=== PATIENT | male | born 1945 | race Caucasian/White ===

== ENCOUNTER 2018-09-17 16:45 | Emergency (ER) | payer OTHER ==
[2018-09-17 16:54] VITALS: BP 138/74; PULSE 71; TEMP 98.4; BMI 33.6
--- NOTE | 2018-09-17 16:56 | PDOC ---
Rapid Medical Evaluation Medical Evaluation: Allergies Allergy/AdvReac Type Severity Reaction Status Date / Time Algisite Allergy Uncoded 09/17/18 16:49 09/17/18 16:50 Pt presents to the ED for a wound to the L foot that is now infected. PMHx of NIDDM. Follows with Dr. Forde Exam: ambulatory, NAD Orders: Labs, IV Pt to proceed to the ED for further evaluation Discharge Disposition - Diagnosis Wound infection - Referrals - Patient Instructions - Post Discharge Activity
--- NOTE | 2018-09-17 17:27 | PDOC ---
History of Present Illness - General Chief Complaint: Pain Stated Complaint: PAIN IN THE RIGHT MUDDLE FINGER Time Seen by Provider: 09/17/18 16:56 History Source: Patient Exam Limitations: No Limitations - History of Present Illness Initial Comments: 09/17/18 17:22 States had a hangnail last week to right third digit that was excised but since that time has developed an infection to the fingertip. Has been soaking but infection is spread. 09/17/18 17:22 Occurred: reports: last week Severity: reports: mild, moderate Pain Location: reports: upper extremity Modifying Factors: improves with: None Loss of Consciousness: no loss of consciousness Associated Symptoms (Fall): denies symptoms Past History - Travel Traveled outside of the country in the last 30 days: No Close contact w/someone who was outside of country & ill: No - Past Medical History Allergies/Adverse Reactions: Allergies Allergy/AdvReac Type Severity Reaction Status Date / Time Algisite Allergy Uncoded 09/17/18 16:49 Home Medications: Ambulatory Orders Aspirin [ASA -] 81 mg PO DAILY #0 tab.chew 04/27/13 Carvedilol [Coreg] 6.25 mg PO BID #0 tablet 04/27/13 Losartan Potassium [Cozaar -] 25 mg PO DAILY #0 tablet 04/27/13 Multivitamin [Multivitamins] 1 each PO DAILY #0 capsule 04/27/13 Potassium Chloride [K-Dur -] 10 meq PO BID #0 tablet.er 04/27/13 Sitagliptin Phos/Metformin HCl [Janumet 50-1,000 mg Tablet] 1 tab PO DAILY 09/16 Fenofibrate [Fenoglide] 1 cap PO DAILY 03/24/14 Testosterone [Axiron] 30 mg TD HS 03/30/15 Atorvastatin Ca [Lipitor] 10 mg PO DAILY 09/07/15 Fluticasone Prop 0.05% Nasal [Flonase -] 1 mg IH DAILY 09/07/15 metFORMIN HCL [Metformin ER Osmotic] 1,000 mg PO HS 09/07/15 Furosemide [Lasix -] 40 mg PO DAILY 09/20/15 Omeprazole [Prilosec] 40 mg PO DAILY 09/20/15 Oxybutynin Chloride [Ditropan Xl] 10 mg PO DAILY 09/20/15 Cadexomer Iodine [Iodosorb] 10 gm TP DAILY #10 gel..gram. 03/13/18 Meloxicam 15 mg PO DAILY 04/10/18 Sulfamethoxazole/Trimethoprim [Bactrim *Ds*] 1 each PO BID #14 tablet 09/17/18 Anemia: Yes Asthma: No Cancer: No Cardiac Disorders: Yes (PACEMAKER DEFIBULATOR - STENTS - [place] 2010) CVA: No COPD: No CHF: No Dementia: No Diabetes: Yes (Type 2) GI Disorders: Yes (TUBULAR ADENOMA POLYP) Disorders: Yes (BPH,KIDNEY STONES) HTN: Yes Hypercholesterolemia: Yes Liver Disease: No Seizures: No Thyroid Disease: No - Surgical History Abdominal Surgery: No Appendectomy: No Cardiac Surgery: No Cholecystectomy: No Lung Surgery: Yes (THORACOTOMY-FLUID REMOVED) Neurologic Surgery: No Orthopedic Surgery: No - Suicide/Smoking/Psychosocial Hx Smoking Status: No Smoking History: Former smoker Have you smoked in the past 12 months: No Number of Cigarettes Smoked Daily: 0 If you are a former smoker, when did you quit?: stopped 1979 Information on smoking cessation initiated: No Hx Alcohol Use: No Drug/Substance Use Hx: No Substance Use Type: None Hx Substance Use Treatment: No Review of Systems - Review of Systems Able to Perform ROS?: Yes Is the patient limited Malay proficient: Yes Constitutional: Yes: Symptoms Reported, See HPI, Malaise. No: Fever HEENTM: No: Symptoms Reported Respiratory: No: Symptoms reported Musculoskeletal: Yes: Symptoms Reported, See HPI Integumentary: Yes: Symptoms Reported, See HPI, Erythema Neurological: No: Symptoms reported All Other Systems: Reviewed and Negative *Physical Exam - Vital Signs Last Vital Signs Temp Pulse Resp BP Pulse Ox 98.4 F 71 19 138/74 98 09/17/18 16:50 09/17/18 16:50 09/17/18 16:50 09/17/18 16:50 09/17/18 16:50 - Physical Exam General Appearance: Yes: Nourished, Appropriately Dressed, Apparent Distress, Mild Distress HEENT: positive: BERNARD, Normal ENT Inspection, TMs Normal, Pharynx Normal Musculoskeletal: positive: Normal Inspection. negative: Decreased Range of Motion Extremity: positive: Normal Capillary Refill, Normal Range of Motion (FROM to finger with fluctuant paronychia to radial aspect of 3rd digit. ). negative: Normal Inspection Neurologic: positive: plate sensitizer II-XII NML intact, Fully Oriented, Alert, Normal Mood/ Affect, Normal Response, Motor Strength 5/5 Moderate Sedation - Procedure Monitoring Vital Signs: Procedure Monitoring Vital Signs Temperature 98.4 F 09/17/18 16:50 Pulse Rate 71 09/17/18 16:50 Respiratory Rate 09/17/18 16:50 Blood Pressure 138/74 09/17/18 16:50 O2 Sat by Pulse Oximetry (%) 98 09/17/18 16:50 Procedures - Incision and Drainage I&D Site: Right: Paronychia (3rd digit) Betadine cleansed: Yes Blade Size: 11 Dressing: Yes Progress Note - Progress Note Progress Note: Paronychia incised and drained, started on Bactrim *DC/Admit/Observation/Transfer Diagnosis at time of Disposition: Wound infection - Discharge Dispostion Disposition: HOME Condition at time of disposition: Stable Decision to Admit order: No - Referrals - Patient Instructions Printed Discharge Instructions: DI for Paronychia Additional Instructions: Rest, keep hand elevated Avoid heavy lifting or strenuous activity until healed Soak finger every 2-3 hours while awake for the next 2-3 days to keep continue to allow drainage Reapply bacitracin ointment and bulky dressing after each soaking May use ibuprofen or Tylenol for pain relief Bactrim 1 tab every 12 hours for 7 days Followup with private physician in one to 2 days for wound check as needed Return immediately to emergency department or private doctor's for worsening redness, swelling, pain, streaking Take all of antibiotics until completed - Post Discharge Activity
[2018-09-17] MEDS ORDERED: SULFAMETHOXAZOLE/TRIMETHOPRIM 800MG/160MG D.S. TABLET PO ONE (17:28)
[2018-09-17] MEDS ORDERED: SULFAMETHOXAZOLE/TRIMETHOPRIM 800MG/160MG D.S. TABLET ONE ×2 (17:38→17:43)
[2018-09-17] MEDS ORDERED: BACITRACIN 15 GM TUBE TOPICAL OINTMENT ONE (17:43)
== END 2018-09-17 18:42 | disposition home or self-care (01) ==
LOC: JERFT 16:45
PROC: 0J9K0ZZ Drainage of Left Hand Subcutaneous Tissue and Fascia, Open Approach (ICD-10-PCS; principal; 2018-09-17)
DX: L03.011 Cellulitis of right finger (principal)
CPT/HCPCS: 10060; 87070; 87186; 87205; 99282-25; G0463-25

== ENCOUNTER 2019-01-05 20:43 | Inpatient (IN) | payer OTHER ==
[2019-01-05] MEDS ORDERED: LACTATED RINGERS SOLUTION 1000 ML INFUS.BAG IV ONE ×2 (21:49→22:08)
[2019-01-05 21:55] LABS: BASO % 0.7 % (0-2.0); EOS % 1.9 % (0-4.5); HEMOGLOBIN 14.1 GM/dL (11.7-16.9); LYMPH % 10.9 % (8-40); MCH 29.4 pg (25.7-33.7); MCHC 32.8 g/dl (32.0-35.9); MEAN CELL VOLUME 89.6 fl (80-96); MEAN PLT VOLUME 8.6 fl (7.5-11.1); MONO % 12.6 % (3.8-10.2); NEUT % 73.9 % (42.8-82.8); PLATELET COUNT 106 K/MM3 (134-434); RDW 14.8 % (11.9-15.9); WHITE BLOOD COUNT 4.2 K/mm3 (4.0-10.0)
[2019-01-05] MEDS ORDERED: ACETAMINOPHEN 1000 MG/100 ML VIAL (NON FORMULARY) IVPB ONE (22:20)
[2019-01-05 22:22] LABS: VENOUS PC02 45.3 mmHg (41-51); VENOUS PH 7.43 (7.31-7.41)
[2019-01-05 22:24] LABS: VENOUS PO2 29.8 mmHg (30-40)
[2019-01-05 22:33] LABS: INR 1.19 (0.83-1.09); PROTHROMBIN TIME (PATIENT) 14.1 SEC (9.7-13.0)
[2019-01-05 22:36] LABS: ACTIVATED PTT 31.9 SECONDS (25.2-36.5)
[2019-01-05 22:37] LABS: ALK PHOS 95 U/L (45-117); ANION GAP 8 MMOL/L (8-16); BILIRUBIN,TOTAL 0.8 mg/dL (0.2-1); BLOOD UREA NITROGEN 22 mg/dL (7-18); CALCIUM 8.2 mg/dL (8.5-10.1); CHLORIDE 103 mmol/L (98-107); CO2 30 mmol/L (21-32); GLUCOSE,RANDOM 106 mg/dL (74-106); POTASSIUM 4.2 mmol/L (3.5-5.1); SGOT/AST 31 U/L (15-37); SGPT/ALT 17 U/L (13-61); SODIUM 141 mmol/L (136-145); TOT PROT 6.3 g/dl (6.4-8.2)
[2019-01-05] MEDS ORDERED: CEFEPIME 2 GM in DEXTROSE 5%-WATER 100 ML IVPB ONE (22:48)
--- NOTE | 2019-01-05 22:52 | PDOC ---
History of Present Illness - General Chief Complaint: Injury Stated Complaint: FALL Time Seen by Provider: 01/05/19 21:02 History Source: Patient, Family (Daughter contacted via telephone.) Exam Limitations: No Limitations - History of Present Illness Initial Comments: HPI: 73 y/o male BIBEMS to [facility] ER complaining of fall at home after feeling dizzy. Pt states he fell to the floor after his legs gave out because he felt dizzy after taking Codeine cough syrup. Per EMS report, the pt is actually taking multiple unknown cough medications. Pt endorses wet sounding cough and worsening shortness of breath for the past three days. States he has felt dizzy for nineteen thousand years but that it has become worse because of medication interactions with his diabetic cough syrup. Denies LOC, anterograde or retrograde amnesia. Endorses pain along the left side of his head, left side of his arm, and both legs. When asked the clarify, the pt is unable to detail whether the pain is new or always present. 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 Daughter reports pt has been feeling dizzy for two months. States he does not have a h/o of CHF, COPD, or other lung problems. States he lives along and is not . Has a home health aide that comes a few times a week. Is not sure of the identify of the female interviewed by EMS at the scene. PCP: Dr. Champion [employer] Glazer: Dr. Kathleen Medical Hx: - Diabetes - Defibrillator, unknown reason - SIDDHARTH on CPAP at night. - Poorly healing diabetic foot wounds bilaterally Review of Systems: In addition to that documented in the HPI above, the additional ROS was obtained : Constitutional: Denies fevers or chills Head: Denies vision changes ENMT: Denies sore throat CV: Denies chest pain Resp: Per HPI GI: Denies vomiting or diarrhea : Denies painful urination or hematuria MSK: Denies recent trauma Skin: Denies new rashes Neuro: Denies new numbness or tingling or weakness Endocrine: Denies polyuria Heme: Denies bruising Physical Examination: Constitutional: Adult male in no acute distress or obvious discomfort. Found semi-fowlers on hospital bed. Alert and oriented x4. Speech was non-labored, non -pressured. Head: Normocephalic. No obvious external signs of trauma. No periorbital ecchymosis or Battles sign. Eyes: Pupils 3mm and PERRL bilaterally. EOMI. Sclerae white. Conjunctiva moist and not injected. Ears: Hearing aids in place bilaterally. Hearing grossly intact. No hemotympanum. Nose: No nasal discharge. Throat: Oral cavity and pharynx normal. No inflammation, swelling, exudate, or lesions. Teeth and gingiva in good general condition. Neck: Supple, trachea is midline. Pt able to laterally rotate neck to left and right >45 degrees. No subjective C-spine tenderness or bony deformities. No step off. Cardiovascular / Chest: Regular rate and regular rhythm. No murmur, rubs, clicks , or gallops. Peripheral pulses: radial pulses full. Respiratory: Occasional wet sounding cough. Breathing mildly tachypneic. Equal chest rise and fall. Decreased breath sounds throughout bilateral lower faust. No stridor, no wheezing, no rhonchi. Gastrointestinal/ ABD: abdomen is soft, non-tender, non-distended. Pelvis stable without pain. Neuro: Alert and oriented. Moving all four extremities spontaneously. No nuchal rigidity. Skin: Warm and dry. No bruising, rashes, or other lesions. [place] wrap bandages in place on both lower extremities. Small amount of blood noted on posterior aspect of lower left leg bandage; taken down and revealed 10cm x 5cm wounds with devitalized tissue and surrounding area of erythema and warmth. Psych: Affect: appropriate. Mood: normal. MDM: *Reviewed vital signs, nursing notes, and prior visit documentation (if available). National Early Warning Score (NEWS) 2 RESULT SUMMARY: 6 points National Early Warning Score Medium risk INPUTS: Respiratory rate, breaths per minute > 2 = 21-24 Hypercapnic respiratory failure > 0 = No SpO? > 3 = ?91% Room air or supplemental O? > 0 = Room air Temperature > 1 = 38.1-39.0C (100.5-102.2F) Systolic BP, mmHg > 0 = 111-219 Pulse, beats per minute > 0 = 51-90 Consciousness > 0 = Alert 73 y/o male presenting after fall from dizziness. Febrile rectally. Hypoxic on room air, which improved with 2LPM of oxygen via nasal cannula. Vitals unremarkable for hypotension or tachycardia. Physical exam as described above. Suspect acutely worsening of dizziness is likely from codeine and/or other unknown cough medications (possible). Ordered head CT given unclear, unwitnessed fall and dizziness. Will evaluate for occult trauma. Concern for possible acutely worsening diabetic foot wound with surrounding cellulitis. Also concern for pneumonia. NEWS2 Score of 6. Ordered ED septic workup. Ordered Vancomycin and Cefepime for broad spectrum antibiotics. CBC unremarkable for leukocytosis or anemia. CMP unremarkable for significant electrolyte derangement. Lactic acid not elevated. CXR unremarkable for blunting of costophrenic angle or focal consolidation per ED. Radiology report pending. Low suspicion for pneumonia. Unsure of etiology of acute hypoxia requiring supplemental oxygen. 23:[address] Nunez. Verbally appraised of the pts HPI, ED course, and current plan of management. Will admit pt to med /surg for Dr. Hernandez. Requested ABG. Will f/u on pending head CT. Avery Chauhan M.D., PGY1 Emergency Medicine Resident Past History - Past Medical History Allergies/Adverse Reactions: Allergies Allergy/AdvReac Type Severity Reaction Status Date / Time No Known Drug Allergies Allergy Verified 01/05/19 23:32 Algisite Allergy Uncoded 01/05/19 21:57 Home Medications: Ambulatory Orders Aspirin [ASA -] 81 mg PO DAILY #0 tab.chew 04/27/13 Carvedilol [Coreg] 6.25 mg PO BID #0 tablet 04/27/13 Losartan Potassium [Cozaar -] 25 mg PO DAILY #0 tablet 04/27/13 Multivitamin [Multivitamins] 1 each PO DAILY #0 capsule 04/27/13 Potassium Chloride [K-Dur -] 10 meq PO BID #0 tablet.er 04/27/13 Sitagliptin Phos/Metformin HCl [Janumet 50-1,000 mg Tablet] 1 tab PO DAILY 09/16 Fenofibrate [Fenoglide] 1 cap PO DAILY 03/24/14 Testosterone [Axiron] 30 mg TD HS 03/30/15 Atorvastatin Ca [Lipitor] 10 mg PO DAILY 09/07/15 Fluticasone Prop 0.05% Nasal [Flonase -] 1 mg IH DAILY 09/07/15 metFORMIN HCL [Metformin ER Osmotic] 1,000 mg PO HS 09/07/15 Furosemide [Lasix -] 40 mg PO DAILY 09/20/15 Omeprazole [Prilosec] 40 mg PO DAILY 09/20/15 Oxybutynin Chloride [Ditropan Xl] 10 mg PO DAILY 09/20/15 Meloxicam 15 mg PO DAILY 04/10/18 Anemia: Yes Asthma: No Cancer: No Cardiac Disorders: Yes (PACEMAKER DEFIBULATOR - STENTS - [place] 2010) CVA: No COPD: Yes CHF: Yes Dementia: No Diabetes: Yes (Type 2) GI Disorders: Yes (TUBULAR ADENOMA POLYP) Disorders: Yes (BPH,KIDNEY STONES) HTN: Yes Hypercholesterolemia: Yes Liver Disease: No Seizures: No Thyroid Disease: No - Surgical History Abdominal Surgery: No Appendectomy: No Cardiac Surgery: No Cholecystectomy: No Lung Surgery: Yes (THORACOTOMY-FLUID REMOVED) Neurologic Surgery: No Orthopedic Surgery: No - Suicide/Smoking/Psychosocial Hx Smoking Status: No Smoking History: Former smoker Have you smoked in the past 12 months: No Number of Cigarettes Smoked Daily: 0 If you are a former smoker, when did you quit?: stopped 1979 Information on smoking cessation initiated: No Hx Alcohol Use: No Drug/Substance Use Hx: No Substance Use Type: None Hx Substance Use Treatment: No *Physical Exam - Vital Signs Last Vital Signs Temp Pulse Resp BP Pulse Ox 102.4 F H 88 20 127/78 91 L 01/05/19 21:27 01/05/19 22:19 01/05/19 22:19 01/05/19 22:19 01/05/19 22:19 ED Treatment Course - LABORATORY CBC & Chemistry Diagram: 01/05/19 21:27 01/05/19 21:27 - ADDITIONAL ORDERS Additional order review: Laboratory Results 01/05/19 01/05/19 01/05/19 22:10 22:10 21:27 PT with INR 14.10 H INR 1.19 H PTT (Actin FS) 31.9 VBG pH 7.43 H POC VBG pCO2 45.3 POC VBG pO2 29.8 L VBG HCO3 29.4 H VBG O2 Sat (Claudette) 53.0 L VBG Base Excess 4.7 H Sodium 141 Potassium 4.2 Chloride 103 Carbon Dioxide 30 Anion Gap 8 BUN 22 H Creatinine 1.0 Est GFR (CKD-EPI)AfAm 85.55 Est GFR (CKD-EPI)NonAf 73.82 Random Glucose 106 Calcium 8.2 L Total Bilirubin 0.8 AST 31 ALT 17 Alkaline Phosphatase 95 Creatine Kinase 72 Troponin I < 0.02 Total Protein 6.3 L Albumin 3.0 L 01/05/19 21:27 RBC 4.80 MCV 89.6 MCHC 32.8 RDW 14.8 MPV 8.6 Neutrophils % 73.9 Lymphocytes % 10.9 D Monocytes % 12.6 H Eosinophils % 1.9 Basophils % 0.7 - RADIOLOGY Radiology Studies Ordered: Category Date Time Status HEAD CT WITHOUT CONTRAST [CT] Stat CT Scan 01/05/19 21:31 Ordered CHEST X-RAY PORTABLE* [RAD] Stat Radiology 01/05/19 21:25 Taken *DC/Admit/Observation/Transfer Diagnosis at time of Disposition: Shortness of breath at rest, On supplemental oxygen therapy, Hypoxia, Dizziness of unknown cause, Fall in elderly patient, Diabetic ulcer of ankle, Wound infection - Discharge Dispostion Condition at time of disposition: Stable Decision to Admit order: Yes - Referrals Referrals: Amarjit Champion MD [Primary Care Provider] - - Patient Instructions - Post Discharge Activity
--- NOTE | 2019-01-05 23:02 | PDOC ---
Documentation entered by Siva Brunner SCRIBE, acting as scribe for Naz Camarillo MD. Naz Camarillo MD: This documentation has been prepared by the Kannan coon Daniel, SCRIBE, under my direction and personally reviewed by me in its entirety. I confirm that the documentation accurately reflects all work, treatment, procedures, and medical decision making performed by me. Attending Attestation - Resident Resident Name: ChauhanAvery - ED Attending Attestation I have performed the following: I have examined & evaluated the patient, The case was reviewed & discussed with the resident, I agree w/resident's findings & plan - HPI HPI: 01/05/19 21:39 The patient is a 73 year old male with a past medical history of HTN, diabetes, BPH, anemia, and SC s/p stents brought in today by EMS for evaluation s/p fall. The patient reports that he has been dizzy for awhile but it has been getting worse in the past few days. He also notes a cough that he has been taking robitussin for. Patient states that he fell today due to his dizziness and hit the left side of his head. He was unable to get up and his called EMS. Patient denies headache. Denies fever, chills. Denies chest pain, shortness of breath. Denies nausea, vomiting, diarrhea, abdominal pain. Allergies: algisite - Physicial Exam PE: 01/05/19 22:52 GENERAL: +febrile. +smells of urine. Awake, alert, and fully oriented, in no acute distress HEAD: No signs of trauma EYES: PERRLA, EOMI, sclera anicteric, conjunctiva clear ENT: Auricles normal inspection, hearing grossly normal, nares patent, oropharynx clear without exudates. Moist mucosa NECK: Normal ROM, supple, no lymphadenopathy, JVD, or masses LUNGS: +decreased breath sounds and rhonchi in left lower lobe. No wheezes, and no crackles HEART: Regular rate and rhythm, normal S1 and S2, no murmurs, rubs or gallops ABDOMEN: Soft, nontender, normoactive bowel sounds. No guarding, no rebound. No masses EXTREMITIES: Normal range of motion, no edema. No clubbing or cyanosis. No cords, erythema, or tenderness NEUROLOGICAL: Cranial nerves II through XII grossly intact. Normal speech, normal gait SKIN: +right lower extremity chronic skin changes. +cranial to the lateral malleolus there is a 6x4 inch skin ulcer with surrounding warmth and erythema that smells of pseudomonas redressed by us. Warm, Dry, normal turgor. - Medical Decision Making 01/05/19 23:01 Pt will be admitted for SOB and hypoxemia and likely pneumonia of the LLL. Pt will also be admitted for psudomonal infection of his right lateral distal leg and surrounding cellulitis 01/05/19 23:07 Pt's PMD Akira; admits to omid hines; hospitalist 01/05/19 23:08 Platelet count is low; monocytes high likely due to the chronic left leg wound. Pt has a pseudomonal infection with a bad cellilulitsis. He has a fever and he will be admitted. 01/06/19 00:11 Heart Score/ECG Review - ECG Intrepretation Rhythm: Regular Rhythm - [place]: Normal - P and [place] Prominent R with upright T in V1 (true posterior SC): No Delta Wave(s) Present: No WPW: No - QRS Increased Voltage: Precordial Leads Widened: IVCD Poor R Wave Progression: No Q Wave Present: No - ST and T Early Repolarization: No Non Specific ST-T Wave changes: No Flattened T Waves: No Prolonged Q-T Interval: No - ECG Impressions Normal ECG: No Non-specific ST Elevation: No Ischemic Changes: No Comment:: 01/06/19 00:56 nonspecific interventricular conduction delay.
[2019-01-05] MEDS ORDERED: VANCOMYCIN HCL 1,500 MG in DEXTROSE 5%-WATER - 500 ML IVPB ONE (23:45)
--- NOTE | 2019-01-06 00:07 | HP ---
CHIEF COMPLAINT: dizziness PCP: David HISTORY OF PRESENT ILLNESS: 73yo man poor historian c/o chronic dizziness, worse when he stands up. He also was c/o productive cough, fevers, chills, and some shortness of breath x1 day. Denied any obvious sick contacts or recent travels. 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 Family History: no Allergies No Known Drug Allergies Allergy (Verified 01/05/19 23:32) Algisite Allergy (Uncoded 01/05/19 21:57) HOME MEDICATIONS: Home Medications Medication Instructions Recorded Aspirin [ASA -] 81 mg PO DAILY #0 tab.chew 04/27/13 Carvedilol [Coreg] 6.25 mg PO BID #0 tablet 04/27/13 Losartan Potassium [Cozaar -] 25 mg PO DAILY #0 tablet 04/27/13 Multivitamin [Multivitamins] 1 each PO DAILY #0 capsule 04/27/13 Potassium Chloride [K-Dur -] 10 meq PO BID #0 tablet.er 04/27/13 Sitagliptin Phos/Metformin HCl 1 tab PO DAILY 09/16/13 [Janumet 50-1,000 mg Tablet] Fenofibrate [Fenoglide] 1 cap PO DAILY 03/24/14 Testosterone [Axiron] 30 mg TD HS 03/30/15 Atorvastatin Ca [Lipitor] 10 mg PO DAILY 09/07/15 Fluticasone Prop 0.05% Nasal 1 mg IH DAILY 09/07/15 [Flonase -] metFORMIN HCL [Metformin ER 1,000 mg PO HS 09/07/15 Osmotic] Furosemide [Lasix -] 40 mg PO DAILY 09/20/15 Omeprazole [Prilosec] 40 mg PO DAILY 09/20/15 Oxybutynin Chloride [Ditropan Xl] 10 mg PO DAILY 09/20/15 Meloxicam 15 mg PO DAILY 04/10/18 REVIEW OF SYSTEMS CONSTITUTIONAL: Absent: , diaphoresis, generalized weakness, malaise, loss of appetite, weight change present- fever, chills HEENT: Absent: rhinorrhea, nasal congestion, throat pain, throat swelling, difficulty swallowing, mouth swelling, ear pain, eye pain, visual changes CARDIOVASCULAR: Absent: chest pain, syncope, palpitations, irregular heart rate, lightheadedness , peripheral edema RESPIRATORY: Absent: orthopnea, wheezing, stridor, hemoptysis present- cough, shortness of breath, dyspnea with exertion, GASTROINTESTINAL: Absent: abdominal pain, abdominal distension, nausea, vomiting, diarrhea, constipation, melena, hematochezia GENITOURINARY: Absent: dysuria, frequency, urgency, hesitancy, hematuria, flank pain, genital pain MUSCULOSKELETAL: Absent: myalgia, arthralgia, joint swelling, back pain, neck pain SKIN: Absent: rash, itching, pallor HEMATOLOGIC/IMMUNOLOGIC: Absent: easy bleeding, easy bruising, lymphadenopathy, frequent infections ENDOCRINE: Absent: unexplained weight gain, unexplained weight loss, heat intolerance, cold intolerance NEUROLOGIC: Absent: headache, focal weakness or paresthesias, unsteady gait, seizure, mental status changes, bladder or bowel incontinence Present- dizziness, PSYCHIATRIC: Absent: anxiety, depression, suicidal or homicidal ideation, hallucinations. PHYSICAL EXAMINATION Vital Signs - 24 hr 01/05/19 01/05/19 01/05/19 21:04 21:25 21:27 Temperature 99.3 F 102.4 F H 102.4 F H Pulse Rate 86 88 84 Pulse Rate [ Apical] Respiratory 17 20 20 Rate Blood Pressure 141/70 160/90 Blood Pressure [Right Arm] O2 Sat by Pulse 94 L 98 Oximetry (%) 01/05/19 22:19 Temperature Pulse Rate Pulse Rate [ 88 Apical] Respiratory 20 Rate Blood Pressure Blood Pressure 127/78 [Right Arm] O2 Sat by Pulse 91 L Oximetry (%) GENERAL: Awake, alert, and fully oriented, in no acute distress. HEAD: Normal with no signs of trauma. EYES: Pupils equal, round and reactive to light, extraocular movements intact, sclera anicteric, conjunctiva clear. No lid lag. EARS, NOSE, THROAT: Ears normal, nares patent, oropharynx clear without exudates. Moist mucous membranes. NECK: Normal range of motion, supple without lymphadenopathy, JVD, or masses. LUNGS: Breath sounds equal, clear to auscultation bilaterally. No wheezes, and no crackles. No accessory muscle use. HEART: Regular rate and rhythm, normal S1 and S2 without murmur, rub or gallop. ABDOMEN: Soft, nontender, not distended, normoactive bowel sounds, no guarding, no rebound, no masses. MUSCULOSKELETAL: Normal range of motion at all joints. No bony deformities or tenderness. No CVA tenderness. UPPER EXTREMITIES: 2+ pulses, warm, well-perfused. No cyanosis. No clubbing. No peripheral edema. LOWER EXTREMITIES: b/l weeping venous stasis dermatitis, left leg stasis ulcer present- does not appear to be actively affected NEUROLOGICAL: Cranial nerves II-XII intact. Normal speech. PSYCHIATRIC: Cooperative. Good eye contact. Appropriate mood and affect. SKIN: Warm, dry, normal turgor, LE venous stasis changes Laboratory Results - last 24 hr 01/05/19 01/05/19 01/05/19 21:27 21:27 22:10 WBC 4.2 RBC 4.80 Hgb 14.1 Hct 43.0 MCV 89.6 MCH 29.4 MCHC 32.8 RDW 14.8 Plt Count 106 L MPV 8.6 Absolute Neuts (auto) 3.1 Neutrophils % 73.9 Lymphocytes % 10.9 D Monocytes % 12.6 H Eosinophils % 1.9 Basophils % 0.7 Nucleated RBC % 0 PT with INR 14.10 H INR 1.19 H PTT (Actin FS) 31.9 VBG pH POC VBG pCO2 POC VBG pO2 VBG HCO3 VBG O2 Sat (Claudette) VBG Base Excess Sodium 141 Potassium 4.2 Chloride 103 Carbon Dioxide 30 Anion Gap 8 BUN 22 H Creatinine 1.0 Est GFR (CKD-EPI)AfAm 85.55 Est GFR (CKD-EPI)NonAf 73.82 Random Glucose 106 Lactic Acid Calcium 8.2 L Total Bilirubin 0.8 AST 31 ALT 17 Alkaline Phosphatase 95 Creatine Kinase 72 Troponin I < 0.02 Total Protein 6.3 L Albumin 3.0 L 01/05/19 01/05/19 22:10 22:10 WBC RBC Hgb Hct MCV MCH MCHC RDW Plt Count MPV Absolute Neuts (auto) Neutrophils % Lymphocytes % Monocytes % Eosinophils % Basophils % Nucleated RBC % PT with INR INR PTT (Actin FS) VBG pH 7.43 H POC VBG pCO2 45.3 POC VBG pO2 29.8 L VBG HCO3 29.4 H VBG O2 Sat (Claudette) 53.0 L VBG Base Excess 4.7 H Sodium Potassium Chloride Carbon Dioxide Anion Gap BUN Creatinine Est GFR (CKD-EPI)AfAm Est GFR (CKD-EPI)NonAf Random Glucose Lactic Acid 1.2 Calcium Total Bilirubin AST ALT Alkaline Phosphatase Creatine Kinase Troponin I Total Protein Albumin CXR reviewed, ekg reviewed ASSESSMENT/PLAN: #Community acquired pneumonia. Productive cough, fever, hypoxia, b/l patchy infiltrates appreciated on cxr. S/p vancomycin, cefepime in ER. -admit to med/surg -blood cultures x2 -sputum culture -urine legionella ag -add azithromycin -ceftriaxone+ azithromycin -supplemental oxygen via nasal cannula #B/l Lower ext venous insufficiency, venous stasis ulcer in left lower ext- does not appear to be actively infected, however weeping fluid -elastic compression stocking -lower ext duplex b/l to r/o dvt -vascular surgery for wound care -echo #DIzziness - likely orthostatic hypotension- present upon patient rising from sitting to standing position -bed rest -fall precautions -check orthostatics #HTN -furosemide, carvedilol, losartan home dose #AICD- unsure when last interrogated -cardiology consult for AICD evaluation #DM - uncontrolled -novolog sliding scale -levemir 10units qhs -send a1c -diabetic diet -ASA -c/w lipitor 10mg daily #DVT ppx- heparin sc Visit type - Emergency Visit Emergency Visit: Yes ED Registration Date: 01/05/19 Care time: The patient presented to the Emergency Department on the above date and was hospitalized for further evaluation of their emergent condition. - New Patient This patient is new to me today: Yes Date on this admission: 01/06/19 - Critical Care Critical Care patient: No
[2019-01-06 01:09] LABS: ARTERIAL BLD GAS O2 SATURATION 98.4 % (95-98); ARTERIAL BLOOD GAS PCO2 39.4 mmHg (35-45); ARTERIAL BLOOD GAS PO2 109 mmHg (80-105); ARTERIAL BLOOD GAS pH 7.45 (7.35-7.45); CARBOXYHEMOGLOBIN 1.2 % (0-2)
[2019-01-06 01:10] LABS: ALLENS TEST POSITIVE
[2019-01-06 01:23] LABS: URINE APPEARANCE CLEAR; URINE BILIRUBIN SMALL (NEGATIVE); URINE COLOR DK YELLOW; URINE GLUCOSE (UA) NEGATIVE (NEGATIVE)
[2019-01-06 01:24] LABS: PH,URINE 5.5 (5.0-8.0); URINE KETONE NEGATIVE (NEGATIVE); URINE PROTEIN 30 (NEGATIVE)
[2019-01-06 01:25] LABS: URINE LEUK ESTERASE NEGATIVE (NEGATIVE); URINE NITRITE NEGATIVE (NEGATIVE)
[2019-01-06 01:27] LABS: URINE RBC 27 /hpf (0-4); URINE WBC 1 /hpf (0-5)
[2019-01-06 01:28] LABS: EPI CELLS 1 /HPF (0-5/HPF); URINE CRYSTALS 1 /hpf
[2019-01-06] MEDS ORDERED: AZITHROMYCIN IVPB 500 MG in DEXTROSE 5%-WATER - 250 ML IVPB ONE (02:24)
[2019-01-06] MEDS: LACTATED RINGERS SOLUTION 1,000 ML/1,000 ML INFUS.BAG IV SCH (03:35)
[2019-01-06] MEDS ORDERED: AZITHROMYCIN IVPB 500 MG/250 ML BAG IVPB ONE (04:02)
[2019-01-06] MEDS: INSULIN SLIDING SCALE (NOVOLOG) 1 VIAL SQ SCH ×4 (06:08→22:24)
[2019-01-06 07:00] LABS: HEMATOCRIT 41.9 % (35.4-49); HEMOGLOBIN 13.9 GM/dL (11.7-16.9); MCH 29.7 pg (25.7-33.7); MCHC 33.3 g/dl (32.0-35.9); MEAN CELL VOLUME 89.3 fl (80-96); MEAN PLT VOLUME 8.7 fl (7.5-11.1); PLATELET COUNT 112 K/MM3 (134-434); RBC 4.69 M/mm3 (4.00-5.60); RDW 14.9 % (11.9-15.9); WHITE BLOOD COUNT 4.9 K/mm3 (4.0-10.0)
[2019-01-06] MEDS ORDERED: INSULIN SLIDING SCALE (NOVOLOG) 1 VIAL SQ SCH (07:00)
[2019-01-06 07:34] LABS: ALBUMIN 2.9 g/dl (3.4-5.0); BILIRUBIN,TOTAL 0.8 mg/dL (0.2-1); CALCIUM 8.5 mg/dL (8.5-10.1); CREATININE 0.9 mg/dL (0.55-1.3); POTASSIUM 3.6 mmol/L (3.5-5.1); TOT PROT 6.1 g/dl (6.4-8.2)
[2019-01-06] MEDS ORDERED: FUROSEMIDE 40 MG TABLET (FP) PO SCH (10:00)
--- NOTE | 2019-01-06 10:31 | PN ---
Progress Note (short form) - Note Progress Note: coughing, denies shortness of bhavik Vital Signs - 24 hr 01/05/19 01/05/19 01/05/19 21:04 21:25 21:27 Temperature 99.3 F 102.4 F H 102.4 F H Pulse Rate 86 88 84 Pulse Rate [ Apical] Respiratory 17 20 20 Rate Blood Pressure 141/70 160/90 Blood Pressure [Right Arm] O2 Sat by Pulse 94 L 98 Oximetry (%) 01/05/19 01/06/19 01/06/19 22:19 00:01 01:15 Temperature 98.4 F Pulse Rate Pulse Rate [ 88 76 Apical] Respiratory 20 20 Rate Blood Pressure Blood Pressure 127/78 112/68 [Right Arm] O2 Sat by Pulse 91 L 97 97 Oximetry (%) 01/06/19 01/06/19 01/06/19 04:00 08:42 12:00 Temperature 98.2 F 98.2 F Pulse Rate Pulse Rate [ 68 64 Apical] Respiratory 16 18 Rate Blood Pressure Blood Pressure 145/98 150/109 H [Right Arm] O2 Sat by Pulse 99 99 98 Oximetry (%) 01/06/19 01/06/19 12:30 13:00 Temperature 98.1 F Pulse Rate 68 72 Pulse Rate [ Apical] Respiratory 18 18 Rate Blood Pressure 146/70 148/100 Blood Pressure [Right Arm] O2 Sat by Pulse Oximetry (%) Current Medications Generic Name Dose Route Start Last Admin Trade Name Freq PRN Reason Stop Dose Admin Acetaminophen 650 mg 01/06/19 02:57 Tylenol - PO Q4H PRN FEVER Aspirin 81 mg 01/06/19 10:00 01/06/19 12:31 Asa - PO 81 mg DAILY JAZMYNE Administration Atorvastatin Calcium 10 mg 01/06/19 22:00 Lipitor - PO HS JAZMYNE Carvedilol 6.25 mg 01/06/19 10:00 01/06/19 12:32 Coreg - PO 6.25 mg BID JAZMYNE Administration Fluticasone Propionate 1 spray 01/06/19 10:00 Flonase - NS DAILY JAZMYNE Furosemide 40 mg 01/06/19 10:00 01/06/19 12:31 Lasix - PO 40 mg DAILY JAZMYNE Administration Heparin Sodium (Porcine) 5,000 unit 01/06/19 10:00 01/06/19 12:32 Heparin - SQ 5,000 unit BID JAZMYNE Administration Lactated Ringer's 1,000 ml in 1,000 mls @ 50 mls/hr 01/05/19 23:30 01/06/19 03:35 Lactated Ringers Solution IV 50 mls/hr ASDIR JAZMYNE Administration Azithromycin 250 mg/ Dextrose 250 mls @ 250 mls/hr 01/06/19 22:00 IVPB DAILY JAZMYNE Ceftriaxone Sodium 1 gm/ 50 mls @ 100 mls/hr 01/06/19 10:00 01/06/19 12:32 Dextrose IVPB 100 mls/hr DAILY JAZMYNE Administration Protocol Insulin Aspart 1 vial 01/06/19 07:00 01/06/19 12:33 Novolog Vial Sliding Scale - SQ Not Given ACHS JAZMYNE Protocol Insulin Detemir 10 units 01/06/19 22:00 Levemir Vial SQ HS JAZMYNE Losartan Potassium 25 mg 01/06/19 10:00 01/06/19 12:32 Cozaar - PO 25 mg DAILY JAZMYNE Administration Multivitamins/Minerals/Vitamin C 1 tab 01/06/19 10:00 01/06/19 12:31 Tab-A-Vit - PO 1 tab DAILY JAZMYNE Administration Non-Formulary Medication 1 cap 01/06/19 10:00 Fenofibrate [Fenoglide] PO DAILY JAZMYNE Pantoprazole Sodium 40 mg 01/06/19 10:00 01/06/19 12:31 Protonix - PO 40 mg DAILY JAZMYNE Administration Potassium Chloride 10 meq 01/06/19 10:00 01/06/19 12:32 K-Dur - PO 10 meq BID JAZMYNE Administration Laboratory Results - last 24 hr 01/05/19 01/05/19 01/05/19 21:27 21:27 22:10 WBC 4.2 RBC 4.80 Hgb 14.1 Hct 43.0 MCV 89.6 MCH 29.4 MCHC 32.8 RDW 14.8 Plt Count 106 L MPV 8.6 Absolute Neuts (auto) 3.1 Neutrophils % 73.9 Lymphocytes % 10.9 D Monocytes % 12.6 H Eosinophils % 1.9 Basophils % 0.7 Nucleated RBC % 0 PT with INR 14.10 H INR 1.19 H PTT (Actin FS) 31.9 Anticoagulation Therapy Puncture Site ABG pH ABG pCO2 at Pt Temp ABG pO2 at Pt Temp ABG HCO3 ABG O2 Sat (Measured) ABG O2 Content ABG Base Excess Mendez Test VBG pH POC VBG pCO2 POC VBG pO2 VBG HCO3 VBG O2 Sat (Claudette) VBG Base Excess Carboxyhemoglobin Methemoglobin O2 Delivery Device Oxygen Flow Rate Vent Mode Vent Rate Mechanical Rate Pressure Support Vent Sodium 141 Potassium 4.2 Chloride 103 Carbon Dioxide 30 Anion Gap 8 BUN 22 H Creatinine 1.0 Est GFR (CKD-EPI)AfAm 85.55 Est GFR (CKD-EPI)NonAf 73.82 POC Glucometer Random Glucose 106 Lactic Acid Calcium 8.2 L Total Bilirubin 0.8 AST 31 ALT 17 Alkaline Phosphatase 95 Creatine Kinase 72 Troponin I < 0.02 Total Protein 6.3 L Albumin 3.0 L Urine Color Urine Appearance Urine pH Ur Specific Finley Urine Protein Urine Glucose (UA) Urine Ketones Urine Blood Urine Nitrite Urine Bilirubin Urine Urobilinogen Ur Leukocyte Esterase Urine WBC (Auto) Urine RBC (Auto) U Epithel Cells (Auto) Urine Crystals (Auto) 01/05/19 01/05/19 01/06/19 22:10 22:10 00:18 WBC RBC Hgb Hct MCV MCH MCHC RDW Plt Count MPV Absolute Neuts (auto) Neutrophils % Lymphocytes % Monocytes % Eosinophils % Basophils % Nucleated RBC % PT with INR INR PTT (Actin FS) Anticoagulation Therapy No Result Required. Puncture Site Left radial ABG pH 7.45 ABG pCO2 at Pt Temp 39.4 ABG pO2 at Pt Temp 109 H ABG HCO3 26.8 ABG O2 Sat (Measured) 98.4 H ABG O2 Content 18.5 ABG Base Excess 3.0 H Mendez Test Positive VBG pH 7.43 H POC VBG pCO2 45.3 POC VBG pO2 29.8 L VBG HCO3 29.4 H VBG O2 Sat (Claudette) 53.0 L VBG Base Excess 4.7 H Carboxyhemoglobin 1.2 Methemoglobin 0.5 O2 Delivery Device N/c Oxygen Flow Rate 2l Vent Mode No Result Required. Vent Rate No Result Required. Mechanical Rate No Result Required. Pressure Support Vent No Result Required. Sodium Potassium Chloride Carbon Dioxide Anion Gap BUN Creatinine Est GFR (CKD-EPI)AfAm Est GFR (CKD-EPI)NonAf POC Glucometer Random Glucose Lactic Acid 1.2 Calcium Total Bilirubin AST ALT Alkaline Phosphatase Creatine Kinase Troponin I Total Protein Albumin Urine Color Urine Appearance Urine pH Ur Specific Finley Urine Protein Urine Glucose (UA) Urine Ketones Urine Blood Urine Nitrite Urine Bilirubin Urine Urobilinogen Ur Leukocyte Esterase Urine WBC (Auto) Urine RBC (Auto) U Epithel Cells (Auto) Urine Crystals (Auto) 01/06/19 01/06/19 01/06/19 00:30 01:20 05:56 WBC RBC Hgb Hct MCV MCH MCHC RDW Plt Count MPV Absolute Neuts (auto) Neutrophils % Lymphocytes % Monocytes % Eosinophils % Basophils % Nucleated RBC % PT with INR INR PTT (Actin FS) Anticoagulation Therapy Puncture Site ABG pH ABG pCO2 at Pt Temp ABG pO2 at Pt Temp ABG HCO3 ABG O2 Sat (Measured) ABG O2 Content ABG Base Excess Mendez Test VBG pH POC VBG pCO2 POC VBG pO2 VBG HCO3 VBG O2 Sat (Claudette) VBG Base Excess Carboxyhemoglobin Methemoglobin O2 Delivery Device Oxygen Flow Rate Vent Mode Vent Rate Mechanical Rate Pressure Support Vent Sodium Potassium Chloride Carbon Dioxide Anion Gap BUN Creatinine Est GFR (CKD-EPI)AfAm Est GFR (CKD-EPI)NonAf POC Glucometer 82 Random Glucose Lactic Acid 0.7 Calcium Total Bilirubin AST ALT Alkaline Phosphatase Creatine Kinase Troponin I Total Protein Albumin Urine Color Dk yellow Urine Appearance Clear Urine pH 5.5 Ur Specific [place] 1.022 Urine Protein 30 Urine Glucose (UA) Negative Urine Ketones Negative Urine Blood 1+ H Urine Nitrite Negative Urine Bilirubin Small Urine Urobilinogen 2.0 Ur Leukocyte Esterase Negative Urine WBC (Auto) 1 Urine RBC (Auto) 27 U Epithel Cells (Auto) 1 Urine Crystals (Auto) 1 01/06/19 01/06/19 01/06/19 06:19 06:19 12:19 WBC 4.9 RBC 4.69 Hgb 13.9 Hct 41.9 MCV 89.3 MCH 29.7 MCHC 33.3 RDW 14.9 Plt Count 112 L MPV 8.7 Absolute Neuts (auto) Neutrophils % Lymphocytes % Monocytes % Eosinophils % Basophils % Nucleated RBC % PT with INR INR PTT (Actin FS) Anticoagulation Therapy Puncture Site ABG pH ABG pCO2 at Pt Temp ABG pO2 at Pt Temp ABG HCO3 ABG O2 Sat (Measured) ABG O2 Content ABG Base Excess Mendez Test VBG pH POC VBG pCO2 POC VBG pO2 VBG HCO3 VBG O2 Sat (Claudette) VBG Base Excess Carboxyhemoglobin Methemoglobin O2 Delivery Device Oxygen Flow Rate Vent Mode Vent Rate Mechanical Rate Pressure Support Vent Sodium 141 Potassium 3.6 Chloride 107 Carbon Dioxide 29 Anion Gap 4 L BUN 19 H Creatinine 0.9 Est GFR (CKD-EPI)AfAm 97.17 Est GFR (CKD-EPI)NonAf 83.84 POC Glucometer 94 Random Glucose 72 L Lactic Acid Calcium 8.5 Total Bilirubin 0.8 AST 27 ALT 17 Alkaline Phosphatase 94 Creatine Kinase Troponin I Total Protein 6.1 L Albumin 2.9 L Urine Color Urine Appearance Urine pH Ur Specific [place] Urine Protein Urine Glucose (UA) Urine Ketones Urine Blood Urine Nitrite Urine Bilirubin Urine Urobilinogen Ur Leukocyte Esterase Urine WBC (Auto) Urine RBC (Auto) U Epithel Cells (Auto) Urine Crystals (Auto) heart sounds regular Lungsrhonchi Abdomen soft, nontender Extremitieschronic venous changes plan Check urine antigens Wound care evaluation IV antibiotics Continue with meds Problem List - Problems (1) Coronary artery disease Code(s): I25.10 - ATHSCL HEART DISEASE OF [place] CORONARY ARTERY W/O ANG PCTRS Qualifiers: Coronary Disease-Associated Artery/Lesion type: [place] artery [place] vs. transplanted heart: [place] heart Associated angina: without angina Qualified Code(s): I25.10 - Atherosclerotic heart disease of [place] coronary artery without angina pectoris (2) Diabetic ulcer of ankle Code(s): E11.622 - TYPE 2 DIABETES MELLITUS WITH OTHER SKIN ULCER; L97.309 - NON -PRESSURE CHRONIC ULCER OF UNSP ANKLE WITH UNSP SEVERITY (3) Hyperlipidemia Code(s): E78.5 - HYPERLIPIDEMIA, UNSPECIFIED Qualifiers: Hyperlipidemia type: pure hypercholesterolemia Qualified Code(s): E78.00 - Pure hypercholesterolemia, unspecified; E78.0 - Pure hypercholesterolemia
--- NOTE | 2019-01-06 11:23 | EKG ---
Test Reason : Blood Pressure : / mmHG Vent. Rate : 085 BPM Atrial Rate : 085 BPM P-R Int : 150 ms QRS Dur : 140 ms QT Int : 384 ms P-R-T Axes : 029 -73 063 degrees QTc Int : 456 ms SINUS RHYTHM WITH PREMATURE SUPRAVENTRICULAR COMPLEXES LEFT AXIS DEVIATION RIGHT BUNDLE BRANCH BLOCK LEFT VENTRICULAR HYPERTROPHY WITH REPOLARIZATION ABNORMALITY CANNOT RULE OUT SEPTAL INFARCT (CITED ON OR BEFORE 22-APR-2013) ABNORMAL ECG WHEN COMPARED WITH ECG OF 22-APR-2013 17:49, PREMATURE SUPRAVENTRICULAR COMPLEXES ARE NOW PRESENT RIGHT BUNDLE BRANCH BLOCK IS NOW PRESENT QUESTIONABLE CHANGE IN INITIAL FORCES OF ANTEROSEPTAL LEADS Confirmed by TUAN NAVA MD ([id number]) on 01/06/2019 11:22:39 AM Referred By: Confirmed By:TUAN NAVA MD
--- NOTE | 2019-01-06 12:27 | CON.CARD ---
Consult Consult Specialty:: Cardiology Referred by:: Marce Gamino MD Reason for Consultation:: Positional dizziness - History of Present Illness Chief Complaint: Positional dizziness History of Present Illness: 73 yo WM h/o CAD s/p ND, PCI (stent), angina pectoris at [facility] 11/12/2010, cardiomyopathy s/p ICD now with improved LV systolic fxn, HTN, chol, Type 2 DM, hyperlipidemia, left venous stasis ulcers treated at wound care, limited exercise capacity using cane assistance last visit 07/17/2018, presents for positional dizziness and fall, denies chest pain, dyspnea, palpitations, true syncope, orthopnea, PND or LE edema. Previously complained of positional dizziness that resolved after d/c Myrbetriq and oxycodone. - History Source History Provided By: Patient Limitations to Obtaining History: No Limitations - Alcohol/Substance Use Hx Alcohol Use: No - Smoking History Smoking history: Former smoker Have you smoked in the past 12 months: No Aproximately how many cigarettes per day: 0 If you are a former smoker, when did you quit?: stopped 1979 Home Medications - Allergies Allergies/Adverse Reactions: Allergies Allergy/AdvReac Type Severity Reaction Status Date / Time No Known Drug Allergies Allergy Verified 01/05/19 23:32 Algisite Allergy Uncoded 01/05/19 21:57 - Home Medications Home Medications: Ambulatory Orders Aspirin [ASA -] 81 mg PO DAILY #0 tab.chew 04/27/13 Losartan Potassium [Cozaar -] 25 mg PO DAILY #0 tablet 04/27/13 Multivitamin [Multivitamins] 1 each PO DAILY #0 capsule 04/27/13 Potassium Chloride [K-Dur -] 10 meq PO BID #0 tablet.er 04/27/13 Sitagliptin Phos/Metformin HCl [Janumet 50-1,000 mg Tablet] 1 tab PO DAILY 09/16 Testosterone [Axiron] 30 mg TD HS 03/30/15 Atorvastatin Ca [Lipitor] 10 mg PO DAILY 09/07/15 Fluticasone Prop 0.05% Nasal [Flonase -] 1 mg IH DAILY 09/07/15 metFORMIN HCL [Metformin ER Osmotic] 1,000 mg PO HS 09/07/15 Furosemide [Lasix -] 20 mg PO DAILY 09/20/15 Omeprazole [Prilosec] 40 mg PO DAILY 09/20/15 Oxybutynin Chloride [Ditropan Xl] 10 mg PO DAILY 09/20/15 Meloxicam 15 mg PO DAILY 04/10/18 Carvedilol [Coreg -] 3.125 mg PO BID 01/06/19 Glipizide [Glipizide ER] 10 mg PO DAILY 01/06/19 Review of Systems - Review of Systems Neurological: reports: Dizziness Vital Signs: Vital Signs Temperature 98.2 F 01/06/19 08:42 Pulse Rate 64 01/06/19 08:42 Respiratory Rate 18 01/06/19 08:42 Blood Pressure 150/109 H 01/06/19 08:42 O2 Sat by Pulse Oximetry (%) 99 01/06/19 08:42 Constitutional: Yes: No Distress, Calm Neck: Yes: Supple Respiratory: Yes: Regular, CTA Bilaterally Gastrointestinal: Yes: Normal Bowel Sounds, Soft Cardiovascular: Yes: Regular Rate and Rhythm JVD: No Carotid Bruit: No Heart Sounds: Yes: S1, S2 Edema: Yes Edema: LLE: Trace, RLE: Trace Integumentary: Yes: Venous Stasis Changes - Other Data Labs, Other Data: CBC, BMP 01/06/19 06:19 01/06/19 06:19 INR, PTT INR 1.19 (0.83-1.09) H 01/05/19 22:10 Troponin, BNP 01/05/19 21:27 Troponin I < 0.02 Troponin, BNP 01/05/19 21:27 Troponin I < 0.02 SR, LBBB, PAC similar to previous 07/23/2018 Ejection Fraction %: LVEF > or = 40 % Problem List - Problems (1) Status post insertion of drug-eluting stent into left anterior descending ( LAD) artery Code(s): Z95.5 - PRESENCE OF CORONARY ANGIOPLASTY IMPLANT AND GRAFT (2) Hyperlipidemia Code(s): E78.5 - HYPERLIPIDEMIA, UNSPECIFIED Qualifiers: Hyperlipidemia type: pure hypercholesterolemia Qualified Code(s): E78.00 - Pure hypercholesterolemia, unspecified; E78.0 - Pure hypercholesterolemia (3) ICD (implantable cardioverter-defibrillator) in place Code(s): Z95.810 - PRESENCE OF AUTOMATIC (IMPLANTABLE) CARDIAC DEFIBRILLATOR (4) Coronary artery disease Code(s): I25.10 - ATHSCL HEART DISEASE OF [place] CORONARY ARTERY W/O ANG PCTRS Qualifiers: Coronary Disease-Associated Artery/Lesion type: [place] artery [place] vs. transplanted heart: [place] heart Associated angina: without angina Qualified Code(s): I25.10 - Atherosclerotic heart disease of [place] coronary artery without angina pectoris (5) H/O myocardial infarction, greater than 8 weeks Code(s): I25.2 - OLD MYOCARDIAL INFARCTION (6) Dizziness of unknown cause Code(s): R42 - DIZZINESS AND GIDDINESS (7) Fall in elderly patient Code(s): R29.6 - REPEATED FALLS (8) Venous stasis ulcer limited to breakdown of skin with varicose veins Code(s): I83.009 - VARICOSE VEINS OF UN[place] LOWER EXTREMITY W ULCER OF UNSP SITE; L97.909 - NON-PRS CHRONIC ULC [place] PRT OF UNSP LOW LEG W UNSP SEVERITY Qualifiers: Assessment/Plan 01/06/2019 Echo: Normal LV size with mild cLVH normal LV fxn, normal RV fxn, pacemaker in RV, mod TR RVSP 34 mmHg, mild MR 1. Positional near syncope 2. CAD s/p ND, PCI (stent), angina pectoris 3. LV systolic dysfunction s/p ICD since improved 4. HTN 5. Hyperlipidemia 6. venous insufficiency with stasis ulcers 7. OSAS not on cpap P:1. Check orthostatic VS 2. Decrease Lasix 20 qd, continue ASA 81 qd, Lipitor 10 qd, Lovaza 2 bid, carvedilol 6.25 bid, losartan 25 qd as hemodynamics tolerate 3. ICD last interrogated 09/10/2018 showing 1% RV pacing, battery lige 6 years, 4 episodes of NSVT, no therapies 4. Thank you for consultative opportunity
[2019-01-06] MEDS ORDERED: cefTRIAXone SODIUM 1 GM VIAL ONE (12:29)
[2019-01-06] MEDS ORDERED: DEXTROSE 5%-WATER - 50 ML IVPB ONE (12:29)
[2019-01-06] MEDS: MULTIVITAMINS (DAILY MVI) TABLET (FP) PO SCH (12:31)
[2019-01-06] MEDS: PANTOPRAZOLE 40 MG TABLET (FP) PO SCH (12:31)
[2019-01-06] MEDS: ASPIRIN 81 MG CHEWABLE TABLETS PO SCH (12:31)
[2019-01-06] MEDS: CEFTRIAXONE 1 GM in DEXTROSE 5%-WATER - 50 ML IVPB SCH (12:32)
[2019-01-06] MEDS: LOSARTAN POTASSIUM 25 MG TABLET PO SCH (12:32)
[2019-01-06] MEDS: CARVEDILOL 6.25 MG TABLET (FP) PO SCH ×2 (12:32→22:11)
[2019-01-06] MEDS: POTASSIUM CHLORIDE TABS 10 MEQ TABLET.ER (FP) PO SCH ×2 (12:32→22:11)
[2019-01-06] MEDS: HEPARIN NA (PORCINE) 5,000 UNITS/ML 1ML VIAL SQ SCH ×2 (12:32→22:11)
--- NOTE | 2019-01-06 12:35 | CONSULT ---
<Manjit Brizuela - Last Filed: 01/06/19 13:42> - Consultation REQUESTING PROVIDER: CONSULT REQUEST: We have been asked to surgically evaluate this patient for ( LLE venous stasis ulcer). PCP:Nicholas Hernandez HISTORY OF PRESENT ILLNESS: 73 y/o M w/ PMHx HTN, diabetes, BPH, anemia, and [place] w/ h/o cardiac stents admitted after being brought in by EMS after a fall caused by dizziness. Patient being treated for pneumonia. Vascular consulted for Left leg venous stasis ulcer. Patient poor historian, unable to focus on history of wound. Reports wound has been present for >3 years. Patient follows with Dr Forde in wound care, last seen a few weeks ago. States he is currently using Profore for dressing changes. Has not been on antibiotics recently for LE infection. Denies fever/chills, change in drainage, n/v/d, h/o dvt, prior history of RFA/vein stripping. Pt reports living home on his own with [employer] 5 days per week. Ambulates with walker, which has become difficult lately due to dizziness. PMHx: as above PSHx: pacemaker, cardiac stents Home Medications Medication Instructions Recorded Aspirin [ASA -] 81 mg PO DAILY #0 tab.chew 04/27/13 Losartan Potassium [Cozaar -] 25 mg PO DAILY #0 tablet 04/27/13 Multivitamin [Multivitamins] 1 each PO DAILY #0 capsule 04/27/13 Potassium Chloride [K-Dur -] 10 meq PO BID #0 tablet.er 04/27/13 Sitagliptin Phos/Metformin HCl 1 tab PO DAILY 09/16/13 [Janumet 50-1,000 mg Tablet] Testosterone [Axiron] 30 mg TD HS 03/30/15 Atorvastatin Ca [Lipitor] 10 mg PO DAILY 09/07/15 Fluticasone Prop 0.05% Nasal 1 mg IH DAILY 09/07/15 [Flonase -] metFORMIN HCL [Metformin ER 1,000 mg PO HS 09/07/15 Osmotic] Furosemide [Lasix -] 20 mg PO DAILY 09/20/15 Omeprazole [Prilosec] 40 mg PO DAILY 09/20/15 Oxybutynin Chloride [Ditropan Xl] 10 mg PO DAILY 09/20/15 Meloxicam 15 mg PO DAILY 04/10/18 Carvedilol [Coreg -] 3.125 mg PO BID 01/06/19 Glipizide [Glipizide ER] 10 mg PO DAILY 01/06/19 Allergies Allergy/AdvReac Type Severity Reaction Status Date / Time No Known Drug Allergies Allergy Verified 01/05/19 23:32 Algisite Allergy Uncoded 01/05/19 21:57 REVIEW OF SYSTEMS: CONSTITUTIONAL: Absent: fever, chills CARDIOVASCULAR: Absent: chest pain RESPIRATORY: + cough GASTROINTESTINAL: Absent: abdominal pain PHYSICAL EXAM: GENERAL: Awake, alert, and fully oriented, in no acute distress. HEAD: Normal with no signs of trauma. LOWER EXTREMITIES: RLE with compression sock in place, trace edema. No open wounds, chronic skin changes. LLE with 1+ pitting edema to mid calf. LLE with 9x3.5x1.5cm ulcer at lateral aspect of calf. Wound bed with fibrinous exudate centrally, surrounding edges proximally and distally with some necrosis of skin edges (moreso on distal aspect). Granulation tissue present surrounding area of fibrinous exudate. Minimal periwound erythema (?chronic skin changes) no foul odor, no ttp. Vasc: palable dp b/l, unable to appreciate PT secondary to edema/hypertrophic skin changes. Vital Signs Temperature 98.2 F 01/06/19 08:42 Pulse Rate 64 01/06/19 08:42 Respiratory Rate 18 01/06/19 08:42 Blood Pressure 150/109 H 01/06/19 08:42 O2 Sat by Pulse Oximetry (%) 99 01/06/19 08:42 Lab Results WBC 4.9 K/mm3 (4.0-10.0) 01/06/19 06:19 RBC 4.69 M/mm3 (4.00-5.60) 01/06/19 06:19 Hgb 13.9 GM/dL (11.7-16.9) 01/06/19 06:19 Hct 41.9 % (35.4-49) 01/06/19 06:19 MCV 89.3 fl (80-96) 01/06/19 06:19 MCHC 33.3 g/dl (32.0-35.9) 01/06/19 06:19 RDW 14.9 % (11.9-15.9) 01/06/19 06:19 Plt Count 112 K/MM3 (134-434) L 01/06/19 06:19 Sodium 141 mmol/L (136-145) 01/06/19 06:19 Potassium 3.6 mmol/L (3.5-5.1) 01/06/19 06:19 Chloride 107 mmol/L (98-107) 01/06/19 06:19 Carbon Dioxide 29 mmol/L (21-32) 01/06/19 06:19 Anion Gap 4 MMOL/L (8-16) L 01/06/19 06:19 BUN 19 mg/dL (7-18) H 01/06/19 06:19 Creatinine 0.9 mg/dL (0.55-1.3) 01/06/19 06:19 Random Glucose 72 mg/dL (74-106) L 01/06/19 06:19 Calcium 8.5 mg/dL (8.5-10.1) 01/06/19 06:19 INR 1.19 (0.83-1.09) H 01/05/19 22:10 Venous duplex (01/06/19): no dvt b/l les. A/P: 73 y/o M w/ PMHx HTN, diabetes, BPH, anemia, and [place] w/ h/o cardiac stents admitted after being brought in by EMS after a fall caused by dizziness. Patient being treated for pneumonia. Vascular consulted for Left leg venous stasis ulcer. Chronic Left lateral malleolus venous stasis ulcer with no clinical signs of infection. -Calcium alginate dressing changed every 2-3 days, cover with 4x4s and soledad wraps -Elevate b/l les above the level of the heart at all times while pt is at rest -Offloading to b/l heels while pt is at rest d/w attending Dr Forde <Nitish Forde - Last Filed: 01/07/19 08:41> - Consultation REQUESTING PROVIDER: CONSULT REQUEST: We have been asked to surgically evaluate this patient for ( specify). PCP:Nicholas Hernandez HISTORY OF PRESENT ILLNESS: PMHx: PSHx: Home Medications Medication Instructions Recorded Aspirin [ASA -] 81 mg PO DAILY #0 tab.chew 04/27/13 Losartan Potassium [Cozaar -] 25 mg PO DAILY #0 tablet 04/27/13 Multivitamin [Multivitamins] 1 each PO DAILY #0 capsule 04/27/13 Potassium Chloride [K-Dur -] 10 meq PO BID #0 tablet.er 04/27/13 Sitagliptin Phos/Metformin HCl 1 tab PO DAILY 09/16/13 [Janumet 50-1,000 mg Tablet] Testosterone [Axiron] 30 mg TD HS 03/30/15 Atorvastatin Ca [Lipitor] 10 mg PO DAILY 09/07/15 Fluticasone Prop 0.05% Nasal 1 mg IH DAILY 09/07/15 [Flonase -] metFORMIN HCL [Metformin ER 1,000 mg PO HS 09/07/15 Osmotic] Furosemide [Lasix -] 20 mg PO DAILY 09/20/15 Omeprazole [Prilosec] 40 mg PO DAILY 09/20/15 Oxybutynin Chloride [Ditropan Xl] 10 mg PO DAILY 09/20/15 Meloxicam 15 mg PO DAILY 04/10/18 Carvedilol [Coreg -] 3.125 mg PO BID 01/06/19 Glipizide [Glipizide ER] 10 mg PO DAILY 01/06/19 Allergies Allergy/AdvReac Type Severity Reaction Status Date / Time No Known Drug Allergies Allergy Verified 01/05/19 23:32 Algisite Allergy Uncoded 01/05/19 21:57 REVIEW OF SYSTEMS: CONSTITUTIONAL: Absent: fever, chills, diaphoresis, generalized weakness, malaise, loss of appetite, weight change CARDIOVASCULAR: Absent: chest pain, syncope, palpitations, irregular heart rate, lightheadedness , peripheral edema RESPIRATORY: Absent: cough, shortness of breath, dyspnea with exertion, wheezing, stridor, hemoptysis GASTROINTESTINAL: Absent: abdominal pain, abdominal distension, nausea, vomiting, diarrhea, constipation, melena, hematochezia GENITOURINARY: Absent: dysuria, frequency, urgency, hesitancy, hematuria, flank pain, genital pain MUSCULOSKELETAL: Absent: myalgia, arthralgia, joint swelling, back pain, neck pain SKIN: Absent: rash, itching, pallor HEMATOLOGIC/IMMUNOLOGIC: Absent: easy bleeding, easy bruising, lymphadenopathy NEUROLOGIC: Absent: headache, focal weakness, paresthesias, dizziness, unsteady gait, seizure, mental status changes, bladder or bowel incontinence PSYCHIATRIC: Absent: anxiety, depression, suicidal or homicidal ideation, hallucinations. PHYSICAL EXAM: GENERAL: Awake, alert, and fully oriented, in no acute distress. HEAD: Normal with no signs of trauma. EYES: PERRL, sclera anicteric, conjunctiva clear. NECK: Normal ROM, supple without lymphadenopathy, JVD, or masses. LUNGS: Clear to auscultation bilat anteriorly. No wheezes, and no crackles. No accessory muscle use. HEART: Regular rate and rhythm. No murmurs ABDOMEN: Soft, nontender, not distended, normoactive bowel sounds, no guarding, no rebound, no masses. No organomegaly. MUSCULOSKELETAL: Normal ROM at all joints. No bony deformities or tenderness. No CVA tenderness. UPPER EXTREMITIES: 2+ pulses, warm, well-perfused. No cyanosis. Cap refill <2 seconds. No peripheral edema. LOWER EXTREMITIES: 2+ pulses, warm, well-perfused. No calf tenderness. No peripheral edema. NEUROLOGICAL: Normal speech, gait not observed. PSYCH: Cooperative. Good eye contact. Appropriate mood and affect. SKIN: Warm, dry, normal turgor, no rashes or lesions noted. Vital Signs Temperature 98.6 F 01/07/19 06:00 Pulse Rate 58 L 01/07/19 06:00 Respiratory Rate 20 01/07/19 06:00 Blood Pressure 143/77 01/07/19 06:00 O2 Sat by Pulse Oximetry (%) 98 01/06/19 21:00 Lab Results WBC 4.9 K/mm3 (4.0-10.0) 01/06/19 06:19 RBC 4.69 M/mm3 (4.00-5.60) 01/06/19 06:19 Hgb 13.9 GM/dL (11.7-16.9) 01/06/19 06:19 Hct 41.9 % (35.4-49) 01/06/19 06:19 MCV 89.3 fl (80-96) 01/06/19 06:19 MCHC 33.3 g/dl (32.0-35.9) 01/06/19 06:19 RDW 14.9 % (11.9-15.9) 01/06/19 06:19 Plt Count 112 K/MM3 (134-434) L 01/06/19 06:19 Sodium 141 mmol/L (136-145) 06/03/19 06:19 Potassium 3.6 mmol/L (3.5-5.1) 01/06/19 06:19 Chloride 107 mmol/L (98-107) 01/06/19 06:19 Carbon Dioxide 29 mmol/L (21-32) 01/06/19 06:19 Anion Gap 4 MMOL/L (8-16) L 01/06/19 06:19 BUN 19 mg/dL (7-18) H 01/06/19 06:19 Creatinine 0.9 mg/dL (0.55-1.3) 01/06/19 06:19 Random Glucose 72 mg/dL (74-106) L 01/06/19 06:19 Calcium 8.5 mg/dL (8.5-10.1) 01/06/19 06:19 INR 1.19 (0.83-1.09) H 01/05/19 22:10 Patient followed in Wound Care for chronic stasis ulcer of left lower leg. He is admitted with Near syncope and pneumonia. Wound appears unchanged Continue with compression dressings. I will ask Wound Care Nurses to check on him.
--- NOTE | 2019-01-06 15:53 | ECHO ---
Name: BRADEN CASH Exam:Adult Echocardiogram Study Date: 01/06/2019 01:21 PM Age: 73 yrs Reason For Study: EVALUATE SYSTOLIC FUNCTION Height: 73 in Weight: 238 lb BSA: 2.3 m2 MMode/2D Measurements & Calculations IVSd: 1.3 cm Ao root diam: 4.0 cm LVIDd: 4.4 cm LA dimension: 3.2 cm LVIDs: 3.0 cm ACS: 1.8 cm LVPWd: 1.2 cm IVSs: 1.9 cm LVPWs: 1.6 cm EDV(Teich): 89.7 ml ESV(Teich): 35.8 ml Doppler Measurements & Calculations MV E max dwight: 56.0 cm/sec Ao V2 max: 142.3 cm/sec MV A max dwight: 57.5 cm/sec Ao max P.1 mmHg MV E/A: 0.97 Ao V2 mean: 109.1 cm/sec Ao mean P.1 mmHg Ao V2 VTI: 34.2 cm MR max dwight: 436.9 cm/sec TR max dwight: 268.0 cm/sec MR max P.3 mmHg TR max P.8 mmHg Med Peak E' Dwight: 6.2 cm/sec Med E/e': 9.0 Lat Peak E' Dwight: 7.3 cm/sec Lat E/e': 7.7 Procedure A complete two-dimensional transthoracic echocardiogram was performed (2D, M-mode, Doppler and color flow Doppler). The study was technically good with many images being of high quality. Left Ventricle The left ventricle is normal in size. There is mild concentric left ventricular hypertrophy. Left eliu tricular systolic function is normal. Ejection Fraction = 55-60%. No regional wall motion abnormalities noted. Right Ventricle The right ventricle is normal size. There is a pacemaker lead in the right ventricle. The right ventr icular systolic function is normal. Atria The left atrial size is normal. Right atrial size is normal. Mitral Valve There is mild mitral annular calcification. There is mild mitral regurgitation. Tricuspid Valve The tricuspid valve is normal in structure and function. There is moderate tricuspid regurgitation. P ulmonary artery systolic pressure is at least 34 mmHg if RA pressure is assummed 3 mmHg. Aortic Valve The aortic valve is normal in structure and function. No aortic regurgitation is present. Pulmonic Valve The pulmonic valve is not well visualized. Great Vessels The aortic root is normal size. Pericardium/Pleura There is no pericardial effusion. Interpretation Summary The left ventricle is normal in size. There is mild concentric left ventricular hypertrophy. Left ventricular systolic function is normal. No regional wall motion abnormalities noted. Ejection Fraction = 55-60%. The right ventricular systolic function is normal. There is a pacemaker lead in the right ventricle. The left atrial size is normal. Right atrial size is normal. There is mild mitral regurgitation. There is mild mitral annular calcification. There is moderate tricuspid regurgitation. Pulmonary artery systolic pressure is at least 34 mmHg if RA pressure is assummed 3 mmHg The aortic root is normal size. There is no pericardial effusion. Raffi Ayala MD 01/06/2019 03:53 PM
[2019-01-06] MEDS: FLUTICASONE PROP 0.05% 16 GM NASAL SPRAY NS SCH (17:40)
[2019-01-06] MEDS ORDERED: PT OWN MED DRAWER 7, Y5N ONE (21:21)
[2019-01-06] MEDS: ATORVASTATIN CA 10 MG TABLET (FP) PO SCH (22:11)
[2019-01-06] MEDS: AZITHROMYCIN IVPB 250 MG in DEXTROSE 5%-WATER - 250 ML IVPB SCH (22:12)
[2019-01-06] MEDS: INSULIN (LEVEMIR) 100 UNITS/ML UNITS SQ SCH (22:24)
[2019-01-07] MEDS: LACTATED RINGERS SOLUTION 1,000 ML/1,000 ML INFUS.BAG IV SCH (00:15)
[2019-01-07] MEDS: INSULIN SLIDING SCALE (NOVOLOG) 1 VIAL SQ SCH ×4 (06:39→22:39)
[2019-01-07] MEDS ORDERED: PT OWN MED DRAWER 7, Y5N ONE (10:24)
[2019-01-07] MEDS ORDERED: DEXTROSE 5%-WATER - 50 ML IVPB ONE (10:24)
[2019-01-07] MEDS ORDERED: cefTRIAXone SODIUM 1 GM VIAL ONE (10:24)
[2019-01-07] MEDS: CEFTRIAXONE 1 GM in DEXTROSE 5%-WATER - 50 ML IVPB SCH (10:36)
[2019-01-07] MEDS: ASPIRIN 81 MG CHEWABLE TABLETS PO SCH (10:37)
[2019-01-07] MEDS: POTASSIUM CHLORIDE TABS 10 MEQ TABLET.ER (FP) PO SCH ×2 (10:37→22:41)
[2019-01-07] MEDS: FUROSEMIDE 20 MG TABLET (FP) PO SCH (10:37)
[2019-01-07] MEDS: CARVEDILOL 6.25 MG TABLET (FP) PO SCH ×2 (10:37→22:40)
[2019-01-07] MEDS: HEPARIN NA (PORCINE) 5,000 UNITS/ML 1ML VIAL SQ SCH ×2 (10:37→22:41)
[2019-01-07] MEDS: PANTOPRAZOLE 40 MG TABLET (FP) PO SCH (10:37)
[2019-01-07] MEDS: MULTIVITAMINS (DAILY MVI) TABLET (FP) PO SCH (10:37)
[2019-01-07] MEDS: LOSARTAN POTASSIUM 25 MG TABLET PO SCH (10:37)
[2019-01-07] MEDS: FLUTICASONE PROP 0.05% 16 GM NASAL SPRAY NS SCH (10:40)
[2019-01-07] MEDS: AZITHROMYCIN IVPB 250 MG in DEXTROSE 5%-WATER - 250 ML IVPB SCH (12:41)
--- NOTE | 2019-01-07 14:48 | PN ---
Progress Note (short form) - Note Progress Note: coughing, denies shortness of breath Vital Signs - 24 hr 01/06/19 01/06/19 01/06/19 15:00 18:00 21:00 Temperature 98.0 F Pulse Rate 60 Pulse Rate [ 72 Right side Sitting] Pulse Rate [ 84 Right side Standing] Pulse Rate [ 64 Right side Supine] Respiratory 20 Rate Blood Pressure 137/74 Blood Pressure 140/80 [Right side Sitting] Blood Pressure 134/76 [Right side Standing] Blood Pressure 150/80 [Right side Supine] O2 Sat by Pulse 98 Oximetry (%) 01/06/19 01/07/19 01/07/19 22:28 02:00 06:00 Temperature 98.2 F 98.2 F 98.6 F Pulse Rate 60 61 58 L Pulse Rate [ Right side Sitting] Pulse Rate [ Right side Standing] Pulse Rate [ Right side Supine] Respiratory 20 20 20 Rate Blood Pressure 152/80 139/74 143/77 Blood Pressure [Right side Sitting] Blood Pressure [Right side Standing] Blood Pressure [Right side Supine] O2 Sat by Pulse Oximetry (%) 01/07/19 10:32 Temperature 98.1 F Pulse Rate 79 Pulse Rate [ Right side Sitting] Pulse Rate [ Right side Standing] Pulse Rate [ Right side Supine] Respiratory 20 Rate Blood Pressure 142/93 Blood Pressure [Right side Sitting] Blood Pressure [Right side Standing] Blood Pressure [Right side Supine] O2 Sat by Pulse Oximetry (%) Current Medications Generic Name Dose Route Start Last Admin Trade Name Freq PRN Reason Stop Dose Admin Acetaminophen 650 mg 01/06/19 02:57 Tylenol - PO Q4H PRN FEVER Aspirin 81 mg 01/06/19 10:00 01/07/19 10:37 Asa - PO 81 mg DAILY JAZMYNE Administration Atorvastatin Calcium 10 mg 01/06/19 22:00 01/06/19 22:11 Lipitor - PO 10 mg HS JAZMYNE Administration Carvedilol 6.25 mg 01/06/19 10:00 01/07/19 10:37 Coreg - PO 6.25 mg BID JAZMYNE Administration Fluticasone Propionate 1 spray 01/06/19 10:00 01/07/19 10:40 Flonase - NS 1 spray DAILY JAZMYNE Administration Furosemide 20 mg 01/07/19 10:00 01/07/19 10:37 Lasix - PO 20 mg DAILY JAZMYNE Administration Guaifenesin 10 ml 01/07/19 14:45 Robitussin - PO Q4H PRN COUGH Heparin Sodium (Porcine) 5,000 unit 01/06/19 10:00 01/07/19 10:37 Heparin - SQ 5,000 unit BID JAZMYNE Administration Azithromycin 250 mg/ Dextrose 250 mls @ 250 mls/hr 01/06/19 22:00 01/07/19 12 :41 IVPB 250 mls/hr DAILY JAZMYNE Administration Ceftriaxone Sodium 1 gm/ 50 mls @ 100 mls/hr 01/06/19 10:00 01/07/19 10:36 Dextrose IVPB 100 mls/hr DAILY JAZMYNE Administration Protocol Insulin Aspart 1 vial 01/06/19 07:00 01/07/19 11:48 Novolog Vial Sliding Scale - SQ 2 units ACHS JAZMYNE Administration Protocol Insulin Detemir 10 units 01/06/19 22:00 01/06/19 22:24 Levemir Vial SQ 10 units HS JAZMYNE Administration Losartan Potassium 25 mg 01/06/19 10:00 01/07/19 10:37 Cozaar - PO 25 mg DAILY JAZMYNE Administration Multivitamins/Minerals/Vitamin C 1 tab 01/06/19 10:00 01/07/19 10:37 Tab-A-Vit - PO 1 tab DAILY JAZMYNE Administration Non-Formulary Medication 1 cap 01/06/19 10:00 Fenofibrate [Fenoglide] PO DAILY JAZMYNE Pantoprazole Sodium 40 mg 01/06/19 10:00 01/07/19 10:37 Protonix - PO 40 mg DAILY JAZMYNE Administration Potassium Chloride 10 meq 01/06/19 10:00 01/07/19 10:37 K-Dur - PO 10 meq BID JAZMYNE Administration Laboratory Results - last 24 hr 01/06/19 01/06/19 01/07/19 17:33 22:22 06:38 POC Glucometer 168 164 87 01/07/19 11:43 POC Glucometer 157 heart sounds regular Lungsrhonchi Abdomen soft, nontender Extremitieschronic venous changes plan Check urine antigens Wound care evaluation appreciated IV antibiotics cardiology evaluation appreciated- decrease Lasix Continue with meds Problem List - Problems (1) Coronary artery disease Code(s): I25.10 - ATHSCL HEART DISEASE OF [place] CORONARY ARTERY W/O ANG PCTRS Qualifiers: Coronary Disease-Associated Artery/Lesion type: [place] artery [place] vs. 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
[2019-01-07] MEDS: ATORVASTATIN CA 10 MG TABLET (FP) PO SCH (22:40)
[2019-01-07] MEDS: INSULIN (LEVEMIR) 100 UNITS/ML UNITS SQ SCH (22:40)
[2019-01-07] MEDS: guaiFENesin 200 MG/10 ML 10 ML UNIT-DOSE CUPS PO PRN (22:41)
[2019-01-08] MEDS: INSULIN SLIDING SCALE (NOVOLOG) 1 VIAL SQ SCH ×4 (07:00→21:47)
[2019-01-08] MEDS ORDERED: cefTRIAXone SODIUM 1 GM VIAL ONE (10:06)
[2019-01-08] MEDS ORDERED: PT OWN MED DRAWER 7, Y5N ONE (10:06)
[2019-01-08] MEDS ORDERED: DEXTROSE 5%-WATER - 50 ML IVPB ONE (10:07)
[2019-01-08] MEDS: MULTIVITAMINS (DAILY MVI) TABLET (FP) PO SCH (10:37)
[2019-01-08] MEDS: HEPARIN NA (PORCINE) 5,000 UNITS/ML 1ML VIAL SQ SCH ×2 (10:37→21:47)
[2019-01-08] MEDS: POTASSIUM CHLORIDE TABS 10 MEQ TABLET.ER (FP) PO SCH ×2 (10:37→21:47)
[2019-01-08] MEDS: ASPIRIN 81 MG CHEWABLE TABLETS PO SCH (10:37)
[2019-01-08] MEDS: PANTOPRAZOLE 40 MG TABLET (FP) PO SCH (10:37)
[2019-01-08] MEDS: FUROSEMIDE 20 MG TABLET (FP) PO SCH (10:37)
[2019-01-08] MEDS: LOSARTAN POTASSIUM 25 MG TABLET PO SCH (10:37)
[2019-01-08] MEDS: CARVEDILOL 6.25 MG TABLET (FP) PO SCH ×2 (10:37→21:47)
[2019-01-08] MEDS: CEFTRIAXONE 1 GM in DEXTROSE 5%-WATER - 50 ML IVPB SCH (10:38)
[2019-01-08] MEDS: FLUTICASONE PROP 0.05% 16 GM NASAL SPRAY NS SCH (10:38)
[2019-01-08] MEDS: AZITHROMYCIN IVPB 250 MG in DEXTROSE 5%-WATER - 250 ML IVPB SCH (10:39)
--- NOTE | 2019-01-08 12:07 | PN ---
Progress Note (short form) - Note Progress Note: coughing, denies shortness of breath anxious refusing insulin Vital Signs - 24 hr 01/07/19 01/07/19 01/07/19 18:00 21:00 22:46 Temperature 97.5 F L 97.6 F Pulse Rate 56 L 55 L Respiratory 20 20 Rate Blood Pressure 152/80 157/78 O2 Sat by Pulse 97 Oximetry (%) 01/08/19 01/08/19 01/08/19 06:00 09:00 10:46 Temperature 98.7 F 98.0 F Pulse Rate 61 65 Respiratory 20 19 19 Rate Blood Pressure 124/61 141/80 O2 Sat by Pulse 97 Oximetry (%) 01/08/19 15:23 Temperature 97.3 F L Pulse Rate 54 L Respiratory 19 Rate Blood Pressure 139/74 O2 Sat by Pulse Oximetry (%) Current Medications Generic Name Dose Route Start Last Admin Trade Name Freq PRN Reason Stop Dose Admin Acetaminophen 650 mg 01/06/19 02:57 01/08/19 12:12 Tylenol - PO 650 mg Q4H PRN Administration FEVER Aspirin 81 mg 01/06/19 10:00 01/08/19 10:37 Asa - PO 81 mg DAILY JAZMYNE Administration Atorvastatin Calcium 10 mg 01/06/19 22:00 01/07/19 22:40 Lipitor - PO 10 mg HS JAZMYNE Administration Carvedilol 6.25 mg 01/06/19 10:00 01/08/19 10:37 Coreg - PO 6.25 mg BID JAZMYNE Administration Fluticasone Propionate 1 spray 01/06/19 10:00 01/08/19 10:38 Flonase - NS 1 spray DAILY JAZMYNE Administration Furosemide 20 mg 01/07/19 10:00 01/08/19 10:37 Lasix - PO 20 mg DAILY JAZMYNE Administration Guaifenesin 10 ml 01/07/19 14:45 01/07/19 22:41 Robitussin - PO 10 ml Q4H PRN Administration COUGH Heparin Sodium (Porcine) 5,000 unit 01/06/19 10:00 01/08/19 10:37 Heparin - SQ 5,000 unit BID JAZMYNE Administration Azithromycin 250 mg/ Dextrose 250 mls @ 250 mls/hr 01/06/19 22:00 01/08/19 10 :39 IVPB 250 mls/hr DAILY JAZMYNE Administration Ceftriaxone Sodium 1 gm/ 50 mls @ 100 mls/hr 01/06/19 10:00 01/08/19 10:38 Dextrose IVPB 100 mls/hr DAILY JAZMYNE Administration Protocol Insulin Aspart 1 vial 01/06/19 07:00 01/08/19 12:15 Novolog Vial Sliding Scale - SQ Not Given ACHS JAZMYNE Protocol Insulin Detemir 10 units 01/06/19 22:00 01/07/19 22:40 Levemir Vial SQ 10 units HS JAZMYNE Administration Losartan Potassium 25 mg 01/06/19 10:00 01/08/19 10:37 Cozaar - PO 25 mg DAILY JAZMYNE Administration Multivitamins/Minerals/Vitamin C 1 tab 01/06/19 10:00 01/08/19 10:37 Tab-A-Vit - PO 1 tab DAILY JAZMYNE Administration Non-Formulary Medication 1 cap 01/06/19 10:00 Fenofibrate [Fenoglide] PO DAILY JAZMYNE Pantoprazole Sodium 40 mg 01/06/19 10:00 01/08/19 10:37 Protonix - PO 40 mg DAILY JAZMYNE Administration Potassium Chloride 10 meq 01/06/19 10:00 01/08/19 10:37 K-Dur - PO 10 meq BID JAZMYNE Administration Laboratory Results - last 24 hr 01/07/19 01/07/19 01/08/19 17:41 22:38 06:59 POC Glucometer 155 106 89 01/08/19 12:06 POC Glucometer 230 heart sounds regular Lungsdecreased ronchi Abdomen soft, nontender Extremitieschronic venous changes plan Wound care evaluation appreciated IV antibiotics cardiology evaluation appreciated- decrease Lasix Continue with meds diabetic control PT eval Neurology eval - near syncope, repeat CT head Problem List - Problems (1) Coronary artery disease Code(s): I25.10 - ATHSCL HEART DISEASE OF [place] CORONARY ARTERY W/O ANG PCTRS Qualifiers: Coronary Disease-Associated Artery/Lesion type: [place] artery [place] vs. 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
[2019-01-08] MEDS: ACETAMINOPHEN 325 MG TABLET (FP) PO PRN ×2 (12:12→18:27)
--- NOTE | 2019-01-08 14:51 | PN ---
Progress Note, Physician History of Present Illness: Positional dizziness improving and denies recurrent fall. - Current Medication List Current Medications: Active Medications Acetaminophen (Tylenol -) 650 mg PO Q4H PRN PRN Reason: FEVER Last Admin: 01/08/19 12:12 Dose: 650 mg Aspirin (Asa -) 81 mg PO DAILY [facility] Last Admin: 01/08/19 10:37 Dose: 81 mg Atorvastatin Calcium (Lipitor -) 10 mg PO HS [facility] Last Admin: 01/07/19 22:40 Dose: 10 mg Carvedilol (Coreg -) 6.25 mg PO BID [facility] Last Admin: 01/08/19 10:37 Dose: 6.25 mg Fluticasone Propionate (Flonase -) 1 spray NS DAILY [facility] Last Admin: 01/08/19 10:38 Dose: 1 spray Furosemide (Lasix -) 20 mg PO DAILY [facility] Last Admin: 01/08/19 10:37 Dose: 20 mg Guaifenesin (Robitussin -) 10 ml PO Q4H PRN PRN Reason: COUGH Last Admin: 01/07/19 22:41 Dose: 10 ml Heparin Sodium (Porcine) (Heparin -) 5,000 unit SQ BID [facility] Last Admin: 01/08/19 10:37 Dose: 5,000 unit Azithromycin 250 mg/ Dextrose 250 mls @ 250 mls/hr IVPB DAILY [facility] Last Admin: 01/08/19 10:39 Dose: 250 mls/hr Ceftriaxone Sodium 1 gm/ (Dextrose) 50 mls @ 100 mls/hr IVPB DAILY [facility]; Protocol Last Admin: 01/08/19 10:38 Dose: 100 mls/hr Insulin Aspart (Novolog Vial Sliding Scale -) 1 vial SQ ACHS [facility]; Protocol Last Admin: 01/08/19 12:15 Dose: Not Given Insulin Detemir (Levemir Vial) 10 units SQ HS [facility] Last Admin: 01/07/19 22:40 Dose: 10 units Losartan Potassium (Cozaar -) 25 mg PO DAILY [facility] Last Admin: 01/08/19 10:37 Dose: 25 mg Multivitamins/Minerals/Vitamin C (Tab-A-Vit -) 1 tab PO DAILY [facility] Last Admin: 01/08/19 10:37 Dose: 1 tab Non-Formulary Medication (Fenofibrate [Fenoglide]) 1 cap PO DAILY [facility] Pantoprazole Sodium (Protonix -) 40 mg PO DAILY [facility] Last Admin: 01/08/19 10:37 Dose: 40 mg Potassium Chloride (K-Dur -) 10 meq PO BID [facility] Last Admin: 01/08/19 10:37 Dose: 10 meq - Objective Vital Signs: Vital Signs Temperature 98.0 F 01/08/19 10:46 Pulse Rate 65 01/08/19 10:46 Respiratory Rate 01/08/19 10:46 Blood Pressure 141/80 01/08/19 10:46 O2 Sat by Pulse Oximetry (%) 97 01/08/19 09:00 Constitutional: Yes: No Distress, Calm Neck: Yes: Supple Cardiovascular: Yes: Regular Rate and Rhythm Respiratory: Yes: Regular, Diminished Gastrointestinal: Yes: Normal Bowel Sounds, Soft, Abdomen, Obese Edema: Yes Edema: LLE: Trace, RLE: Trace Labs: CBC, BMP 01/06/19 06:19 01/06/19 06:19 INR, PTT INR 1.19 (0.83-1.09) H 01/05/19 22:10 - ....Imaging Cat Scan: Report Reviewed (HCT: No acute changes) Problem List - Problems (1) Status post insertion of drug-eluting stent into left anterior descending ( LAD) artery Code(s): Z95.5 - PRESENCE OF CORONARY ANGIOPLASTY IMPLANT AND GRAFT (2) Hyperlipidemia Code(s): E78.5 - HYPERLIPIDEMIA, UNSPECIFIED Qualifiers: Hyperlipidemia type: pure hypercholesterolemia Qualified Code(s): E78.00 - Pure hypercholesterolemia, unspecified; E78.0 - Pure hypercholesterolemia (3) ICD (implantable cardioverter-defibrillator) in place Code(s): Z95.810 - PRESENCE OF AUTOMATIC (IMPLANTABLE) CARDIAC DEFIBRILLATOR (4) Coronary artery disease Code(s): I25.10 - ATHSCL HEART DISEASE OF [place] CORONARY ARTERY W/O ANG PCTRS Qualifiers: Coronary Disease-Associated Artery/Lesion type: [place] artery [place] vs. transplanted heart: [place] heart Associated angina: without angina Qualified Code(s): I25.10 - Atherosclerotic heart disease of [place] coronary artery without angina pectoris (5) H/O myocardial infarction, greater than 8 weeks Code(s): I25.2 - OLD MYOCARDIAL INFARCTION (6) Dizziness of unknown cause Code(s): R42 - DIZZINESS AND GIDDINESS (7) Fall in elderly patient Code(s): R29.6 - REPEATED FALLS (8) Venous stasis ulcer limited to breakdown of skin with varicose veins Code(s): I83.009 - VARICOSE VEINS OF UNSP LOWER EXTREMITY W ULCER OF UNSP SITE; L97.909 - NON-PRS CHRONIC ULC UNSP PRT OF UNSP LOW LEG W UNSP SEVERITY Qualifiers: Assessment/Plan 01/06/2019 Echo: Normal LV size with mild cLVH normal LV fxn, normal RV fxn, pacemaker in RV, mod TR RVSP 34 mmHg, mild MR 1. Positional near syncope 2. CAD s/p NV, PCI (stent), angina pectoris 3. LV systolic dysfunction s/p ICD since improved 4. HTN 5. Hyperlipidemia 6. venous insufficiency with left leg stasis ulcers 7. OSAS not on cpap P: 1. Continue Lasix 20 qd, ASA 81 qd, Lipitor 10 qd, Lovaza 2 bid, carvedilol 6.25 bid, losartan 25 qd as hemodynamics tolerate 2. ICD last interrogated 09/10/2018 showing 1% RV pacing, battery lige 6 years, 4 episodes of NSVT, no therapies 3. Wound care
--- NOTE | 2019-01-08 17:03 | CON.NEURO ---
Consult Consult Specialty:: jodie Referred by:: PCP Reason for Consultation:: Near Syncopy - History of Present Illness History of Present Illness: [id number] right-handed man with multiple medical problem including coronary artery disease, osteoarthritis, history of MT, hypertension, type 2 diabetes who presents to the hospital with chronic dizziness and near syncope neurology was called due to near-syncope patient is a poor historian according to the patient is no history of head trauma no history of double vision blurry vision. Patient feels as if he's can a faint no loss of consciousness no seizure-like activity. Patient was evaluated by cardiology patient is on a water pill. Patient had 2 CAT scan of the head I reviewed both of them - History Source History Provided By: Patient, Medical Record Limitations to Obtaining History: No Limitations - Alcohol/Substance Use Hx Alcohol Use: No - Smoking History Smoking history: Former smoker Have you smoked in the past 12 months: No Aproximately how many cigarettes per day: 0 If you are a former smoker, when did you quit?: stopped 1979 Home Medications - Allergies Allergies/Adverse Reactions: Allergies Allergy/AdvReac Type Severity Reaction Status Date / Time No Known Drug Allergies Allergy Verified 01/05/19 23:32 Algisite Allergy Uncoded 01/05/19 21:57 - Home Medications Home Medications: Ambulatory Orders Aspirin [ASA -] 81 mg PO DAILY #0 tab.chew 04/27/13 Losartan Potassium [Cozaar -] 25 mg PO DAILY #0 tablet 04/27/13 Multivitamin [Multivitamins] 1 each PO DAILY #0 capsule 04/27/13 Potassium Chloride [K-Dur -] 10 meq PO BID #0 tablet.er 04/27/13 Sitagliptin Phos/Metformin HCl [Janumet 50-1,000 mg Tablet] 1 tab PO DAILY 09/16 Testosterone [Axiron] 30 mg TD HS 03/30/15 Atorvastatin Ca [Lipitor] 10 mg PO DAILY 09/07/15 Fluticasone Prop 0.05% Nasal [Flonase -] 1 mg IH DAILY 09/07/15 metFORMIN HCL [Metformin ER Osmotic] 1,000 mg PO HS 09/07/15 Furosemide [Lasix -] 20 mg PO DAILY 09/20/15 Omeprazole [Prilosec] 40 mg PO DAILY 09/20/15 Oxybutynin Chloride [Ditropan Xl] 10 mg PO DAILY 09/20/15 Meloxicam 15 mg PO DAILY 04/10/18 Carvedilol [Coreg -] 3.125 mg PO BID 01/06/19 Glipizide [Glipizide ER] 10 mg PO DAILY 01/06/19 Family Disease History - Family Disease History Family History: Unable to Obtain Review of Systems - Review of Systems Constitutional: reports: No Symptoms Eyes: reports: No Symptoms HENT: reports: No Symptoms Neurological: reports: Headache, Incoordination, Numbness Physical Exam-Neuro Vital Signs: Vital Signs Temperature 97.3 F L 01/08/19 15:23 Pulse Rate 54 L 01/08/19 15:23 Respiratory Rate 19 01/08/19 15:23 Blood Pressure 139/74 01/08/19 15:23 O2 Sat by Pulse Oximetry (%) 97 01/08/19 09:00 Constitutional: Yes: Well Nourished Neck: Yes: WNL Cardiovascular: Yes: WNL Labs: CBC, BMP 01/06/19 06:19 01/06/19 06:19 INR, PTT INR 1.19 (0.83-1.09) H 01/05/19 22:10 - Neuro Exam Level Of Consciousness: Yes: Oriented to Person, Oriented to Place, Oriented to Time Eyes: Yes: PERRLA Speech: WNL Dominant Hand: Right Cranial Nerves II-XII Intact: Yes Gag: Present DTR's: 1+ Left Bicep, 1+ Right Bicep, 1+ Left Brachioradialis, 1+ Right Brachioradialis Response to light touch: Normal Response to pain prick: Normal Response to temperature: Normal Response to vibration: Normal Motor Strength: 3/5: Left Arm, Right Arm, Left Leg, Right Leg Gait: Deferred Imaging - Results Cat Scan: Image Reviewed Problem List - Problems (1) Near syncope Assessment/Plan: near-syncope Gross neurological examination with no evidence of acute pathology Autonomic dysfunction associated with diabetes 1. Fall precautions. 2. Check orthostasis every shift. 3. TEDS units 4. Follow-up with cardiology. 5. Tight blood pressure control. 6. MRI of the brain with no contrast thank you very much for allowing me to be part of this patient neurological care Code(s): R55 - SYNCOPE AND COLLAPSE
[2019-01-08] MEDS: ATORVASTATIN CA 10 MG TABLET (FP) PO SCH (21:47)
[2019-01-08] MEDS: INSULIN (LEVEMIR) 100 UNITS/ML UNITS SQ SCH (21:47)
[2019-01-09] MEDS: INSULIN SLIDING SCALE (NOVOLOG) 1 VIAL SQ SCH ×4 (06:34→21:48)
[2019-01-09] MEDS: ACETAMINOPHEN 325 MG TABLET (FP) PO PRN ×2 (06:35→21:48)
[2019-01-09] MEDS ORDERED: cefTRIAXone SODIUM 1 GM VIAL ONE (09:55)
[2019-01-09] MEDS ORDERED: PT OWN MED DRAWER 7, Y5N ONE (09:55)
[2019-01-09] MEDS ORDERED: DEXTROSE 5%-WATER - 50 ML IVPB ONE (09:55)
[2019-01-09] MEDS: HEPARIN NA (PORCINE) 5,000 UNITS/ML 1ML VIAL SQ SCH ×2 (10:02→21:47)
[2019-01-09] MEDS: LOSARTAN POTASSIUM 25 MG TABLET PO SCH (10:02)
[2019-01-09] MEDS: MULTIVITAMINS (DAILY MVI) TABLET (FP) PO SCH (10:02)
[2019-01-09] MEDS: PANTOPRAZOLE 40 MG TABLET (FP) PO SCH (10:02)
[2019-01-09] MEDS: ASPIRIN 81 MG CHEWABLE TABLETS PO SCH (10:02)
[2019-01-09] MEDS: POTASSIUM CHLORIDE TABS 10 MEQ TABLET.ER (FP) PO SCH ×2 (10:02→21:47)
[2019-01-09] MEDS: CEFTRIAXONE 1 GM in DEXTROSE 5%-WATER - 50 ML IVPB SCH (10:03)
[2019-01-09] MEDS: FUROSEMIDE 20 MG TABLET (FP) PO SCH (10:04)
[2019-01-09] MEDS: CARVEDILOL 6.25 MG TABLET (FP) PO SCH ×2 (10:04→21:47)
[2019-01-09] MEDS: AZITHROMYCIN IVPB 250 MG in DEXTROSE 5%-WATER - 250 ML IVPB SCH (10:05)
[2019-01-09] MEDS: guaiFENesin 200 MG/10 ML 10 ML UNIT-DOSE CUPS PO PRN ×2 (10:22→19:44)
[2019-01-09] MEDS: FLUTICASONE PROP 0.05% 16 GM NASAL SPRAY NS SCH (10:24)
--- NOTE | 2019-01-09 10:41 | PN ---
Progress Note, Physician History of Present Illness: Positional dizziness improving and denies recurrent fall. - Current Medication List Current Medications: Active Medications Acetaminophen (Tylenol -) 650 mg PO Q4H PRN PRN Reason: FEVER Last Admin: 01/09/19 06:35 Dose: 650 mg Aspirin (Asa -) 81 mg PO DAILY [facility] Last Admin: 01/09/19 10:02 Dose: 81 mg Atorvastatin Calcium (Lipitor -) 10 mg PO HS [facility] Last Admin: 01/08/19 21:47 Dose: 10 mg Carvedilol (Coreg -) 6.25 mg PO BID [facility] Last Admin: 01/09/19 10:04 Dose: 6.25 mg Fluticasone Propionate (Flonase -) 1 spray NS DAILY [facility] Last Admin: 01/09/19 10:24 Dose: 1 spray Furosemide (Lasix -) 20 mg PO DAILY [facility] Last Admin: 01/09/19 10:04 Dose: 20 mg Guaifenesin (Robitussin -) 10 ml PO Q4H PRN PRN Reason: COUGH Last Admin: 01/09/19 10:22 Dose: 10 ml Heparin Sodium (Porcine) (Heparin -) 5,000 unit SQ BID [facility] Last Admin: 01/09/19 10:02 Dose: 5,000 unit Azithromycin 250 mg/ Dextrose 250 mls @ 250 mls/hr IVPB DAILY [facility] Last Admin: 01/09/19 10:05 Dose: 250 mls/hr Ceftriaxone Sodium 1 gm/ (Dextrose) 50 mls @ 100 mls/hr IVPB DAILY [facility]; Protocol Last Admin: 01/09/19 10:03 Dose: 100 mls/hr Insulin Aspart (Novolog Vial Sliding Scale -) 1 vial SQ ACHS [facility]; Protocol Last Admin: 01/09/19 06:34 Dose: Not Given Insulin Detemir (Levemir Vial) 10 units SQ HS [facility] Last Admin: 01/08/19 21:47 Dose: Not Given Losartan Potassium (Cozaar -) 25 mg PO DAILY [facility] Last Admin: 01/09/19 10:02 Dose: 25 mg Multivitamins/Minerals/Vitamin C (Tab-A-Vit -) 1 tab PO DAILY [facility] Last Admin: 01/09/19 10:02 Dose: 1 tab Non-Formulary Medication (Fenofibrate [Fenoglide]) 1 cap PO DAILY [facility] Pantoprazole Sodium (Protonix -) 40 mg PO DAILY [facility] Last Admin: 01/09/19 10:02 Dose: 40 mg Potassium Chloride (K-Dur -) 10 meq PO BID [facility] Last Admin: 01/09/19 10:02 Dose: 10 meq - Objective Vital Signs: Vital Signs Temperature 98.4 F 01/09/19 06:00 Pulse Rate 62 01/09/19 06:00 Respiratory Rate 20 01/09/19 06:00 Blood Pressure 135/97 01/09/19 06:00 O2 Sat by Pulse Oximetry (%) 97 01/08/19 21:00 Constitutional: Yes: No Distress, Calm Neck: Yes: Supple Cardiovascular: Yes: Regular Rate and Rhythm Respiratory: Yes: Regular, Diminished Gastrointestinal: Yes: Normal Bowel Sounds, Soft Edema: No Labs: CBC, BMP 01/06/19 06:19 01/06/19 06:19 INR, PTT INR 1.19 (0.83-1.09) H 01/05/19 22:10 Problem List - Problems (1) Status post insertion of drug-eluting stent into left anterior descending ( LAD) artery Code(s): Z95.5 - PRESENCE OF CORONARY ANGIOPLASTY IMPLANT AND GRAFT (2) Hyperlipidemia Code(s): E78.5 - HYPERLIPIDEMIA, UNSPECIFIED Qualifiers: Hyperlipidemia type: pure hypercholesterolemia Qualified Code(s): E78.00 - Pure hypercholesterolemia, unspecified; E78.0 - Pure hypercholesterolemia (3) ICD (implantable cardioverter-defibrillator) in place Code(s): Z95.810 - PRESENCE OF AUTOMATIC (IMPLANTABLE) CARDIAC DEFIBRILLATOR (4) Coronary artery disease Code(s): I25.10 - ATHSCL HEART DISEASE OF [place] CORONARY ARTERY W/O ANG PCTRS Qualifiers: Coronary Disease-Associated Artery/Lesion type: [place] artery [place] vs. transplanted heart: [place] heart Associated angina: without angina Qualified Code(s): I25.10 - Atherosclerotic heart disease of [place] coronary artery without angina pectoris (5) H/O myocardial infarction, greater than 8 weeks Code(s): I25.2 - OLD MYOCARDIAL INFARCTION (6) Dizziness of unknown cause Code(s): R42 - DIZZINESS AND GIDDINESS (7) Fall in elderly patient Code(s): R29.6 - REPEATED FALLS (8) Venous stasis ulcer limited to breakdown of skin with varicose veins Code(s): I83.009 - VARICOSE VEINS OF UNSP LOWER EXTREMITY W ULCER OF UNSP SITE; L97.909 - NON-PRS CHRONIC ULC UNSP PRT OF UNSP LOW LEG W UNSP SEVERITY Qualifiers: Assessment/Plan 01/06/2019 Echo: Normal LV size with mild cLVH normal LV fxn, normal RV fxn, pacemaker in RV, mod TR RVSP 34 mmHg, mild MR 1. Positional near syncope, suspect autonomic dysfunction associated with diabetes 2. CAD s/p [place], PCI (stent), angina pectoris 3. LV systolic dysfunction s/p ICD since improved 4. HTN 5. Hyperlipidemia 6. venous insufficiency with left leg stasis ulcers 7. OSAS not on cpap P: 1. Continue Lasix 20 qd, ASA 81 qd, Lipitor 10 qd, Lovaza 2 bid, carvedilol 6.25 bid, losartan 25 qd as hemodynamics tolerate 2. ICD last interrogated 09/10/2018 showing 1% RV pacing, battery life 6 years, 4 episodes of NSVT, no therapies 3. Wound care, leg wraps 4. Fall precautions, PT for gait training and d/c planning
--- NOTE | 2019-01-09 11:42 | PN ---
Progress Note (short form) - Note Progress Note: coughing, denies shortness of breath anxious refusing insulin Vital Signs - 24 hr 01/08/19 01/08/19 01/08/19 18:00 21:00 23:00 Temperature 97.5 F L Pulse Rate 52 L 60 Respiratory 20 20 20 Rate Blood Pressure 139/84 150/95 O2 Sat by Pulse 97 Oximetry (%) 01/09/19 01/09/19 01/09/19 06:00 09:00 12:00 Temperature 98.4 F 98.6 F Pulse Rate 62 55 L Respiratory 20 19 19 Rate Blood Pressure 135/97 168/83 O2 Sat by Pulse 97 Oximetry (%) 01/09/19 14:22 Temperature 97.4 F L Pulse Rate 63 Respiratory 18 Rate Blood Pressure 158/82 O2 Sat by Pulse Oximetry (%) Current Medications Generic Name Dose Route Start Last Admin Trade Name Freq PRN Reason Stop Dose Admin Acetaminophen 650 mg 01/06/19 02:57 01/09/19 06:35 Tylenol - PO 650 mg Q4H PRN Administration FEVER Aspirin 81 mg 01/06/19 10:00 01/09/19 10:02 Asa - PO 81 mg DAILY [facility] Administration Atorvastatin Calcium 10 mg 01/06/19 22:00 01/08/19 21:47 Lipitor - PO 10 mg HS [facility] Administration Carvedilol 6.25 mg 01/06/19 10:00 01/09/19 10:04 Coreg - PO 6.25 mg BID [facility] Administration Fluticasone Propionate 1 spray 01/06/19 10:00 01/09/19 10:24 Flonase - NS 1 spray DAILY [facility] Administration Furosemide 20 mg 01/07/19 10:00 01/09/19 10:04 Lasix - PO 20 mg DAILY [facility] Administration Guaifenesin 10 ml 01/07/19 14:45 01/09/19 10:22 Robitussin - PO 10 ml Q4H PRN Administration COUGH Heparin Sodium (Porcine) 5,000 unit 01/06/19 10:00 01/09/19 10:02 Heparin - SQ 5,000 unit BID [facility] Administration Azithromycin 250 mg/ Dextrose 250 mls @ 250 mls/hr 01/06/19 22:00 01/09/19 10 :05 IVPB 250 mls/hr DAILY [facility] Administration Ceftriaxone Sodium 1 gm/ 50 mls @ 100 mls/hr 06/03/19 10:00 01/09/19 10:03 Dextrose IVPB 100 mls/hr DAILY [facility] Administration Protocol Insulin Aspart 1 vial 01/06/19 07:00 01/09/19 12:50 Novolog Vial Sliding Scale - SQ Not Given ACHS [facility] Protocol Insulin Detemir 10 units 01/06/19 22:00 01/08/19 21:47 Levemir Vial SQ Not Given HS [facility] Losartan Potassium 25 mg 01/06/19 10:00 01/09/19 10:02 Cozaar - PO 25 mg DAILY [facility] Administration Multivitamins/Minerals/Vitamin C 1 tab 01/06/19 10:00 01/09/19 10:02 Tab-A-Vit - PO 1 tab DAILY [facility] Administration Non-Formulary Medication 1 cap 01/06/19 10:00 Fenofibrate [Fenoglide] PO DAILY [facility] Pantoprazole Sodium 40 mg 01/06/19 10:00 01/09/19 10:02 Protonix - PO 40 mg DAILY [facility] Administration Potassium Chloride 10 meq 01/06/19 10:00 01/09/19 10:02 K-Dur - PO 10 meq BID [facility] Administration Laboratory Results - last 24 hr 01/08/19 01/08/19 01/09/19 17:11 21:46 06:34 POC Glucometer 117 170 135 01/09/19 12:00 POC Glucometer 174 heart sounds regular Lungsdecreased ronchi Abdomen soft, nontender Extremitieschronic venous changes plan Wound care evaluation appreciated IV antibiotics cardiology evaluation appreciated- decrease Lasix Continue with meds diabetic control PT eval Neurology eval - near syncope, repeat CT head -- negative-- recommend MRI Problem List - Problems (1) Coronary artery disease Code(s): I25.10 - ATHSCL HEART DISEASE OF [place] CORONARY ARTERY W/O ANG PCTRS Qualifiers: Coronary Disease-Associated Artery/Lesion type: [place] artery [place] vs. transplanted heart: [place] heart Associated angina: without angina Qualified Code(s): I25.10 - Atherosclerotic heart disease of [place] coronary artery without angina pectoris (2) Diabetic ulcer of ankle Code(s): E11.622 - TYPE 2 DIABETES MELLITUS WITH OTHER SKIN ULCER; L97.309 - NON -PRESSURE CHRONIC ULCER OF UNSP ANKLE WITH UNSP SEVERITY (3) Hyperlipidemia Code(s): E78.5 - HYPERLIPIDEMIA, UNSPECIFIED Qualifiers: Hyperlipidemia type: pure hypercholesterolemia Qualified Code(s): E78.00 - Pure hypercholesterolemia, unspecified; E78.0 - Pure hypercholesterolemia (4) Near syncope Code(s): R55 - SYNCOPE AND COLLAPSE
[2019-01-09] MEDS: ATORVASTATIN CA 10 MG TABLET (FP) PO SCH (21:47)
[2019-01-09] MEDS: INSULIN (LEVEMIR) 100 UNITS/ML UNITS SQ SCH (21:48)
[2019-01-10] MEDS: guaiFENesin 200 MG/10 ML 10 ML UNIT-DOSE CUPS PO PRN ×3 (05:07→21:12)
[2019-01-10] MEDS: INSULIN SLIDING SCALE (NOVOLOG) 1 VIAL SQ SCH ×4 (06:01→21:09)
[2019-01-10] MEDS: FENOFIBRATE PO SCH ×3 (09:44→09:48)
[2019-01-10] MEDS ORDERED: FENOFIBRIC ACID 135 MG CAP PO SCH (10:00)
--- NOTE | 2019-01-10 10:05 | PN ---
Progress Note (short form) - Note Progress Note: pt seen/ examined chart reviewed awake/ comfortable Vital Signs Temp 97.5 F L 01/10/19 09:33 Pulse 57 L 01/10/19 09:33 Resp 20 01/10/19 09:33 BP 144/82 01/10/19 09:33 Pulse Ox 97 01/09/19 21:00 Intake & Output 01/09/19 01/09/19 01/10/19 11:59 23:59 11:59 Intake Total 1350 200 Output Total 400 1850 950 Balance -400 -500 -750 Intake: Oral 1350 200 Output: Urine 400 1850 950 Void 400 1850 950 Other: Voiding Method Urinal Urinal Urinal Bowel Movement No No No Active Medications Acetaminophen (Tylenol -) 650 mg PO Q4H PRN PRN Reason: FEVER Last Admin: 01/09/19 21:48 Dose: 650 mg Aspirin (Asa -) 81 mg PO DAILY [facility] Last Admin: 01/09/19 10:02 Dose: 81 mg Atorvastatin Calcium (Lipitor -) 10 mg PO [facility] Last Admin: 01/09/19 21:47 Dose: 10 mg Carvedilol (Coreg -) 6.25 mg PO BID [facility] Last Admin: 01/09/19 21:47 Dose: 6.25 mg Fenofibric Acid (Trilipix -) 135 mg PO DAILY [facility] Fluticasone Propionate (Flonase -) 1 spray NS DAILY [facility] Last Admin: 01/09/19 10:24 Dose: 1 spray Furosemide (Lasix -) 20 mg PO DAILY [facility] Last Admin: 01/09/19 10:04 Dose: 20 mg Guaifenesin (Robitussin -) 10 ml PO Q4H PRN PRN Reason: COUGH Last Admin: 01/10/19 05:07 Dose: 10 ml Heparin Sodium (Porcine) (Heparin -) 5,000 unit SQ BID [facility] Last Admin: 01/09/19 21:47 Dose: 5,000 unit Ceftriaxone Sodium 1 gm/ (Dextrose) 50 mls @ 100 mls/hr IVPB DAILY [facility]; Protocol Last Admin: 01/09/19 10:03 Dose: 100 mls/hr Insulin Aspart (Novolog Vial Sliding Scale -) 1 vial SQ ACHS [facility]; Protocol Last Admin: 01/10/19 06:01 Dose: Not Given Insulin Detemir (Levemir Vial) 10 units SQ HS [facility] Last Admin: 01/09/19 21:48 Dose: Not Given Losartan Potassium (Cozaar -) 25 mg PO DAILY [facility] Last Admin: 01/09/19 10:02 Dose: 25 mg Multivitamins/Minerals/Vitamin C (Tab-A-Vit -) 1 tab PO DAILY [facility] Last Admin: 01/09/19 10:02 Dose: 1 tab Pantoprazole Sodium (Protonix -) 40 mg PO DAILY [facility] Last Admin: 01/09/19 10:02 Dose: 40 mg Potassium Chloride (K-Dur -) 10 meq PO BID [facility] Last Admin: 01/09/19 21:47 Dose: 10 meq CBC, BMP 01/06/19 06:19 01/06/19 06:19 Microbiology 01/05/19 22:10 Blood Culture - Preliminary Blood - Peripheral Venous NO GROWTH OBTAINED AFTER 96 HOURS, INCUBATION TO CONTINUE FOR 1 DAYS. 01/05/19 22:10 Blood Culture - Preliminary Blood - Peripheral Venous NO GROWTH OBTAINED AFTER 96 HOURS, INCUBATION TO CONTINUE FOR 1 DAYS. 01/07/19 10:05 Gram Stain - Final Sputum - Expectorated Sputum Culture - Final NORMAL RESPIRATORY [place] Physical Exam heart sounds regular Lungsdecreased ronchi Abdomen soft, nontender Extremitieschronic venous changes plan stable Wound care evaluation appreciated IV antibiotics Continue with meds diabetic control will follow Problem List - Problems (1) Diabetes Code(s): E11.9 - TYPE 2 DIABETES MELLITUS WITHOUT COMPLICATIONS (2) Coronary artery disease Code(s): I25.10 - ATHSCL HEART DISEASE OF [place] CORONARY ARTERY W/O ANG PCTRS Qualifiers: Coronary Disease-Associated Artery/Lesion type: [place] artery [place] vs. transplanted heart: [place] heart Associated angina: without angina Qualified Code(s): I25.10 - Atherosclerotic heart disease of [place] coronary artery without angina pectoris (3) ICD (implantable cardioverter-defibrillator) in place Code(s): Z95.810 - PRESENCE OF AUTOMATIC (IMPLANTABLE) CARDIAC DEFIBRILLATOR (4) Near syncope Code(s): R55 - SYNCOPE AND COLLAPSE (5) Venous stasis ulcer limited to breakdown of skin with varicose veins Code(s): I83.009 - VARICOSE VEINS OF UNSP LOWER EXTREMITY W ULCER OF UNSP SITE; L97.909 - NON-PRS CHRONIC ULC UNSP PRT OF UNSP LOW LEG W UNSP SEVERITY Qualifiers:
--- NOTE | 2019-01-10 10:52 | PN ---
Progress Note, Physician History of Present Illness: Positional dizziness improving and denies recurrent fall. - Current Medication List Current Medications: Active Medications Acetaminophen (Tylenol -) 650 mg PO Q4H PRN PRN Reason: FEVER Last Admin: 01/09/19 21:48 Dose: 650 mg Aspirin (Asa -) 81 mg PO DAILY [facility] Last Admin: 01/09/19 10:02 Dose: 81 mg Atorvastatin Calcium (Lipitor -) 10 mg PO HS [facility] Last Admin: 01/09/19 21:47 Dose: 10 mg Carvedilol (Coreg -) 6.25 mg PO BID [facility] Last Admin: 01/09/19 21:47 Dose: 6.25 mg Fenofibric Acid (Trilipix -) 135 mg PO DAILY [facility] Fluticasone Propionate (Flonase -) 1 spray NS DAILY [facility] Last Admin: 01/09/19 10:24 Dose: 1 spray Furosemide (Lasix -) 20 mg PO DAILY [facility] Last Admin: 01/09/19 10:04 Dose: 20 mg Guaifenesin (Robitussin -) 10 ml PO Q4H PRN PRN Reason: COUGH Last Admin: 01/10/19 05:07 Dose: 10 ml Heparin Sodium (Porcine) (Heparin -) 5,000 unit SQ BID [facility] Last Admin: 01/09/19 21:47 Dose: 5,000 unit Ceftriaxone Sodium 1 gm/ (Dextrose) 50 mls @ 100 mls/hr IVPB DAILY [facility]; Protocol Last Admin: 01/09/19 10:03 Dose: 100 mls/hr Insulin Aspart (Novolog Vial Sliding Scale -) 1 vial SQ ACHS [facility]; Protocol Last Admin: 01/10/19 06:01 Dose: Not Given Insulin Detemir (Levemir Vial) 10 units SQ HS [facility] Last Admin: 01/09/19 21:48 Dose: Not Given Losartan Potassium (Cozaar -) 25 mg PO DAILY [facility] Last Admin: 01/09/19 10:02 Dose: 25 mg Multivitamins/Minerals/Vitamin C (Tab-A-Vit -) 1 tab PO DAILY [facility] Last Admin: 01/09/19 10:02 Dose: 1 tab Pantoprazole Sodium (Protonix -) 40 mg PO DAILY [facility] Last Admin: 01/09/19 10:02 Dose: 40 mg Potassium Chloride (K-Dur -) 10 meq PO BID [facility] Last Admin: 01/09/19 21:47 Dose: 10 meq - Objective Vital Signs: Vital Signs Temperature 97.5 F L 01/10/19 09:33 Pulse Rate 57 L 01/10/19 09:33 Respiratory Rate 20 01/10/19 09:33 Blood Pressure 144/82 01/10/19 09:33 O2 Sat by Pulse Oximetry (%) 97 01/09/19 21:00 Constitutional: Yes: No Distress, Calm Neck: Yes: Supple Cardiovascular: Yes: Regular Rate and Rhythm Respiratory: Yes: Regular, CTA Bilaterally Gastrointestinal: Yes: Normal Bowel Sounds, Soft Edema: No Labs: CBC, BMP 01/06/19 06:19 01/06/19 06:19 INR, PTT INR 1.19 (0.83-1.09) H 01/05/19 22:10 Problem List - Problems (1) Status post insertion of drug-eluting stent into left anterior descending ( LAD) artery Code(s): Z95.5 - PRESENCE OF CORONARY ANGIOPLASTY IMPLANT AND GRAFT (2) Hyperlipidemia Code(s): E78.5 - HYPERLIPIDEMIA, UNSPECIFIED Qualifiers: Hyperlipidemia type: pure hypercholesterolemia Qualified Code(s): E78.00 - Pure hypercholesterolemia, unspecified; E78.0 - Pure hypercholesterolemia (3) ICD (implantable cardioverter-defibrillator) in place Code(s): Z95.810 - PRESENCE OF AUTOMATIC (IMPLANTABLE) CARDIAC DEFIBRILLATOR (4) Coronary artery disease Code(s): I25.10 - ATHSCL HEART DISEASE OF [place] CORONARY ARTERY W/O ANG PCTRS Qualifiers: Coronary Disease-Associated Artery/Lesion type: [place] artery [place] vs. transplanted heart: [place] heart Associated angina: without angina Qualified Code(s): I25.10 - Atherosclerotic heart disease of [place] coronary artery without angina pectoris (5) H/O myocardial infarction, greater than 8 weeks Code(s): I25.2 - OLD MYOCARDIAL INFARCTION (6) Dizziness of unknown cause Code(s): R42 - DIZZINESS AND GIDDINESS (7) Fall in elderly patient Code(s): R29.6 - REPEATED FALLS (8) Venous stasis ulcer limited to breakdown of skin with varicose veins Code(s): I83.009 - VARICOSE VEINS OF UNSP LOWER EXTREMITY W ULCER OF UNSP SITE; L97.909 - NON-PRS CHRONIC ULC UNSP PRT OF UNSP LOW LEG W UNSP SEVERITY Qualifiers: Assessment/Plan 01/06/2019 Echo: Normal LV size with mild cLVH normal LV fxn, normal RV fxn, pacemaker in RV, mod TR RVSP 34 mmHg, mild MR 1. Positional near syncope, suspect autonomic dysfunction associated with diabetes 2. CAD s/p ME, PCI (stent), angina pectoris 3. LV systolic dysfunction s/p ICD since improved 4. HTN 5. Hyperlipidemia 6. venous insufficiency with left leg stasis ulcers 7. OSAS not on cpap P: 1. Continue Lasix 20 qd, ASA 81 qd, Lipitor 10 qd, Lovaza 2 bid, carvedilol 6.25 bid, losartan 25 qd as hemodynamics tolerate 2. ICD last interrogated 09/10/2018 showing 1% RV pacing, battery life 6 years, 4 episodes of NSVT, no therapies 3. Wound care, leg wraps 4. Fall precautions, PT for gait training and d/c planning
[2019-01-10] MEDS ORDERED: cefTRIAXone SODIUM 1 GM VIAL ONE (10:55)
[2019-01-10] MEDS ORDERED: DEXTROSE 5%-WATER - 50 ML IVPB ONE (10:55)
[2019-01-10] MEDS: LOSARTAN POTASSIUM 25 MG TABLET PO SCH (11:09)
[2019-01-10] MEDS: MULTIVITAMINS (DAILY MVI) TABLET (FP) PO SCH (11:09)
[2019-01-10] MEDS: FUROSEMIDE 20 MG TABLET (FP) PO SCH (11:09)
[2019-01-10] MEDS: PANTOPRAZOLE 40 MG TABLET (FP) PO SCH (11:10)
[2019-01-10] MEDS: CARVEDILOL 6.25 MG TABLET (FP) PO SCH ×2 (11:10→21:08)
[2019-01-10] MEDS: POTASSIUM CHLORIDE TABS 10 MEQ TABLET.ER (FP) PO SCH ×2 (11:10→21:08)
[2019-01-10] MEDS: ASPIRIN 81 MG CHEWABLE TABLETS PO SCH (11:10)
[2019-01-10] MEDS: HEPARIN NA (PORCINE) 5,000 UNITS/ML 1ML VIAL SQ SCH ×2 (11:10→21:08)
[2019-01-10] MEDS: FLUTICASONE PROP 0.05% 16 GM NASAL SPRAY NS SCH (11:11)
[2019-01-10] MEDS: CEFTRIAXONE 1 GM in DEXTROSE 5%-WATER - 50 ML IVPB SCH (11:12)
[2019-01-10] MEDS: FENOFIBRIC ACID 135 MG CAP PO SCH (11:12)
[2019-01-10] MEDS: ACETAMINOPHEN 325 MG TABLET (FP) PO PRN (14:12)
[2019-01-10 16:54] VITALS: BMI 30.4
[2019-01-10] MEDS: ATORVASTATIN CA 10 MG TABLET (FP) PO SCH (21:08)
[2019-01-10] MEDS: INSULIN (LEVEMIR) 100 UNITS/ML UNITS SQ SCH (21:09)
[2019-01-11] MEDS: INSULIN SLIDING SCALE (NOVOLOG) 1 VIAL SQ SCH ×3 (06:45→17:32)
[2019-01-11 07:50] LABS: BASO % 0.5 % (0-2.0); EOS % 4.9 % (0-4.5); HEMATOCRIT 46.4 % (35.4-49); HEMOGLOBIN 15.7 GM/dL (11.7-16.9); LYMPH % 21.7 % (8-40); MCH 29.8 pg (25.7-33.7); MCHC 33.9 g/dl (32.0-35.9); MEAN CELL VOLUME 87.9 fl (80-96); MEAN PLT VOLUME 8.2 fl (7.5-11.1); MONO % 9.4 % (3.8-10.2); NEUT % 63.5 % (42.8-82.8); RBC 5.28 M/mm3 (4.00-5.60); RDW 14.5 % (11.9-15.9); WHITE BLOOD COUNT 5.6 K/mm3 (4.0-10.0)
[2019-01-11 08:04] LABS: ALBUMIN 3.2 g/dl (3.4-5.0); BILIRUBIN,TOTAL 0.6 mg/dL (0.2-1); BLOOD UREA NITROGEN 19.4 mg/dL (7-18); CALCIUM 9.1 mg/dL (8.5-10.1); POTASSIUM 4.8 mmol/L (3.5-5.1); TOT PROT 7.2 g/dl (6.4-8.2)
[2019-01-11 09:25] VITALS: BP 121/76; PULSE 76; TEMP 98.1
--- NOTE | 2019-01-11 09:33 | PN ---
Progress Note, Physician - Current Medication List Current Medications: Active Medications Acetaminophen (Tylenol -) 650 mg PO Q4H PRN PRN Reason: FEVER Last Admin: 01/10/19 14:12 Dose: 650 mg Aspirin (Asa -) 81 mg PO DAILY [facility] Last Admin: 01/10/19 11:10 Dose: 81 mg Atorvastatin Calcium (Lipitor -) 10 mg PO HS [facility] Last Admin: 01/10/19 21:08 Dose: 10 mg Carvedilol (Coreg -) 6.25 mg PO BID [facility] Last Admin: 01/10/19 21:08 Dose: 6.25 mg Fenofibric Acid (Trilipix -) 135 mg PO DAILY [facility] Last Admin: 01/10/19 11:12 Dose: 135 mg Fluticasone Propionate (Flonase -) 1 spray NS DAILY [facility] Last Admin: 01/10/19 11:11 Dose: 1 spray Furosemide (Lasix -) 20 mg PO DAILY [facility] Last Admin: 01/10/19 11:09 Dose: 20 mg Guaifenesin (Robitussin -) 10 ml PO Q4H PRN PRN Reason: COUGH Last Admin: 01/10/19 21:12 Dose: 10 ml Heparin Sodium (Porcine) (Heparin -) 5,000 unit SQ BID [facility] Last Admin: 01/10/19 21:08 Dose: 5,000 unit Ceftriaxone Sodium 1 gm/ (Dextrose) 50 mls @ 100 mls/hr IVPB DAILY [facility]; Protocol Last Admin: 01/10/19 11:12 Dose: 100 mls/hr Insulin Aspart (Novolog Vial Sliding Scale -) 1 vial SQ ACHS [facility]; Protocol Last Admin: 01/11/19 06:45 Dose: Not Given Insulin Detemir (Levemir Vial) 10 units SQ HS [facility] Last Admin: 01/10/19 21:09 Dose: Not Given Losartan Potassium (Cozaar -) 25 mg PO DAILY [facility] Last Admin: 01/10/19 11:09 Dose: 25 mg Multivitamins/Minerals/Vitamin C (Tab-A-Vit -) 1 tab PO DAILY [facility] Last Admin: 01/10/19 11:09 Dose: 1 tab Pantoprazole Sodium (Protonix -) 40 mg PO DAILY [facility] Last Admin: 01/10/19 11:10 Dose: 40 mg Potassium Chloride (K-Dur -) 10 meq PO BID [facility] Last Admin: 01/10/19 21:08 Dose: 10 meq - Objective Vital Signs: Vital Signs Temperature 98.1 F 01/11/19 09:00 Pulse Rate 76 01/11/19 09:00 Respiratory Rate 18 01/11/19 09:00 Blood Pressure 121/76 01/11/19 09:00 O2 Sat by Pulse Oximetry (%) 97 01/10/19 21:00 Eyes: Yes: WNL, Conjunctiva Clear, EOM Intact HENT: Yes: WNL, Atraumatic, Normocephalic Neck: Yes: WNL, Supple, Trachea Midline Cardiovascular: Yes: WNL, Regular Rate and Rhythm Respiratory: Yes: WNL, Regular, CTA Bilaterally Gastrointestinal: Yes: WNL, Normal Bowel Sounds Genitourinary: Yes: WNL Musculoskeletal: Yes: WNL Extremities: Yes: Erythema Edema: Yes Integumentary: Yes: WNL Neurological: Yes: WNL, Alert, Oriented ...Motor Strength: WNL Psychiatric: Yes: WNL Labs: CBC, BMP 01/11/19 06:35 INR, PTT INR 1.19 (0.83-1.09) H 01/05/19 22:10 Assessment/Plan Assessment/Plan 01/06/2019 Echo: Normal LV size with mild cLVH normal LV fxn, normal RV fxn, pacemaker in RV, mod TR RVSP 34 mmHg, mild MR 1. Positional near syncope, suspect autonomic dysfunction associated with diabetes 2. CAD s/p PR, PCI (stent), angina pectoris 3. LV systolic dysfunction s/p ICD since improved 4. HTN 5. Hyperlipidemia 6. venous insufficiency with left leg stasis ulcers 7. OSAS not on cpap P: 1. Continue Lasix 20 qd, ASA 81 qd, Lipitor 10 qd, Lovaza 2 bid, carvedilol 6.25 bid, losartan 25 qd as hemodynamics tolerate 2. ICD last interrogated 09/10/2018 showing 1% RV pacing, battery life 6 years, 4 episodes of NSVT, no therapies 3. Wound care, leg wraps 4. Fall precautions, PT for gait training and d/c planning Coverage for dr. Kathleen
[2019-01-11] MEDS ORDERED: DEXTROSE 5%-WATER - 50 ML IVPB ONE (10:47)
[2019-01-11] MEDS ORDERED: cefTRIAXone SODIUM 1 GM VIAL ONE (10:47)
[2019-01-11] MEDS: CEFTRIAXONE 1 GM in DEXTROSE 5%-WATER - 50 ML IVPB SCH (10:52)
[2019-01-11] MEDS: CARVEDILOL 6.25 MG TABLET (FP) PO SCH (10:52)
[2019-01-11] MEDS: LOSARTAN POTASSIUM 25 MG TABLET PO SCH (10:52)
[2019-01-11] MEDS: MULTIVITAMINS (DAILY MVI) TABLET (FP) PO SCH (10:53)
[2019-01-11] MEDS: ASPIRIN 81 MG CHEWABLE TABLETS PO SCH (10:53)
[2019-01-11] MEDS: POTASSIUM CHLORIDE TABS 10 MEQ TABLET.ER (FP) PO SCH (10:53)
[2019-01-11] MEDS: HEPARIN NA (PORCINE) 5,000 UNITS/ML 1ML VIAL SQ SCH (10:53)
[2019-01-11] MEDS: PANTOPRAZOLE 40 MG TABLET (FP) PO SCH (10:53)
[2019-01-11] MEDS: FUROSEMIDE 20 MG TABLET (FP) PO SCH (10:53)
[2019-01-11] MEDS: FENOFIBRIC ACID 135 MG CAP PO SCH (10:54)
[2019-01-11] MEDS: FLUTICASONE PROP 0.05% 16 GM NASAL SPRAY NS SCH (10:55)
--- NOTE | 2019-01-11 12:18 | DS ---
Physical Examination Vital Signs: Vital Signs Temperature 98.1 F 01/11/19 09:00 Pulse Rate 76 01/11/19 09:00 Respiratory Rate 18 01/11/19 09:00 Blood Pressure 121/76 01/11/19 09:00 O2 Sat by Pulse Oximetry (%) 97 01/10/19 21:00 Findings/Remarks: feels well no complains wants to go home today says will follow at wound care Constitutional: Yes: No Distress, Calm Eyes: Yes: Conjunctiva Clear Neck: Yes: Supple Cardiovascular: Yes: Regular Rate and Rhythm Respiratory: Yes: CTA Bilaterally Gastrointestinal: Yes: Soft Extremities: Yes: Other (chronic venous stasis) Neurological: Yes: Alert Psychiatric: Yes: Alert Labs: CBC, BMP 01/11/19 06:35 01/11/19 06:35 Discharge Summary Reason For Visit: LOCAL INFECTION OF WOUND,DIZINESS OF UNKNOWN CAUSE Current Active Problems Coronary artery disease (Acute) Diabetic ulcer of ankle (Acute) Dizziness of unknown cause (Acute) Fall in elderly patient (Acute) H/O myocardial infarction, greater than 8 weeks (Acute) Hyperlipidemia (Acute) Hypoxia (Acute) ICD (implantable cardioverter-defibrillator) in place (Acute) Near syncope (Acute) On supplemental oxygen therapy (Acute) Shortness of breath at rest (Acute) Status post insertion of drug-eluting stent into left anterior descending (LAD) artery (Acute) Wound infection (Acute) Hospital Course: Discussed stable d/c on po abx mri- Brain can be done as out pt f/u with pmd/ neurology/ cardiology and wound care meds reconcilled hold glucotrol for now discussed with nursing staff also Condition: Stable - Instructions Diet, Activity, Other Instructions: Follow up with primary MD as instructed. Follow up in wound care center as instructed. Disposition: HOME - Home Medications Comprehensive Discharge Medication List: Ambulatory Orders Aspirin [ASA -] 81 mg PO DAILY #0 tab.chew 04/27/13 Losartan Potassium [Cozaar -] 25 mg PO DAILY #0 tablet 04/27/13 Multivitamin [Multivitamins] 1 each PO DAILY #0 capsule 04/27/13 Potassium Chloride [K-Dur -] 10 meq PO BID #0 tablet.er 04/27/13 Sitagliptin Phos/Metformin HCl [Janumet 50-1,000 mg Tablet] 1 tab PO DAILY 09/16 Testosterone [Axiron] 30 mg TD HS 03/30/15 Atorvastatin Ca [Lipitor] 10 mg PO DAILY 09/07/15 Fluticasone Prop 0.05% Nasal [Flonase -] 1 mg IH DAILY 09/07/15 metFORMIN HCL [Metformin ER Osmotic] 1,000 mg PO HS 09/07/15 Furosemide [Lasix -] 20 mg PO DAILY 09/20/15 Omeprazole [Prilosec] 40 mg PO DAILY 09/20/15 Oxybutynin Chloride [Ditropan Xl] 10 mg PO DAILY 09/20/15 Meloxicam 15 mg PO DAILY 04/10/18 Acetaminophen [Tylenol .Regular Strength -] 650 mg PO Q4H PRN tablet 01/11/19 Carvedilol [Coreg -] 6.25 mg PO BID tablet 01/11/19 Cephalexin [Keflex] 500 mg PO BID 5 Days #10 capsule 01/11/19 Guaifenesin [Robitussin -] 10 ml PO Q4H PRN cup 01/11/19 Insulin (Levemir) [Levemir Vial] 10 units SQ HS units 01/11/19 Insulin Sliding Scale [Novolog Vial Sliding Scale -] 1 vial SQ ACHS units 01/11
[2019-01-11] MEDS: guaiFENesin 200 MG/10 ML 10 ML UNIT-DOSE CUPS PO PRN (13:04)
[2019-01-11 13:34] LABS: PLATELET ESTIMATE ADEQUATE
== END 2019-01-11 18:50 | disposition home or self-care (01) | DRG 195 ==
LOC: JER 20:43 → SUPCPDRO 20:43 → JERBED 23:41 → J5S 01-06 10:28
PROVIDERS: ADMIT Internal Medicine; ATTEND Internal Medicine
DX: J18.9 Pneumonia, unspecified organism (principal); R55 Syncope and collapse; R42 Dizziness and giddiness; I10 Essential (primary) hypertension; E11.65 Type 2 diabetes mellitus with hyperglycemia; E78.5 Hyperlipidemia, unspecified; E11.621 Type 2 diabetes mellitus with foot ulcer; I25.119 Atherosclerotic heart disease of native coronary artery with unspecified angina pectoris; Z98.61 Coronary angioplasty status; G47.33 Obstructive sleep apnea (adult) (pediatric); E11.69 Type 2 diabetes mellitus with other specified complication; I95.1 Orthostatic hypotension; I25.2 Old myocardial infarction; I83.008 Varicose veins of unspecified lower extremity with ulcer other part of lower leg; I87.2 Venous insufficiency (chronic) (peripheral); Z95.810 Presence of automatic (implantable) cardiac defibrillator
CPT/HCPCS: 36415; 36600; 70450-TC; 71045-TC-FY; 80053; 80061; 81003; 82375; 82550; 82803; 82962; 83036; 83050; 83605; 83721; 84443; 84484; 85025; 85027; 85610; 85730; 87040; 87070; 87086; 87205; 87899; 93005; 93010; 93306-TC; 93970-TC; 97116-GP; 97162-GP; 99284-25; J0131; J1644

== ENCOUNTER 2019-08-26 09:08 | Day surgery (SDC) | payer OTHER ==
[2019-08-22 10:53] VITALS: BMI 31.4
[2019-08-26] MEDS ORDERED: DEXAMETHASONE SOD PHOSPHATE 4 MG/1 ML VIAL ONE (10:55)
[2019-08-26] MEDS ORDERED: LIDOCAINE HCL/PF 2% SDV 5ML VIAL ONE (10:55)
[2019-08-26] MEDS ORDERED: PROPOFOL 20 ML ONE (10:55)
[2019-08-26] MEDS ORDERED: ceFAZolin SODIUM 1 GM VIAL IVPB ONE (11:43)
[2019-08-26] MEDS ORDERED: ONDANSETRON 4 MG/2 ML VIAL IVPUSH PRN (12:16)
[2019-08-26] MEDS ORDERED: oxyCODONE HCL 5 MG TABLET PO PRN (12:16)
--- NOTE | 2019-08-26 12:17 | OP ---
Operative Note - Note: Operative Date: 08/26/19 Pre-Operative Diagnosis: bladder tumor Operation: turbt and bladder neck vaporization Findings: bladder tumor and bladder neck contraction Post-Operative Diagnosis: Same as Pre-op Surgeon: Nunu Alcazar Anesthesia: General Specimens Removed: bladder tumor, urine Estimated Blood Loss (mls): 10 Drains & Tubes with Location: 20f 10 cc long Drains, Volume Out (mls): 0 Blood Volume Replaced (mls): 0 Fluid Volume Replaced (mls): 0 Operative Report Dictated: Yes
[2019-08-26] MEDS ORDERED: ACETAMINOPHEN 325 MG TABLET (FP) PO PRN (12:20)
[2019-08-26] MEDS ORDERED: LACTATED RINGERS SOLUTION 1,000 ML IV SCH (12:30)
--- NOTE | 2019-08-26 12:42 | CONS ---
DATE OF CONSULTATION: DATE OF DICTATION: 08/26/2019 Patient is a 74-year-old male with history of prostatism including frequency, urgency, terminal dribbling, and feelings of incomplete bladder emptying. He is a diabetic, hypertensive, and dyslipidemic. Denies any allergies. He is presently on losartan, PPI, Coreg, Glipizide, Tradjenta, and Ditropan. Patient underwent a cystoscopy in the office. A bladder polyp was found in the left lateral lobe. 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 Patient is admitted for a full resection of the lesion. His PSA is 0.37, BUN 23, creatinine 0.9. Procedure was explained to patient in detail, and he agrees. LEN HOFF M.D. [id number]
--- NOTE | 2019-08-26 14:11 | OP ---
DATE OF OPERATION: 08/26/2019 PREOPERATIVE DIAGNOSIS: Bladder tumor. POSTOPERATIVE DIAGNOSIS: Bladder tumor with bladder neck contraction. OPERATIVE PROCEDURES: Cystourethroscopy, collection of urine for cytology, transurethral resection bladder tumor, and vaporization of the bladder neck. ANESTHESIA: General. DESCRIPTION OF PROCEDURE: Under above-stated anesthesia, patient was prepped and draped in the usual sterile manner. He was placed in the dorsal lithotomy position. Cystoscopy revealed bladder neck contraction. The cystoscope was introduced into the bladder. Urine was collected for cytology. Inspection of the bladder revealed a grade 2-3 trabeculation, no calculi were seen. A hemorrhagic, hyperemic, elevated lesion was seen in the left lateral lobe 2 cm above the left ureteral orifice. The resectoscope was inserted. Resection of the lesion was performed in the usual fashion. An [employer] evacuator was used to evacuate the tissue. The base was cauterized for hemostasis. Inspection of the bladder neck revealed a tight, contracted bladder neck. Therefore, a vapor probe was introduced and the bladder neck was vaporized in the usual fashion, by commencing at the 6 o'clock position of the right lower lobe and going up to the 12 o'clock position. The same thing was done to the left lateral lobe. No active bleeding was noted. The scope was removed. A 20-Lao Tamayo was inserted. The patient tolerated the procedure well. He returned to the recovery room in good condition. Idalia [id number]
[2019-08-26 15:39] VITALS: TEMP 98
[2019-08-26 15:45] VITALS: BP 162/70; PULSE 67
--- NOTE | 2019-08-27 14:08 | PATH ---
Cytology Non-Gynecological Report Patient Name: BRADEN CASH Med. Rec. #: [id number] /Age/Gender: 1945 (Age: 74) / M Account: [id number] Location: [facility] Taken: 08/26/2019 Received: 08/26/2019 Reported: 08/27/2019 Physicians: Nunu Alcazar M.D. Specimen(s) Received URINE Clinical History Urine for cytology Final Diagnosis URINE FOR CYTOLOGY: SATISFACTORY FOR EVALUATION. NEGATIVE FOR HIGH GRADE UROTHELIAL CARCINOMA. SUSPECT URINARY TRACT INFECTION. UROTHELIAL CELLS AND RED BLOOD CELLS PRESENT. MANY NEUTROPHILS AND BACTERIA PRESENT. FEW UROTHELIAL FRAGMENTS PRESENT. Comment: Urothelial fragments are suggestive of prior instrumentation, lithiasis, or a low grade papillary neoplasm. Suggest clinical/radiologic correlation. See concurrent biopsy ([id number]). Electronically Signed Agnes Burnett M.D. Gross Description Approximately 55 cc of nitza fluid received fresh. One cytofunnel prepared and Pap stained.
--- NOTE | 2019-08-27 15:32 | PATH ---
Surgical Pathology Report Patient Name: BRADEN CASH [facility]. Rec. #: [id number] /Age/Gender: 1945 (Age: 74) / M Account: [id number] Location: [facility] Taken: 08/26/2019 Received: 08/26/2019 Reported: 08/27/2019 Physicians: Nunu Alcazar M.D. Specimen(s) Received BLADDER TUMOR Clinical History Hematuria, bladder tumor Final Diagnosis BLADDER TUMOR, BIOPSY: UROTHELIAL MUCOSA WITH ACUTE AND CHRONIC CYSTITIS. ABUNDANT MUSCULARIS PROPRIA PRESENT. NEGATIVE FOR CARCINOMA. Electronically Signed Alisha Acevedo M.D. Gross Description Received in formalin labeled "bladder tumor," is a 0.7 x 0.6 x 0.3 cm byrd-pink, polypoid portion of soft tissue. The specimen is submitted in toto in one cassette. /08/26/2019 saudi08/26/2019
== END 2019-08-26 15:50 | disposition home or self-care (01) ==
LOC: JASU-SURG 09:08
PROVIDERS: ATTEND Urology
PROC: 0T5B8ZZ Destruction of Bladder, Via Natural or Artificial Opening Endoscopic (ICD-10-PCS; principal; 2019-08-26 11:00)
PROC: 0TBC8ZZ Excision of Bladder Neck, Via Natural or Artificial Opening Endoscopic (ICD-10-PCS; 2019-08-26 11:00)
DX: N30.00 Acute cystitis without hematuria (principal); D30.3 Benign neoplasm of bladder; E11.9 Type 2 diabetes mellitus without complications; G47.30 Sleep apnea, unspecified; N32.89 Other specified disorders of bladder
CPT/HCPCS: 82962; 88108; 88305-TC; 94760

== ENCOUNTER 2021-02-24 09:21 | Emergency (ER) | payer OTHER ==
[2021-02-24 09:34] VITALS: BMI 32.4
[2021-02-24 12:38] VITALS: BP 148/87; PULSE 86; TEMP 98.7
== END 2021-02-24 12:55 | disposition home or self-care (01) ==
LOC: JER 09:21
DX: L97.319 Non-pressure chronic ulcer of right ankle with unspecified severity (principal); R60.0 Localized edema; I87.2 Venous insufficiency (chronic) (peripheral)
CPT/HCPCS: 93970-TC; 99284-25

== ENCOUNTER 2021-04-20 13:30 | Inpatient (IN) | payer OTHER ==
[2021-04-20 15:52] LABS: BASO % 1.1 % (0-2.0); EOS % 2.5 % (0-4.5); HEMATOCRIT 43.8 % (35.4-49); HEMOGLOBIN 14.4 GM/dL (11.7-16.9); LYMPH % 21.5 % (8-40); MCH 29.6 pg (25.7-33.7); MCHC 32.9 g/dl (32.0-35.9); MEAN CELL VOLUME 89.7 fl (80-96); MEAN PLT VOLUME 8.1 fl (7.5-11.1); MONO % 9.5 % (3.8-10.2); NEUT % 65.4 % (42.8-82.8); RBC 4.88 M/mm3 (4.00-5.60); RDW 16.3 % (11.9-15.9); WHITE BLOOD COUNT 6.6 K/mm3 (4.0-10.0)
[2021-04-20 16:01] LABS: CHLORIDE 106 mmol/L (98-107); SODIUM 140 mmol/L (136-145)
[2021-04-20 16:02] LABS: CALCIUM 8.2 mg/dL (8.5-10.1)
[2021-04-20 16:03] LABS: INR 1.03 (0.83-1.09); PROTHROMBIN TIME (PATIENT) 12.5 SEC (9.7-13.0)
[2021-04-20 16:04] LABS: ALBUMIN 2.7 g/dl (3.4-5.0); ANION GAP 5 MMOL/L (8-16); BLOOD UREA NITROGEN 19.8 mg/dL (7-18); CO2 29 mmol/L (21-32); GLUCOSE,RANDOM 112 mg/dL (74-106)
[2021-04-20 16:06] LABS: ACTIVATED PTT 28.4 SECONDS (25.2-36.5); CREATININE 0.9 mg/dL (0.55-1.3); SGOT/AST 20 U/L (15-37); SGPT/ALT 16 U/L (13-61)
[2021-04-20 16:08] LABS: BILIRUBIN,TOTAL 0.7 mg/dL (0.2-1); TOT PROT 6.5 g/dl (6.4-8.2)
[2021-04-20 16:13] LABS: ALK PHOS 94 U/L (45-117)
[2021-04-20 16:34] LABS: PLATELET COUNT 78 10^3/uL (134-434)
[2021-04-20 16:52] LABS: ERYTHROCYTE SEDIMENTATION RATE 16 mm/hr (0-20)
[2021-04-20] MEDS ORDERED: VANCOMYCIN 1 GM in D5W (PRE-DOCKED) 1,000 MG/250 ML IVPB ONE (16:57)
[2021-04-20] MEDS ORDERED: PIPERACILLIN/TAZOB 4.5 GM 4.5 GM in DEXTROSE 5%-WATER 100 ML IVPB ONE (16:58)
[2021-04-20] MEDS ORDERED: PIPERACILLIN/TAZOB 4.5 GM 4.5 GM/100 ML BAG IVPB ONE (17:25)
[2021-04-20] MEDS ORDERED: VANCOMYCIN 1 GRAM (PRE-DOCKED) 1,000 MG/250 ML BAG IVPB ONE (17:29)
[2021-04-21] MEDS: CARVEDILOL 6.25 MG TABLET (FP) PO SCH ×3 (00:38→21:53)
[2021-04-21 01:28] VITALS: BMI 29.9
[2021-04-21] MEDS ORDERED: PIPERACILLIN/TAZOB 4.5 GM 4.5 GM in DEXTROSE 5%-WATER 100 ML IVPB SCH (02:00)
[2021-04-21] MEDS ORDERED: PIPERACILLIN/TAZOBACTAM 4.5 GM VIAL IVPB ONE ×2 (02:18→10:10)
[2021-04-21] MEDS ORDERED: DEXTROSE 5%-WATER 100 ML IVPB ONE ×2 (02:18→10:10)
[2021-04-21] MEDS: PIPERACILLIN/TAZOB 4.5 GM 4.5 GM in DEXTROSE 5%-WATER 100 ML IVPB SCH ×2 (02:29→10:44)
[2021-04-21] MEDS: INSULIN SLIDING SCALE (NOVOLOG) 1 VIAL SQ SCH ×5 (07:14→21:55)
[2021-04-21] MEDS ORDERED: VANCOMYCIN 1 GRAM (PRE-DOCKED) 1,000 MG/250 ML BAG IVPB SCH (08:00)
[2021-04-21] MEDS ORDERED: VANCOMYCIN 1,000 MG in DEXTROSE 5%-WATER - 250 ML IVPB SCH (08:00)
[2021-04-21] MEDS: PANTOPRAZOLE 40 MG TABLET PO SCH (10:43)
[2021-04-21] MEDS: LOSARTAN POTASSIUM 25 MG TABLET PO SCH (10:43)
[2021-04-21] MEDS: ASPIRIN 81 MG CHEWABLE TABLETS PO SCH (10:43)
[2021-04-21] MEDS: FUROSEMIDE 20 MG TABLET (FP) PO SCH (10:43)
[2021-04-21] MEDS: MULTIVITAMINS (DAILY MVI) TABLET (FP) PO SCH (10:43)
[2021-04-21] MEDS: SOLIFENACIN SUCCINATE 5 MG TAB PO SCH (10:43)
[2021-04-21 11:14] LABS: BASO % 0.4 % (0-2.0); EOS % 2.2 % (0-4.5); HEMATOCRIT 44.7 % (35.4-49); HEMOGLOBIN 15.3 GM/dL (11.7-16.9); LYMPH % 14.8 % (8-40); MCH 30.6 pg (25.7-33.7); MCHC 34.1 g/dl (32.0-35.9); MEAN CELL VOLUME 89.8 fl (80-96); MEAN PLT VOLUME 8.2 fl (7.5-11.1); MONO % 8.3 % (3.8-10.2); NEUT % 74.3 % (42.8-82.8); PLATELET COUNT 126 10^3/uL (134-434); RBC 4.98 M/mm3 (4.00-5.60); WHITE BLOOD COUNT 6.3 K/mm3 (4.0-10.0)
[2021-04-21 11:58] LABS: CALCIUM 8.7 mg/dL (8.5-10.1)
[2021-04-21 12:00] LABS: ALBUMIN 2.8 g/dl (3.4-5.0)
[2021-04-21 12:04] LABS: BILIRUBIN,TOTAL 0.9 mg/dL (0.2-1); TOT PROT 6.6 g/dl (6.4-8.2)
[2021-04-21] MEDS: VANCOMYCIN 1 GRAM (PRE-DOCKED) 1,000 MG/250 ML BAG IVPB SCH ×2 (15:16→15:42)
[2021-04-21] MEDS ORDERED: PIPERACILLIN/TAZOBACTAM 3.375 GM VIAL IVPB ONE (17:08)
[2021-04-21] MEDS ORDERED: DEXTROSE 5%-WATER - 50 ML IVPB ONE (17:08)
[2021-04-21] MEDS: PIPERACILLIN/TAZOB 3.375 GM 3.375 GM in DEXTROSE 5%-WATER - 50 ML IVPB SCH (17:09)
[2021-04-21] MEDS: COLLAGENASE CLOSTRIDIUM HIST. 30 GRAMS TUBE TP SCH (18:37)
[2021-04-21] MEDS: ATORVASTATIN CA 10 MG TABLET (FP) PO SCH (21:53)
[2021-04-22] MEDS: VANCOMYCIN 1 GRAM (PRE-DOCKED) 1,000 MG/250 ML BAG IVPB SCH ×2 (01:40→14:02)
[2021-04-22] MEDS ORDERED: DEXTROSE 5%-WATER - 50 ML IVPB ONE ×3 (01:56→17:32)
[2021-04-22] MEDS ORDERED: PIPERACILLIN/TAZOBACTAM 3.375 GM VIAL IVPB ONE ×3 (01:56→17:31)
[2021-04-22] MEDS: PIPERACILLIN/TAZOB 3.375 GM 3.375 GM in DEXTROSE 5%-WATER - 50 ML IVPB SCH ×3 (02:49→17:50)
[2021-04-22] MEDS: INSULIN SLIDING SCALE (NOVOLOG) 1 VIAL SQ SCH ×2 (06:47→11:44)
[2021-04-22] MEDS: SOLIFENACIN SUCCINATE 5 MG TAB PO SCH (10:17)
[2021-04-22] MEDS: CARVEDILOL 6.25 MG TABLET (FP) PO SCH ×2 (10:17→21:18)
[2021-04-22] MEDS: ASPIRIN 81 MG CHEWABLE TABLETS PO SCH (10:17)
[2021-04-22] MEDS: MULTIVITAMINS (DAILY MVI) TABLET (FP) PO SCH (10:17)
[2021-04-22] MEDS: LOSARTAN POTASSIUM 25 MG TABLET PO SCH (10:17)
[2021-04-22] MEDS: PANTOPRAZOLE 40 MG TABLET PO SCH (10:17)
[2021-04-22] MEDS: FUROSEMIDE 20 MG TABLET (FP) PO SCH ×2 (10:17→10:22)
[2021-04-22] MEDS: COLLAGENASE CLOSTRIDIUM HIST. 30 GRAMS TUBE TP SCH (10:18)
[2021-04-22] MEDS ORDERED: PT OWN MED DRAWER 7, Y5N ONE (17:31)
[2021-04-22] MEDS: glyBURIDE 5 MG TABLET PO SCH (17:50)
[2021-04-22] MEDS: ATORVASTATIN CA 10 MG TABLET (FP) PO SCH (21:17)
[2021-04-23] MEDS: VANCOMYCIN 1 GRAM (PRE-DOCKED) 1,000 MG/250 ML BAG IVPB SCH ×2 (00:25→14:23)
[2021-04-23] MEDS ORDERED: DEXTROSE 5%-WATER - 50 ML IVPB ONE ×3 (00:49→18:22)
[2021-04-23] MEDS ORDERED: PIPERACILLIN/TAZOBACTAM 3.375 GM VIAL IVPB ONE ×3 (00:49→18:22)
[2021-04-23] MEDS: PIPERACILLIN/TAZOB 3.375 GM 3.375 GM in DEXTROSE 5%-WATER - 50 ML IVPB SCH ×3 (03:06→18:41)
[2021-04-23] MEDS: glyBURIDE 5 MG TABLET PO SCH ×2 (06:02→18:21)
[2021-04-23] MEDS: ASPIRIN 81 MG CHEWABLE TABLETS PO SCH (11:02)
[2021-04-23] MEDS: MULTIVITAMINS (DAILY MVI) TABLET (FP) PO SCH (11:03)
[2021-04-23] MEDS: PANTOPRAZOLE 40 MG TABLET PO SCH (11:03)
[2021-04-23] MEDS: CARVEDILOL 6.25 MG TABLET (FP) PO SCH ×2 (11:03→23:17)
[2021-04-23] MEDS: COLLAGENASE CLOSTRIDIUM HIST. 30 GRAMS TUBE TP SCH (11:03)
[2021-04-23] MEDS: LOSARTAN POTASSIUM 25 MG TABLET PO SCH (11:03)
[2021-04-23] MEDS: FUROSEMIDE 20 MG TABLET (FP) PO SCH ×2 (11:03→11:09)
[2021-04-23] MEDS: SOLIFENACIN SUCCINATE 5 MG TAB PO SCH (11:06)
[2021-04-23] MEDS ORDERED: PT OWN MED DRAWER 7, Y5N ONE (23:06)
[2021-04-23] MEDS: ATORVASTATIN CA 10 MG TABLET (FP) PO SCH (23:17)
[2021-04-24] MEDS: VANCOMYCIN 1 GRAM (PRE-DOCKED) 1,000 MG/250 ML BAG IVPB SCH ×2 (00:10→13:23)
[2021-04-24] MEDS ORDERED: DEXTROSE 5%-WATER - 50 ML IVPB ONE ×3 (01:34→17:12)
[2021-04-24] MEDS ORDERED: PIPERACILLIN/TAZOBACTAM 3.375 GM VIAL IVPB ONE ×3 (01:34→17:12)
[2021-04-24] MEDS: PIPERACILLIN/TAZOB 3.375 GM 3.375 GM in DEXTROSE 5%-WATER - 50 ML IVPB SCH ×3 (02:04→17:21)
[2021-04-24] MEDS ORDERED: PT OWN MED DRAWER 7, Y5N ONE (06:48)
[2021-04-24] MEDS: glyBURIDE 5 MG TABLET PO SCH ×2 (06:59→17:22)
[2021-04-24] MEDS: ASPIRIN 81 MG CHEWABLE TABLETS PO SCH (09:51)
[2021-04-24] MEDS: PANTOPRAZOLE 40 MG TABLET PO SCH (09:51)
[2021-04-24] MEDS: LOSARTAN POTASSIUM 25 MG TABLET PO SCH (09:51)
[2021-04-24] MEDS: MULTIVITAMINS (DAILY MVI) TABLET (FP) PO SCH (09:51)
[2021-04-24] MEDS: SOLIFENACIN SUCCINATE 5 MG TAB PO SCH (09:52)
[2021-04-24] MEDS: CARVEDILOL 6.25 MG TABLET (FP) PO SCH ×2 (09:52→21:48)
[2021-04-24] MEDS: FUROSEMIDE 20 MG TABLET (FP) PO SCH (09:53)
[2021-04-24] MEDS ORDERED: guaiFENesin/D-M SUGAR-FREE/ACLHOL-FREE 118 ML BOTTLE PO PRN (10:09)
[2021-04-24] MEDS ORDERED: guaiFENesin/D-M SUGAR-FREE/ACLHOL-FREE 5 ML UNIT DOSE PO PRN (10:17)
[2021-04-24] MEDS: COLLAGENASE CLOSTRIDIUM HIST. 30 GRAMS TUBE TP SCH (11:09)
[2021-04-24] MEDS: LORATADINE 10 MG TABLET PO SCH (11:09)
[2021-04-24] MEDS: ATORVASTATIN CA 10 MG TABLET (FP) PO SCH (21:47)
[2021-04-25] MEDS: VANCOMYCIN 1 GRAM (PRE-DOCKED) 1,000 MG/250 ML BAG IVPB SCH ×2 (00:40→11:57)
[2021-04-25] MEDS ORDERED: PIPERACILLIN/TAZOBACTAM 3.375 GM VIAL IVPB ONE ×3 (01:48→17:56)
[2021-04-25] MEDS ORDERED: DEXTROSE 5%-WATER - 50 ML IVPB ONE ×3 (01:48→17:57)
[2021-04-25] MEDS: PIPERACILLIN/TAZOB 3.375 GM 3.375 GM in DEXTROSE 5%-WATER - 50 ML IVPB SCH ×3 (02:35→18:20)
[2021-04-25] MEDS ORDERED: PT OWN MED DRAWER 7, Y5N ONE ×3 (06:33→21:47)
[2021-04-25] MEDS: glyBURIDE 5 MG TABLET PO SCH ×2 (06:52→17:09)
[2021-04-25 10:26] LABS: BASO % 0.6 % (0-2.0); EOS % 3.1 % (0-4.5); HEMATOCRIT 45.3 % (35.4-49); HEMOGLOBIN 15.4 GM/dL (11.7-16.9); LYMPH % 15.7 % (8-40); MCH 30.5 pg (25.7-33.7); MCHC 33.9 g/dl (32.0-35.9); MEAN PLT VOLUME 8.8 fl (7.5-11.1); MONO % 8.7 % (3.8-10.2); NEUT % 71.9 % (42.8-82.8); PLATELET COUNT 124 10^3/uL (134-434); RBC 5.03 M/mm3 (4.00-5.60); RDW 16.7 % (11.9-15.9); WHITE BLOOD COUNT 6.9 K/mm3 (4.0-10.0)
[2021-04-25 10:49] LABS: CALCIUM 8.7 mg/dL (8.5-10.1)
[2021-04-25 10:50] LABS: ALBUMIN 2.9 g/dl (3.4-5.0); BLOOD UREA NITROGEN 18.5 mg/dL (7-18)
[2021-04-25 10:55] LABS: TOT PROT 6.9 g/dl (6.4-8.2)
[2021-04-25] MEDS: LOSARTAN POTASSIUM 25 MG TABLET PO SCH (10:57)
[2021-04-25] MEDS: FUROSEMIDE 20 MG TABLET (FP) PO SCH (10:57)
[2021-04-25] MEDS: LORATADINE 10 MG TABLET PO SCH (10:57)
[2021-04-25] MEDS: SOLIFENACIN SUCCINATE 5 MG TAB PO SCH (10:57)
[2021-04-25] MEDS: PANTOPRAZOLE 40 MG TABLET PO SCH (10:57)
[2021-04-25] MEDS: MULTIVITAMINS (DAILY MVI) TABLET (FP) PO SCH (10:57)
[2021-04-25] MEDS: ASPIRIN 81 MG CHEWABLE TABLETS PO SCH (10:57)
[2021-04-25] MEDS: CARVEDILOL 6.25 MG TABLET (FP) PO SCH ×2 (10:57→21:54)
[2021-04-25] MEDS: COLLAGENASE CLOSTRIDIUM HIST. 30 GRAMS TUBE TP SCH (10:58)
[2021-04-25] MEDS ORDERED: INSULIN (NOVOLOG) ASPART 100 UNITS/ML 10ML VIAL ONE (11:07)
[2021-04-25] MEDS: ENOXAPARIN NA (PORCINE) 40 MG/0.4 ML DISP.SYRIN SQ SCH (12:00)
[2021-04-25 12:03] LABS: ERYTHROCYTE SEDIMENTATION RATE 16 mm/hr (0-20)
[2021-04-25] MEDS: ATORVASTATIN CA 10 MG TABLET (FP) PO SCH (21:54)
[2021-04-26] MEDS: VANCOMYCIN 1 GRAM (PRE-DOCKED) 1,000 MG/250 ML BAG IVPB SCH (00:08)
[2021-04-26] MEDS ORDERED: DEXTROSE 5%-WATER - 50 ML IVPB ONE ×2 (02:01→10:26)
[2021-04-26] MEDS ORDERED: PIPERACILLIN/TAZOBACTAM 3.375 GM VIAL IVPB ONE ×2 (02:01→10:26)
[2021-04-26] MEDS: PIPERACILLIN/TAZOB 3.375 GM 3.375 GM in DEXTROSE 5%-WATER - 50 ML IVPB SCH ×2 (02:33→10:37)
[2021-04-26] MEDS ORDERED: PT OWN MED DRAWER 7, Y5N ONE ×2 (05:54→06:48)
[2021-04-26] MEDS: glyBURIDE 5 MG TABLET PO SCH (06:48)
[2021-04-26] MEDS: ASPIRIN 81 MG CHEWABLE TABLETS PO SCH (10:37)
[2021-04-26] MEDS: PANTOPRAZOLE 40 MG TABLET PO SCH (10:37)
[2021-04-26] MEDS: CARVEDILOL 6.25 MG TABLET (FP) PO SCH (10:37)
[2021-04-26] MEDS: LORATADINE 10 MG TABLET PO SCH (10:37)
[2021-04-26] MEDS: SOLIFENACIN SUCCINATE 5 MG TAB PO SCH (10:37)
[2021-04-26] MEDS: LOSARTAN POTASSIUM 25 MG TABLET PO SCH (10:37)
[2021-04-26] MEDS: MULTIVITAMINS (DAILY MVI) TABLET (FP) PO SCH (10:37)
[2021-04-26] MEDS: ENOXAPARIN NA (PORCINE) 40 MG/0.4 ML DISP.SYRIN SQ SCH (10:38)
[2021-04-26] MEDS: FUROSEMIDE 20 MG TABLET (FP) PO SCH (10:38)
[2021-04-26] MEDS: COLLAGENASE CLOSTRIDIUM HIST. 30 GRAMS TUBE TP SCH (10:38)
[2021-04-26 16:59] VITALS: BP 155/86; PULSE 60; TEMP 97.4
== END 2021-04-26 17:40 | disposition home health service (06) | DRG 603 ==
LOC: JER 13:30 → JERBED 15:38 → J6S 04-21 00:07
PROVIDERS: ADMIT Internal Medicine; ATTEND Internal Medicine
DX: L03.116 Cellulitis of left lower limb (principal); L97.909 Non-pressure chronic ulcer of unspecified part of unspecified lower leg with unspecified severity; E11.51 Type 2 diabetes mellitus with diabetic peripheral angiopathy without gangrene; E11.621 Type 2 diabetes mellitus with foot ulcer; I11.0 Hypertensive heart disease with heart failure; B95.62 Methicillin resistant Staphylococcus aureus infection as the cause of diseases classified elsewhere; I50.9 Heart failure, unspecified; E78.5 Hyperlipidemia, unspecified; N40.0 Benign prostatic hyperplasia without lower urinary tract symptoms; E66.9 Obesity, unspecified; Z68.29 Body mass index [BMI] 29.0-29.9, adult; I25.10 Atherosclerotic heart disease of native coronary artery without angina pectoris; Z98.61 Coronary angioplasty status
CPT/HCPCS: 36415; 71045-TC-FY; 73630-TC-LT; 78315-TC; 80053; 82962; 83036; 84484; 85025; 85610; 85651; 85730; 86140; 87040; 87070; 87186; 87205; 93005; 93010; 99285-25; A9503; C9803; G0463-25; U0003; U0005

== ENCOUNTER 2021-12-02 12:11 | Emergency (ER) | payer OTHER ==
[2021-12-02 12:39] VITALS: BP 156/69; PULSE 68; TEMP 98.5; BMI 25.9
[2021-12-02] MEDS ORDERED: VANCOMYCIN 1 GM in D5W (PRE-DOCKED) 1,000 MG/250 ML IVPB ONE (14:07)
[2021-12-02] MEDS ORDERED: VANCOMYCIN 1 GRAM (PRE-DOCKED) 1,000 MG/250 ML BAG IVPB ONE (14:20)
[2021-12-02 15:14] LABS: BLOOD UREA NITROGEN 14.2 mg/dL (7-18); CALCIUM 8.7 mg/dL (8.5-10.1); MAGNESIUM 1.7 mg/dL (1.8-2.4)
[2021-12-02 15:17] LABS: PHOSPHOROUS 2.6 mg/dL (2.5-4.9)
[2021-12-02 15:18] LABS: CREATININE 0.9 mg/dL (0.55-1.3)
[2021-12-02 15:20] LABS: BILIRUBIN,TOTAL 0.7 mg/dL (0.2-1); TOT PROT 6.1 g/dl (6.4-8.2)
[2021-12-02 15:30] LABS: BASO % 0.5 % (0-2.0); EOS % 1.9 % (0-4.5); HEMATOCRIT 45.1 % (35.4-49); LYMPH % 20.2 % (8-40); MCH 30.3 pg (25.7-33.7); MCHC 33.2 g/dl (32.0-35.9); MEAN CELL VOLUME 91.2 fl (80-96); MONO % 9.5 % (3.8-10.2); NEUT % 67.9 % (42.8-82.8); RBC 4.94 M/mm3 (4.00-5.60); RDW 14.2 % (11.9-15.9); WHITE BLOOD COUNT 5.8 K/mm3 (4.0-10.0)
[2021-12-02 17:20] LABS: PLATELET ESTIMATE DECREASED
[2021-12-03 17:07] LABS: SARS-CoV-2 NAA Not Detected (Not Detected)
== END 2021-12-02 18:06 | disposition left against medical advice (07) ==
LOC: JER 12:11
PROC: 3E033GC Introduction of Other Therapeutic Substance into Peripheral Vein, Percutaneous Approach (ICD-10-PCS; principal; 2021-12-02)
DX: L03.032 Cellulitis of left toe (principal)
CPT/HCPCS: 36415; 73610-TC-LT-FY; 73630-TC-LT; 80053; 83735; 84100; 85025; 87040; 87076; 87186; 93005; 93010; 96374; 99285-25; C9803-CS; U0003; U0005

== ENCOUNTER 2021-12-03 14:06 | Inpatient (IN) | payer OTHER ==
[2021-12-03 14:29] VITALS: BMI 32.1
[2021-12-03] MEDS ORDERED: VANCOMYCIN 1 GM in D5W (PRE-DOCKED) 1,000 MG/250 ML IVPB ONE (15:06)
[2021-12-03] MEDS ORDERED: VANCOMYCIN PREMIX 1.75 GM 1,750 MG/350 ML PIGGYBACK IVPB ONE (15:08)
[2021-12-03 15:50] LABS: BASO % 0.7 % (0-2.0); EOS % 2.5 % (0-4.5); HEMATOCRIT 44.4 % (35.4-49); HEMOGLOBIN 14.5 GM/dL (11.7-16.9); LYMPH % 14.9 % (8-40); MCHC 32.7 g/dl (32.0-35.9); MEAN CELL VOLUME 91.8 fl (80-96); MEAN PLT VOLUME 8.9 fl (7.5-11.1); MONO % 10.1 % (3.8-10.2); NEUT % 71.8 % (42.8-82.8); PLATELET COUNT 115 10^3/uL (134-434); RBC 4.84 M/mm3 (4.00-5.60); RDW 14.1 % (11.9-15.9)
[2021-12-03 16:10] LABS: ALBUMIN 2.9 g/dl (3.4-5.0); CALCIUM 8.2 mg/dL (8.5-10.1)
[2021-12-03 16:11] LABS: BLOOD UREA NITROGEN 14.2 mg/dL (7-18)
[2021-12-03 16:15] LABS: BILIRUBIN,TOTAL 0.8 mg/dL (0.2-1)
[2021-12-03] MEDS: INSULIN SLIDING SCALE (NOVOLOG) 1 VIAL SQ SCH (22:42)
[2021-12-03] MEDS ORDERED: traMADol HCL 50 MG TABLET ONE (23:19)
[2021-12-03] MEDS ORDERED: metFORMIN HCL 500 MG TABLET (FP) ONE (23:20)
[2021-12-03] MEDS ORDERED: CARVEDILOL 6.25 MG TABLET (FP) ONE (23:20)
[2021-12-03] MEDS: CARVEDILOL 6.25 MG TABLET (FP) PO SCH (23:40)
[2021-12-03] MEDS: traMADol HCL 50 MG TABLET PO SCH (23:40)
[2021-12-04] MEDS: VANCOMYCIN PREMIX 1.75 GM 1,750 MG/350 ML PIGGYBACK IVPB SCH ×3 (01:37→11:25)
[2021-12-04] MEDS: glyBURIDE 5 MG TABLET PO SCH ×2 (06:45→17:03)
[2021-12-04] MEDS: INSULIN SLIDING SCALE (NOVOLOG) 1 VIAL SQ SCH ×4 (06:52→22:20)
[2021-12-04] MEDS: CARVEDILOL 6.25 MG TABLET (FP) PO SCH ×2 (10:59→22:19)
[2021-12-04] MEDS: ASPIRIN 81 MG CHEWABLE TABLETS PO SCH (10:59)
[2021-12-04] MEDS: LOSARTAN POTASSIUM 25 MG TABLET PO SCH (10:59)
[2021-12-04] MEDS: FUROSEMIDE 20 MG TABLET (FP) PO SCH (11:00)
[2021-12-04] MEDS: FLUTICASONE PROP 0.05% 16 GM NASAL SPRAY NS SCH (11:00)
[2021-12-04] MEDS: PANTOPRAZOLE 40 MG TABLET PO SCH (11:00)
[2021-12-04] MEDS: ENOXAPARIN NA (PORCINE) 40 MG/0.4 ML DISP.SYRIN SQ SCH (11:00)
[2021-12-04] MEDS: MULTIVITAMINS (DAILY MVI) TABLET (FP) PO SCH (11:01)
[2021-12-04 11:27] LABS: INR 1.09 (0.83-1.09); PROTHROMBIN TIME (PATIENT) 12.6 SEC (9.7-13.0)
[2021-12-04 11:28] LABS: BASO % 0.6 % (0-2.0); EOS % 2.4 % (0-4.5); HEMATOCRIT 43.7 % (35.4-49); HEMOGLOBIN 14.8 GM/dL (11.7-16.9); LYMPH % 15.2 % (8-40); MCH 30.7 pg (25.7-33.7); MCHC 33.8 g/dl (32.0-35.9); MEAN PLT VOLUME 9.1 fl (7.5-11.1); MONO % 9.2 % (3.8-10.2); NEUT % 72.6 % (42.8-82.8); WHITE BLOOD COUNT 5.9 K/mm3 (4.0-10.0)
[2021-12-04 11:30] LABS: ACTIVATED PTT 26.1 SECONDS (25.2-36.5)
[2021-12-04] MEDS ORDERED: DEXTROSE 5%-WATER - 50 ML IVPB ONE ×2 (11:32→16:57)
[2021-12-04] MEDS ORDERED: PIPERACILLIN/TAZOBACTAM 3.375 GM VIAL IVPB ONE ×2 (11:32→16:57)
[2021-12-04 11:34] LABS: CALCIUM 8.3 mg/dL (8.5-10.1)
[2021-12-04] MEDS: PIPERACILLIN/TAZOB 3.375 GM 3.375 GM in DEXTROSE 5%-WATER - 50 ML IVPB SCH ×2 (11:37→17:03)
[2021-12-04] MEDS: SOLIFENACIN SUCCINATE 5 MG TAB PO SCH (11:37)
[2021-12-04 11:38] LABS: CREATININE 1.1 mg/dL (0.55-1.3)
[2021-12-04] MEDS: VANCOMYCIN/WATER FOR INJ (PEG) 1,000 MG/200 ML BAG IVPB SCH (13:39)
[2021-12-04] MEDS: ATORVASTATIN CA 10 MG TABLET (FP) PO SCH (22:20)
[2021-12-04] MEDS: traMADol HCL 50 MG TABLET PO SCH (22:20)
[2021-12-04] MEDS: BISACODYL 10 MG SUPP.RECT PR PRN (22:21)
[2021-12-05] MEDS ORDERED: DEXTROSE 5%-WATER - 50 ML IVPB ONE ×3 (02:26→17:05)
[2021-12-05] MEDS ORDERED: PIPERACILLIN/TAZOBACTAM 3.375 GM VIAL IVPB ONE ×3 (02:26→17:04)
[2021-12-05] MEDS: VANCOMYCIN/WATER FOR INJ (PEG) 1,000 MG/200 ML BAG IVPB SCH ×2 (02:40→16:15)
[2021-12-05] MEDS: PIPERACILLIN/TAZOB 3.375 GM 3.375 GM in DEXTROSE 5%-WATER - 50 ML IVPB SCH ×3 (02:40→18:09)
[2021-12-05] MEDS: glyBURIDE 5 MG TABLET PO SCH (06:53)
[2021-12-05] MEDS: INSULIN SLIDING SCALE (NOVOLOG) 1 VIAL SQ SCH ×4 (06:53→22:16)
[2021-12-05] MEDS: LOSARTAN POTASSIUM 25 MG TABLET PO SCH (10:56)
[2021-12-05] MEDS: MULTIVITAMINS (DAILY MVI) TABLET (FP) PO SCH (10:56)
[2021-12-05] MEDS: ASPIRIN 81 MG CHEWABLE TABLETS PO SCH (10:56)
[2021-12-05] MEDS: SOLIFENACIN SUCCINATE 5 MG TAB PO SCH (10:57)
[2021-12-05] MEDS: PANTOPRAZOLE 40 MG TABLET PO SCH (10:57)
[2021-12-05] MEDS: CARVEDILOL 6.25 MG TABLET (FP) PO SCH ×2 (10:57→22:14)
[2021-12-05] MEDS: ENOXAPARIN NA (PORCINE) 40 MG/0.4 ML DISP.SYRIN SQ SCH (10:57)
[2021-12-05] MEDS: FLUTICASONE PROP 0.05% 16 GM NASAL SPRAY NS SCH (10:57)
[2021-12-05] MEDS: FUROSEMIDE 20 MG TABLET (FP) PO SCH (11:09)
[2021-12-05] MEDS: BISACODYL 10 MG SUPP.RECT PR PRN (16:20)
[2021-12-05] MEDS ORDERED: INSULIN (NOVOLOG) ASPART 100 UNITS/ML 10ML VIAL ONE (21:41)
[2021-12-05] MEDS: traMADol HCL 50 MG TABLET PO SCH (22:14)
[2021-12-05] MEDS: ATORVASTATIN CA 10 MG TABLET (FP) PO SCH (22:14)
[2021-12-06] MEDS ORDERED: DEXTROSE 5%-WATER - 50 ML IVPB ONE ×3 (02:15→17:13)
[2021-12-06] MEDS ORDERED: PIPERACILLIN/TAZOBACTAM 3.375 GM VIAL IVPB ONE ×3 (02:15→17:13)
[2021-12-06] MEDS: PIPERACILLIN/TAZOB 3.375 GM 3.375 GM in DEXTROSE 5%-WATER - 50 ML IVPB SCH ×3 (02:16→17:48)
[2021-12-06] MEDS: VANCOMYCIN/WATER FOR INJ (PEG) 1,000 MG/200 ML BAG IVPB SCH ×2 (03:19→13:29)
[2021-12-06] MEDS: INSULIN SLIDING SCALE (NOVOLOG) 1 VIAL SQ SCH ×4 (06:56→22:01)
[2021-12-06] MEDS: SOLIFENACIN SUCCINATE 5 MG TAB PO SCH (09:44)
[2021-12-06] MEDS: PANTOPRAZOLE 40 MG TABLET PO SCH (09:44)
[2021-12-06] MEDS: LOSARTAN POTASSIUM 25 MG TABLET PO SCH (09:44)
[2021-12-06] MEDS: FLUTICASONE PROP 0.05% 16 GM NASAL SPRAY NS SCH (09:44)
[2021-12-06] MEDS: CARVEDILOL 6.25 MG TABLET (FP) PO SCH ×2 (09:44→22:04)
[2021-12-06] MEDS: FUROSEMIDE 20 MG TABLET (FP) PO SCH (09:44)
[2021-12-06] MEDS: ENOXAPARIN NA (PORCINE) 40 MG/0.4 ML DISP.SYRIN SQ SCH (09:44)
[2021-12-06] MEDS: ASPIRIN 81 MG CHEWABLE TABLETS PO SCH (09:44)
[2021-12-06] MEDS: MULTIVITAMINS (DAILY MVI) TABLET (FP) PO SCH (09:44)
[2021-12-06] MEDS ORDERED: INSULIN (NOVOLOG) ASPART 100 UNITS/ML 10ML VIAL ONE (21:46)
[2021-12-06] MEDS: traMADol HCL 50 MG TABLET PO SCH (22:02)
[2021-12-06] MEDS: ATORVASTATIN CA 10 MG TABLET (FP) PO SCH (22:04)
[2021-12-07] MEDS ORDERED: DEXTROSE 5%-WATER - 50 ML IVPB ONE ×3 (02:18→16:49)
[2021-12-07] MEDS ORDERED: PIPERACILLIN/TAZOBACTAM 3.375 GM VIAL IVPB ONE ×3 (02:18→16:49)
[2021-12-07] MEDS: PIPERACILLIN/TAZOB 3.375 GM 3.375 GM in DEXTROSE 5%-WATER - 50 ML IVPB SCH ×3 (02:30→17:02)
[2021-12-07] MEDS: VANCOMYCIN/WATER FOR INJ (PEG) 1,000 MG/200 ML BAG IVPB SCH ×2 (03:50→13:56)
[2021-12-07] MEDS: INSULIN SLIDING SCALE (NOVOLOG) 1 VIAL SQ SCH ×4 (06:48→21:30)
[2021-12-07] MEDS ORDERED: glyBURIDE 5 MG TABLET PO SCH (07:00)
[2021-12-07] MEDS: PANTOPRAZOLE 40 MG TABLET PO SCH (09:21)
[2021-12-07] MEDS: SOLIFENACIN SUCCINATE 5 MG TAB PO SCH (09:22)
[2021-12-07] MEDS: ENOXAPARIN NA (PORCINE) 40 MG/0.4 ML DISP.SYRIN SQ SCH (09:22)
[2021-12-07] MEDS: CARVEDILOL 6.25 MG TABLET (FP) PO SCH ×2 (09:22→21:30)
[2021-12-07] MEDS: LOSARTAN POTASSIUM 25 MG TABLET PO SCH (09:22)
[2021-12-07] MEDS: MULTIVITAMINS (DAILY MVI) TABLET (FP) PO SCH (09:22)
[2021-12-07] MEDS: ASPIRIN 81 MG CHEWABLE TABLETS PO SCH (09:22)
[2021-12-07] MEDS: FLUTICASONE PROP 0.05% 16 GM NASAL SPRAY NS SCH (09:22)
[2021-12-07] MEDS: FUROSEMIDE 20 MG TABLET (FP) PO SCH (09:22)
[2021-12-07] MEDS: NYSTATIN POWDER 100,000 UNITS/GM - 15 GM TOPICAL POWDER TP SCH ×2 (13:11→21:30)
[2021-12-07] MEDS: glyBURIDE 5 MG TABLET PO SCH (17:02)
[2021-12-07] MEDS ORDERED: INSULIN (NOVOLOG) ASPART 100 UNITS/ML 10ML VIAL ONE (20:55)
[2021-12-07] MEDS: ATORVASTATIN CA 10 MG TABLET (FP) PO SCH (21:30)
[2021-12-07] MEDS: traMADol HCL 50 MG TABLET PO SCH (22:21)
[2021-12-07] MEDS: BISACODYL 10 MG SUPP.RECT PR PRN (22:37)
[2021-12-08] MEDS: VANCOMYCIN/WATER FOR INJ (PEG) 1,000 MG/200 ML BAG IVPB SCH ×2 (02:11→13:32)
[2021-12-08] MEDS: glyBURIDE 5 MG TABLET PO SCH ×2 (06:23→16:56)
[2021-12-08] MEDS: INSULIN SLIDING SCALE (NOVOLOG) 1 VIAL SQ SCH ×4 (06:42→22:21)
[2021-12-08] MEDS: SOLIFENACIN SUCCINATE 5 MG TAB PO SCH (09:55)
[2021-12-08] MEDS: CARVEDILOL 6.25 MG TABLET (FP) PO SCH ×2 (09:55→22:22)
[2021-12-08] MEDS: ENOXAPARIN NA (PORCINE) 40 MG/0.4 ML DISP.SYRIN SQ SCH (09:55)
[2021-12-08] MEDS: ACETAMINOPHEN 325 MG TABLET (FP) PO PRN (09:56)
[2021-12-08] MEDS: PANTOPRAZOLE 40 MG TABLET PO SCH (09:56)
[2021-12-08] MEDS: LOSARTAN POTASSIUM 25 MG TABLET PO SCH (09:56)
[2021-12-08] MEDS: MULTIVITAMINS (DAILY MVI) TABLET (FP) PO SCH (09:56)
[2021-12-08] MEDS: ASPIRIN 81 MG CHEWABLE TABLETS PO SCH (09:56)
[2021-12-08] MEDS: FUROSEMIDE 20 MG TABLET (FP) PO SCH (09:56)
[2021-12-08] MEDS: FLUTICASONE PROP 0.05% 16 GM NASAL SPRAY NS SCH (09:56)
[2021-12-08] MEDS: NYSTATIN POWDER 100,000 UNITS/GM - 15 GM TOPICAL POWDER TP SCH ×2 (09:57→22:27)
[2021-12-08] MEDS ORDERED: INSULIN (NOVOLOG) ASPART 100 UNITS/ML 10ML VIAL ONE (11:33)
[2021-12-08 12:34] LABS: BASO % 0.7 % (0-2.0); EOS % 2.9 % (0-4.5); HEMATOCRIT 47.3 % (35.4-49); HEMOGLOBIN 15.9 GM/dL (11.7-16.9); LYMPH % 14.9 % (8-40); MCH 30.7 pg (25.7-33.7); MCHC 33.5 g/dl (32.0-35.9); MEAN CELL VOLUME 91.7 fl (80-96); MEAN PLT VOLUME 8.4 fl (7.5-11.1); MONO % 8.9 % (3.8-10.2); NEUT % 72.6 % (42.8-82.8); PLATELET COUNT 93 10^3/uL (134-434); RBC 5.16 M/mm3 (4.00-5.60); RDW 14.4 % (11.9-15.9); WHITE BLOOD COUNT 6.5 K/mm3 (4.0-10.0)
[2021-12-08 13:20] LABS: ALBUMIN 3.4 g/dl (3.4-5.0); BLOOD UREA NITROGEN 18.5 mg/dL (7-18)
[2021-12-08 13:22] LABS: CALCIUM 9.2 mg/dL (8.5-10.1)
[2021-12-08 13:25] LABS: BILIRUBIN,TOTAL 1.4 mg/dL (0.2-1); TOT PROT 7.1 g/dl (6.4-8.2)
[2021-12-08] MEDS: traMADol HCL 50 MG TABLET PO SCH (22:22)
[2021-12-08] MEDS: ATORVASTATIN CA 10 MG TABLET (FP) PO SCH (22:26)
[2021-12-08] MEDS: BISACODYL 10 MG SUPP.RECT PR PRN (22:31)
[2021-12-09] MEDS: VANCOMYCIN/WATER FOR INJ (PEG) 1,000 MG/200 ML BAG IVPB SCH ×2 (02:39→14:38)
[2021-12-09] MEDS: glyBURIDE 5 MG TABLET PO SCH ×2 (06:58→17:05)
[2021-12-09] MEDS: INSULIN SLIDING SCALE (NOVOLOG) 1 VIAL SQ SCH ×4 (06:59→22:08)
[2021-12-09] MEDS: ACETAMINOPHEN 325 MG TABLET (FP) PO PRN (07:03)
[2021-12-09] MEDS: PANTOPRAZOLE 40 MG TABLET PO SCH (11:23)
[2021-12-09] MEDS: CARVEDILOL 6.25 MG TABLET (FP) PO SCH ×2 (11:23→22:07)
[2021-12-09] MEDS: FUROSEMIDE 20 MG TABLET (FP) PO SCH (11:23)
[2021-12-09] MEDS: ASPIRIN 81 MG CHEWABLE TABLETS PO SCH (11:23)
[2021-12-09] MEDS: ENOXAPARIN NA (PORCINE) 40 MG/0.4 ML DISP.SYRIN SQ SCH (11:23)
[2021-12-09] MEDS: LOSARTAN POTASSIUM 25 MG TABLET PO SCH (11:23)
[2021-12-09] MEDS: SOLIFENACIN SUCCINATE 5 MG TAB PO SCH (11:24)
[2021-12-09] MEDS: MULTIVITAMINS (DAILY MVI) TABLET (FP) PO SCH (11:24)
[2021-12-09] MEDS: NYSTATIN POWDER 100,000 UNITS/GM - 15 GM TOPICAL POWDER TP SCH ×2 (11:25→22:09)
[2021-12-09] MEDS: FLUTICASONE PROP 0.05% 16 GM NASAL SPRAY NS SCH (11:25)
[2021-12-09] MEDS: traMADol HCL 50 MG TABLET PO SCH (22:06)
[2021-12-09] MEDS: ATORVASTATIN CA 10 MG TABLET (FP) PO SCH (22:08)
[2021-12-10] MEDS: VANCOMYCIN/WATER FOR INJ (PEG) 1,000 MG/200 ML BAG IVPB SCH (02:12)
[2021-12-10] MEDS: glyBURIDE 5 MG TABLET PO SCH ×2 (06:11→16:59)
[2021-12-10] MEDS: INSULIN SLIDING SCALE (NOVOLOG) 1 VIAL SQ SCH ×4 (06:34→22:41)
[2021-12-10] MEDS: CARVEDILOL 6.25 MG TABLET (FP) PO SCH ×2 (10:57→22:39)
[2021-12-10] MEDS: FUROSEMIDE 20 MG TABLET (FP) PO SCH (10:57)
[2021-12-10] MEDS: NYSTATIN POWDER 100,000 UNITS/GM - 15 GM TOPICAL POWDER TP SCH ×2 (10:57→22:42)
[2021-12-10] MEDS: ENOXAPARIN NA (PORCINE) 40 MG/0.4 ML DISP.SYRIN SQ SCH (10:57)
[2021-12-10] MEDS: SOLIFENACIN SUCCINATE 5 MG TAB PO SCH (10:57)
[2021-12-10] MEDS: PANTOPRAZOLE 40 MG TABLET PO SCH (10:57)
[2021-12-10] MEDS: ASPIRIN 81 MG CHEWABLE TABLETS PO SCH (10:57)
[2021-12-10] MEDS: LOSARTAN POTASSIUM 25 MG TABLET PO SCH (10:57)
[2021-12-10] MEDS: MULTIVITAMINS (DAILY MVI) TABLET (FP) PO SCH (10:57)
[2021-12-10] MEDS: FLUTICASONE PROP 0.05% 16 GM NASAL SPRAY NS SCH (10:58)
[2021-12-10] MEDS: traMADol HCL 50 MG TABLET PO SCH (22:39)
[2021-12-10] MEDS: ATORVASTATIN CA 10 MG TABLET (FP) PO SCH (22:40)
[2021-12-11] MEDS: glyBURIDE 5 MG TABLET PO SCH ×2 (06:41→16:12)
[2021-12-11] MEDS: INSULIN SLIDING SCALE (NOVOLOG) 1 VIAL SQ SCH ×4 (06:41→21:51)
[2021-12-11] MEDS: VANCOMYCIN/WATER 1250 MG 1,250 MG/250 ML BAG IVPB SCH (06:41)
[2021-12-11] MEDS: ASPIRIN 81 MG CHEWABLE TABLETS PO SCH (10:00)
[2021-12-11] MEDS: FUROSEMIDE 20 MG TABLET (FP) PO SCH (10:00)
[2021-12-11] MEDS: PANTOPRAZOLE 40 MG TABLET PO SCH (10:00)
[2021-12-11] MEDS: SOLIFENACIN SUCCINATE 5 MG TAB PO SCH (10:00)
[2021-12-11] MEDS: CARVEDILOL 6.25 MG TABLET (FP) PO SCH ×2 (10:00→21:50)
[2021-12-11] MEDS: MULTIVITAMINS (DAILY MVI) TABLET (FP) PO SCH (10:00)
[2021-12-11] MEDS: LOSARTAN POTASSIUM 25 MG TABLET PO SCH (10:00)
[2021-12-11] MEDS: FLUTICASONE PROP 0.05% 16 GM NASAL SPRAY NS SCH (10:01)
[2021-12-11] MEDS: NYSTATIN POWDER 100,000 UNITS/GM - 15 GM TOPICAL POWDER TP SCH ×2 (10:01→21:51)
[2021-12-11 10:04] LABS: CALCIUM 9.4 mg/dL (8.5-10.1)
[2021-12-11 10:06] LABS: BLOOD UREA NITROGEN 29.3 mg/dL (7-18)
[2021-12-11] MEDS: ATORVASTATIN CA 10 MG TABLET (FP) PO SCH (21:50)
[2021-12-12] MEDS: glyBURIDE 5 MG TABLET PO SCH (06:41)
[2021-12-12] MEDS: INSULIN SLIDING SCALE (NOVOLOG) 1 VIAL SQ SCH ×2 (06:41→11:15)
[2021-12-12] MEDS: VANCOMYCIN/WATER 1250 MG 1,250 MG/250 ML BAG IVPB SCH (06:41)
[2021-12-12 09:22] VITALS: BP 154/85; PULSE 59; TEMP 97.4
[2021-12-12] MEDS: LOSARTAN POTASSIUM 25 MG TABLET PO SCH (09:23)
[2021-12-12] MEDS: MULTIVITAMINS (DAILY MVI) TABLET (FP) PO SCH (09:23)
[2021-12-12] MEDS: FUROSEMIDE 20 MG TABLET (FP) PO SCH (09:23)
[2021-12-12] MEDS: CARVEDILOL 6.25 MG TABLET (FP) PO SCH (09:23)
[2021-12-12] MEDS: SOLIFENACIN SUCCINATE 5 MG TAB PO SCH (09:23)
[2021-12-12] MEDS: PANTOPRAZOLE 40 MG TABLET PO SCH (09:23)
[2021-12-12] MEDS: ASPIRIN 81 MG CHEWABLE TABLETS PO SCH (09:23)
[2021-12-12] MEDS: NYSTATIN POWDER 100,000 UNITS/GM - 15 GM TOPICAL POWDER TP SCH (09:28)
[2021-12-12] MEDS: FLUTICASONE PROP 0.05% 16 GM NASAL SPRAY NS SCH (09:28)
== END 2021-12-12 17:04 | disposition home or self-care (01) | DRG 603 ==
LOC: JER 14:06 → JERBED 16:29 → J6S 12-04 00:08
PROVIDERS: ADMIT Family Medicine; ATTEND Internal Medicine
DX: L03.032 Cellulitis of left toe (principal); I45.2 Bifascicular block; R78.81 Bacteremia; I10 Essential (primary) hypertension; I87.2 Venous insufficiency (chronic) (peripheral); D64.9 Anemia, unspecified; I45.10 Unspecified right bundle-branch block; I25.10 Atherosclerotic heart disease of native coronary artery without angina pectoris; I25.2 Old myocardial infarction; N40.0 Benign prostatic hyperplasia without lower urinary tract symptoms; Z95.0 Presence of cardiac pacemaker; E78.5 Hyperlipidemia, unspecified; G47.33 Obstructive sleep apnea (adult) (pediatric); D69.6 Thrombocytopenia, unspecified; E11.40 Type 2 diabetes mellitus with diabetic neuropathy, unspecified
CPT/HCPCS: 36415; 71045-TC-FY; 80048; 80053; 82962; 83036; 85025; 85610; 85730; 87040; 87186; 87804; 93005; 93010; 93306-TC; 97116-GP; 97162-GP; 99285-25; C9803-CS; G0463-25; G0480; J3370; U0003; U0005

== ENCOUNTER 2021-12-14 02:33 | Observation (INO) | payer OTHER ==
[2021-12-14 04:40] VITALS: BMI 30.8
[2021-12-14 04:59] LABS: BASO % 0.7 % (0-2.0); EOS % 1.6 % (0-4.5); HEMATOCRIT 46.9 % (35.4-49); HEMOGLOBIN 15.7 GM/dL (11.7-16.9); LYMPH % 17.2 % (8-40); MCH 30.6 pg (25.7-33.7); MCHC 33.5 g/dl (32.0-35.9); MEAN CELL VOLUME 91.2 fl (80-96); MEAN PLT VOLUME 8.3 fl (7.5-11.1); NEUT % 69.5 % (42.8-82.8); PLATELET COUNT 83 10^3/uL (134-434); RBC 5.14 M/mm3 (4.00-5.60); RDW 14.1 % (11.9-15.9); WHITE BLOOD COUNT 6.8 K/mm3 (4.0-10.0)
[2021-12-14 05:02] LABS: INR 1.15 (0.83-1.09); PROTHROMBIN TIME (PATIENT) 13.2 SEC (9.7-13.0)
[2021-12-14 05:05] LABS: ACTIVATED PTT 31.7 SECONDS (25.2-36.5)
[2021-12-14 05:28] LABS: CALCIUM 8.9 mg/dL (8.5-10.1)
[2021-12-14 05:29] LABS: ALBUMIN 3.4 g/dl (3.4-5.0)
[2021-12-14 05:31] LABS: CREATININE 1.4 mg/dL (0.55-1.3)
[2021-12-14 05:33] LABS: TOT PROT 6.8 g/dl (6.4-8.2)
[2021-12-14] MEDS ORDERED: ACETAMINOPHEN 1000 MG/100 ML BAG IVPB ONE (06:48)
[2021-12-14] MEDS ORDERED: ACETAMINOPHEN INJECTION 100 ML IVPB ONE (06:54)
[2021-12-14] MEDS ORDERED: SODIUM CHLORIDE 0.9% 500 ML INFUS.BAG IV ONE (06:59)
[2021-12-14] MEDS: LACTATED RINGERS SOLUTION 1,000 ML/1,000 ML INFUS.BAG IV SCH ×2 (08:40→21:48)
[2021-12-14] MEDS ORDERED: ACETAMINOPHEN 325 MG TABLET (FP) PO PRN (11:27)
[2021-12-14] MEDS: GABAPENTIN 100 MG CAPSULE PO SCH (14:37)
[2021-12-14] MEDS: glyBURIDE 5 MG TABLET PO SCH (17:18)
[2021-12-14] MEDS: INSULIN SLIDING SCALE (NOVOLOG) 1 VIAL SQ SCH (17:18)
[2021-12-14 21:25] LABS: EPI CELLS 4 /uL (0-25.1); HYALINE CASTS 0 /uL (0-3.1); URINE APPEARANCE CLEAR; URINE BACTERIA 14 /uL (0-1359); URINE BILIRUBIN NEGATIVE (NEGATIVE); URINE COLOR YELLOW; URINE GLUCOSE (UA) NEGATIVE (NEGATIVE); URINE KETONE NEGATIVE (NEGATIVE); URINE LEUK ESTERASE NEGATIVE (NEGATIVE); URINE NITRITE NEGATIVE (NEGATIVE); URINE PROTEIN 2+ (NEGATIVE); URINE RBC 31 /uL (0-23.9); URINE WBC 5 /uL (0-25.8)
[2021-12-14] MEDS: HEPARIN NA (PORCINE) 5,000 UNITS/ML 1ML VIAL SQ SCH (21:48)
[2021-12-14] MEDS: CARVEDILOL 6.25 MG TABLET (FP) PO SCH (21:48)
[2021-12-14] MEDS ORDERED: ATORVASTATIN CA 10 MG TABLET (FP) PO SCH (22:00)
[2021-12-14] MEDS ORDERED: traMADol HCL 50 MG TABLET PO SCH (22:00)
[2021-12-14] MEDS ORDERED: PATIENT'S OWN MEDICATION (NON-FORMULARY) (Metformin Hcl [Metformin Er Osmotic] 1,000 MG Ta PO SCH (22:00)
[2021-12-14] MEDS: NYSTATIN POWDER 100,000 UNITS/GM - 15 GM TOPICAL POWDER TP SCH (22:55)
[2021-12-15] MEDS: LACTATED RINGERS SOLUTION 1,000 ML/1,000 ML INFUS.BAG IV SCH (06:55)
[2021-12-15] MEDS: glyBURIDE 5 MG TABLET PO SCH ×2 (06:55→16:29)
[2021-12-15] MEDS: INSULIN SLIDING SCALE (NOVOLOG) 1 VIAL SQ SCH ×3 (06:56→16:28)
[2021-12-15 09:04] LABS: BASO % 0.8 % (0-2.0); EOS % 3.5 % (0-4.5); HEMATOCRIT 44.1 % (35.4-49); HEMOGLOBIN 14.8 GM/dL (11.7-16.9); LYMPH % 26.9 % (8-40); MCH 30.7 pg (25.7-33.7); MCHC 33.5 g/dl (32.0-35.9); MEAN CELL VOLUME 91.7 fl (80-96); MEAN PLT VOLUME 8.9 fl (7.5-11.1); MONO % 10.7 % (3.8-10.2); NEUT % 58.1 % (42.8-82.8); PLATELET COUNT 100 10^3/uL (134-434); RBC 4.81 M/mm3 (4.00-5.60); RDW 14.2 % (11.9-15.9); WHITE BLOOD COUNT 4.6 K/mm3 (4.0-10.0)
[2021-12-15 09:17] LABS: CALCIUM 8.9 mg/dL (8.5-10.1)
[2021-12-15 09:22] LABS: BILIRUBIN,TOTAL 0.9 mg/dL (0.2-1); TOT PROT 6.2 g/dl (6.4-8.2)
[2021-12-15] MEDS ORDERED: ASPIRIN 81 MG CHEWABLE TABLETS PO SCH (10:00)
[2021-12-15] MEDS: GABAPENTIN 100 MG CAPSULE PO SCH (10:27)
[2021-12-15] MEDS: CARVEDILOL 6.25 MG TABLET (FP) PO SCH (10:27)
[2021-12-15] MEDS: HEPARIN NA (PORCINE) 5,000 UNITS/ML 1ML VIAL SQ SCH (10:27)
[2021-12-15] MEDS: NYSTATIN POWDER 100,000 UNITS/GM - 15 GM TOPICAL POWDER TP SCH (10:28)
[2021-12-15 10:43] VITALS: TEMP 98.6
[2021-12-15] MEDS ORDERED: traMADol HCL 50 MG TABLET PO PRN (12:53)
[2021-12-15] MEDS ORDERED: LOSARTAN POTASSIUM 25 MG TABLET PO SCH (13:15)
[2021-12-15] MEDS ORDERED: MINERAL OIL/PET HY-PHL TOPICAL OINTMENT 454 GM JAR TP SCH (14:00)
[2021-12-15 14:13] VITALS: BP 132/70; PULSE 62
[2021-12-15] MEDS ORDERED: BACLOFEN 10 MG TABLET (FP) PO SCH (22:00)
== END 2021-12-15 21:25 ==
LOC: JER 02:33 → JERBED 07:31 → J8W 12:15
PROVIDERS: ADMIT Internal Medicine; ATTEND Internal Medicine
PROC: 3E033GC Introduction of Other Therapeutic Substance into Peripheral Vein, Percutaneous Approach (ICD-10-PCS; principal; 2021-12-14)
PROC: 3E033GC Introduction of Other Therapeutic Substance into Peripheral Vein, Percutaneous Approach (ICD-10-PCS; 2021-12-14)
PROC: 3E013VG Introduction of Insulin into Subcutaneous Tissue, Percutaneous Approach (ICD-10-PCS; 2021-12-14)
DX: I25.110 Atherosclerotic heart disease of native coronary artery with unstable angina pectoris (principal); I11.0 Hypertensive heart disease with heart failure; Z95.5 Presence of coronary angioplasty implant and graft; E78.5 Hyperlipidemia, unspecified; L03.032 Cellulitis of left toe; I50.20 Unspecified systolic (congestive) heart failure; I25.2 Old myocardial infarction; N20.0 Calculus of kidney; E11.9 Type 2 diabetes mellitus without complications; Z85.46 Personal history of malignant neoplasm of prostate; N40.0 Benign prostatic hyperplasia without lower urinary tract symptoms; I87.8 Other specified disorders of veins; G47.33 Obstructive sleep apnea (adult) (pediatric); Z85.51 Personal history of malignant neoplasm of bladder; R29.6 Repeated falls
CPT/HCPCS: 36415; 70450-TC; 71045-TC-FY; 72125-TC; 72131-TC; 72170-TC-FY; 80053; 81003; 82550; 82553; 82962; 83735; 84484; 85025; 85610; 85730; 87086; 87186; 93005; 93010; 96360; 96361; 96372; 97116-GP; 97162-GP; 99285-25; C9803-CS; G0378; J1644; U0003; U0005

== ENCOUNTER 2022-02-07 18:47 | Inpatient (IN) | payer OTHER ==
[2022-02-07] MEDS ORDERED: ACETAMINOPHEN 1000 MG/100 ML BAG IVPB ONE (20:05)
[2022-02-07] MEDS ORDERED: ACETAMINOPHEN INJECTION 100 ML IVPB ONE (20:43)
[2022-02-07 20:54] LABS: BASO % 0.6 % (0-2.0); EOS % 0.8 % (0-4.5); HEMOGLOBIN 12.9 GM/dL (11.7-16.9); LYMPH % 16.9 % (8-40); MCHC 33.8 g/dl (32.0-35.9); MEAN CELL VOLUME 88.6 fl (80-96); MONO % 13.2 % (3.8-10.2); NEUT % 68.5 % (42.8-82.8); RBC 4.29 M/mm3 (4.00-5.60); RDW 13.7 % (11.9-15.9); WHITE BLOOD COUNT 6.6 K/mm3 (4.0-10.0)
[2022-02-07] MEDS ORDERED: CEFEPIME HCL/D5W 1 GM/50 ML BAG IVPB ONE ×2 (21:08→22:46)
[2022-02-07] MEDS ORDERED: VANCOMYCIN 1 GM in D5W (PRE-DOCKED) 1,000 MG/250 ML IVPB ONE (21:09)
[2022-02-07 21:14] LABS: CALCIUM 8.6 mg/dL (8.5-10.1)
[2022-02-07 21:15] LABS: ALBUMIN 2.6 g/dl (3.4-5.0); BLOOD UREA NITROGEN 26.7 mg/dL (7-18)
[2022-02-07 21:19] LABS: BILIRUBIN,TOTAL 0.4 mg/dL (0.2-1); TOT PROT 6.3 g/dl (6.4-8.2)
[2022-02-07 21:27] LABS: PLATELET ESTIMATE ADEQUATE
[2022-02-07] MEDS ORDERED: CEFEPIME 1 GM/100 ML BAG IVPB ONE (21:38)
[2022-02-07 21:45] LABS: ERYTHROCYTE SEDIMENTATION RATE 69 mm/hr (0-20)
[2022-02-08] MEDS ORDERED: CEFEPIME 1 GM/100 ML BAG IVPB ONE (00:09)
[2022-02-08 07:43] LABS: BASO % 0.6 % (0-2.0); EOS % 1.3 % (0-4.5); HEMATOCRIT 40.9 % (35.4-49); HEMOGLOBIN 13.9 GM/dL (11.7-16.9); LYMPH % 12.4 % (8-40); MCH 30.2 pg (25.7-33.7); MCHC 33.9 g/dl (32.0-35.9); MEAN CELL VOLUME 89.1 fl (80-96); MONO % 9.9 % (3.8-10.2); NEUT % 75.8 % (42.8-82.8); RBC 4.59 M/mm3 (4.00-5.60); RDW 13.7 % (11.9-15.9); WHITE BLOOD COUNT 5.2 K/mm3 (4.0-10.0)
[2022-02-08 08:06] LABS: CHLORIDE 106 mmol/L (98-107); SODIUM 142 mmol/L (136-145)
[2022-02-08 08:09] LABS: CALCIUM 8.7 mg/dL (8.5-10.1)
[2022-02-08 08:10] LABS: ALBUMIN 2.6 g/dl (3.4-5.0); ANION GAP 4 MMOL/L (8-16); BLOOD UREA NITROGEN 22.9 mg/dL (7-18); CO2 32 mmol/L (21-32); GLUCOSE,RANDOM 90 mg/dL (74-106)
[2022-02-08 08:13] LABS: CREATININE 0.8 mg/dL (0.55-1.3); SGOT/AST 79 U/L (15-37); SGPT/ALT 81 U/L (13-61)
[2022-02-08 08:14] LABS: TOT PROT 6.5 g/dl (6.4-8.2)
[2022-02-08 08:15] LABS: BILIRUBIN,TOTAL 0.6 mg/dL (0.2-1)
[2022-02-08 08:16] LABS: ALK PHOS 208 U/L (45-117)
[2022-02-08] MEDS ORDERED: PANTOPRAZOLE 40 MG TABLET PO ONE (08:45)
[2022-02-08] MEDS ORDERED: traMADol HCL 50 MG TABLET ONE (08:45)
[2022-02-08] MEDS ORDERED: ASPIRIN 81 MG CHEWABLE TABLETS ONE (08:45)
[2022-02-08] MEDS ORDERED: MULTIVITAMINS (DAILY MVI) TABLET (FP) ONE (08:45)
[2022-02-08] MEDS ORDERED: CARVEDILOL 6.25 MG TABLET (FP) ONE (08:46)
[2022-02-08] MEDS ORDERED: VANCOMYCIN 1 GRAM (PRE-DOCKED) 1,000 MG/250 ML BAG IVPB SCH (10:00)
[2022-02-08] MEDS ORDERED: CEFEPIME 2 GM in DEXTROSE 5%-WATER 2 GM/100 ML BAG IVPB SCH (10:00)
[2022-02-08] MEDS ORDERED: VANCOMYCIN 1 GRAM (PRE-DOCKED) 1,000 MG/250 ML BAG IVPB ONE (10:43)
[2022-02-08] MEDS ORDERED: CEFEPIME 2 GM/100 ML BAG IVPB ONE ×2 (10:43→18:11)
[2022-02-08] MEDS: traMADol HCL 50 MG TABLET PO PRN (11:05)
[2022-02-08] MEDS: CARVEDILOL 6.25 MG TABLET (FP) PO SCH ×2 (11:06→22:22)
[2022-02-08] MEDS: ASPIRIN 81 MG CHEWABLE TABLETS PO SCH (11:06)
[2022-02-08] MEDS: PANTOPRAZOLE 40 MG TABLET PO SCH (11:06)
[2022-02-08] MEDS: LOSARTAN POTASSIUM 25 MG TABLET PO SCH (11:06)
[2022-02-08] MEDS: CEFEPIME 2 GM in DEXTROSE 5%-WATER 2 GM/100 ML BAG IVPB SCH ×2 (11:07→18:31)
[2022-02-08] MEDS: MULTIVITAMINS (DAILY MVI) TABLET (FP) PO SCH (11:07)
[2022-02-08] MEDS: VANCOMYCIN 1 GRAM (PRE-DOCKED) 1,000 MG/250 ML BAG IVPB SCH (12:37)
[2022-02-08] MEDS ORDERED: GABAPENTIN 300 MG CAPSULE ONE (17:35)
[2022-02-08] MEDS: INSULIN (NOVOLOG) ASPART 100 UNITS/ML 10ML VIAL SQ SCH ×2 (17:48→22:23)
[2022-02-08] MEDS: GABAPENTIN 300 MG CAPSULE PO SCH ×2 (17:49→22:22)
[2022-02-08] MEDS ORDERED: INSULIN (NOVOLOG) ASPART 100 UNITS/ML 10ML VIAL ONE (22:13)
[2022-02-08] MEDS: BACLOFEN 10 MG TABLET (FP) PO SCH (22:22)
[2022-02-09] MEDS ORDERED: CEFEPIME HCL 2 GM VIAL (RESTRICTED TO ID) ONE ×4 (02:50→17:34)
[2022-02-09] MEDS ORDERED: DEXTROSE 5%-WATER 0 ML IVPB ONE (02:50)
[2022-02-09] MEDS: CEFEPIME 2 GM in DEXTROSE 5%-WATER 2 GM/100 ML BAG IVPB SCH ×3 (02:54→17:48)
[2022-02-09] MEDS: traMADol HCL 50 MG TABLET PO PRN (03:26)
[2022-02-09] MEDS: GABAPENTIN 300 MG CAPSULE PO SCH ×3 (06:58→22:09)
[2022-02-09] MEDS: INSULIN (NOVOLOG) ASPART 100 UNITS/ML 10ML VIAL SQ SCH ×4 (06:59→22:14)
[2022-02-09] MEDS ORDERED: DEXTROSE 5%-WATER 100 ML IVPB ONE ×3 (09:08→17:34)
[2022-02-09] MEDS: ASPIRIN 81 MG CHEWABLE TABLETS PO SCH (09:14)
[2022-02-09] MEDS: CARVEDILOL 6.25 MG TABLET (FP) PO SCH ×2 (09:14→22:10)
[2022-02-09] MEDS: MULTIVITAMINS (DAILY MVI) TABLET (FP) PO SCH (09:14)
[2022-02-09] MEDS: LOSARTAN POTASSIUM 25 MG TABLET PO SCH (09:14)
[2022-02-09] MEDS: BACLOFEN 10 MG TABLET (FP) PO SCH ×2 (09:14→22:10)
[2022-02-09] MEDS: ASCORBIC ACID 500 MG TABLET (FP) PO SCH (09:14)
[2022-02-09] MEDS: PANTOPRAZOLE 40 MG TABLET PO SCH (09:14)
[2022-02-09] MEDS: VANCOMYCIN 1 GRAM (PRE-DOCKED) 1,000 MG/250 ML BAG IVPB SCH (10:08)
[2022-02-09] MEDS: FLUTICASONE PROP 0.05% 16 GM NASAL SPRAY NS SCH ×2 (10:58→10:59)
[2022-02-10] MEDS: CEFEPIME 2 GM in DEXTROSE 5%-WATER 2 GM/100 ML BAG IVPB SCH ×3 (03:20→18:30)
[2022-02-10] MEDS: INSULIN (NOVOLOG) ASPART 100 UNITS/ML 10ML VIAL SQ SCH ×4 (06:17→22:15)
[2022-02-10] MEDS: GABAPENTIN 300 MG CAPSULE PO SCH ×3 (06:17→22:12)
[2022-02-10] MEDS ORDERED: CEFEPIME HCL 2 GM VIAL (RESTRICTED TO ID) ONE (09:10)
[2022-02-10] MEDS ORDERED: DEXTROSE 5%-WATER 100 ML IVPB ONE (09:10)
[2022-02-10] MEDS: ASCORBIC ACID 500 MG TABLET (FP) PO SCH (09:13)
[2022-02-10] MEDS: LOSARTAN POTASSIUM 25 MG TABLET PO SCH (09:13)
[2022-02-10] MEDS: PANTOPRAZOLE 40 MG TABLET PO SCH (09:13)
[2022-02-10] MEDS: CARVEDILOL 6.25 MG TABLET (FP) PO SCH ×2 (09:13→22:12)
[2022-02-10] MEDS: MULTIVITAMINS (DAILY MVI) TABLET (FP) PO SCH (09:13)
[2022-02-10] MEDS: BACLOFEN 10 MG TABLET (FP) PO SCH ×2 (09:13→22:12)
[2022-02-10] MEDS: ASPIRIN 81 MG CHEWABLE TABLETS PO SCH (09:13)
[2022-02-10] MEDS: VANCOMYCIN 1 GRAM (PRE-DOCKED) 1,000 MG/250 ML BAG IVPB SCH (09:13)
[2022-02-10] MEDS: FLUTICASONE PROP 0.05% 16 GM NASAL SPRAY NS SCH (09:14)
[2022-02-10] MEDS: ENOXAPARIN NA (PORCINE) 40 MG/0.4 ML DISP.SYRIN SQ SCH (14:21)
[2022-02-10] MEDS ORDERED: INSULIN (NOVOLOG) ASPART 100 UNITS/ML 10ML VIAL ONE (21:56)
[2022-02-10] MEDS: traMADol HCL 50 MG TABLET PO PRN (22:13)
[2022-02-11] MEDS ORDERED: DEXTROSE 5%-WATER 100 ML IVPB ONE ×3 (01:57→17:11)
[2022-02-11] MEDS ORDERED: CEFEPIME HCL 2 GM VIAL (RESTRICTED TO ID) ONE ×3 (01:57→17:11)
[2022-02-11] MEDS: CEFEPIME 2 GM in DEXTROSE 5%-WATER 2 GM/100 ML BAG IVPB SCH ×3 (02:00→17:32)
[2022-02-11] MEDS: GABAPENTIN 300 MG CAPSULE PO SCH ×3 (05:28→21:21)
[2022-02-11] MEDS: INSULIN (NOVOLOG) ASPART 100 UNITS/ML 10ML VIAL SQ SCH ×5 (06:34→21:53)
[2022-02-11 08:56] LABS: BASO % 0.4 % (0-2.0); EOS % 1.6 % (0-4.5); HEMATOCRIT 38.7 % (35.4-49); HEMOGLOBIN 13.1 GM/dL (11.7-16.9); LYMPH % 16.7 % (8-40); MCH 30.2 pg (25.7-33.7); MCHC 33.9 g/dl (32.0-35.9); MEAN CELL VOLUME 89.1 fl (80-96); MONO % 11.2 % (3.8-10.2); NEUT % 70.1 % (42.8-82.8); RBC 4.34 M/mm3 (4.00-5.60); RDW 13.8 % (11.9-15.9); WHITE BLOOD COUNT 6.1 K/mm3 (4.0-10.0)
[2022-02-11] MEDS: FLUTICASONE PROP 0.05% 16 GM NASAL SPRAY NS SCH (09:12)
[2022-02-11] MEDS: ASPIRIN 81 MG CHEWABLE TABLETS PO SCH (09:13)
[2022-02-11] MEDS: ASCORBIC ACID 500 MG TABLET (FP) PO SCH (09:13)
[2022-02-11] MEDS: BACLOFEN 10 MG TABLET (FP) PO SCH ×2 (09:13→21:21)
[2022-02-11] MEDS: PANTOPRAZOLE 40 MG TABLET PO SCH (09:13)
[2022-02-11] MEDS: LOSARTAN POTASSIUM 25 MG TABLET PO SCH (09:13)
[2022-02-11] MEDS: ENOXAPARIN NA (PORCINE) 40 MG/0.4 ML DISP.SYRIN SQ SCH (09:13)
[2022-02-11] MEDS: MULTIVITAMINS (DAILY MVI) TABLET (FP) PO SCH (09:13)
[2022-02-11] MEDS: CARVEDILOL 6.25 MG TABLET (FP) PO SCH ×2 (09:13→21:21)
[2022-02-11 09:24] LABS: ALBUMIN 2.5 g/dl (3.4-5.0); BLOOD UREA NITROGEN 20.9 mg/dL (7-18); CALCIUM 8.8 mg/dL (8.5-10.1)
[2022-02-11 09:27] LABS: CREATININE 0.8 mg/dL (0.55-1.3)
[2022-02-11 09:29] LABS: TOT PROT 6.7 g/dl (6.4-8.2)
[2022-02-11] MEDS: VANCOMYCIN 1 GRAM (PRE-DOCKED) 1,000 MG/250 ML BAG IVPB SCH (13:49)
[2022-02-11] MEDS: guaiFENesin/D-M SUGAR-FREE/ACLHOL-FREE 118 ML BOTTLE PO PRN ×2 (15:31→23:04)
[2022-02-11] MEDS ORDERED: INSULIN (NOVOLOG) ASPART 100 UNITS/ML 10ML VIAL ONE (21:08)
[2022-02-11] MEDS: traMADol HCL 50 MG TABLET PO PRN (23:04)
[2022-02-12] MEDS ORDERED: CEFEPIME HCL 2 GM VIAL (RESTRICTED TO ID) ONE ×3 (01:00→17:37)
[2022-02-12] MEDS ORDERED: DEXTROSE 5%-WATER 100 ML IVPB ONE ×3 (01:00→17:38)
[2022-02-12] MEDS: CEFEPIME 2 GM in DEXTROSE 5%-WATER 2 GM/100 ML BAG IVPB SCH ×3 (01:02→17:47)
[2022-02-12] MEDS: GABAPENTIN 300 MG CAPSULE PO SCH ×3 (06:27→21:00)
[2022-02-12] MEDS: INSULIN (NOVOLOG) ASPART 100 UNITS/ML 10ML VIAL SQ SCH ×5 (06:27→22:34)
[2022-02-12] MEDS: guaiFENesin/D-M SUGAR-FREE/ACLHOL-FREE 118 ML BOTTLE PO PRN ×2 (06:28→15:22)
[2022-02-12] MEDS: LOSARTAN POTASSIUM 25 MG TABLET PO SCH (09:23)
[2022-02-12] MEDS: ASCORBIC ACID 500 MG TABLET (FP) PO SCH (09:23)
[2022-02-12] MEDS: BACLOFEN 10 MG TABLET (FP) PO SCH ×2 (09:23→22:34)
[2022-02-12] MEDS: FLUTICASONE PROP 0.05% 16 GM NASAL SPRAY NS SCH (09:23)
[2022-02-12] MEDS: PANTOPRAZOLE 40 MG TABLET PO SCH (09:23)
[2022-02-12] MEDS: MULTIVITAMINS (DAILY MVI) TABLET (FP) PO SCH (09:23)
[2022-02-12] MEDS: ENOXAPARIN NA (PORCINE) 40 MG/0.4 ML DISP.SYRIN SQ SCH (09:23)
[2022-02-12] MEDS: CARVEDILOL 6.25 MG TABLET (FP) PO SCH ×2 (09:23→21:00)
[2022-02-12] MEDS: ASPIRIN 81 MG CHEWABLE TABLETS PO SCH (09:23)
[2022-02-12] MEDS: VANCOMYCIN 1 GRAM (PRE-DOCKED) 1,000 MG/250 ML BAG IVPB SCH (10:34)
[2022-02-12] MEDS: POLYETHYLENE GLYCOL (HEALTHYLAX) 3350 17 GM PACKET PO SCH (11:32)
[2022-02-12] MEDS: traMADol HCL 50 MG TABLET PO PRN (22:34)
[2022-02-13] MEDS ORDERED: CEFEPIME HCL 2 GM VIAL (RESTRICTED TO ID) ONE ×2 (02:42→09:56)
[2022-02-13] MEDS ORDERED: DEXTROSE 5%-WATER 100 ML IVPB ONE ×2 (02:43→09:57)
[2022-02-13] MEDS: CEFEPIME 2 GM in DEXTROSE 5%-WATER 2 GM/100 ML BAG IVPB SCH ×4 (02:50→17:48)
[2022-02-13] MEDS: INSULIN (NOVOLOG) ASPART 100 UNITS/ML 10ML VIAL SQ SCH ×4 (06:38→22:52)
[2022-02-13] MEDS: guaiFENesin/D-M SUGAR-FREE/ACLHOL-FREE 118 ML BOTTLE PO PRN (06:38)
[2022-02-13] MEDS: GABAPENTIN 300 MG CAPSULE PO SCH ×3 (06:38→22:12)
[2022-02-13] MEDS: AMINO ACIDS/PROTEIN HYDROLYS 30 ML LIQUID.PKT PO SCH ×2 (08:07→17:46)
[2022-02-13] MEDS: POLYETHYLENE GLYCOL (HEALTHYLAX) 3350 17 GM PACKET PO SCH (10:07)
[2022-02-13] MEDS: PANTOPRAZOLE 40 MG TABLET PO SCH (10:07)
[2022-02-13] MEDS: ASCORBIC ACID 500 MG TABLET (FP) PO SCH (10:07)
[2022-02-13] MEDS: CARVEDILOL 6.25 MG TABLET (FP) PO SCH ×2 (10:07→22:12)
[2022-02-13] MEDS: ASPIRIN 81 MG CHEWABLE TABLETS PO SCH (10:07)
[2022-02-13] MEDS: BACLOFEN 10 MG TABLET (FP) PO SCH ×2 (10:08→22:12)
[2022-02-13] MEDS: ENOXAPARIN NA (PORCINE) 40 MG/0.4 ML DISP.SYRIN SQ SCH (10:08)
[2022-02-13] MEDS: MULTIVITAMINS (DAILY MVI) TABLET (FP) PO SCH (10:08)
[2022-02-13] MEDS: LOSARTAN POTASSIUM 25 MG TABLET PO SCH (10:08)
[2022-02-13] MEDS: FLUTICASONE PROP 0.05% 16 GM NASAL SPRAY NS SCH (10:17)
[2022-02-13] MEDS: VANCOMYCIN 1 GRAM (PRE-DOCKED) 1,000 MG/250 ML BAG IVPB SCH ×2 (10:17→13:25)
[2022-02-13 10:52] LABS: BASO % 0.5 % (0-2.0); EOS % 2.2 % (0-4.5); HEMATOCRIT 36.1 % (35.4-49); LYMPH % 15.5 % (8-40); MCH 29.7 pg (25.7-33.7); MCHC 33.2 g/dl (32.0-35.9); MEAN CELL VOLUME 89.2 fl (80-96); MEAN PLT VOLUME 8.2 fl (7.5-11.1); MONO % 9.6 % (3.8-10.2); NEUT % 72.2 % (42.8-82.8); PLATELET COUNT 132 10^3/uL (134-434); RBC 4.05 M/mm3 (4.00-5.60); RDW 13.7 % (11.9-15.9); WHITE BLOOD COUNT 5.7 K/mm3 (4.0-10.0)
[2022-02-13 11:22] LABS: ALBUMIN 2.2 g/dl (3.4-5.0); BLOOD UREA NITROGEN 22.6 mg/dL (7-18); CALCIUM 8.9 mg/dL (8.5-10.1)
[2022-02-13 11:24] LABS: CREATININE 0.8 mg/dL (0.55-1.3)
[2022-02-13 11:26] LABS: BILIRUBIN,TOTAL 0.5 mg/dL (0.2-1); TOT PROT 6.3 g/dl (6.4-8.2)
[2022-02-14] MEDS: CEFEPIME 2 GM in DEXTROSE 5%-WATER 2 GM/100 ML BAG IVPB SCH ×2 (01:56→09:01)
[2022-02-14] MEDS: GABAPENTIN 300 MG CAPSULE PO SCH ×3 (06:27→21:58)
[2022-02-14] MEDS: INSULIN (NOVOLOG) ASPART 100 UNITS/ML 10ML VIAL SQ SCH ×4 (06:31→22:03)
[2022-02-14] MEDS ORDERED: CEFEPIME HCL 2 GM VIAL (RESTRICTED TO ID) ONE (08:27)
[2022-02-14] MEDS ORDERED: DEXTROSE 5%-WATER 100 ML IVPB ONE (08:28)
[2022-02-14] MEDS: AMINO ACIDS/PROTEIN HYDROLYS 30 ML LIQUID.PKT PO SCH ×2 (08:51→16:59)
[2022-02-14] MEDS: ASPIRIN 81 MG CHEWABLE TABLETS PO SCH (09:00)
[2022-02-14] MEDS: POLYETHYLENE GLYCOL (HEALTHYLAX) 3350 17 GM PACKET PO SCH (09:00)
[2022-02-14] MEDS: FLUTICASONE PROP 0.05% 16 GM NASAL SPRAY NS SCH (09:00)
[2022-02-14] MEDS: LOSARTAN POTASSIUM 25 MG TABLET PO SCH (09:00)
[2022-02-14] MEDS: CARVEDILOL 6.25 MG TABLET (FP) PO SCH ×2 (09:00→21:58)
[2022-02-14] MEDS: BACLOFEN 10 MG TABLET (FP) PO SCH ×2 (09:00→21:58)
[2022-02-14] MEDS: ASCORBIC ACID 500 MG TABLET (FP) PO SCH (09:01)
[2022-02-14] MEDS: PANTOPRAZOLE 40 MG TABLET PO SCH (09:01)
[2022-02-14] MEDS: ENOXAPARIN NA (PORCINE) 40 MG/0.4 ML DISP.SYRIN SQ SCH (09:01)
[2022-02-14] MEDS: MULTIVITAMINS (DAILY MVI) TABLET (FP) PO SCH (09:01)
[2022-02-14] MEDS: VANCOMYCIN 1 GRAM (PRE-DOCKED) 1,000 MG/250 ML BAG IVPB SCH (09:02)
[2022-02-14] MEDS ORDERED: VANCOMYCIN 1,000 MG in SODIUM CHLORIDE 1,000 MG/250 ML INFUS.BAG IVPB SCH (14:00)
[2022-02-14] MEDS: CEFEPIME 2 GM in SODIUM CHLORIDE 100 ML IVPB SCH ×2 (15:10→17:01)
[2022-02-15] MEDS ORDERED: SODIUM CHLORIDE 100 ML IVPB ONE ×3 (01:12→15:43)
[2022-02-15] MEDS ORDERED: CEFEPIME HCL 2 GM VIAL (RESTRICTED TO ID) ONE ×3 (01:12→15:43)
[2022-02-15] MEDS: CEFEPIME 2 GM in SODIUM CHLORIDE 100 ML IVPB SCH ×3 (01:30→17:38)
[2022-02-15] MEDS: VANCOMYCIN 1 GRAM (PRE-DOCKED) 1,000 MG/250 ML BAG IVPB SCH ×2 (02:47→13:09)
[2022-02-15] MEDS: GABAPENTIN 300 MG CAPSULE PO SCH ×3 (06:37→21:41)
[2022-02-15] MEDS: INSULIN (NOVOLOG) ASPART 100 UNITS/ML 10ML VIAL SQ SCH ×5 (07:33→21:42)
[2022-02-15] MEDS: ASPIRIN 81 MG CHEWABLE TABLETS PO SCH (09:13)
[2022-02-15] MEDS: AMINO ACIDS/PROTEIN HYDROLYS 30 ML LIQUID.PKT PO SCH ×2 (09:13→16:33)
[2022-02-15] MEDS: POLYETHYLENE GLYCOL (HEALTHYLAX) 3350 17 GM PACKET PO SCH (09:13)
[2022-02-15] MEDS: PANTOPRAZOLE 40 MG TABLET PO SCH (09:13)
[2022-02-15] MEDS: BACLOFEN 10 MG TABLET (FP) PO SCH ×2 (09:13→21:41)
[2022-02-15] MEDS: MULTIVITAMINS (DAILY MVI) TABLET (FP) PO SCH (09:13)
[2022-02-15] MEDS: CARVEDILOL 6.25 MG TABLET (FP) PO SCH ×2 (09:13→21:41)
[2022-02-15] MEDS: ASCORBIC ACID 500 MG TABLET (FP) PO SCH (09:13)
[2022-02-15] MEDS: guaiFENesin 200 MG/10 ML 10 ML UNIT-DOSE CUPS PO PRN (09:14)
[2022-02-15] MEDS: ENOXAPARIN NA (PORCINE) 40 MG/0.4 ML DISP.SYRIN SQ SCH (09:14)
[2022-02-15] MEDS: FLUTICASONE PROP 0.05% 16 GM NASAL SPRAY NS SCH (10:11)
[2022-02-15] MEDS: LOSARTAN POTASSIUM 25 MG TABLET PO SCH (10:11)
[2022-02-15 11:39] LABS: CALCIUM 8.7 mg/dL (8.5-10.1)
[2022-02-15 11:40] LABS: ALBUMIN 2.2 g/dl (3.4-5.0)
[2022-02-15 11:43] LABS: CREATININE 0.7 mg/dL (0.55-1.3)
[2022-02-15 11:45] LABS: BILIRUBIN,TOTAL 0.4 mg/dL (0.2-1); TOT PROT 6.3 g/dl (6.4-8.2)
[2022-02-16] MEDS ORDERED: CEFEPIME HCL 2 GM VIAL (RESTRICTED TO ID) ONE ×3 (01:46→18:22)
[2022-02-16] MEDS ORDERED: SODIUM CHLORIDE 100 ML IVPB ONE ×3 (01:46→18:22)
[2022-02-16] MEDS: CEFEPIME 2 GM in SODIUM CHLORIDE 100 ML IVPB SCH ×3 (02:02→18:24)
[2022-02-16] MEDS: VANCOMYCIN 1 GRAM (PRE-DOCKED) 1,000 MG/250 ML BAG IVPB SCH ×2 (03:26→13:50)
[2022-02-16] MEDS: GABAPENTIN 300 MG CAPSULE PO SCH ×3 (06:35→22:34)
[2022-02-16] MEDS: INSULIN (NOVOLOG) ASPART 100 UNITS/ML 10ML VIAL SQ SCH ×4 (06:35→22:59)
[2022-02-16] MEDS: AMINO ACIDS/PROTEIN HYDROLYS 30 ML LIQUID.PKT PO SCH ×2 (08:22→16:34)
[2022-02-16] MEDS: POLYETHYLENE GLYCOL (HEALTHYLAX) 3350 17 GM PACKET PO SCH (10:00)
[2022-02-16] MEDS: FLUTICASONE PROP 0.05% 16 GM NASAL SPRAY NS SCH (10:00)
[2022-02-16] MEDS: ENOXAPARIN NA (PORCINE) 40 MG/0.4 ML DISP.SYRIN SQ SCH (10:01)
[2022-02-16] MEDS: ASCORBIC ACID 500 MG TABLET (FP) PO SCH (10:01)
[2022-02-16] MEDS: PANTOPRAZOLE 40 MG TABLET PO SCH (10:01)
[2022-02-16] MEDS: CARVEDILOL 6.25 MG TABLET (FP) PO SCH ×2 (10:01→22:34)
[2022-02-16] MEDS: LOSARTAN POTASSIUM 25 MG TABLET PO SCH (10:01)
[2022-02-16] MEDS: ASPIRIN 81 MG CHEWABLE TABLETS PO SCH (10:01)
[2022-02-16] MEDS: MULTIVITAMINS (DAILY MVI) TABLET (FP) PO SCH (10:01)
[2022-02-16] MEDS: BACLOFEN 10 MG TABLET (FP) PO SCH ×2 (10:01→22:34)
[2022-02-16] MEDS: guaiFENesin 200 MG/10 ML 10 ML UNIT-DOSE CUPS PO PRN (10:03)
[2022-02-16] MEDS: INSULIN (LEVEMIR) 100 UNITS/ML UNITS SQ SCH (22:58)
[2022-02-17] MEDS ORDERED: SODIUM CHLORIDE 100 ML IVPB ONE ×3 (00:15→17:04)
[2022-02-17] MEDS ORDERED: CEFEPIME HCL 2 GM VIAL (RESTRICTED TO ID) ONE ×3 (00:15→17:04)
[2022-02-17] MEDS: CEFEPIME 2 GM in SODIUM CHLORIDE 100 ML IVPB SCH ×3 (01:01→17:07)
[2022-02-17] MEDS: VANCOMYCIN 1 GRAM (PRE-DOCKED) 1,000 MG/250 ML BAG IVPB SCH ×2 (01:30→17:57)
[2022-02-17] MEDS: GABAPENTIN 300 MG CAPSULE PO SCH ×3 (06:31→22:12)
[2022-02-17] MEDS: INSULIN (NOVOLOG) ASPART 100 UNITS/ML 10ML VIAL SQ SCH ×4 (06:40→22:42)
[2022-02-17] MEDS: AMINO ACIDS/PROTEIN HYDROLYS 30 ML LIQUID.PKT PO SCH ×2 (08:01→17:07)
[2022-02-17] MEDS: PANTOPRAZOLE 40 MG TABLET PO SCH (09:37)
[2022-02-17] MEDS: CARVEDILOL 6.25 MG TABLET (FP) PO SCH ×2 (09:37→22:12)
[2022-02-17] MEDS: ASCORBIC ACID 500 MG TABLET (FP) PO SCH (09:37)
[2022-02-17] MEDS: BACLOFEN 10 MG TABLET (FP) PO SCH ×2 (09:37→22:12)
[2022-02-17] MEDS: MULTIVITAMINS (DAILY MVI) TABLET (FP) PO SCH (09:37)
[2022-02-17] MEDS: FLUTICASONE PROP 0.05% 16 GM NASAL SPRAY NS SCH (09:37)
[2022-02-17] MEDS: LOSARTAN POTASSIUM 25 MG TABLET PO SCH (09:37)
[2022-02-17] MEDS: ASPIRIN 81 MG CHEWABLE TABLETS PO SCH (09:37)
[2022-02-17] MEDS: ENOXAPARIN NA (PORCINE) 40 MG/0.4 ML DISP.SYRIN SQ SCH (09:38)
[2022-02-17] MEDS: POLYETHYLENE GLYCOL (HEALTHYLAX) 3350 17 GM PACKET PO SCH (09:38)
[2022-02-17 12:01] LABS: BASO % 0.8 % (0-2.0); EOS % 2.9 % (0-4.5); HEMATOCRIT 36.9 % (35.4-49); HEMOGLOBIN 12.4 GM/dL (11.7-16.9); LYMPH % 17.4 % (8-40); MCH 30.2 pg (25.7-33.7); MCHC 33.8 g/dl (32.0-35.9); MEAN CELL VOLUME 89.6 fl (80-96); MEAN PLT VOLUME 8.8 fl (7.5-11.1); MONO % 7.5 % (3.8-10.2); NEUT % 71.4 % (42.8-82.8); RBC 4.11 M/mm3 (4.00-5.60); RDW 13.6 % (11.9-15.9); WHITE BLOOD COUNT 5.3 K/mm3 (4.0-10.0)
[2022-02-17 12:04] LABS: PLATELET COUNT 112 10^3/uL (134-434)
[2022-02-17 12:31] LABS: ALBUMIN 2.3 g/dl (3.4-5.0); CALCIUM 9.1 mg/dL (8.5-10.1)
[2022-02-17 12:32] LABS: BLOOD UREA NITROGEN 26.4 mg/dL (7-18)
[2022-02-17 12:34] LABS: CREATININE 0.8 mg/dL (0.55-1.3)
[2022-02-17 12:36] LABS: BILIRUBIN,TOTAL 0.4 mg/dL (0.2-1); TOT PROT 6.6 g/dl (6.4-8.2)
[2022-02-17 12:39] LABS: PLATELET ESTIMATE DECREASED
[2022-02-17] MEDS: INSULIN (LEVEMIR) 100 UNITS/ML UNITS SQ SCH (22:12)
[2022-02-18] MEDS ORDERED: VANCOMYCIN/WATER FOR INJ (PEG) 1,000 MG/200 ML BAG IVPB SCH (00:24)
[2022-02-18] MEDS ORDERED: CEFEPIME HCL 2 GM VIAL (RESTRICTED TO ID) ONE ×2 (00:45→10:35)
[2022-02-18] MEDS ORDERED: SODIUM CHLORIDE 100 ML IVPB ONE ×2 (00:46→10:35)
[2022-02-18] MEDS: CEFEPIME 2 GM in SODIUM CHLORIDE 100 ML IVPB SCH ×3 (01:05→18:36)
[2022-02-18] MEDS: VANCOMYCIN/WATER FOR INJ (PEG) 1,000 MG/200 ML BAG IVPB SCH ×2 (01:29→14:38)
[2022-02-18] MEDS: GABAPENTIN 300 MG CAPSULE PO SCH ×3 (06:50→21:44)
[2022-02-18] MEDS: INSULIN (NOVOLOG) ASPART 100 UNITS/ML 10ML VIAL SQ SCH ×4 (07:02→21:44)
[2022-02-18] MEDS: AMINO ACIDS/PROTEIN HYDROLYS 30 ML LIQUID.PKT PO SCH ×2 (08:41→17:56)
[2022-02-18] MEDS: CARVEDILOL 6.25 MG TABLET (FP) PO SCH ×2 (10:41→21:43)
[2022-02-18] MEDS: PANTOPRAZOLE 40 MG TABLET PO SCH (10:41)
[2022-02-18] MEDS: LOSARTAN POTASSIUM 25 MG TABLET PO SCH (10:41)
[2022-02-18] MEDS: POLYETHYLENE GLYCOL (HEALTHYLAX) 3350 17 GM PACKET PO SCH (10:42)
[2022-02-18] MEDS: ASCORBIC ACID 500 MG TABLET (FP) PO SCH (10:42)
[2022-02-18] MEDS: ASPIRIN 81 MG CHEWABLE TABLETS PO SCH (10:42)
[2022-02-18] MEDS: BACLOFEN 10 MG TABLET (FP) PO SCH ×2 (10:42→21:44)
[2022-02-18] MEDS: MULTIVITAMINS (DAILY MVI) TABLET (FP) PO SCH (10:42)
[2022-02-18] MEDS: FLUTICASONE PROP 0.05% 16 GM NASAL SPRAY NS SCH (10:50)
[2022-02-18] MEDS: amLODIPine BESYLATE 5 MG TABLET (FP) PO SCH (14:38)
[2022-02-18] MEDS: INSULIN (LEVEMIR) 100 UNITS/ML UNITS SQ SCH (21:44)
[2022-02-19] MEDS ORDERED: CEFEPIME HCL 2 GM VIAL (RESTRICTED TO ID) ONE ×3 (01:14→17:56)
[2022-02-19] MEDS ORDERED: SODIUM CHLORIDE 100 ML IVPB ONE ×3 (01:15→17:57)
[2022-02-19] MEDS: CEFEPIME 2 GM in SODIUM CHLORIDE 100 ML IVPB SCH ×3 (01:28→18:00)
[2022-02-19] MEDS: VANCOMYCIN/WATER FOR INJ (PEG) 1,000 MG/200 ML BAG IVPB SCH ×2 (01:59→14:29)
[2022-02-19] MEDS: GABAPENTIN 300 MG CAPSULE PO SCH ×3 (05:56→21:03)
[2022-02-19] MEDS: INSULIN (NOVOLOG) ASPART 100 UNITS/ML 10ML VIAL SQ SCH ×4 (06:05→21:03)
[2022-02-19] MEDS: LOSARTAN POTASSIUM 25 MG TABLET PO SCH (09:32)
[2022-02-19] MEDS: AMINO ACIDS/PROTEIN HYDROLYS 30 ML LIQUID.PKT PO SCH ×3 (09:32→18:01)
[2022-02-19] MEDS: PANTOPRAZOLE 40 MG TABLET PO SCH (09:32)
[2022-02-19] MEDS: CARVEDILOL 6.25 MG TABLET (FP) PO SCH ×2 (09:32→21:03)
[2022-02-19] MEDS: MULTIVITAMINS (DAILY MVI) TABLET (FP) PO SCH (09:32)
[2022-02-19] MEDS: ASPIRIN 81 MG CHEWABLE TABLETS PO SCH (09:32)
[2022-02-19] MEDS: BACLOFEN 10 MG TABLET (FP) PO SCH ×2 (09:32→21:03)
[2022-02-19] MEDS: ASCORBIC ACID 500 MG TABLET (FP) PO SCH (09:32)
[2022-02-19] MEDS: amLODIPine BESYLATE 5 MG TABLET (FP) PO SCH (09:32)
[2022-02-19] MEDS: POLYETHYLENE GLYCOL (HEALTHYLAX) 3350 17 GM PACKET PO SCH (09:33)
[2022-02-19] MEDS: FLUTICASONE PROP 0.05% 16 GM NASAL SPRAY NS SCH (09:35)
[2022-02-19] MEDS: guaiFENesin 200 MG/10 ML 10 ML UNIT-DOSE CUPS PO PRN ×2 (12:44→21:07)
[2022-02-19] MEDS: INSULIN (LEVEMIR) 100 UNITS/ML UNITS SQ SCH (21:03)
[2022-02-20] MEDS ORDERED: CEFEPIME HCL 2 GM VIAL (RESTRICTED TO ID) ONE ×3 (00:55→17:21)
[2022-02-20] MEDS ORDERED: SODIUM CHLORIDE 100 ML IVPB ONE ×3 (00:55→17:22)
[2022-02-20] MEDS: CEFEPIME 2 GM in SODIUM CHLORIDE 100 ML IVPB SCH ×3 (01:08→17:27)
[2022-02-20] MEDS: VANCOMYCIN/WATER FOR INJ (PEG) 1,000 MG/200 ML BAG IVPB SCH ×2 (01:57→13:15)
[2022-02-20] MEDS: GABAPENTIN 300 MG CAPSULE PO SCH ×3 (05:52→22:10)
[2022-02-20] MEDS: INSULIN (NOVOLOG) ASPART 100 UNITS/ML 10ML VIAL SQ SCH ×4 (06:29→22:10)
[2022-02-20] MEDS: AMINO ACIDS/PROTEIN HYDROLYS 30 ML LIQUID.PKT PO SCH ×3 (08:40→16:49)
[2022-02-20] MEDS: MULTIVITAMINS (DAILY MVI) TABLET (FP) PO SCH (09:08)
[2022-02-20] MEDS: POLYETHYLENE GLYCOL (HEALTHYLAX) 3350 17 GM PACKET PO SCH (09:08)
[2022-02-20] MEDS: ASCORBIC ACID 500 MG TABLET (FP) PO SCH (09:08)
[2022-02-20] MEDS: amLODIPine BESYLATE 5 MG TABLET (FP) PO SCH (09:08)
[2022-02-20] MEDS: PANTOPRAZOLE 40 MG TABLET PO SCH (09:08)
[2022-02-20] MEDS: ASPIRIN 81 MG CHEWABLE TABLETS PO SCH (09:08)
[2022-02-20] MEDS: LOSARTAN POTASSIUM 25 MG TABLET PO SCH (09:08)
[2022-02-20] MEDS: BACLOFEN 10 MG TABLET (FP) PO SCH ×2 (09:08→22:10)
[2022-02-20] MEDS: FLUTICASONE PROP 0.05% 16 GM NASAL SPRAY NS SCH (09:22)
[2022-02-20] MEDS: CARVEDILOL 6.25 MG TABLET (FP) PO SCH ×2 (09:22→22:10)
[2022-02-20] MEDS: guaiFENesin 200 MG/10 ML 10 ML UNIT-DOSE CUPS PO PRN (11:57)
[2022-02-20] MEDS: INSULIN (LEVEMIR) 100 UNITS/ML UNITS SQ SCH (22:10)
[2022-02-21] MEDS ORDERED: VANCOMYCIN/WATER FOR INJ (PEG) 1,000 MG/200 ML BAG IVPB SCH (02:00)
[2022-02-21] MEDS ORDERED: SODIUM CHLORIDE 100 ML IVPB ONE ×2 (03:22→17:52)
[2022-02-21] MEDS ORDERED: CEFEPIME HCL 2 GM VIAL (RESTRICTED TO ID) ONE ×2 (03:22→17:52)
[2022-02-21] MEDS: CEFEPIME 2 GM in SODIUM CHLORIDE 100 ML IVPB SCH ×2 (03:25→17:59)
[2022-02-21] MEDS: GABAPENTIN 300 MG CAPSULE PO SCH ×3 (05:41→22:36)
[2022-02-21] MEDS: INSULIN (NOVOLOG) ASPART 100 UNITS/ML 10ML VIAL SQ SCH (06:47)
[2022-02-21] MEDS ORDERED: MIDAZOLAM HCL 2 MG/2 ML SINGLE DOSE VIAL ONE (09:01)
[2022-02-21] MEDS ORDERED: DEXAMETHASONE SOD PHOSPHATE 4 MG/1 ML VIAL ONE (09:23)
[2022-02-21] MEDS ORDERED: LIDOCAINE HCL 1%, 10 MG/ML (20ML VIAL) ONE (09:23)
[2022-02-21] MEDS ORDERED: BUPIVACAINE HCL/PF 0.5% (5MG/ML) 10 ML VIAL ONE (09:23)
[2022-02-21] MEDS ORDERED: BUPIVACAINE HCL/PF 0.5% (5 MG/ML) 30 ML VIAL IJ ONE (09:53)
[2022-02-21] MEDS ORDERED: LIDOCAINE HCL 1%, 10 MG/ML (20ML VIAL) NR ONE (09:53)
[2022-02-21] MEDS ORDERED: VANCOMYCIN 1,000 MG VIAL (RESTRICTED TO ID ONLY) ONE (10:13)
[2022-02-21] MEDS ORDERED: ONDANSETRON 4 MG/2 ML VIAL IVPUSH PRN (11:10)
[2022-02-21 11:52] LABS: BASO % 0.7 % (0-2.0); EOS % 2.4 % (0-4.5); HEMATOCRIT 40.1 % (35.4-49); HEMOGLOBIN 13.5 GM/dL (11.7-16.9); LYMPH % 21.5 % (8-40); MCH 30.1 pg (25.7-33.7); MCHC 33.8 g/dl (32.0-35.9); MEAN CELL VOLUME 89.1 fl (80-96); MEAN PLT VOLUME 8.7 fl (7.5-11.1); MONO % 8.7 % (3.8-10.2); NEUT % 66.7 % (42.8-82.8); PLATELET COUNT 129 10^3/uL (134-434); RDW 14.2 % (11.9-15.9); WHITE BLOOD COUNT 5.2 K/mm3 (4.0-10.0)
[2022-02-21] MEDS: LACTATED RINGERS SOLUTION 1,000 ML IV SCH (12:03)
[2022-02-21] MEDS: INSULIN SLIDING SCALE (NOVOLOG) 1 VIAL SQ SCH ×3 (12:03→22:36)
[2022-02-21] MEDS: AMINO ACIDS/PROTEIN HYDROLYS 30 ML LIQUID.PKT PO SCH ×2 (12:03→18:00)
[2022-02-21 12:18] LABS: CALCIUM 9.3 mg/dL (8.5-10.1)
[2022-02-21 12:22] LABS: CREATININE 0.7 mg/dL (0.55-1.3)
[2022-02-21] MEDS: VANCOMYCIN/WATER FOR INJ (PEG) 1,000 MG/200 ML BAG IVPB SCH (15:09)
[2022-02-21] MEDS: guaiFENesin 200 MG/10 ML 10 ML UNIT-DOSE CUPS PO PRN (16:48)
[2022-02-21] MEDS: INSULIN (LEVEMIR) 100 UNITS/ML UNITS SQ SCH (22:36)
[2022-02-21] MEDS: CARVEDILOL 6.25 MG TABLET (FP) PO SCH (22:36)
[2022-02-21] MEDS: BACLOFEN 10 MG TABLET (FP) PO SCH (22:36)
[2022-02-22] MEDS ORDERED: CEFEPIME HCL 2 GM VIAL (RESTRICTED TO ID) ONE ×3 (02:13→17:25)
[2022-02-22] MEDS ORDERED: SODIUM CHLORIDE 100 ML IVPB ONE ×3 (02:13→17:25)
[2022-02-22] MEDS: CEFEPIME 2 GM in SODIUM CHLORIDE 100 ML IVPB SCH ×3 (02:16→18:31)
[2022-02-22] MEDS: VANCOMYCIN/WATER FOR INJ (PEG) 1,000 MG/200 ML BAG IVPB SCH ×2 (03:00→15:14)
[2022-02-22] MEDS: GABAPENTIN 300 MG CAPSULE PO SCH ×3 (06:13→21:41)
[2022-02-22] MEDS: INSULIN SLIDING SCALE (NOVOLOG) 1 VIAL SQ SCH ×4 (06:13→21:45)
[2022-02-22] MEDS ORDERED: ACETAMINOPHEN 325 MG TABLET (FP) PO ONE (06:32)
[2022-02-22] MEDS: PANTOPRAZOLE 40 MG TABLET PO SCH (10:21)
[2022-02-22] MEDS: POLYETHYLENE GLYCOL (HEALTHYLAX) 3350 17 GM PACKET PO SCH (10:21)
[2022-02-22] MEDS: ASPIRIN 81 MG CHEWABLE TABLETS PO SCH (10:21)
[2022-02-22] MEDS: AMINO ACIDS/PROTEIN HYDROLYS 30 ML LIQUID.PKT PO SCH ×3 (10:21→17:30)
[2022-02-22] MEDS: LOSARTAN POTASSIUM 25 MG TABLET PO SCH (10:21)
[2022-02-22] MEDS: CARVEDILOL 6.25 MG TABLET (FP) PO SCH ×2 (10:22→21:41)
[2022-02-22] MEDS: FLUTICASONE PROP 0.05% 16 GM NASAL SPRAY NS SCH (10:22)
[2022-02-22] MEDS: amLODIPine BESYLATE 5 MG TABLET (FP) PO SCH (10:22)
[2022-02-22] MEDS: ASCORBIC ACID 500 MG TABLET (FP) PO SCH (10:22)
[2022-02-22] MEDS: BACLOFEN 10 MG TABLET (FP) PO SCH ×2 (10:22→21:41)
[2022-02-22] MEDS: MULTIVITAMINS (DAILY MVI) TABLET (FP) PO SCH (10:22)
[2022-02-22 13:39] LABS: BASO % 0.5 % (0-2.0); EOS % 1.2 % (0-4.5); HEMATOCRIT 40.3 % (35.4-49); HEMOGLOBIN 13.6 GM/dL (11.7-16.9); LYMPH % 13.1 % (8-40); MCH 30.3 pg (25.7-33.7); MCHC 33.8 g/dl (32.0-35.9); MEAN CELL VOLUME 89.7 fl (80-96); MEAN PLT VOLUME 8.9 fl (7.5-11.1); MONO % 10.3 % (3.8-10.2); NEUT % 74.9 % (42.8-82.8); PLATELET COUNT 121 10^3/uL (134-434); RBC 4.49 M/mm3 (4.00-5.60); RDW 13.9 % (11.9-15.9); WHITE BLOOD COUNT 7.4 K/mm3 (4.0-10.0)
[2022-02-22 13:57] LABS: ALBUMIN 2.5 g/dl (3.4-5.0); BLOOD UREA NITROGEN 28.1 mg/dL (7-18); CALCIUM 8.9 mg/dL (8.5-10.1)
[2022-02-22 14:00] LABS: CREATININE 0.8 mg/dL (0.55-1.3)
[2022-02-22 14:02] LABS: BILIRUBIN,TOTAL 0.5 mg/dL (0.2-1)
[2022-02-22] MEDS: LACTATED RINGERS SOLUTION 1,000 ML IV SCH (15:11)
[2022-02-22] MEDS: INSULIN (LEVEMIR) 100 UNITS/ML UNITS SQ SCH (21:45)
[2022-02-23] MEDS ORDERED: SODIUM CHLORIDE 100 ML IVPB ONE ×3 (01:11→18:02)
[2022-02-23] MEDS ORDERED: CEFEPIME HCL 2 GM VIAL (RESTRICTED TO ID) ONE ×3 (01:11→18:02)
[2022-02-23] MEDS: CEFEPIME 2 GM in SODIUM CHLORIDE 100 ML IVPB SCH ×3 (01:20→18:19)
[2022-02-23] MEDS: VANCOMYCIN/WATER FOR INJ (PEG) 1,000 MG/200 ML BAG IVPB SCH ×2 (03:25→16:26)
[2022-02-23] MEDS: GABAPENTIN 300 MG CAPSULE PO SCH ×3 (06:30→22:04)
[2022-02-23] MEDS: INSULIN SLIDING SCALE (NOVOLOG) 1 VIAL SQ SCH ×4 (06:38→22:05)
[2022-02-23] MEDS ORDERED: INSULIN (NOVOLOG) ASPART 100 UNITS/ML 10ML VIAL ONE (06:59)
[2022-02-23] MEDS: AMINO ACIDS/PROTEIN HYDROLYS 30 ML LIQUID.PKT PO SCH ×3 (08:29→17:08)
[2022-02-23] MEDS: ASCORBIC ACID 500 MG TABLET (FP) PO SCH (09:48)
[2022-02-23] MEDS: BACLOFEN 10 MG TABLET (FP) PO SCH ×2 (09:48→22:04)
[2022-02-23] MEDS: PANTOPRAZOLE 40 MG TABLET PO SCH (09:48)
[2022-02-23] MEDS: FLUTICASONE PROP 0.05% 16 GM NASAL SPRAY NS SCH (09:48)
[2022-02-23] MEDS: CARVEDILOL 6.25 MG TABLET (FP) PO SCH ×2 (09:48→22:04)
[2022-02-23] MEDS: MULTIVITAMINS (DAILY MVI) TABLET (FP) PO SCH (09:48)
[2022-02-23] MEDS: LOSARTAN POTASSIUM 25 MG TABLET PO SCH (09:48)
[2022-02-23] MEDS: amLODIPine BESYLATE 5 MG TABLET (FP) PO SCH (09:48)
[2022-02-23] MEDS: ASPIRIN 81 MG CHEWABLE TABLETS PO SCH (09:49)
[2022-02-23] MEDS: POLYETHYLENE GLYCOL (HEALTHYLAX) 3350 17 GM PACKET PO SCH (09:49)
[2022-02-23] MEDS: LACTATED RINGERS SOLUTION 1,000 ML IV SCH ×2 (11:23→14:34)
[2022-02-23] MEDS: INSULIN (LEVEMIR) 100 UNITS/ML UNITS SQ SCH (22:05)
[2022-02-24] MEDS ORDERED: CEFEPIME HCL 2 GM VIAL (RESTRICTED TO ID) ONE ×4 (01:50→21:41)
[2022-02-24] MEDS ORDERED: SODIUM CHLORIDE 100 ML IVPB ONE ×4 (01:50→21:41)
[2022-02-24] MEDS: CEFEPIME 2 GM in SODIUM CHLORIDE 100 ML IVPB SCH ×3 (02:10→17:25)
[2022-02-24] MEDS: VANCOMYCIN/WATER FOR INJ (PEG) 1,000 MG/200 ML BAG IVPB SCH ×2 (02:10→16:47)
[2022-02-24] MEDS: LACTATED RINGERS SOLUTION 1,000 ML IV SCH ×2 (02:30→11:27)
[2022-02-24] MEDS: GABAPENTIN 300 MG CAPSULE PO SCH ×3 (06:41→21:46)
[2022-02-24] MEDS: INSULIN SLIDING SCALE (NOVOLOG) 1 VIAL SQ SCH ×4 (06:50→21:47)
[2022-02-24] MEDS: AMINO ACIDS/PROTEIN HYDROLYS 30 ML LIQUID.PKT PO SCH ×3 (07:55→17:25)
[2022-02-24] MEDS: LOSARTAN POTASSIUM 25 MG TABLET PO SCH (09:22)
[2022-02-24] MEDS: ASPIRIN 81 MG CHEWABLE TABLETS PO SCH (09:22)
[2022-02-24] MEDS: PANTOPRAZOLE 40 MG TABLET PO SCH (09:22)
[2022-02-24] MEDS: FLUTICASONE PROP 0.05% 16 GM NASAL SPRAY NS SCH (09:22)
[2022-02-24] MEDS: CARVEDILOL 6.25 MG TABLET (FP) PO SCH ×2 (09:22→21:46)
[2022-02-24] MEDS: MULTIVITAMINS (DAILY MVI) TABLET (FP) PO SCH (09:22)
[2022-02-24] MEDS: BACLOFEN 10 MG TABLET (FP) PO SCH ×2 (09:22→21:46)
[2022-02-24] MEDS: ASCORBIC ACID 500 MG TABLET (FP) PO SCH (09:22)
[2022-02-24] MEDS: POLYETHYLENE GLYCOL (HEALTHYLAX) 3350 17 GM PACKET PO SCH (09:22)
[2022-02-24] MEDS: amLODIPine BESYLATE 5 MG TABLET (FP) PO SCH (09:22)
[2022-02-24] MEDS: guaiFENesin 200 MG/10 ML 10 ML UNIT-DOSE CUPS PO PRN ×2 (09:32→18:08)
[2022-02-24] MEDS: INSULIN (LEVEMIR) 100 UNITS/ML UNITS SQ SCH (21:46)
[2022-02-24] MEDS ORDERED: INSULIN (NOVOLOG) ASPART 100 UNITS/ML 10ML VIAL ONE (21:46)
[2022-02-25] MEDS: VANCOMYCIN/WATER FOR INJ (PEG) 1,000 MG/200 ML BAG IVPB SCH ×2 (00:53→12:18)
[2022-02-25] MEDS: CEFEPIME 2 GM in SODIUM CHLORIDE 100 ML IVPB SCH ×3 (02:28→16:20)
[2022-02-25] MEDS: GABAPENTIN 300 MG CAPSULE PO SCH ×3 (06:53→21:54)
[2022-02-25] MEDS: INSULIN SLIDING SCALE (NOVOLOG) 1 VIAL SQ SCH ×4 (06:53→21:55)
[2022-02-25] MEDS: AMINO ACIDS/PROTEIN HYDROLYS 30 ML LIQUID.PKT PO SCH ×4 (08:03→17:42)
[2022-02-25] MEDS ORDERED: SODIUM CHLORIDE 100 ML IVPB ONE (09:41)
[2022-02-25] MEDS ORDERED: CEFEPIME HCL 2 GM VIAL (RESTRICTED TO ID) ONE (09:41)
[2022-02-25] MEDS: amLODIPine BESYLATE 5 MG TABLET (FP) PO SCH ×2 (09:44→16:20)
[2022-02-25] MEDS: BACLOFEN 10 MG TABLET (FP) PO SCH ×3 (09:44→21:54)
[2022-02-25] MEDS: PANTOPRAZOLE 40 MG TABLET PO SCH ×2 (09:44→16:20)
[2022-02-25] MEDS: POLYETHYLENE GLYCOL (HEALTHYLAX) 3350 17 GM PACKET PO SCH ×2 (09:44→16:20)
[2022-02-25] MEDS: CARVEDILOL 6.25 MG TABLET (FP) PO SCH ×3 (09:44→21:54)
[2022-02-25] MEDS: ASCORBIC ACID 500 MG TABLET (FP) PO SCH ×2 (09:44→16:20)
[2022-02-25] MEDS: ASPIRIN 81 MG CHEWABLE TABLETS PO SCH ×2 (09:44→16:19)
[2022-02-25] MEDS: LOSARTAN POTASSIUM 25 MG TABLET PO SCH ×2 (09:44→16:20)
[2022-02-25] MEDS: MULTIVITAMINS (DAILY MVI) TABLET (FP) PO SCH ×2 (09:44→16:20)
[2022-02-25] MEDS: FLUTICASONE PROP 0.05% 16 GM NASAL SPRAY NS SCH ×2 (09:52→16:20)
[2022-02-25 09:58] LABS: BASO % 0.5 % (0-2.0); EOS % 1.9 % (0-4.5); HEMATOCRIT 38.9 % (35.4-49); HEMOGLOBIN 12.9 GM/dL (11.7-16.9); MCH 29.8 pg (25.7-33.7); MCHC 33.2 g/dl (32.0-35.9); MEAN CELL VOLUME 89.8 fl (80-96); MONO % 7.4 % (3.8-10.2); NEUT % 77.2 % (42.8-82.8); RBC 4.33 M/mm3 (4.00-5.60); RDW 14.6 % (11.9-15.9); WHITE BLOOD COUNT 5.3 K/mm3 (4.0-10.0)
[2022-02-25] MEDS: LACTATED RINGERS SOLUTION 1,000 ML IV SCH (12:19)
[2022-02-25] MEDS: CEFTAZIDIME/AVIBACTAM 2.5 GM in DEXTROSE 5%-WATER - 250 ML IVPB SCH (17:42)
[2022-02-25] MEDS: INSULIN (LEVEMIR) 100 UNITS/ML UNITS SQ SCH (21:55)
[2022-02-26] MEDS: VANCOMYCIN/WATER FOR INJ (PEG) 1,000 MG/200 ML BAG IVPB SCH (00:08)
[2022-02-26] MEDS: CEFTAZIDIME/AVIBACTAM 2.5 GM in DEXTROSE 5%-WATER - 250 ML IVPB SCH ×3 (02:15→17:08)
[2022-02-26] MEDS: GABAPENTIN 300 MG CAPSULE PO SCH ×3 (06:13→22:13)
[2022-02-26] MEDS: INSULIN SLIDING SCALE (NOVOLOG) 1 VIAL SQ SCH ×4 (06:14→22:13)
[2022-02-26] MEDS: AMINO ACIDS/PROTEIN HYDROLYS 30 ML LIQUID.PKT PO SCH ×3 (08:03→17:08)
[2022-02-26 09:42] LABS: BASO % 0.5 % (0-2.0); HEMATOCRIT 35.8 % (35.4-49); HEMOGLOBIN 12.1 GM/dL (11.7-16.9); LYMPH % 13.1 % (8-40); MCH 29.9 pg (25.7-33.7); MCHC 33.8 g/dl (32.0-35.9); MEAN CELL VOLUME 88.6 fl (80-96); MEAN PLT VOLUME 9.6 fl (7.5-11.1); MONO % 8.7 % (3.8-10.2); NEUT % 75.7 % (42.8-82.8); RBC 4.04 M/mm3 (4.00-5.60); RDW 14.2 % (11.9-15.9); WHITE BLOOD COUNT 6.6 K/mm3 (4.0-10.0)
[2022-02-26 09:55] LABS: ALBUMIN 2.2 g/dl (3.4-5.0)
[2022-02-26 09:58] LABS: CREATININE 0.8 mg/dL (0.55-1.3)
[2022-02-26 10:00] LABS: BILIRUBIN,TOTAL 0.4 mg/dL (0.2-1); TOT PROT 6.2 g/dl (6.4-8.2)
[2022-02-26] MEDS: CARVEDILOL 6.25 MG TABLET (FP) PO SCH ×2 (10:05→22:13)
[2022-02-26] MEDS: LOSARTAN POTASSIUM 25 MG TABLET PO SCH (10:05)
[2022-02-26] MEDS: ASCORBIC ACID 500 MG TABLET (FP) PO SCH (10:05)
[2022-02-26] MEDS: FLUTICASONE PROP 0.05% 16 GM NASAL SPRAY NS SCH (10:05)
[2022-02-26] MEDS: ASPIRIN 81 MG CHEWABLE TABLETS PO SCH (10:05)
[2022-02-26] MEDS: PANTOPRAZOLE 40 MG TABLET PO SCH (10:05)
[2022-02-26] MEDS: BACLOFEN 10 MG TABLET (FP) PO SCH ×2 (10:05→22:13)
[2022-02-26] MEDS: MULTIVITAMINS (DAILY MVI) TABLET (FP) PO SCH (10:05)
[2022-02-26] MEDS: amLODIPine BESYLATE 5 MG TABLET (FP) PO SCH (10:05)
[2022-02-26] MEDS: POLYETHYLENE GLYCOL (HEALTHYLAX) 3350 17 GM PACKET PO SCH (10:05)
[2022-02-26] MEDS: DAPTOMYCIN 700 MG in SODIUM CHLORIDE 50 ML IVPB SCH (15:46)
[2022-02-26] MEDS: INSULIN (LEVEMIR) 100 UNITS/ML UNITS SQ SCH (22:13)
[2022-02-27] MEDS: CEFTAZIDIME/AVIBACTAM 2.5 GM in DEXTROSE 5%-WATER - 250 ML IVPB SCH ×3 (01:11→17:48)
[2022-02-27] MEDS: INSULIN SLIDING SCALE (NOVOLOG) 1 VIAL SQ SCH ×4 (06:12→22:08)
[2022-02-27] MEDS: GABAPENTIN 300 MG CAPSULE PO SCH ×3 (06:12→21:44)
[2022-02-27] MEDS: sitaGLIPtin PHOSPHATE 50 MG TABLET PO SCH (06:12)
[2022-02-27] MEDS: BACLOFEN 10 MG TABLET (FP) PO SCH ×2 (09:01→21:44)
[2022-02-27] MEDS: ASCORBIC ACID 500 MG TABLET (FP) PO SCH (09:01)
[2022-02-27] MEDS: AMINO ACIDS/PROTEIN HYDROLYS 30 ML LIQUID.PKT PO SCH ×3 (09:01→17:47)
[2022-02-27] MEDS: LOSARTAN POTASSIUM 25 MG TABLET PO SCH (09:02)
[2022-02-27] MEDS: amLODIPine BESYLATE 5 MG TABLET (FP) PO SCH (09:02)
[2022-02-27] MEDS: ASPIRIN 81 MG CHEWABLE TABLETS PO SCH (09:02)
[2022-02-27] MEDS: POLYETHYLENE GLYCOL (HEALTHYLAX) 3350 17 GM PACKET PO SCH (09:02)
[2022-02-27] MEDS: PANTOPRAZOLE 40 MG TABLET PO SCH (09:02)
[2022-02-27] MEDS: MULTIVITAMINS (DAILY MVI) TABLET (FP) PO SCH (09:02)
[2022-02-27] MEDS: CARVEDILOL 6.25 MG TABLET (FP) PO SCH ×2 (09:02→21:44)
[2022-02-27] MEDS: FLUTICASONE PROP 0.05% 16 GM NASAL SPRAY NS SCH (09:03)
[2022-02-27] MEDS: DAPTOMYCIN 700 MG in SODIUM CHLORIDE 50 ML IVPB SCH (11:54)
[2022-02-27] MEDS: INSULIN (LEVEMIR) 100 UNITS/ML UNITS SQ SCH (21:44)
[2022-02-28] MEDS: CEFTAZIDIME/AVIBACTAM 2.5 GM in DEXTROSE 5%-WATER - 250 ML IVPB SCH ×3 (02:08→17:11)
[2022-02-28] MEDS: GABAPENTIN 300 MG CAPSULE PO SCH ×3 (06:00→22:13)
[2022-02-28] MEDS: sitaGLIPtin PHOSPHATE 50 MG TABLET PO SCH (06:18)
[2022-02-28] MEDS: INSULIN SLIDING SCALE (NOVOLOG) 1 VIAL SQ SCH ×4 (06:19→22:13)
[2022-02-28] MEDS: AMINO ACIDS/PROTEIN HYDROLYS 30 ML LIQUID.PKT PO SCH ×3 (08:31→17:10)
[2022-02-28] MEDS: MULTIVITAMINS (DAILY MVI) TABLET (FP) PO SCH (09:21)
[2022-02-28] MEDS: CARVEDILOL 6.25 MG TABLET (FP) PO SCH ×2 (09:21→22:13)
[2022-02-28] MEDS: amLODIPine BESYLATE 5 MG TABLET (FP) PO SCH (09:21)
[2022-02-28] MEDS: ASCORBIC ACID 500 MG TABLET (FP) PO SCH (09:22)
[2022-02-28] MEDS: POLYETHYLENE GLYCOL (HEALTHYLAX) 3350 17 GM PACKET PO SCH (09:22)
[2022-02-28] MEDS: BACLOFEN 10 MG TABLET (FP) PO SCH ×2 (09:22→22:13)
[2022-02-28] MEDS: LOSARTAN POTASSIUM 25 MG TABLET PO SCH (09:22)
[2022-02-28] MEDS: PANTOPRAZOLE 40 MG TABLET PO SCH (09:22)
[2022-02-28] MEDS: FLUTICASONE PROP 0.05% 16 GM NASAL SPRAY NS SCH (09:26)
[2022-02-28] MEDS: guaiFENesin 200 MG/10 ML 10 ML UNIT-DOSE CUPS PO PRN ×3 (09:37→22:48)
[2022-02-28] MEDS ORDERED: DEXAMETHASONE SOD PHOSPHATE 4 MG/1 ML VIAL ONE (11:07)
[2022-02-28] MEDS ORDERED: BUPIVACAINE HCL/PF 0.5% (5MG/ML) 10 ML VIAL ONE (11:07)
[2022-02-28] MEDS ORDERED: LIDOCAINE HCL 1%, 10 MG/ML (20ML VIAL) ONE (11:07)
[2022-02-28] MEDS ORDERED: VANCOMYCIN 1,000 MG VIAL (RESTRICTED TO ID ONLY) ONE (11:07)
[2022-02-28] MEDS: DAPTOMYCIN 700 MG in SODIUM CHLORIDE 50 ML IVPB SCH (11:56)
[2022-02-28] MEDS ORDERED: BENZOIN/ALOE VERA/STORAX/TOLU 58 ML BOTTLE ONE (12:36)
[2022-02-28] MEDS ORDERED: MIDAZOLAM HCL 2 MG/2 ML SINGLE DOSE VIAL ONE (13:22)
[2022-02-28] MEDS ORDERED: PROPOFOL 20 ML ONE (13:22)
[2022-02-28] MEDS ORDERED: LIDOCAINE HCL 1%, 10 MG/ML (20ML VIAL) INF ONE (13:40)
[2022-02-28] MEDS ORDERED: BUPIVACAINE HCL/PF 0.5% (5MG/ML) 10 ML VIAL IJ ONE (13:40)
[2022-02-28] MEDS ORDERED: THROMBIN (BOVINE) 5,000 UNIT VIAL TP ONE ×2 (14:01→14:03)
[2022-02-28] MEDS ORDERED: ONDANSETRON 4 MG/2 ML VIAL IVPUSH PRN ×2 (14:20→14:31)
[2022-02-28] MEDS ORDERED: LACTATED RINGERS SOLUTION 1,000 ML IV SCH (14:30)
[2022-02-28] MEDS: LACTATED RINGERS SOLUTION 1,000 ML IV SCH ×2 (16:22→22:48)
[2022-02-28 16:49] LABS: BASO % 0.4 % (0-2.0); EOS % 2.6 % (0-4.5); MCH 29.9 pg (25.7-33.7); MCHC 33.2 g/dl (32.0-35.9); MEAN CELL VOLUME 90.1 fl (80-96); MEAN PLT VOLUME 8.6 fl (7.5-11.1); MONO % 10.1 % (3.8-10.2); NEUT % 61.9 % (42.8-82.8); PLATELET COUNT 105 10^3/uL (134-434); RBC 4.33 M/mm3 (4.00-5.60); RDW 14.5 % (11.9-15.9); WHITE BLOOD COUNT 5.3 K/mm3 (4.0-10.0)
[2022-02-28] MEDS: INSULIN (LEVEMIR) 100 UNITS/ML UNITS SQ SCH (22:13)
[2022-03-01] MEDS: CEFTAZIDIME/AVIBACTAM 2.5 GM in DEXTROSE 5%-WATER - 250 ML IVPB SCH ×3 (02:08→17:13)
[2022-03-01] MEDS: INSULIN SLIDING SCALE (NOVOLOG) 1 VIAL SQ SCH ×4 (06:30→22:11)
[2022-03-01] MEDS: GABAPENTIN 300 MG CAPSULE PO SCH ×3 (06:30→22:11)
[2022-03-01] MEDS: AMINO ACIDS/PROTEIN HYDROLYS 30 ML LIQUID.PKT PO SCH ×3 (07:35→16:45)
[2022-03-01] MEDS: sitaGLIPtin PHOSPHATE 50 MG TABLET PO SCH (07:35)
[2022-03-01] MEDS: BACLOFEN 10 MG TABLET (FP) PO SCH ×2 (09:07→22:11)
[2022-03-01] MEDS: CARVEDILOL 6.25 MG TABLET (FP) PO SCH ×2 (09:07→22:11)
[2022-03-01] MEDS: PANTOPRAZOLE 40 MG TABLET PO SCH (09:11)
[2022-03-01] MEDS: LOSARTAN POTASSIUM 25 MG TABLET PO SCH (09:11)
[2022-03-01] MEDS: ASCORBIC ACID 500 MG TABLET (FP) PO SCH (09:11)
[2022-03-01] MEDS: POLYETHYLENE GLYCOL (HEALTHYLAX) 3350 17 GM PACKET PO SCH (09:11)
[2022-03-01] MEDS: amLODIPine BESYLATE 5 MG TABLET (FP) PO SCH (09:11)
[2022-03-01] MEDS: MULTIVITAMINS (DAILY MVI) TABLET (FP) PO SCH (09:11)
[2022-03-01] MEDS: FLUTICASONE PROP 0.05% 16 GM NASAL SPRAY NS SCH (09:12)
[2022-03-01] MEDS: guaiFENesin 200 MG/10 ML 10 ML UNIT-DOSE CUPS PO PRN ×2 (11:47→18:11)
[2022-03-01] MEDS: DAPTOMYCIN 700 MG in SODIUM CHLORIDE 50 ML IVPB SCH (12:59)
[2022-03-01] MEDS: LACTATED RINGERS SOLUTION 1,000 ML IV SCH (13:42)
[2022-03-01] MEDS ORDERED: ACETAMINOPHEN 325 MG TABLET (FP) PO PRN (15:18)
[2022-03-01] MEDS ORDERED: INSULIN (NOVOLOG) ASPART 100 UNITS/ML 10ML VIAL ONE (16:23)
[2022-03-01] MEDS: INSULIN (LEVEMIR) 100 UNITS/ML UNITS SQ SCH (22:12)
[2022-03-02] MEDS: CEFTAZIDIME/AVIBACTAM 2.5 GM in DEXTROSE 5%-WATER - 250 ML IVPB SCH ×3 (01:00→17:02)
[2022-03-02] MEDS: GABAPENTIN 300 MG CAPSULE PO SCH ×3 (06:03→21:23)
[2022-03-02] MEDS: guaiFENesin 200 MG/10 ML 10 ML UNIT-DOSE CUPS PO PRN ×3 (06:03→18:33)
[2022-03-02] MEDS: sitaGLIPtin PHOSPHATE 50 MG TABLET PO SCH (06:03)
[2022-03-02] MEDS: INSULIN SLIDING SCALE (NOVOLOG) 1 VIAL SQ SCH ×4 (06:04→21:24)
[2022-03-02] MEDS: AMINO ACIDS/PROTEIN HYDROLYS 30 ML LIQUID.PKT PO SCH ×3 (08:52→16:42)
[2022-03-02] MEDS: amLODIPine BESYLATE 5 MG TABLET (FP) PO SCH (09:01)
[2022-03-02] MEDS: FLUTICASONE PROP 0.05% 16 GM NASAL SPRAY NS SCH (09:01)
[2022-03-02] MEDS: MULTIVITAMINS (DAILY MVI) TABLET (FP) PO SCH (09:01)
[2022-03-02] MEDS: LOSARTAN POTASSIUM 25 MG TABLET PO SCH (09:01)
[2022-03-02] MEDS: BACLOFEN 10 MG TABLET (FP) PO SCH ×2 (09:01→21:23)
[2022-03-02] MEDS: PANTOPRAZOLE 40 MG TABLET PO SCH (09:01)
[2022-03-02] MEDS: POLYETHYLENE GLYCOL (HEALTHYLAX) 3350 17 GM PACKET PO SCH ×2 (09:01→09:05)
[2022-03-02] MEDS: ASCORBIC ACID 500 MG TABLET (FP) PO SCH (09:01)
[2022-03-02] MEDS: CARVEDILOL 6.25 MG TABLET (FP) PO SCH ×2 (09:01→21:23)
[2022-03-02] MEDS: DAPTOMYCIN 700 MG in SODIUM CHLORIDE 50 ML IVPB SCH (12:03)
[2022-03-02] MEDS: LACTATED RINGERS SOLUTION 1,000 ML IV SCH ×2 (14:23→17:15)
[2022-03-02] MEDS: INSULIN (LEVEMIR) 100 UNITS/ML UNITS SQ SCH (21:24)
[2022-03-03] MEDS: CEFTAZIDIME/AVIBACTAM 2.5 GM in DEXTROSE 5%-WATER - 250 ML IVPB SCH ×2 (03:00→10:18)
[2022-03-03] MEDS: GABAPENTIN 300 MG CAPSULE PO SCH ×3 (06:26→22:22)
[2022-03-03] MEDS: sitaGLIPtin PHOSPHATE 50 MG TABLET PO SCH (06:26)
[2022-03-03] MEDS: INSULIN SLIDING SCALE (NOVOLOG) 1 VIAL SQ SCH ×4 (06:26→22:26)
[2022-03-03] MEDS: AMINO ACIDS/PROTEIN HYDROLYS 30 ML LIQUID.PKT PO SCH ×3 (08:57→18:15)
[2022-03-03] MEDS: guaiFENesin 200 MG/10 ML 10 ML UNIT-DOSE CUPS PO PRN (10:17)
[2022-03-03] MEDS: BACLOFEN 10 MG TABLET (FP) PO SCH ×2 (10:17→22:23)
[2022-03-03] MEDS: LOSARTAN POTASSIUM 25 MG TABLET PO SCH (10:17)
[2022-03-03] MEDS: ASCORBIC ACID 500 MG TABLET (FP) PO SCH (10:17)
[2022-03-03] MEDS: MULTIVITAMINS (DAILY MVI) TABLET (FP) PO SCH (10:17)
[2022-03-03] MEDS: amLODIPine BESYLATE 5 MG TABLET (FP) PO SCH (10:17)
[2022-03-03] MEDS: CARVEDILOL 6.25 MG TABLET (FP) PO SCH ×2 (10:17→22:22)
[2022-03-03] MEDS: PANTOPRAZOLE 40 MG TABLET PO SCH (10:17)
[2022-03-03] MEDS: FLUTICASONE PROP 0.05% 16 GM NASAL SPRAY NS SCH (10:18)
[2022-03-03] MEDS: POLYETHYLENE GLYCOL (HEALTHYLAX) 3350 17 GM PACKET PO SCH (10:18)
[2022-03-03 11:54] LABS: BASO % 0.5 % (0-2.0); EOS % 2.7 % (0-4.5); HEMATOCRIT 36.6 % (35.4-49); HEMOGLOBIN 12.3 GM/dL (11.7-16.9); LYMPH % 18.3 % (8-40); MCH 30.1 pg (25.7-33.7); MCHC 33.6 g/dl (32.0-35.9); MEAN CELL VOLUME 89.5 fl (80-96); MEAN PLT VOLUME 8.1 fl (7.5-11.1); MONO % 8.6 % (3.8-10.2); NEUT % 69.9 % (42.8-82.8); RBC 4.09 M/mm3 (4.00-5.60); RDW 14.3 % (11.9-15.9); WHITE BLOOD COUNT 4.9 K/mm3 (4.0-10.0)
[2022-03-03 11:55] LABS: PLATELET COUNT 85 10^3/uL (134-434)
[2022-03-03 12:17] LABS: CALCIUM 8.8 mg/dL (8.5-10.1)
[2022-03-03 12:18] LABS: ALBUMIN 2.2 g/dl (3.4-5.0); BLOOD UREA NITROGEN 28.2 mg/dL (7-18)
[2022-03-03 12:21] LABS: CREATININE 0.9 mg/dL (0.55-1.3)
[2022-03-03 12:22] LABS: BILIRUBIN,TOTAL 0.4 mg/dL (0.2-1)
[2022-03-03 12:23] LABS: PLATELET ESTIMATE DECREASED; TOT PROT 6.2 g/dl (6.4-8.2)
[2022-03-03] MEDS: DAPTOMYCIN 700 MG in SODIUM CHLORIDE 50 ML IVPB SCH (13:53)
[2022-03-03] MEDS: LACTATED RINGERS SOLUTION 1,000 ML IV SCH (13:58)
[2022-03-03] MEDS: CEFTAZIDIME/AVIBACTAM 2.5 GM in SODIUM CHLORIDE 250 ML IVPB SCH (18:15)
[2022-03-03] MEDS: INSULIN (LEVEMIR) 100 UNITS/ML UNITS SQ SCH (22:26)
[2022-03-04] MEDS: CEFTAZIDIME/AVIBACTAM 2.5 GM in SODIUM CHLORIDE 250 ML IVPB SCH ×3 (01:19→17:25)
[2022-03-04] MEDS: glipiZIDE-XL 2.5 MG TAB.ER.24 PO SCH (06:47)
[2022-03-04] MEDS: GABAPENTIN 300 MG CAPSULE PO SCH ×3 (06:47→22:32)
[2022-03-04] MEDS: INSULIN SLIDING SCALE (NOVOLOG) 1 VIAL SQ SCH ×4 (06:47→22:00)
[2022-03-04] MEDS: sitaGLIPtin PHOSPHATE 50 MG TABLET PO SCH (06:47)
[2022-03-04] MEDS: AMINO ACIDS/PROTEIN HYDROLYS 30 ML LIQUID.PKT PO SCH ×3 (08:40→17:25)
[2022-03-04] MEDS: LACTATED RINGERS SOLUTION 1,000 ML IV SCH ×2 (08:45→16:31)
[2022-03-04] MEDS: ASCORBIC ACID 500 MG TABLET (FP) PO SCH (10:58)
[2022-03-04] MEDS: POLYETHYLENE GLYCOL (HEALTHYLAX) 3350 17 GM PACKET PO SCH (10:58)
[2022-03-04] MEDS: amLODIPine BESYLATE 5 MG TABLET (FP) PO SCH (10:58)
[2022-03-04] MEDS: PANTOPRAZOLE 40 MG TABLET PO SCH (10:58)
[2022-03-04] MEDS: BACLOFEN 10 MG TABLET (FP) PO SCH ×2 (10:58→22:32)
[2022-03-04] MEDS: MULTIVITAMINS (DAILY MVI) TABLET (FP) PO SCH (10:58)
[2022-03-04] MEDS: LOSARTAN POTASSIUM 25 MG TABLET PO SCH (10:58)
[2022-03-04] MEDS: CARVEDILOL 6.25 MG TABLET (FP) PO SCH ×2 (10:59→22:32)
[2022-03-04] MEDS: FLUTICASONE PROP 0.05% 16 GM NASAL SPRAY NS SCH (11:00)
[2022-03-04] MEDS: guaiFENesin 200 MG/10 ML 10 ML UNIT-DOSE CUPS PO PRN (11:02)
[2022-03-04] MEDS: DAPTOMYCIN 700 MG in SODIUM CHLORIDE 50 ML IVPB SCH (12:53)
[2022-03-04] MEDS: NYSTATIN/TRIAMCINOLONE TOPICAL CREAM 15 GM TUBE TP SCH ×2 (12:53→22:33)
[2022-03-04] MEDS: HEPARIN NA (PORCINE) 5,000 UNITS/ML 1ML VIAL SQ SCH (22:32)
[2022-03-04] MEDS: INSULIN (LEVEMIR) 100 UNITS/ML UNITS SQ SCH (22:32)
[2022-03-05] MEDS: CEFTAZIDIME/AVIBACTAM 2.5 GM in SODIUM CHLORIDE 250 ML IVPB SCH ×3 (01:33→17:44)
[2022-03-05] MEDS: LACTATED RINGERS SOLUTION 1,000 ML IV SCH ×2 (06:08→16:57)
[2022-03-05] MEDS: sitaGLIPtin PHOSPHATE 50 MG TABLET PO SCH (06:08)
[2022-03-05] MEDS: GABAPENTIN 300 MG CAPSULE PO SCH ×3 (06:08→21:55)
[2022-03-05] MEDS: glipiZIDE-XL 2.5 MG TAB.ER.24 PO SCH (06:08)
[2022-03-05] MEDS: INSULIN SLIDING SCALE (NOVOLOG) 1 VIAL SQ SCH ×4 (06:29→21:56)
[2022-03-05] MEDS: AMINO ACIDS/PROTEIN HYDROLYS 30 ML LIQUID.PKT PO SCH ×3 (07:59→17:44)
[2022-03-05] MEDS: CARVEDILOL 6.25 MG TABLET (FP) PO SCH ×2 (09:30→21:55)
[2022-03-05] MEDS: LOSARTAN POTASSIUM 25 MG TABLET PO SCH (09:30)
[2022-03-05] MEDS: BACLOFEN 10 MG TABLET (FP) PO SCH ×2 (09:31→21:55)
[2022-03-05] MEDS: HEPARIN NA (PORCINE) 5,000 UNITS/ML 1ML VIAL SQ SCH ×2 (09:31→21:56)
[2022-03-05] MEDS: POLYETHYLENE GLYCOL (HEALTHYLAX) 3350 17 GM PACKET PO SCH (09:31)
[2022-03-05] MEDS: PANTOPRAZOLE 40 MG TABLET PO SCH (09:32)
[2022-03-05] MEDS: amLODIPine BESYLATE 5 MG TABLET (FP) PO SCH (09:32)
[2022-03-05] MEDS: MULTIVITAMINS (DAILY MVI) TABLET (FP) PO SCH (09:32)
[2022-03-05] MEDS: ASCORBIC ACID 500 MG TABLET (FP) PO SCH (09:32)
[2022-03-05] MEDS: FLUTICASONE PROP 0.05% 16 GM NASAL SPRAY NS SCH (09:38)
[2022-03-05] MEDS: NYSTATIN/TRIAMCINOLONE TOPICAL CREAM 15 GM TUBE TP SCH ×2 (10:01→21:55)
[2022-03-05] MEDS: DAPTOMYCIN 700 MG in SODIUM CHLORIDE 50 ML IVPB SCH (13:02)
[2022-03-05] MEDS: INSULIN (LEVEMIR) 100 UNITS/ML UNITS SQ SCH (21:56)
[2022-03-06] MEDS: CEFTAZIDIME/AVIBACTAM 2.5 GM in SODIUM CHLORIDE 250 ML IVPB SCH ×3 (01:17→17:24)
[2022-03-06] MEDS: sitaGLIPtin PHOSPHATE 50 MG TABLET PO SCH (06:12)
[2022-03-06] MEDS: GABAPENTIN 300 MG CAPSULE PO SCH ×3 (06:12→21:21)
[2022-03-06] MEDS: glipiZIDE-XL 2.5 MG TAB.ER.24 PO SCH (06:12)
[2022-03-06] MEDS: INSULIN SLIDING SCALE (NOVOLOG) 1 VIAL SQ SCH ×3 (06:13→16:57)
[2022-03-06 06:25] VITALS: RESP 18
[2022-03-06] MEDS: AMINO ACIDS/PROTEIN HYDROLYS 30 ML LIQUID.PKT PO SCH ×3 (08:59→17:25)
[2022-03-06] MEDS: LOSARTAN POTASSIUM 25 MG TABLET PO SCH (10:13)
[2022-03-06] MEDS: amLODIPine BESYLATE 5 MG TABLET (FP) PO SCH (10:13)
[2022-03-06] MEDS: BACLOFEN 10 MG TABLET (FP) PO SCH ×2 (10:13→21:25)
[2022-03-06] MEDS: MULTIVITAMINS (DAILY MVI) TABLET (FP) PO SCH (10:13)
[2022-03-06] MEDS: PANTOPRAZOLE 40 MG TABLET PO SCH (10:13)
[2022-03-06] MEDS: CARVEDILOL 6.25 MG TABLET (FP) PO SCH ×2 (10:13→21:31)
[2022-03-06] MEDS: HEPARIN NA (PORCINE) 5,000 UNITS/ML 1ML VIAL SQ SCH ×2 (10:13→21:35)
[2022-03-06] MEDS: ASCORBIC ACID 500 MG TABLET (FP) PO SCH (10:13)
[2022-03-06] MEDS: POLYETHYLENE GLYCOL (HEALTHYLAX) 3350 17 GM PACKET PO SCH (10:14)
[2022-03-06] MEDS: FLUTICASONE PROP 0.05% 16 GM NASAL SPRAY NS SCH (10:15)
[2022-03-06] MEDS: NYSTATIN/TRIAMCINOLONE TOPICAL CREAM 15 GM TUBE TP SCH (11:13)
[2022-03-06] MEDS: LACTATED RINGERS SOLUTION 1,000 ML IV SCH ×2 (12:00→16:55)
[2022-03-06] MEDS: DAPTOMYCIN 700 MG in SODIUM CHLORIDE 50 ML IVPB SCH (13:33)
[2022-03-06] MEDS: INSULIN (LEVEMIR) 100 UNITS/ML UNITS SQ SCH (21:40)
[2022-03-07] MEDS: INSULIN SLIDING SCALE (NOVOLOG) 1 VIAL SQ SCH ×3 (01:34→11:48)
[2022-03-07] MEDS: NYSTATIN/TRIAMCINOLONE TOPICAL CREAM 15 GM TUBE TP SCH ×2 (01:48→10:01)
[2022-03-07] MEDS: CEFTAZIDIME/AVIBACTAM 2.5 GM in SODIUM CHLORIDE 250 ML IVPB SCH ×2 (05:52→09:49)
[2022-03-07] MEDS: GABAPENTIN 300 MG CAPSULE PO SCH ×2 (06:15→13:41)
[2022-03-07] MEDS: glipiZIDE-XL 2.5 MG TAB.ER.24 PO SCH (06:19)
[2022-03-07] MEDS: LACTATED RINGERS SOLUTION 1,000 ML IV SCH (08:23)
[2022-03-07] MEDS: guaiFENesin 200 MG/10 ML 10 ML UNIT-DOSE CUPS PO PRN (08:23)
[2022-03-07] MEDS: AMINO ACIDS/PROTEIN HYDROLYS 30 ML LIQUID.PKT PO SCH ×2 (08:23→12:34)
[2022-03-07 09:05] VITALS: BP 148/69; PULSE 60; TEMP 98.3
[2022-03-07] MEDS: BACLOFEN 10 MG TABLET (FP) PO SCH (09:51)
[2022-03-07] MEDS: amLODIPine BESYLATE 5 MG TABLET (FP) PO SCH (09:51)
[2022-03-07] MEDS: ASCORBIC ACID 500 MG TABLET (FP) PO SCH (09:51)
[2022-03-07] MEDS: MULTIVITAMINS (DAILY MVI) TABLET (FP) PO SCH (09:51)
[2022-03-07] MEDS: PANTOPRAZOLE 40 MG TABLET PO SCH (09:51)
[2022-03-07] MEDS: LOSARTAN POTASSIUM 25 MG TABLET PO SCH (09:51)
[2022-03-07] MEDS: HEPARIN NA (PORCINE) 5,000 UNITS/ML 1ML VIAL SQ SCH (09:51)
[2022-03-07] MEDS: CARVEDILOL 6.25 MG TABLET (FP) PO SCH (09:51)
[2022-03-07] MEDS: POLYETHYLENE GLYCOL (HEALTHYLAX) 3350 17 GM PACKET PO SCH (09:52)
[2022-03-07] MEDS: FLUTICASONE PROP 0.05% 16 GM NASAL SPRAY NS SCH (09:54)
[2022-03-07 13:51] VITALS: BMI 29.4
== END 2022-03-07 16:13 | DRG 617 ==
LOC: JER 18:47 → JERBED 21:00 → J6S 02-08 19:00
PROVIDERS: ADMIT Internal Medicine; ATTEND Internal Medicine
PROC: 02HV33Z Insertion of Infusion Device into Superior Vena Cava, Percutaneous Approach (ICD-10-PCS; 2022-02-21)
PROC: B518ZZA Fluoroscopy of Superior Vena Cava, Guidance (ICD-10-PCS; 2022-02-21)
PROC: 0Y6Q0Z3 Detachment at Left 1st Toe, Low, Open Approach (ICD-10-PCS; principal; 2022-02-21 08:30)
PROC: 0Y6Q0Z1 Detachment at Left 1st Toe, High, Open Approach (ICD-10-PCS; 2022-02-28)
DX: E11.69 Type 2 diabetes mellitus with other specified complication (principal); M86.8X6 Other osteomyelitis, lower leg; L97.528 Non-pressure chronic ulcer of other part of left foot with other specified severity; E78.5 Hyperlipidemia, unspecified; E11.42 Type 2 diabetes mellitus with diabetic polyneuropathy; K21.9 Gastro-esophageal reflux disease without esophagitis; I25.2 Old myocardial infarction; I25.119 Atherosclerotic heart disease of native coronary artery with unspecified angina pectoris; D64.9 Anemia, unspecified; I11.0 Hypertensive heart disease with heart failure; I50.9 Heart failure, unspecified; E11.628 Type 2 diabetes mellitus with other skin complications; L08.9 Local infection of the skin and subcutaneous tissue, unspecified; E11.621 Type 2 diabetes mellitus with foot ulcer; G47.33 Obstructive sleep apnea (adult) (pediatric); L03.032 Cellulitis of left toe; E11.51 Type 2 diabetes mellitus with diabetic peripheral angiopathy without gangrene; E11.9 Type 2 diabetes mellitus without complications; R74.9 Abnormal serum enzyme level, unspecified; B95.62 Methicillin resistant Staphylococcus aureus infection as the cause of diseases classified elsewhere; B96.89 Other specified bacterial agents as the cause of diseases classified elsewhere; N40.0 Benign prostatic hyperplasia without lower urinary tract symptoms; Z85.51 Personal history of malignant neoplasm of bladder; Z85.46 Personal history of malignant neoplasm of prostate; Z95.810 Presence of automatic (implantable) cardiac defibrillator; Z95.5 Presence of coronary angioplasty implant and graft
CPT/HCPCS: 36415; 36569; 71045-TC-FY; 73630-TC-LT; 80048; 80053; 82550; 82553; 82962; 83036; 85025; 85651; 86140; 87040; 87070; 87075; 87184; 87186; 87205; 88305-TC; 88311-TC; 93005; 93010; 93922; 93925-TC; 93970-TC; 94760; 97116-GP; 97162-GP; 99285-25; C9803-CS; G0480; J0475; J0878; J1644; U0003; U0005

== ENCOUNTER 2022-05-10 13:45 | Emergency (ER) | payer OTHER ==
[2022-05-10 14:18] VITALS: TEMP 97.8; BMI 29.2
[2022-05-10 20:45] VITALS: BP 144/62; PULSE 57; RESP 18
== END 2022-05-10 21:14 ==
LOC: JER 13:45
DX: L97.921 Non-pressure chronic ulcer of unspecified part of left lower leg limited to breakdown of skin (principal); L97.911 Non-pressure chronic ulcer of unspecified part of right lower leg limited to breakdown of skin
CPT/HCPCS: 99281-25

== ENCOUNTER 2022-05-23 13:49 | Inpatient (IN) | payer OTHER ==
[2022-05-23] MEDS ORDERED: VANCOMYCIN 1 GM in D5W (PRE-DOCKED) 1,000 MG/250 ML IVPB ONE (15:19)
[2022-05-23] MEDS ORDERED: MEROPENEM 1 GM in DEXTROSE 5%-WATER 100 ML IVPB ONE (15:20)
[2022-05-23] MEDS ORDERED: VANCOMYCIN/WATER FOR INJ (PEG) 1,000 MG/200 ML BAG IVPB ONE (15:40)
[2022-05-23] MEDS ORDERED: MEROPENEM 1 GM VIAL (RESTRICTED TO ID) IVPB ONE (15:40)
[2022-05-23 16:40] LABS: BASO % 0.4 % (0-2.0); EOS % 2.2 % (0-4.5); HEMOGLOBIN 12.4 GM/dL (11.7-16.9); LYMPH % 9.6 % (8-40); MCH 30.1 pg (25.7-33.7); MCHC 32.7 g/dl (32.0-35.9); MEAN PLT VOLUME 9.1 fl (7.5-11.1); MONO % 6.4 % (3.8-10.2); NEUT % 81.4 % (42.8-82.8); PLATELET COUNT 110 10^3/uL (134-434); RBC 4.14 M/mm3 (4.00-5.60); RDW 14.6 % (11.9-15.9); WHITE BLOOD COUNT 4.3 K/mm3 (4.0-10.0)
[2022-05-23 16:53] LABS: INR 1.15 (0.83-1.09); PROTHROMBIN TIME (PATIENT) 13.3 SEC (9.7-13.0)
[2022-05-23 16:56] LABS: ACTIVATED PTT 30.2 SECONDS (25.2-36.5)
[2022-05-23 17:18] LABS: ALBUMIN 2.9 g/dl (3.4-5.0); BLOOD UREA NITROGEN 30.4 mg/dL (7-18); CALCIUM 9.3 mg/dL (8.5-10.1)
[2022-05-23 17:21] LABS: CREATININE 0.9 mg/dL (0.55-1.3)
[2022-05-23 17:23] LABS: BILIRUBIN,TOTAL 0.4 mg/dL (0.2-1); TOT PROT 6.9 g/dl (6.4-8.2)
[2022-05-23 17:57] LABS: ERYTHROCYTE SEDIMENTATION RATE 55 mm/hr (0-20)
[2022-05-23] MEDS ORDERED: ACETAMINOPHEN 325 MG TABLET (FP) PO PRN (19:26)
[2022-05-23] MEDS ORDERED: DOCUSATE SODIUM 100 MG CAPSULE (FP) PO PRN (19:26)
[2022-05-23] MEDS: INSULIN SLIDING SCALE (NOVOLOG) 1 VIAL SQ SCH (22:33)
[2022-05-23 23:05] VITALS: BMI 28.0
[2022-05-24] MEDS: MEROPENEM 1 GM in DEXTROSE 5%-WATER 100 ML IVPB SCH ×3 (04:28→17:13)
[2022-05-24] MEDS: VANCOMYCIN/WATER 1,250 MG/250 ML BAG IVPB SCH ×3 (05:04→17:13)
[2022-05-24] MEDS ORDERED: ACETAMINOPHEN 325 MG TABLET (FP) PO PRN (05:13)
[2022-05-24] MEDS: INSULIN SLIDING SCALE (NOVOLOG) 1 VIAL SQ SCH ×4 (06:28→22:12)
[2022-05-24] MEDS: GABAPENTIN 300 MG CAPSULE PO SCH ×3 (07:12→22:11)
[2022-05-24 08:04] LABS: HEMATOCRIT 33.4 % (35.4-49); HEMOGLOBIN 11.1 GM/dL (11.7-16.9); MCH 30.1 pg (25.7-33.7); MCHC 33.1 g/dl (32.0-35.9); MEAN CELL VOLUME 90.7 fl (80-96); MEAN PLT VOLUME 7.8 fl (7.5-11.1); PLATELET COUNT 141 10^3/uL (134-434); RBC 3.68 M/mm3 (4.00-5.60); RDW 14.7 % (11.9-15.9); WHITE BLOOD COUNT 3.6 K/mm3 (4.0-10.0)
[2022-05-24 08:21] LABS: CALCIUM 8.5 mg/dL (8.5-10.1)
[2022-05-24 08:22] LABS: BLOOD UREA NITROGEN 21.4 mg/dL (7-18)
[2022-05-24 08:25] LABS: CREATININE 0.7 mg/dL (0.55-1.3)
[2022-05-24] MEDS: CHOLECALCIFEROL (VIT D3) 1,000 UNIT (25 MCG) TABLET PO SCH (09:34)
[2022-05-24] MEDS: LOSARTAN POTASSIUM 25 MG TABLET PO SCH (09:34)
[2022-05-24] MEDS: ASPIRIN COATED 81 MG TABLET.EC PO SCH (09:34)
[2022-05-24] MEDS: PANTOPRAZOLE 20 MG TABLET PO SCH (09:34)
[2022-05-24] MEDS: MULTIVITAMINS (DAILY MVI) TABLET (FP) PO SCH (09:34)
[2022-05-24] MEDS: SENNOSIDES 8.6MG TABLET (FP) PO SCH (09:35)
[2022-05-24] MEDS: ZINC SULFATE 220 MG CAPSULE (FP) PO SCH (09:35)
[2022-05-24] MEDS: ASCORBIC ACID 500 MG TABLET (FP) PO SCH (09:35)
[2022-05-24] MEDS: LORATADINE 10 MG TABLET PO SCH (09:35)
[2022-05-24] MEDS: CARVEDILOL 6.25 MG TABLET (FP) PO SCH ×2 (09:35→22:11)
[2022-05-24] MEDS: ENOXAPARIN NA (PORCINE) 40 MG/0.4 ML DISP.SYRIN SQ SCH (09:36)
[2022-05-24] MEDS ORDERED: BACLOFEN 10 MG TABLET (FP) PO PRN (10:00)
[2022-05-24] MEDS ORDERED: INSULIN (NOVOLOG) ASPART 100 UNITS/ML 10ML VIAL ONE (10:58)
[2022-05-24] MEDS ORDERED: PNEUMOC 20-VAL CONJ-DIP CRM/PF 0.5 ML SYRINGE IM ONE (11:00)
[2022-05-24] MEDS ORDERED: PATIENT'S OWN MEDICATION (NON-FORMULARY) (Metformin Hcl [Metformin Er Osmotic] 1,000 MG Ta PO SCH (22:00)
[2022-05-24] MEDS: ATORVASTATIN CA 10 MG TABLET (FP) PO SCH (22:11)
[2022-05-24] MEDS: DOCUSATE SODIUM 100 MG CAPSULE (FP) PO SCH (22:11)
[2022-05-25] MEDS: GABAPENTIN 300 MG CAPSULE PO SCH ×3 (06:16→21:55)
[2022-05-25] MEDS: glipiZIDE-XL 5 MG TAB.ER.24 PO SCH (06:16)
[2022-05-25] MEDS: INSULIN SLIDING SCALE (NOVOLOG) 1 VIAL SQ SCH ×4 (06:17→21:55)
[2022-05-25] MEDS ORDERED: glipiZIDE-XL 2.5 MG TAB.ER.24 PO SCH (07:00)
[2022-05-25 09:11] LABS: BASO % 0.7 % (0-2.0); EOS % 4.9 % (0-4.5); HEMATOCRIT 35.4 % (35.4-49); HEMOGLOBIN 11.7 GM/dL (11.7-16.9); MCH 30.4 pg (25.7-33.7); MCHC 33.2 g/dl (32.0-35.9); MEAN CELL VOLUME 91.4 fl (80-96); MEAN PLT VOLUME 8.2 fl (7.5-11.1); NEUT % 59.4 % (42.8-82.8); PLATELET COUNT 116 10^3/uL (134-434); RBC 3.87 M/mm3 (4.00-5.60); WHITE BLOOD COUNT 3.8 K/mm3 (4.0-10.0)
[2022-05-25 09:44] LABS: CALCIUM 9.3 mg/dL (8.5-10.1)
[2022-05-25 09:45] LABS: ALBUMIN 2.7 g/dl (3.4-5.0)
[2022-05-25 09:47] LABS: CREATININE 0.7 mg/dL (0.55-1.3)
[2022-05-25 09:49] LABS: BILIRUBIN,TOTAL 0.4 mg/dL (0.2-1); TOT PROT 6.3 g/dl (6.4-8.2)
[2022-05-25] MEDS: MULTIVITAMINS (DAILY MVI) TABLET (FP) PO SCH (09:54)
[2022-05-25] MEDS: SENNOSIDES 8.6MG TABLET (FP) PO SCH (09:54)
[2022-05-25] MEDS: LOSARTAN POTASSIUM 25 MG TABLET PO SCH (09:54)
[2022-05-25] MEDS: ASPIRIN COATED 81 MG TABLET.EC PO SCH (09:54)
[2022-05-25] MEDS: CHOLECALCIFEROL (VIT D3) 1,000 UNIT (25 MCG) TABLET PO SCH (09:54)
[2022-05-25] MEDS: ZINC SULFATE 220 MG CAPSULE (FP) PO SCH (09:55)
[2022-05-25] MEDS: PANTOPRAZOLE 20 MG TABLET PO SCH (09:55)
[2022-05-25] MEDS: ENOXAPARIN NA (PORCINE) 40 MG/0.4 ML DISP.SYRIN SQ SCH (09:55)
[2022-05-25] MEDS: CARVEDILOL 6.25 MG TABLET (FP) PO SCH ×2 (09:55→23:53)
[2022-05-25] MEDS: ASCORBIC ACID 500 MG TABLET (FP) PO SCH (09:55)
[2022-05-25] MEDS: LORATADINE 10 MG TABLET PO SCH (09:55)
[2022-05-25] MEDS: ATORVASTATIN CA 10 MG TABLET (FP) PO SCH (21:55)
[2022-05-25] MEDS: DOCUSATE SODIUM 100 MG CAPSULE (FP) PO SCH (21:55)
[2022-05-26] MEDS ORDERED: ceFAZolin 2 GRAM PREMIX BAG IVPB ONE ×2 (07:54→08:54)
[2022-05-26] MEDS ORDERED: DEXMEDETOMIDINE HCL 200 MCG/2 ML IVPB ONE (07:54)
[2022-05-26] MEDS ORDERED: MIDAZOLAM HCL 2 MG/2 ML SINGLE DOSE VIAL ONE (07:57)
[2022-05-26] MEDS ORDERED: PROPOFOL 20 ML ONE (07:57)
[2022-05-26] MEDS ORDERED: LACTATED RINGERS SOLUTION 1,000 ML IV SCH (08:00)
[2022-05-26] MEDS: INSULIN SLIDING SCALE (NOVOLOG) 1 VIAL SQ SCH ×4 (08:03→22:50)
[2022-05-26] MEDS: glipiZIDE-XL 5 MG TAB.ER.24 PO SCH (08:03)
[2022-05-26] MEDS: GABAPENTIN 300 MG CAPSULE PO SCH ×3 (08:03→22:45)
[2022-05-26] MEDS ORDERED: BUPIVACAINE HCL/PF 0.25% (2.5MG/ML) 10 ML VIAL ONE (08:37)
[2022-05-26] MEDS ORDERED: LIDOCAINE 1%/EPI 1:100000 (20 ML MULTI DOSE VIAL) IJ ONE (08:51)
[2022-05-26] MEDS ORDERED: BUPIVACAINE HCL/PF 0.25% (2.5MG/ML) 10 ML VIAL IJ ONE (08:51)
[2022-05-26] MEDS ORDERED: ceFAZolin SODIUM 1 GM VIAL ONE (08:52)
[2022-05-26] MEDS: CHOLECALCIFEROL (VIT D3) 1,000 UNIT (25 MCG) TABLET PO SCH (10:25)
[2022-05-26] MEDS: LOSARTAN POTASSIUM 25 MG TABLET PO SCH (10:26)
[2022-05-26] MEDS: CARVEDILOL 6.25 MG TABLET (FP) PO SCH ×2 (10:26→22:45)
[2022-05-26] MEDS: LORATADINE 10 MG TABLET PO SCH (10:26)
[2022-05-26] MEDS: ASCORBIC ACID 500 MG TABLET (FP) PO SCH (10:27)
[2022-05-26] MEDS: ASPIRIN COATED 81 MG TABLET.EC PO SCH (10:27)
[2022-05-26] MEDS: MULTIVITAMINS (DAILY MVI) TABLET (FP) PO SCH (10:27)
[2022-05-26] MEDS: ZINC SULFATE 220 MG CAPSULE (FP) PO SCH (10:27)
[2022-05-26] MEDS: PANTOPRAZOLE 20 MG TABLET PO SCH (10:27)
[2022-05-26] MEDS: SENNOSIDES 8.6MG TABLET (FP) PO SCH (10:27)
[2022-05-26] MEDS: ENOXAPARIN NA (PORCINE) 40 MG/0.4 ML DISP.SYRIN SQ SCH (11:37)
[2022-05-26] MEDS ORDERED: ONDANSETRON 4 MG/2 ML VIAL ONE (13:21)
[2022-05-26 16:37] LABS: BASO % 0.4 % (0-2.0); EOS % 3.2 % (0-4.5); HEMATOCRIT 34.9 % (35.4-49); HEMOGLOBIN 11.5 GM/dL (11.7-16.9); LYMPH % 21.1 % (8-40); MCH 30.2 pg (25.7-33.7); MCHC 32.9 g/dl (32.0-35.9); MEAN CELL VOLUME 91.7 fl (80-96); MEAN PLT VOLUME 8.1 fl (7.5-11.1); MONO % 10.2 % (3.8-10.2); NEUT % 65.1 % (42.8-82.8); PLATELET COUNT 110 10^3/uL (134-434); RBC 3.81 M/mm3 (4.00-5.60); RDW 14.9 % (11.9-15.9); WHITE BLOOD COUNT 4.5 K/mm3 (4.0-10.0)
[2022-05-26 16:45] LABS: CALCIUM 8.6 mg/dL (8.5-10.1)
[2022-05-26 16:46] LABS: ALBUMIN 2.6 g/dl (3.4-5.0); BLOOD UREA NITROGEN 21.7 mg/dL (7-18)
[2022-05-26 16:49] LABS: CREATININE 0.6 mg/dL (0.55-1.3)
[2022-05-26 16:50] LABS: BILIRUBIN,TOTAL 0.3 mg/dL (0.2-1); TOT PROT 6.1 g/dl (6.4-8.2)
[2022-05-26] MEDS: traMADol HCL 50 MG TABLET PO PRN (22:44)
[2022-05-26] MEDS: DOCUSATE SODIUM 100 MG CAPSULE (FP) PO SCH (22:45)
[2022-05-26] MEDS: ATORVASTATIN CA 10 MG TABLET (FP) PO SCH (22:45)
[2022-05-27] MEDS: glipiZIDE-XL 5 MG TAB.ER.24 PO SCH (06:43)
[2022-05-27] MEDS: GABAPENTIN 300 MG CAPSULE PO SCH ×2 (06:43→14:30)
[2022-05-27] MEDS: INSULIN SLIDING SCALE (NOVOLOG) 1 VIAL SQ SCH ×3 (06:44→16:34)
[2022-05-27] MEDS: ENOXAPARIN NA (PORCINE) 40 MG/0.4 ML DISP.SYRIN SQ SCH (10:39)
[2022-05-27] MEDS: ASCORBIC ACID 500 MG TABLET (FP) PO SCH (10:39)
[2022-05-27] MEDS: LOSARTAN POTASSIUM 25 MG TABLET PO SCH (10:39)
[2022-05-27] MEDS: CHOLECALCIFEROL (VIT D3) 1,000 UNIT (25 MCG) TABLET PO SCH (10:39)
[2022-05-27] MEDS: MULTIVITAMINS (DAILY MVI) TABLET (FP) PO SCH (10:39)
[2022-05-27] MEDS: traMADol HCL 50 MG TABLET PO PRN (10:39)
[2022-05-27] MEDS: ZINC SULFATE 220 MG CAPSULE (FP) PO SCH (10:39)
[2022-05-27] MEDS: CARVEDILOL 6.25 MG TABLET (FP) PO SCH (10:39)
[2022-05-27] MEDS: ASPIRIN COATED 81 MG TABLET.EC PO SCH (10:39)
[2022-05-27] MEDS: LORATADINE 10 MG TABLET PO SCH (10:39)
[2022-05-27] MEDS: PANTOPRAZOLE 20 MG TABLET PO SCH (10:39)
[2022-05-27] MEDS: SENNOSIDES 8.6MG TABLET (FP) PO SCH (10:51)
[2022-05-28] MEDS: DOCUSATE SODIUM 100 MG CAPSULE (FP) PO SCH ×2 (00:02→22:02)
[2022-05-28] MEDS: CARVEDILOL 6.25 MG TABLET (FP) PO SCH ×3 (00:02→22:01)
[2022-05-28] MEDS: GABAPENTIN 300 MG CAPSULE PO SCH ×4 (00:02→22:01)
[2022-05-28] MEDS: ATORVASTATIN CA 10 MG TABLET (FP) PO SCH ×2 (00:02→22:02)
[2022-05-28] MEDS: INSULIN SLIDING SCALE (NOVOLOG) 1 VIAL SQ SCH ×5 (00:10→22:02)
[2022-05-28] MEDS: traMADol HCL 50 MG TABLET PO PRN ×2 (00:20→22:02)
[2022-05-28] MEDS: glipiZIDE-XL 5 MG TAB.ER.24 PO SCH (06:26)
[2022-05-28 09:23] LABS: INR 1.21 (0.83-1.09)
[2022-05-28] MEDS ORDERED: ENOXAPARIN NA (PORCINE) 40 MG/0.4 ML DISP.SYRIN SQ SCH (10:00)
[2022-05-28] MEDS: LOSARTAN POTASSIUM 25 MG TABLET PO SCH (10:08)
[2022-05-28] MEDS: LORATADINE 10 MG TABLET PO SCH (10:11)
[2022-05-28] MEDS: ASCORBIC ACID 500 MG TABLET (FP) PO SCH (10:11)
[2022-05-28] MEDS: PANTOPRAZOLE 20 MG TABLET PO SCH (10:11)
[2022-05-28] MEDS: SENNOSIDES 8.6MG TABLET (FP) PO SCH (10:11)
[2022-05-28] MEDS: CHOLECALCIFEROL (VIT D3) 1,000 UNIT (25 MCG) TABLET PO SCH (10:11)
[2022-05-28] MEDS: ZINC SULFATE 220 MG CAPSULE (FP) PO SCH (10:11)
[2022-05-28] MEDS: MULTIVITAMINS (DAILY MVI) TABLET (FP) PO SCH (10:11)
[2022-05-28] MEDS ORDERED: INSULIN (NOVOLOG) ASPART 100 UNITS/ML 10ML VIAL ONE (21:52)
[2022-05-29] MEDS: glipiZIDE-XL 5 MG TAB.ER.24 PO SCH (06:38)
[2022-05-29] MEDS: GABAPENTIN 300 MG CAPSULE PO SCH ×3 (06:38→22:12)
[2022-05-29] MEDS: INSULIN SLIDING SCALE (NOVOLOG) 1 VIAL SQ SCH ×4 (06:39→22:12)
[2022-05-29] MEDS: ENOXAPARIN NA (PORCINE) 40 MG/0.4 ML DISP.SYRIN SQ SCH (10:03)
[2022-05-29] MEDS: LORATADINE 10 MG TABLET PO SCH (10:04)
[2022-05-29] MEDS: ZINC SULFATE 220 MG CAPSULE (FP) PO SCH (10:04)
[2022-05-29] MEDS: SENNOSIDES 8.6MG TABLET (FP) PO SCH (10:05)
[2022-05-29] MEDS: LOSARTAN POTASSIUM 25 MG TABLET PO SCH (10:05)
[2022-05-29] MEDS: ASCORBIC ACID 500 MG TABLET (FP) PO SCH (10:05)
[2022-05-29] MEDS: MULTIVITAMINS (DAILY MVI) TABLET (FP) PO SCH (10:05)
[2022-05-29] MEDS: PANTOPRAZOLE 20 MG TABLET PO SCH (10:05)
[2022-05-29] MEDS: CHOLECALCIFEROL (VIT D3) 1,000 UNIT (25 MCG) TABLET PO SCH (10:05)
[2022-05-29] MEDS: CARVEDILOL 6.25 MG TABLET (FP) PO SCH ×2 (10:05→22:11)
[2022-05-29] MEDS ORDERED: INSULIN (NOVOLOG) ASPART 100 UNITS/ML 10ML VIAL ONE (11:46)
[2022-05-29] MEDS ORDERED: BUPIVACAINE HCL/PF 0.25% (2.5MG/ML) 10 ML VIAL ONE (12:00)
[2022-05-29] MEDS: POLYETHYLENE GLYCOL (HEALTHYLAX) 3350 17 GM PACKET PO SCH (12:31)
[2022-05-29] MEDS: DOCUSATE SODIUM 100 MG CAPSULE (FP) PO SCH (22:11)
[2022-05-29] MEDS: ATORVASTATIN CA 10 MG TABLET (FP) PO SCH (22:12)
[2022-05-30] MEDS: GABAPENTIN 300 MG CAPSULE PO SCH ×3 (07:33→21:58)
[2022-05-30] MEDS: INSULIN SLIDING SCALE (NOVOLOG) 1 VIAL SQ SCH ×4 (07:33→21:57)
[2022-05-30] MEDS: glipiZIDE-XL 5 MG TAB.ER.24 PO SCH (07:33)
[2022-05-30] MEDS ORDERED: INSULIN (NOVOLOG) ASPART 100 UNITS/ML 10ML VIAL ONE (08:13)
[2022-05-30] MEDS: CARVEDILOL 6.25 MG TABLET (FP) PO SCH ×2 (10:29→21:58)
[2022-05-30] MEDS: CHOLECALCIFEROL (VIT D3) 1,000 UNIT (25 MCG) TABLET PO SCH (10:29)
[2022-05-30] MEDS: MULTIVITAMINS (DAILY MVI) TABLET (FP) PO SCH (10:29)
[2022-05-30] MEDS: ASCORBIC ACID 500 MG TABLET (FP) PO SCH (10:29)
[2022-05-30] MEDS: PANTOPRAZOLE 20 MG TABLET PO SCH (10:29)
[2022-05-30] MEDS: LOSARTAN POTASSIUM 25 MG TABLET PO SCH (10:29)
[2022-05-30] MEDS: SENNOSIDES 8.6MG TABLET (FP) PO SCH (10:29)
[2022-05-30] MEDS: ZINC SULFATE 220 MG CAPSULE (FP) PO SCH (10:29)
[2022-05-30] MEDS: LORATADINE 10 MG TABLET PO SCH (10:30)
[2022-05-30] MEDS: ENOXAPARIN NA (PORCINE) 40 MG/0.4 ML DISP.SYRIN SQ SCH (10:30)
[2022-05-30] MEDS: POLYETHYLENE GLYCOL (HEALTHYLAX) 3350 17 GM PACKET PO SCH (10:30)
[2022-05-30] MEDS ORDERED: guaiFENesin/D-METHORPHAN HB 10 ML UNIT-DOSE CUPS PO PRN (12:23)
[2022-05-30] MEDS: guaiFENesin/D-M SUGAR-FREE/ACLHOL-FREE 5 ML UNIT DOSE PO PRN (17:43)
[2022-05-30] MEDS: ATORVASTATIN CA 10 MG TABLET (FP) PO SCH (21:58)
[2022-05-30] MEDS: DOCUSATE SODIUM 100 MG CAPSULE (FP) PO SCH (21:58)
[2022-05-30] MEDS: traMADol HCL 50 MG TABLET PO PRN (22:04)
[2022-05-31] MEDS: glipiZIDE-XL 5 MG TAB.ER.24 PO SCH (06:23)
[2022-05-31] MEDS: GABAPENTIN 300 MG CAPSULE PO SCH ×3 (06:23→22:48)
[2022-05-31] MEDS: INSULIN SLIDING SCALE (NOVOLOG) 1 VIAL SQ SCH ×4 (06:23→22:52)
[2022-05-31 09:24] LABS: BASO % 0.6 % (0-2.0); EOS % 3.1 % (0-4.5); HEMATOCRIT 36.3 % (35.4-49); HEMOGLOBIN 12.1 GM/dL (11.7-16.9); LYMPH % 24.1 % (8-40); MCH 30.6 pg (25.7-33.7); MCHC 33.3 g/dl (32.0-35.9); MEAN CELL VOLUME 91.9 fl (80-96); MEAN PLT VOLUME 8.5 fl (7.5-11.1); MONO % 9.3 % (3.8-10.2); NEUT % 62.9 % (42.8-82.8); PLATELET COUNT 148 10^3/uL (134-434); RBC 3.95 M/mm3 (4.00-5.60)
[2022-05-31 09:54] LABS: ALBUMIN 2.5 g/dl (3.4-5.0); BLOOD UREA NITROGEN 22.6 mg/dL (7-18)
[2022-05-31 09:58] LABS: BILIRUBIN,TOTAL 0.4 mg/dL (0.2-1); CREATININE 0.7 mg/dL (0.55-1.3); TOT PROT 6.1 g/dl (6.4-8.2)
[2022-05-31] MEDS: POLYETHYLENE GLYCOL (HEALTHYLAX) 3350 17 GM PACKET PO SCH ×2 (10:21→10:51)
[2022-05-31] MEDS: SENNOSIDES 8.6MG TABLET (FP) PO SCH (10:50)
[2022-05-31] MEDS: ASCORBIC ACID 500 MG TABLET (FP) PO SCH (10:50)
[2022-05-31] MEDS: CHOLECALCIFEROL (VIT D3) 1,000 UNIT (25 MCG) TABLET PO SCH (10:50)
[2022-05-31] MEDS: MULTIVITAMINS (DAILY MVI) TABLET (FP) PO SCH (10:50)
[2022-05-31] MEDS: CARVEDILOL 6.25 MG TABLET (FP) PO SCH ×2 (10:50→22:48)
[2022-05-31] MEDS: ZINC SULFATE 220 MG CAPSULE (FP) PO SCH (10:50)
[2022-05-31] MEDS: LOSARTAN POTASSIUM 25 MG TABLET PO SCH (10:51)
[2022-05-31] MEDS: PANTOPRAZOLE 20 MG TABLET PO SCH (10:51)
[2022-05-31] MEDS: LORATADINE 10 MG TABLET PO SCH (10:51)
[2022-05-31] MEDS: guaiFENesin/D-M SUGAR-FREE/ACLHOL-FREE 5 ML UNIT DOSE PO PRN (10:53)
[2022-05-31 11:41] LABS: INR 1.22 (0.83-1.09); PROTHROMBIN TIME (PATIENT) 14.1 SEC (9.7-13.0)
[2022-05-31] MEDS: ATORVASTATIN CA 10 MG TABLET (FP) PO SCH (22:48)
[2022-05-31] MEDS: DOCUSATE SODIUM 100 MG CAPSULE (FP) PO SCH (22:48)
[2022-05-31] MEDS: NYSTATIN 100,000 UNIT/GM TOPICAL CREAM 15 GM TUBE TP SCH (22:52)
[2022-06-01] MEDS: GABAPENTIN 300 MG CAPSULE PO SCH ×3 (05:59→22:15)
[2022-06-01] MEDS: glipiZIDE-XL 5 MG TAB.ER.24 PO SCH (06:00)
[2022-06-01] MEDS: INSULIN SLIDING SCALE (NOVOLOG) 1 VIAL SQ SCH ×4 (06:01→22:16)
[2022-06-01] MEDS ORDERED: LIDOCAINE HCL 1%, 10 MG/ML (20ML VIAL) ONE (09:34)
[2022-06-01] MEDS ORDERED: GENTAMICIN SO4 80 MG/2 ML VIAL ONE (09:35)
[2022-06-01] MEDS: POLYETHYLENE GLYCOL (HEALTHYLAX) 3350 17 GM PACKET PO SCH (10:07)
[2022-06-01] MEDS: ZINC SULFATE 220 MG CAPSULE (FP) PO SCH (10:07)
[2022-06-01] MEDS: LOSARTAN POTASSIUM 25 MG TABLET PO SCH (10:07)
[2022-06-01] MEDS: ASCORBIC ACID 500 MG TABLET (FP) PO SCH (10:07)
[2022-06-01] MEDS: LORATADINE 10 MG TABLET PO SCH (10:07)
[2022-06-01] MEDS: CARVEDILOL 6.25 MG TABLET (FP) PO SCH ×2 (10:07→22:15)
[2022-06-01] MEDS: NYSTATIN 100,000 UNIT/GM TOPICAL CREAM 15 GM TUBE TP SCH (10:07)
[2022-06-01] MEDS: PANTOPRAZOLE 20 MG TABLET PO SCH (10:07)
[2022-06-01] MEDS: CHOLECALCIFEROL (VIT D3) 1,000 UNIT (25 MCG) TABLET PO SCH (10:09)
[2022-06-01] MEDS: MULTIVITAMINS (DAILY MVI) TABLET (FP) PO SCH (10:12)
[2022-06-01] MEDS: SENNOSIDES 8.6MG TABLET (FP) PO SCH (10:12)
[2022-06-01] MEDS ORDERED: LIDOCAINE HCL 1%, 10 MG/ML (20ML VIAL) INF ONE (10:19)
[2022-06-01] MEDS ORDERED: BUPIVACAINE HCL/PF 0.5% (5MG/ML) 10 ML VIAL IJ ONE (10:19)
[2022-06-01] MEDS ORDERED: ONDANSETRON 4 MG/2 ML VIAL IVPUSH PRN ×2 (11:00→11:17)
[2022-06-01] MEDS ORDERED: LACTATED RINGERS SOLUTION 1,000 ML IV SCH ×2 (11:00→11:17)
[2022-06-01] MEDS ORDERED: ACETAMINOPHEN 325 MG TABLET (FP) PO PRN (11:17)
[2022-06-01] MEDS ORDERED: BACLOFEN 10 MG TABLET (FP) PO PRN (11:17)
[2022-06-01] MEDS: guaiFENesin/D-M SUGAR-FREE/ACLHOL-FREE 5 ML UNIT DOSE PO PRN ×2 (16:01→22:16)
[2022-06-01] MEDS: DOCUSATE SODIUM 100 MG CAPSULE (FP) PO SCH (22:14)
[2022-06-01] MEDS: ATORVASTATIN CA 10 MG TABLET (FP) PO SCH (22:15)
[2022-06-01] MEDS: traMADol HCL 50 MG TABLET PO PRN (22:47)
[2022-06-02] MEDS: glipiZIDE-XL 5 MG TAB.ER.24 PO SCH (06:48)
[2022-06-02] MEDS: GABAPENTIN 300 MG CAPSULE PO SCH ×3 (06:48→22:13)
[2022-06-02] MEDS: INSULIN SLIDING SCALE (NOVOLOG) 1 VIAL SQ SCH ×4 (06:51→22:14)
[2022-06-02] MEDS ORDERED: INSULIN (NOVOLOG) ASPART 100 UNITS/ML 10ML VIAL ONE ×3 (06:55→22:02)
[2022-06-02] MEDS: SENNOSIDES 8.6MG TABLET (FP) PO SCH (11:43)
[2022-06-02] MEDS: POLYETHYLENE GLYCOL (HEALTHYLAX) 3350 17 GM PACKET PO SCH (11:43)
[2022-06-02] MEDS: PANTOPRAZOLE 20 MG TABLET PO SCH (11:43)
[2022-06-02] MEDS: MULTIVITAMINS (DAILY MVI) TABLET (FP) PO SCH (11:43)
[2022-06-02] MEDS: ZINC SULFATE 220 MG CAPSULE (FP) PO SCH (11:43)
[2022-06-02] MEDS: LOSARTAN POTASSIUM 25 MG TABLET PO SCH (11:44)
[2022-06-02] MEDS: ASCORBIC ACID 500 MG TABLET (FP) PO SCH (11:44)
[2022-06-02] MEDS: LORATADINE 10 MG TABLET PO SCH (11:44)
[2022-06-02] MEDS: CHOLECALCIFEROL (VIT D3) 1,000 UNIT (25 MCG) TABLET PO SCH (11:44)
[2022-06-02] MEDS: CARVEDILOL 6.25 MG TABLET (FP) PO SCH ×2 (11:45→22:13)
[2022-06-02] MEDS: NYSTATIN 100,000 UNIT/GM TOPICAL CREAM 15 GM TUBE TP SCH (11:48)
[2022-06-02] MEDS: traMADol HCL 50 MG TABLET PO PRN (14:49)
[2022-06-02] MEDS: guaiFENesin/D-M SUGAR-FREE/ACLHOL-FREE 5 ML UNIT DOSE PO PRN ×2 (14:49→22:18)
[2022-06-02] MEDS: DOCUSATE SODIUM 100 MG CAPSULE (FP) PO SCH (22:13)
[2022-06-02] MEDS: ATORVASTATIN CA 10 MG TABLET (FP) PO SCH (22:13)
[2022-06-03] MEDS: glipiZIDE-XL 5 MG TAB.ER.24 PO SCH (06:31)
[2022-06-03] MEDS: GABAPENTIN 300 MG CAPSULE PO SCH ×3 (06:32→22:56)
[2022-06-03] MEDS: INSULIN SLIDING SCALE (NOVOLOG) 1 VIAL SQ SCH ×4 (06:32→23:06)
[2022-06-03] MEDS ORDERED: INSULIN (NOVOLOG) ASPART 100 UNITS/ML 10ML VIAL ONE ×2 (06:40→12:10)
[2022-06-03] MEDS: traMADol HCL 50 MG TABLET PO PRN ×2 (10:17→23:50)
[2022-06-03] MEDS: POLYETHYLENE GLYCOL (HEALTHYLAX) 3350 17 GM PACKET PO SCH (10:17)
[2022-06-03] MEDS: SENNOSIDES 8.6MG TABLET (FP) PO SCH (10:18)
[2022-06-03] MEDS: ZINC SULFATE 220 MG CAPSULE (FP) PO SCH (10:19)
[2022-06-03] MEDS: PANTOPRAZOLE 20 MG TABLET PO SCH (10:19)
[2022-06-03] MEDS: MULTIVITAMINS (DAILY MVI) TABLET (FP) PO SCH (10:19)
[2022-06-03] MEDS: LORATADINE 10 MG TABLET PO SCH (10:19)
[2022-06-03] MEDS: CARVEDILOL 6.25 MG TABLET (FP) PO SCH ×2 (10:19→22:56)
[2022-06-03] MEDS: ASCORBIC ACID 500 MG TABLET (FP) PO SCH (10:19)
[2022-06-03] MEDS: CHOLECALCIFEROL (VIT D3) 1,000 UNIT (25 MCG) TABLET PO SCH (10:19)
[2022-06-03] MEDS: LOSARTAN POTASSIUM 25 MG TABLET PO SCH (10:20)
[2022-06-03] MEDS: NYSTATIN 100,000 UNIT/GM TOPICAL CREAM 15 GM TUBE TP SCH (10:20)
[2022-06-03] MEDS: guaiFENesin/D-M SUGAR-FREE/ACLHOL-FREE 5 ML UNIT DOSE PO PRN ×2 (13:24→23:52)
[2022-06-03] MEDS: DOCUSATE SODIUM 100 MG CAPSULE (FP) PO SCH (22:56)
[2022-06-03] MEDS: ATORVASTATIN CA 10 MG TABLET (FP) PO SCH (22:56)
[2022-06-04] MEDS: GABAPENTIN 300 MG CAPSULE PO SCH ×2 (06:41→14:15)
[2022-06-04] MEDS: glipiZIDE-XL 5 MG TAB.ER.24 PO SCH (06:41)
[2022-06-04] MEDS: INSULIN SLIDING SCALE (NOVOLOG) 1 VIAL SQ SCH ×2 (06:42→11:56)
[2022-06-04] MEDS: MULTIVITAMINS (DAILY MVI) TABLET (FP) PO SCH (11:00)
[2022-06-04] MEDS: CARVEDILOL 6.25 MG TABLET (FP) PO SCH (11:00)
[2022-06-04] MEDS: guaiFENesin/D-M SUGAR-FREE/ACLHOL-FREE 5 ML UNIT DOSE PO PRN (11:00)
[2022-06-04] MEDS: SENNOSIDES 8.6MG TABLET (FP) PO SCH (11:00)
[2022-06-04] MEDS: ZINC SULFATE 220 MG CAPSULE (FP) PO SCH (11:01)
[2022-06-04] MEDS: PANTOPRAZOLE 20 MG TABLET PO SCH (11:01)
[2022-06-04] MEDS: CHOLECALCIFEROL (VIT D3) 1,000 UNIT (25 MCG) TABLET PO SCH (11:01)
[2022-06-04] MEDS: LORATADINE 10 MG TABLET PO SCH (11:01)
[2022-06-04] MEDS: ASCORBIC ACID 500 MG TABLET (FP) PO SCH (11:01)
[2022-06-04] MEDS: LOSARTAN POTASSIUM 25 MG TABLET PO SCH (11:01)
[2022-06-04] MEDS: traMADol HCL 50 MG TABLET PO PRN (11:02)
[2022-06-04] MEDS: POLYETHYLENE GLYCOL (HEALTHYLAX) 3350 17 GM PACKET PO SCH (11:02)
[2022-06-04] MEDS: NYSTATIN 100,000 UNIT/GM TOPICAL CREAM 15 GM TUBE TP SCH (11:03)
[2022-06-04] MEDS ORDERED: INSULIN (NOVOLOG) ASPART 100 UNITS/ML 10ML VIAL ONE (14:50)
[2022-06-04 15:09] VITALS: BP 125/60; PULSE 63; RESP 18; TEMP 98.1
== END 2022-06-04 15:46 | DRG 577 ==
LOC: JER 13:49 → JERBED 15:26 → J7W 21:20
PROVIDERS: ADMIT Internal Medicine; ATTEND Internal Medicine
PROC: 0WBL0ZZ Excision of Lower Back, Open Approach (ICD-10-PCS; principal; 2022-05-26 08:30)
PROC: 0Y6S0Z0 Detachment at Left 2nd Toe, Complete, Open Approach (ICD-10-PCS; 2022-06-01)
DX: D04.5 Carcinoma in situ of skin of trunk (principal); M86.8X7 Other osteomyelitis, ankle and foot; I25.10 Atherosclerotic heart disease of native coronary artery without angina pectoris; I25.2 Old myocardial infarction; I10 Essential (primary) hypertension; E78.5 Hyperlipidemia, unspecified; N40.0 Benign prostatic hyperplasia without lower urinary tract symptoms; Z79.84 Long term (current) use of oral hypoglycemic drugs; L03.032 Cellulitis of left toe; G47.33 Obstructive sleep apnea (adult) (pediatric); E11.69 Type 2 diabetes mellitus with other specified complication; Z86.16 Personal history of COVID-19; D69.6 Thrombocytopenia, unspecified; L97.529 Non-pressure chronic ulcer of other part of left foot with unspecified severity; R79.89 Other specified abnormal findings of blood chemistry; Z95.810 Presence of automatic (implantable) cardiac defibrillator; C44.91 Basal cell carcinoma of skin, unspecified; I11.0 Hypertensive heart disease with heart failure; I50.9 Heart failure, unspecified; I87.2 Venous insufficiency (chronic) (peripheral); E11.40 Type 2 diabetes mellitus with diabetic neuropathy, unspecified
CPT/HCPCS: 11042; 36415; 73630-TC-LT; 80048; 80053; 82962; 83036; 85025; 85027; 85610; 85651; 85730; 86140; 86850; 86900; 86901; 87040; 88305-TC; 88311-TC; 93926-TC; 94010; 94760; 97116-GP; 99285-25; A6196; C9803-CS; J0475; U0003; U0005

== ENCOUNTER 2022-06-08 11:24 | Inpatient (IN) | payer OTHER ==
[2022-06-08] MEDS ORDERED: VANCOMYCIN 1 GM in D5W (PRE-DOCKED) 1,000 MG/250 ML IVPB ONE (14:28)
[2022-06-08] MEDS ORDERED: PIPERACILLIN/TAZOB 4.5 GM 4.5 GM in DEXTROSE 5%-WATER 100 ML IVPB ONE (14:29)
[2022-06-08] MEDS ORDERED: PIPERACILLIN/TAZOB 4.5 GM 4.5 GM/100 ML BAG IVPB ONE (15:32)
[2022-06-08] MEDS ORDERED: VANCOMYCIN/WATER FOR INJ (PEG) 1,000 MG/200 ML BAG IVPB ONE (15:32)
[2022-06-08 16:19] LABS: BASO % 0.6 % (0-2.0); EOS % 3.2 % (0-4.5); HEMATOCRIT 40.1 % (35.4-49); HEMOGLOBIN 13.4 GM/dL (11.7-16.9); LYMPH % 20.9 % (8-40); MCH 30.3 pg (25.7-33.7); MCHC 33.5 g/dl (32.0-35.9); MEAN CELL VOLUME 90.6 fl (80-96); MEAN PLT VOLUME 8.2 fl (7.5-11.1); MONO % 9.4 % (3.8-10.2); NEUT % 65.9 % (42.8-82.8); PLATELET COUNT 199 10^3/uL (134-434); RBC 4.43 M/mm3 (4.00-5.60); RDW 14.9 % (11.9-15.9); WHITE BLOOD COUNT 5.9 K/mm3 (4.0-10.0)
[2022-06-08 16:48] LABS: BLOOD UREA NITROGEN 19.5 mg/dL (7-18)
[2022-06-08 16:49] LABS: ALBUMIN 2.8 g/dl (3.4-5.0)
[2022-06-08 16:52] LABS: BILIRUBIN,TOTAL 0.4 mg/dL (0.2-1); CREATININE 0.8 mg/dL (0.55-1.3); TOT PROT 7.1 g/dl (6.4-8.2)
[2022-06-09] MEDS: PIPERACILLIN/TAZOB 3.375 GM 3.375 GM in DEXTROSE 5%-WATER - 50 ML IVPB SCH ×2 (00:30→12:02)
[2022-06-09] MEDS ORDERED: ALBUTEROL SO4 2.5/IPRATROPIUM 0.5 INH SOL 3 ML VIAL.NEB. NEB PRN (02:21)
[2022-06-09] MEDS ORDERED: NYSTATIN 100000 UNIT/GM TOPICAL OINTMENT 15 GM TUBE TP SCH (02:30)
[2022-06-09] MEDS ORDERED: PIPERACILLIN/TAZOB 3.375 GM 3.375 GM/50 ML BAG IVPB ONE (03:41)
[2022-06-09] MEDS: BACLOFEN 10 MG TABLET (FP) PO SCH ×3 (03:49→21:51)
[2022-06-09] MEDS: PIPERACILLIN/TAZOB 3.375 GM 3.375 GM/50 ML BAG IVPB SCH ×2 (03:49→12:02)
[2022-06-09] MEDS: GABAPENTIN 300 MG CAPSULE PO SCH ×3 (06:24→21:51)
[2022-06-09] MEDS ORDERED: VANCOMYCIN/WATER 1,250 MG/250 ML BAG IVPB SCH (08:00)
[2022-06-09 08:30] LABS: BASO % 0.6 % (0-2.0); EOS % 2.9 % (0-4.5); HEMOGLOBIN 13.5 GM/dL (11.7-16.9); LYMPH % 16.9 % (8-40); MCH 29.9 pg (25.7-33.7); MCHC 32.9 g/dl (32.0-35.9); MEAN CELL VOLUME 90.8 fl (80-96); MEAN PLT VOLUME 8.9 fl (7.5-11.1); MONO % 9.7 % (3.8-10.2); NEUT % 69.9 % (42.8-82.8); PLATELET COUNT 165 10^3/uL (134-434); RBC 4.51 M/mm3 (4.00-5.60); RDW 14.8 % (11.9-15.9); WHITE BLOOD COUNT 6.3 K/mm3 (4.0-10.0)
[2022-06-09 08:35] LABS: ACTIVATED PTT 30.2 SECONDS (25.2-36.5)
[2022-06-09 08:36] LABS: INR 1.2 (0.83-1.09); PROTHROMBIN TIME (PATIENT) 13.8 SEC (9.7-13.0)
[2022-06-09 08:56] LABS: BLOOD UREA NITROGEN 18.3 mg/dL (7-18); CALCIUM 9.1 mg/dL (8.5-10.1); MAGNESIUM 1.8 mg/dL (1.8-2.4)
[2022-06-09 09:00] LABS: CREATININE 0.8 mg/dL (0.55-1.3); PHOSPHOROUS 3.4 mg/dL (2.5-4.9)
[2022-06-09] MEDS: SENNOSIDES 8.6MG TABLET (FP) PO SCH (09:43)
[2022-06-09] MEDS: LORATADINE 10 MG TABLET PO SCH (09:44)
[2022-06-09] MEDS: ASCORBIC ACID 500 MG TABLET (FP) PO SCH (09:44)
[2022-06-09] MEDS: CHOLECALCIFEROL (VIT D3) 1,000 UNIT (25 MCG) TABLET PO SCH (09:44)
[2022-06-09] MEDS: ZINC SULFATE 220 MG CAPSULE (FP) PO SCH (09:45)
[2022-06-09] MEDS: ATORVASTATIN CA 10 MG TABLET (FP) PO SCH (09:45)
[2022-06-09] MEDS: MULTIVITAMINS (DAILY MVI) TABLET (FP) PO SCH (09:45)
[2022-06-09] MEDS: CARVEDILOL 6.25 MG TABLET (FP) PO SCH ×2 (09:46→21:51)
[2022-06-09] MEDS: ASPIRIN 81 MG CHEWABLE TABLETS PO SCH (09:46)
[2022-06-09] MEDS: LOSARTAN POTASSIUM 25 MG TABLET PO SCH (09:46)
[2022-06-09] MEDS ORDERED: PIPERACILLIN/TAZOB 3.375 GM 3.375 GM in DEXTROSE 5%-WATER - 50 ML IVPB SCH (10:22)
[2022-06-09] MEDS: POLYETHYLENE GLYCOL (HEALTHYLAX) 3350 17 GM PACKET PO SCH (11:56)
[2022-06-09] MEDS: COLLAGENASE CLOSTRIDIUM HIST. 30 GRAMS TUBE TP SCH (12:00)
[2022-06-09] MEDS: INSULIN SLIDING SCALE (NOVOLOG) 1 VIAL SQ SCH ×3 (12:01→21:53)
[2022-06-09] MEDS: VANCOMYCIN/WATER 1,250 MG/250 ML BAG IVPB SCH (12:02)
[2022-06-09] MEDS: HEPARIN NA (PORCINE) 5,000 UNITS/ML 1ML VIAL SQ SCH (21:53)
[2022-06-10] MEDS: INSULIN SLIDING SCALE (NOVOLOG) 1 VIAL SQ SCH ×4 (06:27→22:15)
[2022-06-10] MEDS: GABAPENTIN 300 MG CAPSULE PO SCH ×3 (06:27→22:15)
[2022-06-10] MEDS: POLYETHYLENE GLYCOL (HEALTHYLAX) 3350 17 GM PACKET PO SCH (10:19)
[2022-06-10] MEDS: SENNOSIDES 8.6MG TABLET (FP) PO SCH (10:20)
[2022-06-10] MEDS: MULTIVITAMINS (DAILY MVI) TABLET (FP) PO SCH (10:20)
[2022-06-10] MEDS: ASPIRIN 81 MG CHEWABLE TABLETS PO SCH (10:20)
[2022-06-10] MEDS: ZINC SULFATE 220 MG CAPSULE (FP) PO SCH (10:20)
[2022-06-10] MEDS: ATORVASTATIN CA 10 MG TABLET (FP) PO SCH (10:20)
[2022-06-10] MEDS: BACLOFEN 10 MG TABLET (FP) PO SCH ×2 (10:20→22:15)
[2022-06-10] MEDS: HEPARIN NA (PORCINE) 5,000 UNITS/ML 1ML VIAL SQ SCH ×2 (10:20→22:15)
[2022-06-10] MEDS: LOSARTAN POTASSIUM 25 MG TABLET PO SCH (10:21)
[2022-06-10] MEDS: ASCORBIC ACID 500 MG TABLET (FP) PO SCH (10:21)
[2022-06-10] MEDS: COLLAGENASE CLOSTRIDIUM HIST. 30 GRAMS TUBE TP SCH (10:21)
[2022-06-10] MEDS: CHOLECALCIFEROL (VIT D3) 1,000 UNIT (25 MCG) TABLET PO SCH (10:21)
[2022-06-10] MEDS: CARVEDILOL 6.25 MG TABLET (FP) PO SCH ×2 (10:21→22:15)
[2022-06-10] MEDS: LORATADINE 10 MG TABLET PO SCH (10:21)
[2022-06-10] MEDS: VANCOMYCIN PREMIX 1.5 GM 1,500 MG/300 ML BAG IVPB SCH (11:05)
[2022-06-10] MEDS: AMINO ACIDS/PROTEIN HYDROLYS 30 ML LIQUID.PKT PO SCH (18:11)
[2022-06-11] MEDS: INSULIN SLIDING SCALE (NOVOLOG) 1 VIAL SQ SCH ×4 (06:05→22:06)
[2022-06-11] MEDS: GABAPENTIN 300 MG CAPSULE PO SCH ×3 (06:05→22:05)
[2022-06-11] MEDS: BACLOFEN 10 MG TABLET (FP) PO SCH ×2 (09:57→22:06)
[2022-06-11] MEDS: ATORVASTATIN CA 10 MG TABLET (FP) PO SCH (09:57)
[2022-06-11] MEDS: HEPARIN NA (PORCINE) 5,000 UNITS/ML 1ML VIAL SQ SCH ×2 (09:57→22:06)
[2022-06-11] MEDS: ZINC SULFATE 220 MG CAPSULE (FP) PO SCH (09:57)
[2022-06-11] MEDS: LORATADINE 10 MG TABLET PO SCH (09:57)
[2022-06-11] MEDS: AMINO ACIDS/PROTEIN HYDROLYS 30 ML LIQUID.PKT PO SCH ×2 (09:57→16:51)
[2022-06-11] MEDS: CHOLECALCIFEROL (VIT D3) 1,000 UNIT (25 MCG) TABLET PO SCH (09:57)
[2022-06-11] MEDS: ASCORBIC ACID 500 MG TABLET (FP) PO SCH (09:57)
[2022-06-11] MEDS: LOSARTAN POTASSIUM 25 MG TABLET PO SCH (09:57)
[2022-06-11] MEDS: POLYETHYLENE GLYCOL (HEALTHYLAX) 3350 17 GM PACKET PO SCH (09:57)
[2022-06-11] MEDS: MULTIVITAMINS (DAILY MVI) TABLET (FP) PO SCH (09:57)
[2022-06-11] MEDS: CARVEDILOL 6.25 MG TABLET (FP) PO SCH ×2 (09:58→22:06)
[2022-06-11] MEDS: SENNOSIDES 8.6MG TABLET (FP) PO SCH (09:58)
[2022-06-11] MEDS: COLLAGENASE CLOSTRIDIUM HIST. 30 GRAMS TUBE TP SCH (09:58)
[2022-06-11] MEDS: ASPIRIN 81 MG CHEWABLE TABLETS PO SCH (09:58)
[2022-06-11] MEDS: VANCOMYCIN PREMIX 1.5 GM 1,500 MG/300 ML BAG IVPB SCH ×2 (10:30→11:05)
[2022-06-12] MEDS: GABAPENTIN 300 MG CAPSULE PO SCH ×3 (06:14→21:29)
[2022-06-12] MEDS: INSULIN SLIDING SCALE (NOVOLOG) 1 VIAL SQ SCH ×4 (06:16→21:30)
[2022-06-12] MEDS: AMINO ACIDS/PROTEIN HYDROLYS 30 ML LIQUID.PKT PO SCH ×2 (08:48→17:49)
[2022-06-12] MEDS: POLYETHYLENE GLYCOL (HEALTHYLAX) 3350 17 GM PACKET PO SCH (10:49)
[2022-06-12] MEDS: ZINC SULFATE 220 MG CAPSULE (FP) PO SCH (10:50)
[2022-06-12] MEDS: SENNOSIDES 8.6MG TABLET (FP) PO SCH (10:50)
[2022-06-12] MEDS: CARVEDILOL 6.25 MG TABLET (FP) PO SCH ×2 (10:50→21:30)
[2022-06-12] MEDS: CHOLECALCIFEROL (VIT D3) 1,000 UNIT (25 MCG) TABLET PO SCH (10:50)
[2022-06-12] MEDS: ATORVASTATIN CA 10 MG TABLET (FP) PO SCH (10:51)
[2022-06-12] MEDS: LORATADINE 10 MG TABLET PO SCH (10:51)
[2022-06-12] MEDS: BACLOFEN 10 MG TABLET (FP) PO SCH ×2 (10:51→21:30)
[2022-06-12] MEDS: ASPIRIN 81 MG CHEWABLE TABLETS PO SCH (10:51)
[2022-06-12] MEDS: LOSARTAN POTASSIUM 25 MG TABLET PO SCH (10:51)
[2022-06-12] MEDS: ASCORBIC ACID 500 MG TABLET (FP) PO SCH (10:51)
[2022-06-12] MEDS: MULTIVITAMINS (DAILY MVI) TABLET (FP) PO SCH (10:51)
[2022-06-12] MEDS: HEPARIN NA (PORCINE) 5,000 UNITS/ML 1ML VIAL SQ SCH ×2 (10:51→21:30)
[2022-06-12] MEDS: COLLAGENASE CLOSTRIDIUM HIST. 30 GRAMS TUBE TP SCH (10:54)
[2022-06-12] MEDS: VANCOMYCIN PREMIX 1.5 GM 1,500 MG/300 ML BAG IVPB SCH (10:54)
[2022-06-12] MEDS: guaiFENesin/D-M SUGAR-FREE/ACLHOL-FREE 118 ML BOTTLE PO PRN (21:42)
[2022-06-13] MEDS: INSULIN SLIDING SCALE (NOVOLOG) 1 VIAL SQ SCH ×4 (06:30→21:44)
[2022-06-13] MEDS: GABAPENTIN 300 MG CAPSULE PO SCH ×3 (06:30→22:15)
[2022-06-13] MEDS: LOSARTAN POTASSIUM 25 MG TABLET PO SCH (09:47)
[2022-06-13] MEDS: AMINO ACIDS/PROTEIN HYDROLYS 30 ML LIQUID.PKT PO SCH ×2 (09:47→17:01)
[2022-06-13] MEDS: POLYETHYLENE GLYCOL (HEALTHYLAX) 3350 17 GM PACKET PO SCH (09:47)
[2022-06-13] MEDS: CARVEDILOL 6.25 MG TABLET (FP) PO SCH ×2 (09:47→22:15)
[2022-06-13] MEDS: LORATADINE 10 MG TABLET PO SCH (09:47)
[2022-06-13] MEDS: CHOLECALCIFEROL (VIT D3) 1,000 UNIT (25 MCG) TABLET PO SCH (09:47)
[2022-06-13] MEDS: HEPARIN NA (PORCINE) 5,000 UNITS/ML 1ML VIAL SQ SCH ×2 (09:47→22:16)
[2022-06-13] MEDS: MULTIVITAMINS (DAILY MVI) TABLET (FP) PO SCH (09:47)
[2022-06-13] MEDS: ATORVASTATIN CA 10 MG TABLET (FP) PO SCH (09:47)
[2022-06-13] MEDS: ASPIRIN 81 MG CHEWABLE TABLETS PO SCH (09:47)
[2022-06-13] MEDS: ASCORBIC ACID 500 MG TABLET (FP) PO SCH (09:48)
[2022-06-13] MEDS: SENNOSIDES 8.6MG TABLET (FP) PO SCH (09:48)
[2022-06-13] MEDS: ZINC SULFATE 220 MG CAPSULE (FP) PO SCH (09:48)
[2022-06-13] MEDS: VANCOMYCIN PREMIX 1.5 GM 1,500 MG/300 ML BAG IVPB SCH (09:58)
[2022-06-13] MEDS: BACLOFEN 10 MG TABLET (FP) PO SCH ×2 (10:04→22:19)
[2022-06-13] MEDS: COLLAGENASE CLOSTRIDIUM HIST. 30 GRAMS TUBE TP SCH (10:05)
[2022-06-13] MEDS: guaiFENesin/D-M SUGAR-FREE/ACLHOL-FREE 118 ML BOTTLE PO PRN ×2 (12:18→22:20)
[2022-06-13 12:25] LABS: BASO % 0.5 % (0-2.0); HEMATOCRIT 41.4 % (35.4-49); HEMOGLOBIN 13.5 GM/dL (11.7-16.9); LYMPH % 20.3 % (8-40); MCH 29.8 pg (25.7-33.7); MCHC 32.5 g/dl (32.0-35.9); MEAN CELL VOLUME 91.6 fl (80-96); MEAN PLT VOLUME 8.6 fl (7.5-11.1); MONO % 9.2 % (3.8-10.2); PLATELET COUNT 130 10^3/uL (134-434); RBC 4.52 M/mm3 (4.00-5.60); RDW 15.2 % (11.9-15.9)
[2022-06-13 12:44] LABS: CALCIUM 8.9 mg/dL (8.5-10.1)
[2022-06-13 12:45] LABS: ALBUMIN 2.6 g/dl (3.4-5.0); BLOOD UREA NITROGEN 24.9 mg/dL (7-18)
[2022-06-13 12:48] LABS: CREATININE 0.7 mg/dL (0.55-1.3)
[2022-06-13 12:50] LABS: BILIRUBIN,TOTAL 0.3 mg/dL (0.2-1); TOT PROT 6.3 g/dl (6.4-8.2)
[2022-06-14] MEDS: GABAPENTIN 300 MG CAPSULE PO SCH ×3 (06:06→21:54)
[2022-06-14] MEDS: INSULIN SLIDING SCALE (NOVOLOG) 1 VIAL SQ SCH ×6 (06:15→21:56)
[2022-06-14] MEDS: AMINO ACIDS/PROTEIN HYDROLYS 30 ML LIQUID.PKT PO SCH ×2 (08:36→17:14)
[2022-06-14] MEDS: POLYETHYLENE GLYCOL (HEALTHYLAX) 3350 17 GM PACKET PO SCH (09:59)
[2022-06-14] MEDS: ASCORBIC ACID 500 MG TABLET (FP) PO SCH (10:00)
[2022-06-14] MEDS: CHOLECALCIFEROL (VIT D3) 1,000 UNIT (25 MCG) TABLET PO SCH (10:00)
[2022-06-14] MEDS: SENNOSIDES 8.6MG TABLET (FP) PO SCH (10:00)
[2022-06-14] MEDS: ASPIRIN 81 MG CHEWABLE TABLETS PO SCH (10:00)
[2022-06-14] MEDS: ZINC SULFATE 220 MG CAPSULE (FP) PO SCH (10:00)
[2022-06-14] MEDS: HEPARIN NA (PORCINE) 5,000 UNITS/ML 1ML VIAL SQ SCH ×2 (10:00→21:55)
[2022-06-14] MEDS: BACLOFEN 10 MG TABLET (FP) PO SCH ×2 (10:01→21:56)
[2022-06-14] MEDS: LOSARTAN POTASSIUM 25 MG TABLET PO SCH (10:01)
[2022-06-14] MEDS: ATORVASTATIN CA 10 MG TABLET (FP) PO SCH (10:01)
[2022-06-14] MEDS: CARVEDILOL 6.25 MG TABLET (FP) PO SCH ×2 (10:01→21:56)
[2022-06-14] MEDS: LORATADINE 10 MG TABLET PO SCH (10:01)
[2022-06-14] MEDS: MULTIVITAMINS (DAILY MVI) TABLET (FP) PO SCH (10:01)
[2022-06-14] MEDS: VANCOMYCIN PREMIX 1.5 GM 1,500 MG/300 ML BAG IVPB SCH (10:05)
[2022-06-14] MEDS: COLLAGENASE CLOSTRIDIUM HIST. 30 GRAMS TUBE TP SCH (10:50)
[2022-06-15] MEDS: GABAPENTIN 300 MG CAPSULE PO SCH ×3 (05:39→21:18)
[2022-06-15] MEDS: INSULIN SLIDING SCALE (NOVOLOG) 1 VIAL SQ SCH ×4 (06:27→21:34)
[2022-06-15] MEDS: AMINO ACIDS/PROTEIN HYDROLYS 30 ML LIQUID.PKT PO SCH ×2 (08:29→17:44)
[2022-06-15] MEDS: LOSARTAN POTASSIUM 25 MG TABLET PO SCH (09:19)
[2022-06-15] MEDS: CHOLECALCIFEROL (VIT D3) 1,000 UNIT (25 MCG) TABLET PO SCH (09:19)
[2022-06-15] MEDS: ASCORBIC ACID 500 MG TABLET (FP) PO SCH (09:19)
[2022-06-15] MEDS: LORATADINE 10 MG TABLET PO SCH (09:19)
[2022-06-15] MEDS: SENNOSIDES 8.6MG TABLET (FP) PO SCH (09:19)
[2022-06-15] MEDS: MULTIVITAMINS (DAILY MVI) TABLET (FP) PO SCH (09:19)
[2022-06-15] MEDS: CARVEDILOL 6.25 MG TABLET (FP) PO SCH ×2 (09:20→21:18)
[2022-06-15] MEDS: ZINC SULFATE 220 MG CAPSULE (FP) PO SCH (09:20)
[2022-06-15] MEDS: ASPIRIN 81 MG CHEWABLE TABLETS PO SCH (09:20)
[2022-06-15] MEDS: ATORVASTATIN CA 10 MG TABLET (FP) PO SCH (09:20)
[2022-06-15] MEDS: HEPARIN NA (PORCINE) 5,000 UNITS/ML 1ML VIAL SQ SCH ×2 (09:20→21:18)
[2022-06-15] MEDS: POLYETHYLENE GLYCOL (HEALTHYLAX) 3350 17 GM PACKET PO SCH (09:20)
[2022-06-15] MEDS: BACLOFEN 10 MG TABLET (FP) PO SCH ×2 (09:21→21:25)
[2022-06-15] MEDS: COLLAGENASE CLOSTRIDIUM HIST. 30 GRAMS TUBE TP SCH (09:33)
[2022-06-15] MEDS: VANCOMYCIN PREMIX 1.5 GM 1,500 MG/300 ML BAG IVPB SCH (12:37)
[2022-06-15 13:52] VITALS: BMI 28.8
[2022-06-16] MEDS: GABAPENTIN 300 MG CAPSULE PO SCH ×3 (05:45→21:27)
[2022-06-16] MEDS: INSULIN SLIDING SCALE (NOVOLOG) 1 VIAL SQ SCH ×4 (06:46→21:41)
[2022-06-16] MEDS: HEPARIN NA (PORCINE) 5,000 UNITS/ML 1ML VIAL SQ SCH (09:55)
[2022-06-16] MEDS: ZINC SULFATE 220 MG CAPSULE (FP) PO SCH (09:58)
[2022-06-16] MEDS: MULTIVITAMINS (DAILY MVI) TABLET (FP) PO SCH (09:58)
[2022-06-16] MEDS: CHOLECALCIFEROL (VIT D3) 1,000 UNIT (25 MCG) TABLET PO SCH (09:58)
[2022-06-16] MEDS: LOSARTAN POTASSIUM 25 MG TABLET PO SCH (09:58)
[2022-06-16] MEDS: LORATADINE 10 MG TABLET PO SCH (09:58)
[2022-06-16] MEDS: ASPIRIN 81 MG CHEWABLE TABLETS PO SCH (09:58)
[2022-06-16] MEDS: CARVEDILOL 6.25 MG TABLET (FP) PO SCH ×2 (09:58→21:27)
[2022-06-16] MEDS: ASCORBIC ACID 500 MG TABLET (FP) PO SCH (09:58)
[2022-06-16] MEDS: BACLOFEN 10 MG TABLET (FP) PO SCH ×2 (09:59→21:27)
[2022-06-16] MEDS: SENNOSIDES 8.6MG TABLET (FP) PO SCH (09:59)
[2022-06-16] MEDS: POLYETHYLENE GLYCOL (HEALTHYLAX) 3350 17 GM PACKET PO SCH (09:59)
[2022-06-16] MEDS ORDERED: DAPTOMYCIN 600 MG in SODIUM CHLORIDE 50 ML IVPB SCH (10:00)
[2022-06-16] MEDS: AMINO ACIDS/PROTEIN HYDROLYS 30 ML LIQUID.PKT PO SCH ×2 (10:00→16:45)
[2022-06-16] MEDS: COLLAGENASE CLOSTRIDIUM HIST. 30 GRAMS TUBE TP SCH (10:01)
[2022-06-16] MEDS: VANCOMYCIN/WATER FOR INJ (PEG) 1,000 MG/200 ML BAG IVPB SCH (21:28)
[2022-06-16] MEDS ORDERED: ATORVASTATIN CA 10 MG TABLET (FP) PO SCH (22:00)
[2022-06-17] MEDS: GABAPENTIN 300 MG CAPSULE PO SCH ×2 (05:40→14:28)
[2022-06-17] MEDS: INSULIN SLIDING SCALE (NOVOLOG) 1 VIAL SQ SCH ×2 (06:03→12:05)
[2022-06-17 07:47] VITALS: RESP 18
[2022-06-17 08:50] VITALS: BP 128/67; PULSE 60; TEMP 98
[2022-06-17] MEDS: ASPIRIN 81 MG CHEWABLE TABLETS PO SCH (09:37)
[2022-06-17] MEDS: ASCORBIC ACID 500 MG TABLET (FP) PO SCH (09:37)
[2022-06-17] MEDS: SENNOSIDES 8.6MG TABLET (FP) PO SCH (09:37)
[2022-06-17] MEDS: LOSARTAN POTASSIUM 25 MG TABLET PO SCH (09:38)
[2022-06-17] MEDS: CARVEDILOL 6.25 MG TABLET (FP) PO SCH (09:38)
[2022-06-17] MEDS: LORATADINE 10 MG TABLET PO SCH (09:38)
[2022-06-17] MEDS: BACLOFEN 10 MG TABLET (FP) PO SCH (09:38)
[2022-06-17] MEDS: CHOLECALCIFEROL (VIT D3) 1,000 UNIT (25 MCG) TABLET PO SCH (09:38)
[2022-06-17] MEDS: MULTIVITAMINS (DAILY MVI) TABLET (FP) PO SCH (09:38)
[2022-06-17] MEDS: AMINO ACIDS/PROTEIN HYDROLYS 30 ML LIQUID.PKT PO SCH (09:39)
[2022-06-17] MEDS: ZINC SULFATE 220 MG CAPSULE (FP) PO SCH (09:39)
[2022-06-17] MEDS: POLYETHYLENE GLYCOL (HEALTHYLAX) 3350 17 GM PACKET PO SCH ×2 (09:39→09:52)
[2022-06-17] MEDS: VANCOMYCIN/WATER FOR INJ (PEG) 1,000 MG/200 ML BAG IVPB SCH (09:40)
[2022-06-17] MEDS: COLLAGENASE CLOSTRIDIUM HIST. 30 GRAMS TUBE TP SCH (09:52)
== END 2022-06-17 15:46 | DRG 638 ==
LOC: JER 11:24 → JERBED 16:15 → J4S 06-09 04:35
PROVIDERS: ADMIT Internal Medicine; ATTEND Internal Medicine
PROC: 05HY33Z Insertion of Infusion Device into Upper Vein, Percutaneous Approach (ICD-10-PCS; principal; 2022-06-16)
DX: E11.69 Type 2 diabetes mellitus with other specified complication (principal); L03.115 Cellulitis of right lower limb; L97.309 Non-pressure chronic ulcer of unspecified ankle with unspecified severity; M86.9 Osteomyelitis, unspecified; E11.622 Type 2 diabetes mellitus with other skin ulcer; E78.5 Hyperlipidemia, unspecified; I25.10 Atherosclerotic heart disease of native coronary artery without angina pectoris; I11.0 Hypertensive heart disease with heart failure; I44.4 Left anterior fascicular block; E11.51 Type 2 diabetes mellitus with diabetic peripheral angiopathy without gangrene; I50.9 Heart failure, unspecified; K21.9 Gastro-esophageal reflux disease without esophagitis; N40.0 Benign prostatic hyperplasia without lower urinary tract symptoms; Z95.5 Presence of coronary angioplasty implant and graft
CPT/HCPCS: 36415; 36569; 71045-TC-FY; 73610-TC-RT-FY; 78315-TC; 80048; 80053; 82550; 82962; 83735; 84100; 85025; 85610; 85651; 85730; 86140; 87040; 87070; 87186; 87205; 93005; 93010; 99285-25; A9503; C9803-CS; G0463-25; G0480; J0475; J0878; J1644; U0003; U0005

== ENCOUNTER 2022-08-10 13:30 | Inpatient (IN) | payer OTHER ==
[2022-08-10] MEDS ORDERED: PIPERACILLIN/TAZOB 4.5 GM 4.5 GM in DEXTROSE 5%-WATER 100 ML IVPB ONE (16:25)
[2022-08-10] MEDS ORDERED: VANCOMYCIN 1 GM in D5W (PRE-DOCKED) 1,000 MG/250 ML IVPB ONE (16:25)
[2022-08-10] MEDS ORDERED: VANCOMYCIN/WATER FOR INJ (PEG) 1,000 MG/200 ML BAG IVPB ONE (16:58)
[2022-08-10] MEDS ORDERED: PIPERACILLIN/TAZOB 4.5 GM 4.5 GM/100 ML BAG IVPB ONE (16:58)
[2022-08-10] MEDS ORDERED: ACETAMINOPHEN 500 MG TABLET (FP) PO ONE (17:20)
[2022-08-10 18:08] LABS: BASO % 0.9 % (0-2.0); EOS % 3.6 % (0-4.5); HEMATOCRIT 40.2 % (35.4-49); HEMOGLOBIN 13.4 GM/dL (11.7-16.9); MCH 29.6 pg (25.7-33.7); MCHC 33.2 g/dl (32.0-35.9); MEAN CELL VOLUME 89.1 fl (80-96); MEAN PLT VOLUME 9.8 fl (7.5-11.1); MONO % 9.6 % (3.8-10.2); NEUT % 63.9 % (42.8-82.8); PLATELET COUNT 103 10^3/uL (134-434); RBC 4.52 M/mm3 (4.00-5.60); RDW 14.6 % (11.9-15.9); WHITE BLOOD COUNT 6.6 K/mm3 (4.0-10.0)
[2022-08-10] MEDS ORDERED: ACETAMINOPHEN 325 MG TABLET (FP) ONE (18:20)
[2022-08-10 18:29] LABS: ALBUMIN 2.9 g/dl (3.4-5.0); BLOOD UREA NITROGEN 23.2 mg/dL (7-18); CALCIUM 9.2 mg/dL (8.5-10.1)
[2022-08-10 18:32] LABS: CREATININE 0.8 mg/dL (0.55-1.3)
[2022-08-10 18:34] LABS: BILIRUBIN,TOTAL 0.5 mg/dL (0.2-1)
[2022-08-11] MEDS ORDERED: ACETAMINOPHEN 325 MG TABLET (FP) PO PRN ×2 (07:27→09:58)
[2022-08-11] MEDS ORDERED: ALBUTEROL SO4 2.5/IPRATROPIUM 0.5 INH SOL 3 ML VIAL.NEB. NEB PRN (07:28)
[2022-08-11] MEDS ORDERED: PIPERACILLIN/TAZOB 4.5 GM 4.5 GM/100 ML BAG IVPB ONE ×2 (08:28→13:40)
[2022-08-11] MEDS: PIPERACILLIN/TAZOB 4.5 GM 4.5 GM in DEXTROSE 5%-WATER 100 ML IVPB SCH ×2 (08:48→14:00)
[2022-08-11] MEDS ORDERED: VANCOMYCIN/WATER FOR INJ (PEG) 1,000 MG/200 ML BAG IVPB SCH (09:00)
[2022-08-11 09:18] LABS: BASO % 0.7 % (0-2.0); EOS % 3.3 % (0-4.5); HEMATOCRIT 39.9 % (35.4-49); HEMOGLOBIN 13.1 GM/dL (11.7-16.9); LYMPH % 20.2 % (8-40); MCH 29.4 pg (25.7-33.7); MCHC 32.8 g/dl (32.0-35.9); MEAN CELL VOLUME 89.6 fl (80-96); MEAN PLT VOLUME 8.8 fl (7.5-11.1); MONO % 9.3 % (3.8-10.2); NEUT % 66.5 % (42.8-82.8); PLATELET COUNT 112 10^3/uL (134-434); RBC 4.45 M/mm3 (4.00-5.60); RDW 14.5 % (11.9-15.9)
[2022-08-11 09:28] LABS: CALCIUM 9.1 mg/dL (8.5-10.1)
[2022-08-11 09:29] LABS: ALBUMIN 2.7 g/dl (3.4-5.0); BLOOD UREA NITROGEN 23.2 mg/dL (7-18)
[2022-08-11 09:32] LABS: CREATININE 0.8 mg/dL (0.55-1.3)
[2022-08-11 09:33] LABS: BILIRUBIN,TOTAL 0.7 mg/dL (0.2-1)
[2022-08-11 09:34] LABS: TOT PROT 6.6 g/dl (6.4-8.2)
[2022-08-11] MEDS ORDERED: LOSARTAN POTASSIUM 25 MG TABLET ONE (10:39)
[2022-08-11] MEDS ORDERED: ZINC SULFATE 220 MG CAPSULE (FP) ONE (10:39)
[2022-08-11] MEDS ORDERED: BACLOFEN 10 MG TABLET (FP) ONE ×2 (10:39→21:32)
[2022-08-11] MEDS ORDERED: TAMSULOSIN HCL 0.4 MG CAP ONE (10:39)
[2022-08-11] MEDS ORDERED: CARVEDILOL 6.25 MG TABLET (FP) ONE ×2 (10:40→21:33)
[2022-08-11] MEDS ORDERED: sitaGLIPtin PHOSPHATE 50 MG TABLET ONE (10:40)
[2022-08-11] MEDS: TAMSULOSIN HCL 0.4 MG CAP PO SCH (10:48)
[2022-08-11] MEDS: LOSARTAN POTASSIUM 25 MG TABLET PO SCH (10:48)
[2022-08-11] MEDS: ZINC SULFATE 220 MG CAPSULE (FP) PO SCH (10:48)
[2022-08-11] MEDS: sitaGLIPtin PHOSPHATE 50 MG TABLET PO SCH (10:49)
[2022-08-11] MEDS: BACLOFEN 10 MG TABLET (FP) PO SCH ×2 (10:49→22:33)
[2022-08-11] MEDS: CARVEDILOL 6.25 MG TABLET (FP) PO SCH ×2 (10:49→22:33)
[2022-08-11] MEDS: INSULIN SLIDING SCALE (NOVOLOG) 1 VIAL SQ SCH ×2 (11:36→18:32)
[2022-08-11] MEDS ORDERED: GABAPENTIN 300 MG CAPSULE ONE ×2 (13:40→21:33)
[2022-08-11] MEDS: GABAPENTIN 300 MG CAPSULE PO SCH ×2 (13:50→22:34)
[2022-08-11] MEDS ORDERED: PIPERACILLIN/TAZOB 4.5 GM 4.5 GM in DEXTROSE 5%-WATER 100 ML IVPB SCH (15:00)
[2022-08-11] MEDS ORDERED: ATORVASTATIN CA 10 MG TABLET (FP) ONE (21:32)
[2022-08-11] MEDS ORDERED: VANCOMYCIN/WATER FOR INJ (PEG) 1,000 MG/200 ML BAG IVPB ONE (21:33)
[2022-08-11] MEDS: VANCOMYCIN/WATER FOR INJ (PEG) 1,000 MG/200 ML BAG IVPB SCH (21:33)
[2022-08-11] MEDS ORDERED: HEPARIN NA (PORCINE) 5,000 UNITS/ML 1ML VIAL ONE (21:33)
[2022-08-11] MEDS: HEPARIN NA (PORCINE) 5,000 UNITS/ML 1ML VIAL SQ SCH (22:33)
[2022-08-11] MEDS: ATORVASTATIN CA 10 MG TABLET (FP) PO SCH (22:33)
[2022-08-12] MEDS: INSULIN SLIDING SCALE (NOVOLOG) 1 VIAL SQ SCH ×6 (02:34→23:12)
[2022-08-12] MEDS: NYSTATIN 100000 UNIT/GM TOPICAL OINTMENT 15 GM TUBE TP SCH ×4 (08:27→23:07)
[2022-08-12] MEDS: GABAPENTIN 300 MG CAPSULE PO SCH ×3 (08:28→23:07)
[2022-08-12] MEDS ORDERED: metFORMIN HCL 500 MG TABLET (FP) ONE (08:32)
[2022-08-12] MEDS ORDERED: sitaGLIPtin PHOSPHATE 50 MG TABLET ONE (08:32)
[2022-08-12] MEDS ORDERED: VANCOMYCIN/WATER FOR INJ (PEG) 1,000 MG/200 ML BAG IVPB ONE ×2 (08:34→22:37)
[2022-08-12] MEDS ORDERED: TAMSULOSIN HCL 0.4 MG CAP ONE (08:35)
[2022-08-12] MEDS: sitaGLIPtin PHOSPHATE 50 MG TABLET PO SCH (08:50)
[2022-08-12] MEDS: TAMSULOSIN HCL 0.4 MG CAP PO SCH (08:50)
[2022-08-12] MEDS: VANCOMYCIN/WATER FOR INJ (PEG) 1,000 MG/200 ML BAG IVPB SCH ×2 (08:52→22:44)
[2022-08-12] MEDS ORDERED: BACLOFEN 10 MG TABLET (FP) ONE ×2 (09:39→22:52)
[2022-08-12] MEDS ORDERED: ZINC SULFATE 220 MG CAPSULE (FP) ONE (09:39)
[2022-08-12] MEDS ORDERED: LOSARTAN POTASSIUM 25 MG TABLET ONE (09:39)
[2022-08-12] MEDS ORDERED: CARVEDILOL 6.25 MG TABLET (FP) ONE ×2 (09:40→22:53)
[2022-08-12] MEDS ORDERED: HEPARIN NA (PORCINE) 5,000 UNITS/ML 1ML VIAL ONE ×2 (09:40→22:53)
[2022-08-12] MEDS: CARVEDILOL 6.25 MG TABLET (FP) PO SCH ×2 (09:47→23:05)
[2022-08-12] MEDS: ZINC SULFATE 220 MG CAPSULE (FP) PO SCH (09:48)
[2022-08-12] MEDS: BACLOFEN 10 MG TABLET (FP) PO SCH ×2 (09:48→23:06)
[2022-08-12] MEDS: LOSARTAN POTASSIUM 25 MG TABLET PO SCH (09:48)
[2022-08-12] MEDS: HEPARIN NA (PORCINE) 5,000 UNITS/ML 1ML VIAL SQ SCH ×2 (09:48→23:05)
[2022-08-12] MEDS ORDERED: GABAPENTIN 300 MG CAPSULE ONE ×2 (16:07→22:52)
[2022-08-12] MEDS ORDERED: ATORVASTATIN CA 10 MG TABLET (FP) ONE (22:52)
[2022-08-12] MEDS: ATORVASTATIN CA 10 MG TABLET (FP) PO SCH (23:06)
[2022-08-13] MEDS ORDERED: GABAPENTIN 300 MG CAPSULE ONE ×2 (06:13→15:15)
[2022-08-13] MEDS: GABAPENTIN 300 MG CAPSULE PO SCH ×2 (06:17→15:00)
[2022-08-13] MEDS: INSULIN SLIDING SCALE (NOVOLOG) 1 VIAL SQ SCH ×3 (07:30→17:55)
[2022-08-13] MEDS ORDERED: TAMSULOSIN HCL 0.4 MG CAP ONE (07:39)
[2022-08-13] MEDS ORDERED: sitaGLIPtin PHOSPHATE 50 MG TABLET ONE (07:39)
[2022-08-13] MEDS: sitaGLIPtin PHOSPHATE 50 MG TABLET PO SCH (08:00)
[2022-08-13 08:21] LABS: CALCIUM 8.6 mg/dL (8.5-10.1)
[2022-08-13 08:22] LABS: BLOOD UREA NITROGEN 16.3 mg/dL (7-18)
[2022-08-13 08:25] LABS: CREATININE 0.7 mg/dL (0.55-1.3)
[2022-08-13] MEDS: VANCOMYCIN/WATER FOR INJ (PEG) 1,000 MG/200 ML BAG IVPB SCH (09:00)
[2022-08-13] MEDS ORDERED: VANCOMYCIN/WATER FOR INJ (PEG) 1,000 MG/200 ML BAG IVPB ONE (09:11)
[2022-08-13] MEDS: TAMSULOSIN HCL 0.4 MG CAP PO SCH (10:30)
[2022-08-13] MEDS ORDERED: CARVEDILOL 6.25 MG TABLET (FP) ONE (11:07)
[2022-08-13] MEDS ORDERED: LOSARTAN POTASSIUM 25 MG TABLET ONE (11:07)
[2022-08-13] MEDS ORDERED: BACLOFEN 10 MG TABLET (FP) ONE (11:07)
[2022-08-13] MEDS ORDERED: ZINC SULFATE 220 MG CAPSULE (FP) ONE (11:07)
[2022-08-13] MEDS: ZINC SULFATE 220 MG CAPSULE (FP) PO SCH (11:10)
[2022-08-13] MEDS: BACLOFEN 10 MG TABLET (FP) PO SCH (11:10)
[2022-08-13] MEDS: CARVEDILOL 6.25 MG TABLET (FP) PO SCH (11:10)
[2022-08-13] MEDS: LOSARTAN POTASSIUM 25 MG TABLET PO SCH (11:10)
[2022-08-13] MEDS: NYSTATIN 100000 UNIT/GM TOPICAL OINTMENT 15 GM TUBE TP SCH (11:25)
[2022-08-13] MEDS: HEPARIN NA (PORCINE) 5,000 UNITS/ML 1ML VIAL SQ SCH (11:26)
[2022-08-14] MEDS: CARVEDILOL 6.25 MG TABLET (FP) PO SCH ×3 (00:48→22:59)
[2022-08-14] MEDS: VANCOMYCIN/WATER FOR INJ (PEG) 1,000 MG/200 ML BAG IVPB SCH ×2 (00:48→09:54)
[2022-08-14] MEDS: NYSTATIN 100000 UNIT/GM TOPICAL OINTMENT 15 GM TUBE TP SCH ×3 (00:49→22:59)
[2022-08-14] MEDS: INSULIN SLIDING SCALE (NOVOLOG) 1 VIAL SQ SCH ×6 (00:49→22:59)
[2022-08-14] MEDS: BACLOFEN 10 MG TABLET (FP) PO SCH ×3 (00:49→22:59)
[2022-08-14] MEDS: HEPARIN NA (PORCINE) 5,000 UNITS/ML 1ML VIAL SQ SCH ×3 (00:49→22:59)
[2022-08-14] MEDS: ATORVASTATIN CA 10 MG TABLET (FP) PO SCH ×2 (00:49→22:59)
[2022-08-14] MEDS: GABAPENTIN 300 MG CAPSULE PO SCH ×4 (00:49→22:59)
[2022-08-14] MEDS: sitaGLIPtin PHOSPHATE 50 MG TABLET PO SCH (07:00)
[2022-08-14] MEDS: TAMSULOSIN HCL 0.4 MG CAP PO SCH (09:54)
[2022-08-14] MEDS: LOSARTAN POTASSIUM 25 MG TABLET PO SCH (09:54)
[2022-08-14] MEDS: ZINC SULFATE 220 MG CAPSULE (FP) PO SCH (10:14)
[2022-08-14] MEDS ORDERED: AMPICILLIN NA/SULBACTAM NA 3 GM in SODIUM CHLORIDE 100 ML IVPB SCH (11:15)
[2022-08-14] MEDS ORDERED: INSULIN (NOVOLOG) ASPART 100 UNITS/ML 10ML VIAL ONE (12:12)
[2022-08-14] MEDS: AMPICILLIN NA/SULBACTAM NA 3 GM in SODIUM CHLORIDE 100 ML IVPB SCH ×3 (14:33→22:59)
[2022-08-14] MEDS: AMINO ACIDS/PROTEIN HYDROLYS 30 ML LIQUID.PKT PO SCH (18:36)
[2022-08-15] MEDS: AMPICILLIN NA/SULBACTAM NA 3 GM in SODIUM CHLORIDE 100 ML IVPB SCH ×4 (02:30→23:28)
[2022-08-15] MEDS: GABAPENTIN 300 MG CAPSULE PO SCH ×3 (06:37→23:28)
[2022-08-15] MEDS: INSULIN SLIDING SCALE (NOVOLOG) 1 VIAL SQ SCH ×4 (06:38→23:29)
[2022-08-15] MEDS: sitaGLIPtin PHOSPHATE 50 MG TABLET PO SCH (06:38)
[2022-08-15] MEDS: TAMSULOSIN HCL 0.4 MG CAP PO SCH (07:49)
[2022-08-15] MEDS: AMINO ACIDS/PROTEIN HYDROLYS 30 ML LIQUID.PKT PO SCH ×2 (07:49→17:30)
[2022-08-15] MEDS: NYSTATIN 100000 UNIT/GM TOPICAL OINTMENT 15 GM TUBE TP SCH ×2 (09:10→23:28)
[2022-08-15] MEDS: BACLOFEN 10 MG TABLET (FP) PO SCH ×2 (09:10→23:28)
[2022-08-15] MEDS: ASCORBIC ACID 500 MG TABLET (FP) GT SCH (09:10)
[2022-08-15] MEDS: CARVEDILOL 6.25 MG TABLET (FP) PO SCH ×2 (09:10→23:28)
[2022-08-15] MEDS: MULTIVITAMINS (DAILY MVI) TABLET (FP) PO SCH (09:10)
[2022-08-15] MEDS: HEPARIN NA (PORCINE) 5,000 UNITS/ML 1ML VIAL SQ SCH ×2 (09:10→23:28)
[2022-08-15] MEDS: ZINC SULFATE 220 MG CAPSULE (FP) PO SCH (09:10)
[2022-08-15] MEDS: LOSARTAN POTASSIUM 25 MG TABLET PO SCH (09:10)
[2022-08-15] MEDS ORDERED: INSULIN (NOVOLOG) ASPART 100 UNITS/ML 10ML VIAL ONE (16:19)
[2022-08-15] MEDS: ATORVASTATIN CA 10 MG TABLET (FP) PO SCH (23:28)
[2022-08-16] MEDS: AMPICILLIN NA/SULBACTAM NA 3 GM in SODIUM CHLORIDE 100 ML IVPB SCH ×4 (02:42→22:00)
[2022-08-16] MEDS: GABAPENTIN 300 MG CAPSULE PO SCH ×3 (06:46→22:01)
[2022-08-16] MEDS: sitaGLIPtin PHOSPHATE 50 MG TABLET PO SCH (06:46)
[2022-08-16] MEDS: INSULIN SLIDING SCALE (NOVOLOG) 1 VIAL SQ SCH ×4 (06:47→22:03)
[2022-08-16] MEDS: AMINO ACIDS/PROTEIN HYDROLYS 30 ML LIQUID.PKT PO SCH ×2 (09:39→17:49)
[2022-08-16 10:23] LABS: BASO % 0.8 % (0-2.0); EOS % 4.1 % (0-4.5); MCH 28.8 pg (25.7-33.7); MCHC 32.4 g/dl (32.0-35.9); MEAN CELL VOLUME 88.8 fl (80-96); MEAN PLT VOLUME 8.8 fl (7.5-11.1); MONO % 9.8 % (3.8-10.2); NEUT % 65.3 % (42.8-82.8); PLATELET COUNT 99 10^3/uL (134-434); RBC 4.17 M/mm3 (4.00-5.60); RDW 14.7 % (11.9-15.9); WHITE BLOOD COUNT 4.6 K/mm3 (4.0-10.0)
[2022-08-16] MEDS: ASCORBIC ACID 500 MG TABLET (FP) GT SCH (10:39)
[2022-08-16] MEDS: LOSARTAN POTASSIUM 25 MG TABLET PO SCH (10:39)
[2022-08-16] MEDS: TAMSULOSIN HCL 0.4 MG CAP PO SCH (10:39)
[2022-08-16] MEDS: MULTIVITAMINS (DAILY MVI) TABLET (FP) PO SCH (10:39)
[2022-08-16] MEDS: ZINC SULFATE 220 MG CAPSULE (FP) PO SCH (10:39)
[2022-08-16] MEDS: HEPARIN NA (PORCINE) 5,000 UNITS/ML 1ML VIAL SQ SCH ×2 (10:40→22:02)
[2022-08-16] MEDS: CARVEDILOL 6.25 MG TABLET (FP) PO SCH ×2 (10:40→22:11)
[2022-08-16] MEDS: NYSTATIN 100000 UNIT/GM TOPICAL OINTMENT 15 GM TUBE TP SCH ×2 (10:41→22:03)
[2022-08-16] MEDS: BACLOFEN 10 MG TABLET (FP) PO SCH ×2 (10:41→22:01)
[2022-08-16 11:05] LABS: ALBUMIN 2.5 g/dl (3.4-5.0); BLOOD UREA NITROGEN 19.1 mg/dL (7-18); CALCIUM 8.6 mg/dL (8.5-10.1)
[2022-08-16 11:09] LABS: CREATININE 0.8 mg/dL (0.55-1.3)
[2022-08-16 11:10] LABS: BILIRUBIN,TOTAL 0.9 mg/dL (0.2-1); TOT PROT 5.8 g/dl (6.4-8.2)
[2022-08-16] MEDS ORDERED: INSULIN (NOVOLOG) ASPART 100 UNITS/ML 10ML VIAL ONE ×2 (11:53→21:07)
[2022-08-16] MEDS: FOLIC ACID 1 MG TABLET (FP) PO SCH (15:38)
[2022-08-16] MEDS: SERTRALINE HCL 25 MG TABLET (FP) PO SCH (15:38)
[2022-08-16] MEDS: LACTOBACILLUS ACIDOPHILUS 1 TABLET PO SCH (17:49)
[2022-08-16] MEDS: ATORVASTATIN CA 10 MG TABLET (FP) PO SCH (22:02)
[2022-08-17] MEDS: AMPICILLIN NA/SULBACTAM NA 3 GM in SODIUM CHLORIDE 100 ML IVPB SCH ×4 (02:53→21:22)
[2022-08-17] MEDS: sitaGLIPtin PHOSPHATE 50 MG TABLET PO SCH (06:11)
[2022-08-17] MEDS: GABAPENTIN 300 MG CAPSULE PO SCH ×3 (06:11→21:18)
[2022-08-17] MEDS: INSULIN SLIDING SCALE (NOVOLOG) 1 VIAL SQ SCH ×4 (06:12→21:16)
[2022-08-17] MEDS: TAMSULOSIN HCL 0.4 MG CAP PO SCH (09:05)
[2022-08-17] MEDS: AMINO ACIDS/PROTEIN HYDROLYS 30 ML LIQUID.PKT PO SCH ×2 (09:05→17:04)
[2022-08-17] MEDS: SERTRALINE HCL 25 MG TABLET (FP) PO SCH (10:05)
[2022-08-17] MEDS: CARVEDILOL 6.25 MG TABLET (FP) PO SCH ×2 (10:05→21:18)
[2022-08-17] MEDS: LOSARTAN POTASSIUM 25 MG TABLET PO SCH (10:05)
[2022-08-17] MEDS: FOLIC ACID 1 MG TABLET (FP) PO SCH (10:05)
[2022-08-17] MEDS: BACLOFEN 10 MG TABLET (FP) PO SCH ×2 (10:05→21:18)
[2022-08-17] MEDS: LACTOBACILLUS ACIDOPHILUS 1 TABLET PO SCH (10:05)
[2022-08-17] MEDS: ASCORBIC ACID 500 MG TABLET (FP) GT SCH (10:05)
[2022-08-17] MEDS: ZINC SULFATE 220 MG CAPSULE (FP) PO SCH (10:05)
[2022-08-17] MEDS: MULTIVITAMINS (DAILY MVI) TABLET (FP) PO SCH (10:05)
[2022-08-17] MEDS: HEPARIN NA (PORCINE) 5,000 UNITS/ML 1ML VIAL SQ SCH ×2 (10:09→21:17)
[2022-08-17] MEDS: NYSTATIN 100000 UNIT/GM TOPICAL OINTMENT 15 GM TUBE TP SCH ×2 (10:09→21:41)
[2022-08-17 12:26] LABS: HEMATOCRIT 37.3 % (35.4-49); HEMOGLOBIN 12.2 GM/dL (11.7-16.9); MCH 29.3 pg (25.7-33.7); MCHC 32.7 g/dl (32.0-35.9); MEAN CELL VOLUME 89.4 fl (80-96); MEAN PLT VOLUME 8.4 fl (7.5-11.1); PLATELET COUNT 110 10^3/uL (134-434); RBC 4.17 M/mm3 (4.00-5.60); RDW 14.7 % (11.9-15.9); WHITE BLOOD COUNT 3.7 K/mm3 (4.0-10.0)
[2022-08-17] MEDS: ATORVASTATIN CA 10 MG TABLET (FP) PO SCH (21:18)
[2022-08-18] MEDS: AMPICILLIN NA/SULBACTAM NA 3 GM in SODIUM CHLORIDE 100 ML IVPB SCH ×4 (02:33→22:23)
[2022-08-18] MEDS ORDERED: INSULIN (NOVOLOG) ASPART 100 UNITS/ML 10ML VIAL ONE (06:16)
[2022-08-18] MEDS: GABAPENTIN 300 MG CAPSULE PO SCH ×3 (06:42→22:24)
[2022-08-18] MEDS: sitaGLIPtin PHOSPHATE 50 MG TABLET PO SCH (06:43)
[2022-08-18] MEDS: INSULIN SLIDING SCALE (NOVOLOG) 1 VIAL SQ SCH ×3 (06:43→16:35)
[2022-08-18] MEDS: AMINO ACIDS/PROTEIN HYDROLYS 30 ML LIQUID.PKT PO SCH ×2 (08:52→17:19)
[2022-08-18] MEDS: TAMSULOSIN HCL 0.4 MG CAP PO SCH (08:52)
[2022-08-18] MEDS: BACLOFEN 10 MG TABLET (FP) PO SCH ×2 (10:01→22:23)
[2022-08-18] MEDS: FOLIC ACID 1 MG TABLET (FP) PO SCH (10:01)
[2022-08-18] MEDS: ASCORBIC ACID 500 MG TABLET (FP) GT SCH (10:01)
[2022-08-18] MEDS: MULTIVITAMINS (DAILY MVI) TABLET (FP) PO SCH (10:01)
[2022-08-18] MEDS: LACTOBACILLUS ACIDOPHILUS 1 TABLET PO SCH (10:01)
[2022-08-18] MEDS: HEPARIN NA (PORCINE) 5,000 UNITS/ML 1ML VIAL SQ SCH ×2 (10:01→10:10)
[2022-08-18] MEDS: ZINC SULFATE 220 MG CAPSULE (FP) PO SCH (10:01)
[2022-08-18] MEDS: CARVEDILOL 6.25 MG TABLET (FP) PO SCH ×2 (10:01→22:23)
[2022-08-18] MEDS: LOSARTAN POTASSIUM 25 MG TABLET PO SCH ×2 (10:01→14:36)
[2022-08-18] MEDS: SERTRALINE HCL 25 MG TABLET (FP) PO SCH (10:01)
[2022-08-18] MEDS: NYSTATIN 100000 UNIT/GM TOPICAL OINTMENT 15 GM TUBE TP SCH ×2 (10:41→22:24)
[2022-08-18 13:49] VITALS: BMI 29.0
[2022-08-18] MEDS: ATORVASTATIN CA 10 MG TABLET (FP) PO SCH (22:23)
[2022-08-18 22:28] VITALS: RESP 20
[2022-08-19] MEDS: INSULIN SLIDING SCALE (NOVOLOG) 1 VIAL SQ SCH ×2 (00:34→06:56)
[2022-08-19] MEDS: AMPICILLIN NA/SULBACTAM NA 3 GM in SODIUM CHLORIDE 100 ML IVPB SCH ×2 (03:12→09:57)
[2022-08-19] MEDS: sitaGLIPtin PHOSPHATE 50 MG TABLET PO SCH (06:13)
[2022-08-19] MEDS: GABAPENTIN 300 MG CAPSULE PO SCH (06:13)
[2022-08-19 06:34] VITALS: BP 145/75; PULSE 61; TEMP 98.6
[2022-08-19] MEDS: SERTRALINE HCL 25 MG TABLET (FP) PO SCH (09:56)
[2022-08-19] MEDS: ZINC SULFATE 220 MG CAPSULE (FP) PO SCH (09:56)
[2022-08-19] MEDS: TAMSULOSIN HCL 0.4 MG CAP PO SCH (09:56)
[2022-08-19] MEDS: CARVEDILOL 6.25 MG TABLET (FP) PO SCH (09:56)
[2022-08-19] MEDS: BACLOFEN 10 MG TABLET (FP) PO SCH (09:56)
[2022-08-19] MEDS: LACTOBACILLUS ACIDOPHILUS 1 TABLET PO SCH (09:56)
[2022-08-19] MEDS: MULTIVITAMINS (DAILY MVI) TABLET (FP) PO SCH (09:56)
[2022-08-19] MEDS: FOLIC ACID 1 MG TABLET (FP) PO SCH (09:57)
[2022-08-19] MEDS: AMINO ACIDS/PROTEIN HYDROLYS 30 ML LIQUID.PKT PO SCH (09:57)
[2022-08-19] MEDS: ASCORBIC ACID 500 MG TABLET (FP) GT SCH (09:58)
[2022-08-19] MEDS: LOSARTAN POTASSIUM 25 MG TABLET PO SCH (10:09)
[2022-08-19] MEDS: NYSTATIN 100000 UNIT/GM TOPICAL OINTMENT 15 GM TUBE TP SCH (10:09)
== END 2022-08-19 11:06 | DRG 638 ==
LOC: JER 13:30 → JERBED 20:11 → J8W 08-13 23:08
PROVIDERS: ADMIT Internal Medicine; ATTEND Internal Medicine
PROC: 02HV33Z Insertion of Infusion Device into Superior Vena Cava, Percutaneous Approach (ICD-10-PCS; principal; 2022-08-18)
PROC: B548ZZA Ultrasonography of Superior Vena Cava, Guidance (ICD-10-PCS; 2022-08-18)
DX: E11.69 Type 2 diabetes mellitus with other specified complication (principal); L03.115 Cellulitis of right lower limb; L97.518 Non-pressure chronic ulcer of other part of right foot with other specified severity; M86.8X7 Other osteomyelitis, ankle and foot; E11.621 Type 2 diabetes mellitus with foot ulcer; E78.5 Hyperlipidemia, unspecified; I25.119 Atherosclerotic heart disease of native coronary artery with unspecified angina pectoris; N40.0 Benign prostatic hyperplasia without lower urinary tract symptoms; I25.2 Old myocardial infarction; J44.9 Chronic obstructive pulmonary disease, unspecified; G47.30 Sleep apnea, unspecified; K21.9 Gastro-esophageal reflux disease without esophagitis; I11.0 Hypertensive heart disease with heart failure; I50.9 Heart failure, unspecified; I87.8 Other specified disorders of veins; E11.51 Type 2 diabetes mellitus with diabetic peripheral angiopathy without gangrene; Z85.46 Personal history of malignant neoplasm of prostate; Z85.51 Personal history of malignant neoplasm of bladder; Z89.422 Acquired absence of other left toe(s)
CPT/HCPCS: 0241U-QW; 36415; 36569; 73630-TC-LT; 78315-TC; 80048; 80053; 82962; 85025; 85027; 85651; 86140; 87040; 87070; 87186; 87205; 93005; 93010; 99285-25; A9503; C9803-CS; G0463-25; G0480; J0475; J1644; U0003; U0005

== ENCOUNTER 2023-01-04 09:01 | Inpatient (IN) | payer OTHER ==
[2023-01-04] MEDS ORDERED: VANCOMYCIN 1 GM in D5W (PRE-DOCKED) 1,000 MG/250 ML (RESTRICTED TO ID ONLY IVPB ONE (10:07)
[2023-01-04] MEDS ORDERED: AMPICILLIN NA/SULBACTAM NA 3 GM in SODIUM CHLORIDE 100 ML IVPB ONE (10:07)
[2023-01-04] MEDS ORDERED: AMPICILLIN NA/SULBACTAM NA 3 GM VIAL ONE (10:16)
[2023-01-04] MEDS ORDERED: VANCOMYCIN/WATER FOR INJ (PEG) 1,000 MG/200 ML BAG IVPB ONE (10:16)
[2023-01-04 10:33] LABS: BASO % 0.3 % (0-2.0); EOS % 1.8 % (0-4.5); HEMATOCRIT 35.1 % (35.4-49); HEMOGLOBIN 11.8 GM/dL (11.7-16.9); LYMPH % 18.5 % (8-40); MCH 29.8 pg (25.7-33.7); MCHC 33.5 g/dl (32.0-35.9); MEAN PLT VOLUME 8.5 fl (7.5-11.1); MONO % 8.4 % (3.8-10.2); PLATELET COUNT 138 10^3/uL (134-434); RBC 3.94 M/mm3 (4.00-5.60); RDW 14.3 % (11.9-15.9)
[2023-01-04 10:51] LABS: POTASSIUM 4.8 mmol/L (3.5-5.1)
[2023-01-04 10:53] LABS: ALBUMIN 2.9 g/dl (3.4-5.0); CALCIUM 9.7 mg/dL (8.5-10.1)
[2023-01-04 10:54] LABS: BLOOD UREA NITROGEN 40.3 mg/dL (7-18)
[2023-01-04 10:57] LABS: CREATININE 0.7 mg/dL (0.55-1.3)
[2023-01-04 10:58] LABS: BILIRUBIN,TOTAL 0.4 mg/dL (0.2-1)
[2023-01-04] MEDS: BACLOFEN 10 MG TABLET (FP) PO SCH ×2 (13:59→21:46)
[2023-01-04] MEDS: CARVEDILOL 6.25 MG TABLET (FP) PO SCH ×2 (13:59→21:47)
[2023-01-04] MEDS: TAMSULOSIN HCL 0.4 MG CAP PO SCH (13:59)
[2023-01-04] MEDS: SERTRALINE HCL 25 MG TABLET (FP) PO SCH (13:59)
[2023-01-04] MEDS: GABAPENTIN 300 MG CAPSULE PO SCH ×2 (13:59→21:46)
[2023-01-04] MEDS: ACETAMINOPHEN 325 MG TABLET (FP) PO PRN (14:07)
[2023-01-04] MEDS: COLLAGENASE CLOSTRIDIUM HIST. 30 GRAMS TUBE TP SCH (17:34)
[2023-01-04] MEDS: PIPERACILLIN/TAZOB 3.375 GM 3.375 GM in DEXTROSE 5%-WATER - 50 ML IVPB SCH (19:10)
[2023-01-04] MEDS: ATORVASTATIN CA 10 MG TABLET (FP) PO SCH (21:46)
[2023-01-04] MEDS: VANCOMYCIN/WATER FOR INJ (PEG) 1,000 MG/200 ML BAG IVPB SCH (21:47)
[2023-01-05] MEDS: PIPERACILLIN/TAZOB 3.375 GM 3.375 GM in DEXTROSE 5%-WATER - 50 ML IVPB SCH ×3 (01:12→18:05)
[2023-01-05] MEDS: GABAPENTIN 300 MG CAPSULE PO SCH ×3 (06:41→21:36)
[2023-01-05] MEDS: ACETAMINOPHEN 325 MG TABLET (FP) PO PRN (06:42)
[2023-01-05] MEDS: TAMSULOSIN HCL 0.4 MG CAP PO SCH (08:58)
[2023-01-05] MEDS: SERTRALINE HCL 25 MG TABLET (FP) PO SCH (09:45)
[2023-01-05] MEDS: LOSARTAN POTASSIUM 25 MG TABLET PO SCH (09:46)
[2023-01-05] MEDS: LACTOBACILLUS ACIDOPHILUS 1 TABLET PO SCH (09:46)
[2023-01-05] MEDS: BACLOFEN 10 MG TABLET (FP) PO SCH ×2 (09:46→21:36)
[2023-01-05] MEDS: CARVEDILOL 6.25 MG TABLET (FP) PO SCH ×2 (09:46→21:36)
[2023-01-05] MEDS: VANCOMYCIN/WATER FOR INJ (PEG) 1,000 MG/200 ML BAG IVPB SCH ×2 (10:07→21:36)
[2023-01-05] MEDS: COLLAGENASE CLOSTRIDIUM HIST. 30 GRAMS TUBE TP SCH (10:08)
[2023-01-05] MEDS: ATORVASTATIN CA 10 MG TABLET (FP) PO SCH (21:36)
[2023-01-06] MEDS: PIPERACILLIN/TAZOB 3.375 GM 3.375 GM in DEXTROSE 5%-WATER - 50 ML IVPB SCH ×3 (01:25→17:28)
[2023-01-06] MEDS: GABAPENTIN 300 MG CAPSULE PO SCH ×3 (05:51→21:06)
[2023-01-06] MEDS ORDERED: INSULIN (LEVEMIR) 100 UNITS/ML UNITS SQ ONE (06:28)
[2023-01-06] MEDS ORDERED: INSULIN (NOVOLOG) ASPART 100 UNITS/ML 10ML VIAL ONE (06:28)
[2023-01-06] MEDS: VANCOMYCIN/WATER FOR INJ (PEG) 1,000 MG/200 ML BAG IVPB SCH ×2 (09:23→21:06)
[2023-01-06] MEDS: LACTOBACILLUS ACIDOPHILUS 1 TABLET PO SCH (09:24)
[2023-01-06] MEDS: SERTRALINE HCL 25 MG TABLET (FP) PO SCH (09:24)
[2023-01-06] MEDS: TAMSULOSIN HCL 0.4 MG CAP PO SCH (09:24)
[2023-01-06] MEDS: BACLOFEN 10 MG TABLET (FP) PO SCH ×2 (09:24→21:06)
[2023-01-06] MEDS: LOSARTAN POTASSIUM 25 MG TABLET PO SCH (09:24)
[2023-01-06] MEDS: ACETAMINOPHEN 325 MG TABLET (FP) PO PRN (09:24)
[2023-01-06] MEDS: CARVEDILOL 6.25 MG TABLET (FP) PO SCH ×2 (09:24→21:06)
[2023-01-06] MEDS: COLLAGENASE CLOSTRIDIUM HIST. 30 GRAMS TUBE TP SCH (09:26)
[2023-01-06] MEDS: AMINO ACIDS/PROTEIN HYDROLYS 30 ML LIQUID.PKT PO SCH (16:47)
[2023-01-06] MEDS: ATORVASTATIN CA 10 MG TABLET (FP) PO SCH (21:06)
[2023-01-07] MEDS: PIPERACILLIN/TAZOB 3.375 GM 3.375 GM in DEXTROSE 5%-WATER - 50 ML IVPB SCH ×3 (01:50→18:03)
[2023-01-07] MEDS: GABAPENTIN 300 MG CAPSULE PO SCH ×4 (06:00→21:38)
[2023-01-07] MEDS: AMINO ACIDS/PROTEIN HYDROLYS 30 ML LIQUID.PKT PO SCH ×2 (09:18→16:58)
[2023-01-07] MEDS: BACLOFEN 10 MG TABLET (FP) PO SCH ×2 (09:48→21:38)
[2023-01-07] MEDS: TAMSULOSIN HCL 0.4 MG CAP PO SCH (09:48)
[2023-01-07] MEDS: SERTRALINE HCL 25 MG TABLET (FP) PO SCH (09:49)
[2023-01-07] MEDS: LOSARTAN POTASSIUM 25 MG TABLET PO SCH (09:49)
[2023-01-07] MEDS: CARVEDILOL 6.25 MG TABLET (FP) PO SCH ×2 (09:49→21:38)
[2023-01-07] MEDS: LACTOBACILLUS ACIDOPHILUS 1 TABLET PO SCH (09:49)
[2023-01-07] MEDS: MULTIVITAMINS (DAILY MVI) TABLET (FP) PO SCH (09:54)
[2023-01-07] MEDS: ASCORBIC ACID 500 MG TABLET (FP) PO SCH (09:54)
[2023-01-07] MEDS: COLLAGENASE CLOSTRIDIUM HIST. 30 GRAMS TUBE TP SCH (10:10)
[2023-01-07] MEDS: VANCOMYCIN/WATER FOR INJ (PEG) 1,000 MG/200 ML BAG IVPB SCH ×2 (10:47→21:39)
[2023-01-07] MEDS: ATORVASTATIN CA 10 MG TABLET (FP) PO SCH (21:38)
[2023-01-08] MEDS: PIPERACILLIN/TAZOB 3.375 GM 3.375 GM in DEXTROSE 5%-WATER - 50 ML IVPB SCH ×3 (02:10→18:04)
[2023-01-08] MEDS: GABAPENTIN 300 MG CAPSULE PO SCH ×3 (05:25→22:05)
[2023-01-08] MEDS: AMINO ACIDS/PROTEIN HYDROLYS 30 ML LIQUID.PKT PO SCH ×2 (07:43→17:04)
[2023-01-08] MEDS: TAMSULOSIN HCL 0.4 MG CAP PO SCH (07:43)
[2023-01-08] MEDS: BACLOFEN 10 MG TABLET (FP) PO SCH ×2 (09:24→22:05)
[2023-01-08] MEDS: SERTRALINE HCL 25 MG TABLET (FP) PO SCH (09:24)
[2023-01-08] MEDS: LACTOBACILLUS ACIDOPHILUS 1 TABLET PO SCH (09:24)
[2023-01-08] MEDS: LOSARTAN POTASSIUM 25 MG TABLET PO SCH (09:24)
[2023-01-08] MEDS: ASCORBIC ACID 500 MG TABLET (FP) PO SCH (09:24)
[2023-01-08] MEDS: MULTIVITAMINS (DAILY MVI) TABLET (FP) PO SCH (09:24)
[2023-01-08] MEDS: CARVEDILOL 6.25 MG TABLET (FP) PO SCH ×2 (09:24→22:05)
[2023-01-08] MEDS: VANCOMYCIN/WATER FOR INJ (PEG) 1,000 MG/200 ML BAG IVPB SCH ×3 (09:31→22:09)
[2023-01-08] MEDS: COLLAGENASE CLOSTRIDIUM HIST. 30 GRAMS TUBE TP SCH (10:24)
[2023-01-08 10:32] LABS: BASO % 0.4 % (0-2.0); EOS % 2.1 % (0-4.5); HEMATOCRIT 34.9 % (35.4-49); HEMOGLOBIN 11.6 GM/dL (11.7-16.9); LYMPH % 21.6 % (8-40); MCH 29.5 pg (25.7-33.7); MCHC 33.1 g/dl (32.0-35.9); NEUT % 63.9 % (42.8-82.8); PLATELET COUNT 135 10^3/uL (134-434); RBC 3.92 M/mm3 (4.00-5.60); RDW 14.6 % (11.9-15.9); WHITE BLOOD COUNT 5.6 K/mm3 (4.0-10.0)
[2023-01-08 10:44] LABS: POTASSIUM 4.7 mmol/L (3.5-5.1)
[2023-01-08 10:51] LABS: ALBUMIN 2.5 g/dl (3.4-5.0); CALCIUM 9.3 mg/dL (8.5-10.1)
[2023-01-08 10:52] LABS: BLOOD UREA NITROGEN 34.7 mg/dL (7-18)
[2023-01-08 10:55] LABS: CREATININE 0.8 mg/dL (0.55-1.3)
[2023-01-08 10:56] LABS: BILIRUBIN,TOTAL 0.5 mg/dL (0.2-1); TOT PROT 6.1 g/dl (6.4-8.2)
[2023-01-08] MEDS: ACETAMINOPHEN 325 MG TABLET (FP) PO PRN ×2 (14:07→22:10)
[2023-01-08] MEDS: ATORVASTATIN CA 10 MG TABLET (FP) PO SCH (22:05)
[2023-01-09] MEDS: PIPERACILLIN/TAZOB 3.375 GM 3.375 GM in DEXTROSE 5%-WATER - 50 ML IVPB SCH ×3 (01:28→17:33)
[2023-01-09] MEDS: GABAPENTIN 300 MG CAPSULE PO SCH ×3 (06:04→21:48)
[2023-01-09] MEDS: AMINO ACIDS/PROTEIN HYDROLYS 30 ML LIQUID.PKT PO SCH ×2 (07:57→16:42)
[2023-01-09] MEDS: TAMSULOSIN HCL 0.4 MG CAP PO SCH (07:57)
[2023-01-09] MEDS: SERTRALINE HCL 25 MG TABLET (FP) PO SCH (10:18)
[2023-01-09] MEDS: ASCORBIC ACID 500 MG TABLET (FP) PO SCH (10:18)
[2023-01-09] MEDS: MULTIVITAMINS (DAILY MVI) TABLET (FP) PO SCH (10:18)
[2023-01-09] MEDS: LOSARTAN POTASSIUM 25 MG TABLET PO SCH (10:18)
[2023-01-09] MEDS: CARVEDILOL 6.25 MG TABLET (FP) PO SCH ×2 (10:18→21:48)
[2023-01-09] MEDS: BACLOFEN 10 MG TABLET (FP) PO SCH ×2 (10:18→21:48)
[2023-01-09] MEDS: COLLAGENASE CLOSTRIDIUM HIST. 30 GRAMS TUBE TP SCH (10:19)
[2023-01-09] MEDS: LACTOBACILLUS ACIDOPHILUS 1 TABLET PO SCH (10:26)
[2023-01-09] MEDS: VANCOMYCIN/WATER FOR INJ (PEG) 1,000 MG/200 ML BAG IVPB SCH ×2 (10:56→21:52)
[2023-01-09] MEDS: ACETAMINOPHEN 325 MG TABLET (FP) PO PRN ×2 (13:27→22:11)
[2023-01-09] MEDS: ATORVASTATIN CA 10 MG TABLET (FP) PO SCH (21:48)
[2023-01-10] MEDS: PIPERACILLIN/TAZOB 3.375 GM 3.375 GM in DEXTROSE 5%-WATER - 50 ML IVPB SCH ×3 (02:12→17:16)
[2023-01-10] MEDS: GABAPENTIN 300 MG CAPSULE PO SCH ×3 (05:38→21:35)
[2023-01-10] MEDS: TAMSULOSIN HCL 0.4 MG CAP PO SCH (08:53)
[2023-01-10] MEDS: AMINO ACIDS/PROTEIN HYDROLYS 30 ML LIQUID.PKT PO SCH ×2 (08:53→17:17)
[2023-01-10] MEDS: LOSARTAN POTASSIUM 25 MG TABLET PO SCH (09:10)
[2023-01-10] MEDS: CARVEDILOL 6.25 MG TABLET (FP) PO SCH ×2 (09:10→21:35)
[2023-01-10] MEDS: MULTIVITAMINS (DAILY MVI) TABLET (FP) PO SCH (09:10)
[2023-01-10] MEDS: SERTRALINE HCL 25 MG TABLET (FP) PO SCH (09:11)
[2023-01-10] MEDS: BACLOFEN 10 MG TABLET (FP) PO SCH ×2 (09:11→21:35)
[2023-01-10] MEDS: LACTOBACILLUS ACIDOPHILUS 1 TABLET PO SCH (09:11)
[2023-01-10] MEDS: ASCORBIC ACID 500 MG TABLET (FP) PO SCH (09:11)
[2023-01-10] MEDS: ACETAMINOPHEN 325 MG TABLET (FP) PO PRN ×2 (09:17→21:35)
[2023-01-10] MEDS: VANCOMYCIN/WATER FOR INJ (PEG) 1,000 MG/200 ML BAG IVPB SCH ×2 (11:11→21:47)
[2023-01-10] MEDS: FLUTICASONE PROP 0.05% 16 GM NASAL SPRAY NS SCH ×2 (12:49→21:36)
[2023-01-10] MEDS: COLLAGENASE CLOSTRIDIUM HIST. 30 GRAMS TUBE TP SCH (15:02)
[2023-01-10] MEDS: ATORVASTATIN CA 10 MG TABLET (FP) PO SCH (21:35)
[2023-01-10] MEDS ORDERED: INSULIN (LEVEMIR) 100 UNITS/ML UNITS SQ SCH (22:00)
[2023-01-11] MEDS: PIPERACILLIN/TAZOB 3.375 GM 3.375 GM in DEXTROSE 5%-WATER - 50 ML IVPB SCH ×3 (01:04→18:05)
[2023-01-11] MEDS: GABAPENTIN 300 MG CAPSULE PO SCH ×3 (06:19→23:50)
[2023-01-11] MEDS: AMINO ACIDS/PROTEIN HYDROLYS 30 ML LIQUID.PKT PO SCH ×2 (08:26→18:28)
[2023-01-11] MEDS: TAMSULOSIN HCL 0.4 MG CAP PO SCH (08:26)
[2023-01-11] MEDS: BACLOFEN 10 MG TABLET (FP) PO SCH ×2 (09:49→23:50)
[2023-01-11] MEDS: ASCORBIC ACID 500 MG TABLET (FP) PO SCH (09:49)
[2023-01-11] MEDS: SERTRALINE HCL 25 MG TABLET (FP) PO SCH (09:49)
[2023-01-11] MEDS: COLLAGENASE CLOSTRIDIUM HIST. 30 GRAMS TUBE TP SCH (09:49)
[2023-01-11] MEDS: MULTIVITAMINS (DAILY MVI) TABLET (FP) PO SCH (09:49)
[2023-01-11] MEDS: LACTOBACILLUS ACIDOPHILUS 1 TABLET PO SCH (09:49)
[2023-01-11] MEDS: LOSARTAN POTASSIUM 25 MG TABLET PO SCH (09:49)
[2023-01-11] MEDS: CARVEDILOL 6.25 MG TABLET (FP) PO SCH ×2 (09:49→23:50)
[2023-01-11] MEDS: FLUTICASONE PROP 0.05% 16 GM NASAL SPRAY NS SCH (09:50)
[2023-01-11] MEDS: VANCOMYCIN/WATER FOR INJ (PEG) 1,000 MG/200 ML BAG IVPB SCH (09:50)
[2023-01-11 10:14] LABS: INR 1.26 (0.83-1.09); PROTHROMBIN TIME (PATIENT) 14.6 SEC (9.7-13.0)
[2023-01-11] MEDS ORDERED: DEXAMETHASONE SOD PHOSPHATE 4 MG/1 ML VIAL ONE (12:48)
[2023-01-11] MEDS ORDERED: LIDOCAINE HCL 1%, 10 MG/ML (10ML VIAL) MDV ONE (12:48)
[2023-01-11] MEDS ORDERED: GENTAMICIN SO4 80 MG/2 ML VIAL ONE (12:48)
[2023-01-11] MEDS ORDERED: BUPIVACAINE HCL/PF 0.5% (5MG/ML) 10 ML VIAL ONE ×2 (12:49→12:58)
[2023-01-11] MEDS ORDERED: KETAMINE HCL 500 MG/10 ML VIAL ONE (14:17)
[2023-01-11] MEDS ORDERED: PROPOFOL 20 ML ONE (14:17)
[2023-01-11] MEDS ORDERED: MIDAZOLAM HCL 2 MG/2 ML SINGLE DOSE VIAL ONE (14:17)
[2023-01-11] MEDS ORDERED: BUPIVACAINE HCL/PF 0.5% (5MG/ML) 10 ML VIAL IJ ONE (14:27)
[2023-01-11] MEDS ORDERED: LIDOCAINE HCL 1%, 10 MG/ML (20ML VIAL) INF ONE (14:27)
[2023-01-11] MEDS ORDERED: oxyCODONE HCL 5 MG TABLET PO PRN ×4 (15:15→17:08)
[2023-01-11] MEDS ORDERED: LACTATED RINGERS SOLUTION 1,000 ML IV SCH ×2 (15:15→17:08)
[2023-01-11] MEDS ORDERED: PROMETHAZINE HCL 25 MG/1 ML VIAL IVPB PRN ×2 (15:15→17:08)
[2023-01-11] MEDS ORDERED: ONDANSETRON 4 MG/2 ML VIAL IVPUSH PRN ×2 (15:15→17:08)
[2023-01-11] MEDS ORDERED: ACETAMINOPHEN 325 MG TABLET (FP) PO PRN (15:18)
[2023-01-11] MEDS ORDERED: GLYCOPYRROLATE 0.2 MG/1 ML VIAL IVPB ONE (15:21)
[2023-01-11] MEDS ORDERED: GLYCOPYRROLATE 0.2 MG/1 ML VIAL ONE (15:21)
[2023-01-11] MEDS ORDERED: AMINO ACIDS/PROTEIN HYDROLYS 30 ML LIQUID.PKT PO SCH (17:30)
[2023-01-11] MEDS ORDERED: PIPERACILLIN/TAZOB 3.375 GM 3.375 GM in DEXTROSE 5%-WATER - 50 ML IVPB SCH (18:00)
[2023-01-11] MEDS ORDERED: METOPROLOL TARTRATE 5 MG/5 ML VIAL IVPUSH ONE ×2 (20:13→20:30)
[2023-01-11 20:17] VITALS: BMI 30.8
[2023-01-11] MEDS ORDERED: BACLOFEN 10 MG TABLET (FP) PO SCH (22:00)
[2023-01-11] MEDS ORDERED: FLUTICASONE PROP 0.05% 16 GM NASAL SPRAY NS SCH (22:00)
[2023-01-11] MEDS ORDERED: ATORVASTATIN CA 10 MG TABLET (FP) PO SCH (22:00)
[2023-01-11] MEDS ORDERED: GABAPENTIN 300 MG CAPSULE PO SCH (22:00)
[2023-01-11] MEDS ORDERED: VANCOMYCIN/WATER FOR INJ (PEG) 1,000 MG/200 ML BAG IVPB SCH (22:00)
[2023-01-11] MEDS ORDERED: INSULIN (LEVEMIR) 100 UNITS/ML UNITS SQ SCH (22:00)
[2023-01-11] MEDS ORDERED: CARVEDILOL 6.25 MG TABLET (FP) PO SCH (22:00)
[2023-01-11] MEDS: ATORVASTATIN CA 10 MG TABLET (FP) PO SCH (23:49)
[2023-01-12] MEDS: VANCOMYCIN/WATER FOR INJ (PEG) 1,000 MG/200 ML BAG IVPB SCH ×2 (00:59→10:31)
[2023-01-12] MEDS: FLUTICASONE PROP 0.05% 16 GM NASAL SPRAY NS SCH ×3 (02:29→21:44)
[2023-01-12] MEDS: PIPERACILLIN/TAZOB 3.375 GM 3.375 GM in DEXTROSE 5%-WATER - 50 ML IVPB SCH ×3 (02:55→17:21)
[2023-01-12] MEDS: GABAPENTIN 300 MG CAPSULE PO SCH ×3 (06:21→21:44)
[2023-01-12] MEDS ORDERED: TAMSULOSIN HCL 0.4 MG CAP PO SCH (08:30)
[2023-01-12] MEDS: TAMSULOSIN HCL 0.4 MG CAP PO SCH (08:44)
[2023-01-12] MEDS: AMINO ACIDS/PROTEIN HYDROLYS 30 ML LIQUID.PKT PO SCH ×2 (08:44→17:21)
[2023-01-12] MEDS ORDERED: SERTRALINE HCL 25 MG TABLET (FP) PO SCH (10:00)
[2023-01-12] MEDS ORDERED: ASCORBIC ACID 500 MG TABLET (FP) PO SCH (10:00)
[2023-01-12] MEDS ORDERED: LACTOBACILLUS ACIDOPHILUS 1 TABLET PO SCH (10:00)
[2023-01-12] MEDS ORDERED: MULTIVITAMINS (DAILY MVI) TABLET (FP) PO SCH (10:00)
[2023-01-12] MEDS ORDERED: LOSARTAN POTASSIUM 25 MG TABLET PO SCH (10:00)
[2023-01-12] MEDS: BACLOFEN 10 MG TABLET (FP) PO SCH ×2 (10:31→21:44)
[2023-01-12] MEDS: LACTOBACILLUS ACIDOPHILUS 1 TABLET PO SCH (10:31)
[2023-01-12] MEDS: MULTIVITAMINS (DAILY MVI) TABLET (FP) PO SCH (10:32)
[2023-01-12] MEDS: CARVEDILOL 6.25 MG TABLET (FP) PO SCH ×2 (10:32→21:44)
[2023-01-12] MEDS: ASCORBIC ACID 500 MG TABLET (FP) PO SCH (10:32)
[2023-01-12] MEDS: SERTRALINE HCL 25 MG TABLET (FP) PO SCH (10:32)
[2023-01-12] MEDS: LOSARTAN POTASSIUM 25 MG TABLET PO SCH (10:32)
[2023-01-12] MEDS: INSULIN SLIDING SCALE (NOVOLOG) 1 VIAL SQ SCH ×3 (17:19→21:45)
[2023-01-12] MEDS: ATORVASTATIN CA 10 MG TABLET (FP) PO SCH (21:44)
[2023-01-12] MEDS: INSULIN (LEVEMIR) 100 UNITS/ML UNITS SQ SCH ×2 (22:31)
[2023-01-13] MEDS: GABAPENTIN 300 MG CAPSULE PO SCH ×3 (05:42→21:34)
[2023-01-13] MEDS: ACETAMINOPHEN 325 MG TABLET (FP) PO PRN ×2 (05:56→11:26)
[2023-01-13] MEDS: INSULIN SLIDING SCALE (NOVOLOG) 1 VIAL SQ SCH ×4 (06:22→21:36)
[2023-01-13 07:19] LABS: BASO % 0.5 % (0-2.0); EOS % 1.9 % (0-4.5); HEMATOCRIT 32.5 % (35.4-49); HEMOGLOBIN 11.2 GM/dL (11.7-16.9); LYMPH % 21.4 % (8-40); MCH 30.4 pg (25.7-33.7); MCHC 34.4 g/dl (32.0-35.9); MEAN CELL VOLUME 88.3 fl (80-96); MEAN PLT VOLUME 8.3 fl (7.5-11.1); NEUT % 64.2 % (42.8-82.8); PLATELET COUNT 168 10^3/uL (134-434); RBC 3.68 M/mm3 (4.00-5.60); RDW 14.2 % (11.9-15.9); WHITE BLOOD COUNT 6.7 K/mm3 (4.0-10.0)
[2023-01-13] MEDS: AMINO ACIDS/PROTEIN HYDROLYS 30 ML LIQUID.PKT PO SCH ×2 (08:47→17:22)
[2023-01-13] MEDS: TAMSULOSIN HCL 0.4 MG CAP PO SCH (08:47)
[2023-01-13] MEDS: CARVEDILOL 6.25 MG TABLET (FP) PO SCH ×2 (09:40→21:34)
[2023-01-13] MEDS: MULTIVITAMINS (DAILY MVI) TABLET (FP) PO SCH (09:40)
[2023-01-13] MEDS: SERTRALINE HCL 25 MG TABLET (FP) PO SCH (09:40)
[2023-01-13] MEDS: BACLOFEN 10 MG TABLET (FP) PO SCH ×2 (09:40→21:34)
[2023-01-13] MEDS: ASCORBIC ACID 500 MG TABLET (FP) PO SCH (09:40)
[2023-01-13] MEDS: LOSARTAN POTASSIUM 25 MG TABLET PO SCH (09:40)
[2023-01-13] MEDS: LACTOBACILLUS ACIDOPHILUS 1 TABLET PO SCH (09:40)
[2023-01-13] MEDS: FLUTICASONE PROP 0.05% 16 GM NASAL SPRAY NS SCH ×2 (09:41→21:36)
[2023-01-13] MEDS: ENOXAPARIN NA (PORCINE) 40 MG/0.4 ML DISP.SYRIN SQ SCH (11:24)
[2023-01-13] MEDS: sitaGLIPtin PHOSPHATE 50 MG TABLET PO SCH (11:24)
[2023-01-13] MEDS ORDERED: IBUPROFEN 400 MG TABLET (FP) PO PRN (14:44)
[2023-01-13] MEDS: metFORMIN HCL 500 MG TABLET (FP) PO SCH (17:22)
[2023-01-13] MEDS: ATORVASTATIN CA 10 MG TABLET (FP) PO SCH (21:34)
[2023-01-13] MEDS: INSULIN (LEVEMIR) 100 UNITS/ML UNITS SQ SCH (21:35)
[2023-01-14] MEDS: GABAPENTIN 300 MG CAPSULE PO SCH ×3 (06:09→21:17)
[2023-01-14] MEDS: sitaGLIPtin PHOSPHATE 50 MG TABLET PO SCH (06:09)
[2023-01-14] MEDS: metFORMIN HCL 500 MG TABLET (FP) PO SCH ×2 (06:09→16:22)
[2023-01-14] MEDS: INSULIN SLIDING SCALE (NOVOLOG) 1 VIAL SQ SCH ×5 (06:10→21:21)
[2023-01-14 08:05] LABS: BASO % 0.4 % (0-2.0); HEMATOCRIT 33.1 % (35.4-49); HEMOGLOBIN 10.8 GM/dL (11.7-16.9); LYMPH % 16.6 % (8-40); MCH 29.2 pg (25.7-33.7); MCHC 32.5 g/dl (32.0-35.9); MEAN CELL VOLUME 89.8 fl (80-96); MEAN PLT VOLUME 8.7 fl (7.5-11.1); MONO % 10.5 % (3.8-10.2); NEUT % 70.5 % (42.8-82.8); PLATELET COUNT 177 10^3/uL (134-434); RBC 3.69 M/mm3 (4.00-5.60); RDW 13.8 % (11.9-15.9); WHITE BLOOD COUNT 5.8 K/mm3 (4.0-10.0)
[2023-01-14 08:20] LABS: POTASSIUM 4.2 mmol/L (3.5-5.1)
[2023-01-14 08:24] LABS: ALBUMIN 2.2 g/dl (3.4-5.0); BLOOD UREA NITROGEN 41.9 mg/dL (7-18); CALCIUM 8.9 mg/dL (8.5-10.1)
[2023-01-14 08:28] LABS: CREATININE 0.9 mg/dL (0.55-1.3)
[2023-01-14 08:29] LABS: BILIRUBIN,TOTAL 0.7 mg/dL (0.2-1); TOT PROT 5.7 g/dl (6.4-8.2)
[2023-01-14] MEDS: CARVEDILOL 6.25 MG TABLET (FP) PO SCH ×2 (10:20→21:17)
[2023-01-14] MEDS: MULTIVITAMINS (DAILY MVI) TABLET (FP) PO SCH (10:20)
[2023-01-14] MEDS: LOSARTAN POTASSIUM 25 MG TABLET PO SCH (10:20)
[2023-01-14] MEDS: TAMSULOSIN HCL 0.4 MG CAP PO SCH (10:20)
[2023-01-14] MEDS: BACLOFEN 10 MG TABLET (FP) PO SCH ×2 (10:20→21:17)
[2023-01-14] MEDS: ASCORBIC ACID 500 MG TABLET (FP) PO SCH (10:20)
[2023-01-14] MEDS: ENOXAPARIN NA (PORCINE) 40 MG/0.4 ML DISP.SYRIN SQ SCH (10:20)
[2023-01-14] MEDS: SERTRALINE HCL 25 MG TABLET (FP) PO SCH (10:20)
[2023-01-14] MEDS: AMINO ACIDS/PROTEIN HYDROLYS 30 ML LIQUID.PKT PO SCH ×2 (10:20→18:42)
[2023-01-14] MEDS: LACTOBACILLUS ACIDOPHILUS 1 TABLET PO SCH (10:20)
[2023-01-14] MEDS: FLUTICASONE PROP 0.05% 16 GM NASAL SPRAY NS SCH ×2 (10:40→21:18)
[2023-01-14] MEDS: ACETAMINOPHEN 325 MG TABLET (FP) PO PRN ×2 (12:00→21:16)
[2023-01-14] MEDS: ATORVASTATIN CA 10 MG TABLET (FP) PO SCH (21:17)
[2023-01-14] MEDS: INSULIN (LEVEMIR) 100 UNITS/ML UNITS SQ SCH (21:20)
[2023-01-15] MEDS: sitaGLIPtin PHOSPHATE 50 MG TABLET PO SCH (06:51)
[2023-01-15] MEDS: GABAPENTIN 300 MG CAPSULE PO SCH ×2 (06:54→14:01)
[2023-01-15] MEDS: metFORMIN HCL 500 MG TABLET (FP) PO SCH ×2 (06:54→18:17)
[2023-01-15] MEDS: INSULIN SLIDING SCALE (NOVOLOG) 1 VIAL SQ SCH ×3 (06:55→18:17)
[2023-01-15] MEDS: SERTRALINE HCL 25 MG TABLET (FP) PO SCH (09:19)
[2023-01-15] MEDS: BACLOFEN 10 MG TABLET (FP) PO SCH (09:19)
[2023-01-15] MEDS: ENOXAPARIN NA (PORCINE) 40 MG/0.4 ML DISP.SYRIN SQ SCH (09:19)
[2023-01-15] MEDS: LOSARTAN POTASSIUM 25 MG TABLET PO SCH (09:19)
[2023-01-15] MEDS: AMINO ACIDS/PROTEIN HYDROLYS 30 ML LIQUID.PKT PO SCH ×2 (09:19→18:17)
[2023-01-15] MEDS: FLUTICASONE PROP 0.05% 16 GM NASAL SPRAY NS SCH (09:20)
[2023-01-15] MEDS: LACTOBACILLUS ACIDOPHILUS 1 TABLET PO SCH (09:20)
[2023-01-15] MEDS: CARVEDILOL 6.25 MG TABLET (FP) PO SCH (09:20)
[2023-01-15] MEDS: ASCORBIC ACID 500 MG TABLET (FP) PO SCH (09:20)
[2023-01-15] MEDS: MULTIVITAMINS (DAILY MVI) TABLET (FP) PO SCH (09:20)
[2023-01-15] MEDS: TAMSULOSIN HCL 0.4 MG CAP PO SCH (09:20)
[2023-01-15 18:16] VITALS: BP 130/77; PULSE 65; RESP 18; TEMP 99.2
== END 2023-01-15 18:31 | DRG 617 ==
LOC: JER 09:01 → JERBED 10:48 → J6S 12:32 → J4S 01-11 21:46
PROVIDERS: ADMIT Internal Medicine; ATTEND Internal Medicine
PROC: 0Y6U0Z0 Detachment at Left 3rd Toe, Complete, Open Approach (ICD-10-PCS; principal; 2023-01-11 14:00)
DX: E11.621 Type 2 diabetes mellitus with foot ulcer (principal); I97.191 Other postprocedural cardiac functional disturbances following other surgery; L03.90 Cellulitis, unspecified; M86.172 Other acute osteomyelitis, left ankle and foot; M86.672 Other chronic osteomyelitis, left ankle and foot; E11.69 Type 2 diabetes mellitus with other specified complication; J44.9 Chronic obstructive pulmonary disease, unspecified; I10 Essential (primary) hypertension; E78.5 Hyperlipidemia, unspecified; E11.51 Type 2 diabetes mellitus with diabetic peripheral angiopathy without gangrene; L97.509 Non-pressure chronic ulcer of other part of unspecified foot with unspecified severity; I73.9 Peripheral vascular disease, unspecified; I25.119 Atherosclerotic heart disease of native coronary artery with unspecified angina pectoris; Z95.5 Presence of coronary angioplasty implant and graft; K21.9 Gastro-esophageal reflux disease without esophagitis; N40.0 Benign prostatic hyperplasia without lower urinary tract symptoms; Y83.9 Surgical procedure, unspecified as the cause of abnormal reaction of the patient, or of later complication, without mention of misadventure at the time of the procedure
CPT/HCPCS: 36415; 71045-TC-FY; 73610-TC-RT-FY; 73630-TC-LT; 80053; 82962; 83036; 83605; 84443; 85025; 85610; 87040; 87635; 88305-TC; 88311-TC; 93005; 93010; 94010; 94760; 99285-25; G0463-25; J0475

== ENCOUNTER 2023-01-15 17:36 | Emergency (ER) | payer OTHER ==
[2023-01-15 17:46] VITALS: BMI 28.8
[2023-01-15] MEDS ORDERED: IBUPROFEN 400 MG TABLET (FP) PO ONE (20:34)
[2023-01-15] MEDS ORDERED: GABAPENTIN 300 MG CAPSULE PO ONE (20:34)
[2023-01-15] MEDS ORDERED: GABAPENTIN 300 MG CAPSULE ONE (20:35)
[2023-01-15] MEDS ORDERED: IBUPROFEN 600 MG TABLET (FP) PO ONE (20:35)
[2023-01-16 00:40] VITALS: BP 112/54; PULSE 52; RESP 17; TEMP 98
== END 2023-01-16 02:41 | disposition home or self-care (01) ==
LOC: JER 17:36
DX: M54.9 Dorsalgia, unspecified (principal); W19.XXXA Unspecified fall, initial encounter
CPT/HCPCS: 70450-TC; 72070-TC-FY; 72100-TC-FY; 72125-TC; 99284-25